=== PATIENT | female | born 1995 | race Caucasian/White ===

== ENCOUNTER 2020-06-28 15:48 | Emergency (ER) | payer MEDICAID, SELFPAY ==
[2020-06-28 15:49] VITALS: BP 147/110; PULSE 89; RESP 20; TEMP 36.6; O2SAT 100
[2020-06-28] MEDS: PROCHLORPERAZINE EDISYLATE 10 MG/2 ML VIAL IV PUSH (16:22)
[2020-06-28] MEDS: diphenhydrAMINE HCl INJ 50 MG/ML VIAL 25 MG IV PUSH (16:22)
[2020-06-28] MEDS: cloNIDine HCL 0.1 MG TABLET PO (16:22)
[2020-06-28 16:38] LABS: Basophils Absolute Auto 0.1 K/mm3 (0.0-0.1); Basophils Percent Auto 0.6 % (0.2-1.2); Eosinophils Percent Auto 0.2 % (0-4.4); Hematocrit 45.5 % (37.0-47.0); Hemoglobin 15.7 g/dL (12.0-15.0); Immature Granulocyte Absolute 0.04 K/mm3 (0.00-0.031); Immature Granulocyte Percent A 0.4 % (0-0.5); Lymphocytes Absolute Auto 1.78 K/mm3 (0.9-3.2); Lymphocytes Percent Auto 16.1 % (18.3-44.2); Mean Corpuscular HGB Conc 34.5 g/dl (32-36); Mean Corpuscular Hemoglobin 29.8 pg (26-34); Mean Corpuscular Volume 86.5 fl (80-100); Mean Platelet Volume 9.6 fl (7.4-10.4); Monocytes Absolute Auto 0.4 K/mm3 (0.1-0.6); Monocytes Percent Auto 3.8 % (2.6-8.5); Neutrophils Absolute Auto 8.8 K/mm3 (1.3-6.7); Neutrophils Percent Auto 78.9 % (45.5-73.1); Platelet Count Result 351 k/mm3 (150-375); Red Blood Count 5.26 M/mm3 (4.2-5.4); Red Cell Distribution Width 12.6 % (11.5-14.5); White Blood Count 11.1 K/mm3 (4.5-10.0)
[2020-06-28 16:49] LABS: Ethanol < 10 mg/dL (<10)
[2020-06-28 16:51] LABS: Alanine Aminotransferase 20 U/L (4-35); Alkaline Phosphatase 145 U/L (38-126); Anion Gap 15 mmol/L (8-16); Aspartate Amino Transferase 25 U/L (14-36); Bilirubin,Total 0.6 mg/dL (0.2-1.3); Blood Urea Nitrogen 13 mg/dL (7-17); Calcium 10.1 mg/dL (8.4-10.2); Carbon Dioxide 24 mmol/L (22-30); Chloride 102 mmol/L (98-107); Estimated Glomerular Filt Rate > 60; Glucose 153 mg/dL (65-105); Potassium 4.1 mmol/L (3.4-5.0); Sodium 141 mmol/L (137-145)
[2020-06-28] MEDS: HALOPERIDOL LACTATE 5 MG/ML VIAL IM (17:24)
[2020-06-28 17:39] LABS: Add Urine Microscopic? YES; Appearance Urine Cloudy (Clear); Bacteria Urine Trace /hpf; Bilirubin Urine Negative (Negative); Blood Urine Negative (Negative); Color Urine Yellow (Yellow); Glucose Urine UA Negative (Negative); Ketones Urine 1+ mg/dL (Negative); Leukocyte Esterase Ur Negative LEU/UL (Negative); Mucus Urine Rare /lpf; Nitrate Urine Negative (Negative); Protein Urine 2+ mg/dL (Negative); RBC Urine 0-2 /hpf (0-2); Specific Grav Ur 1.025 (1.001-1.035); Squamous Epithelial Cell Urine Occasional /hpf (Few); Urobilinogen Urine Negative mg/dL (<2.0); WBC Urine 0-3 /hpf
[2020-06-28] MEDS: SODIUM CHLORIDE 0.9% IV 1,000 ML 999 ML IV CONT (17:40)
[2020-06-28 17:42] VITALS: BP 140/90; PULSE 90; RESP 20; O2SAT 100
[2020-06-28 17:51] LABS: Amphetamine Screen Urine Negative (Negative); Barbiturate Screen Urine Negative (Negative); Benzodiazepines Screen Urine Negative (Negative); Cannabinoid Screen Urine Positive (Negative); Cocaine Screen Urine Negative (Negative); Methadone Screen Urine Negative (Negative); Opiate Screen Urine Positive (Negative); Phencyclidine Screen Urine Negative (Negative)
[2020-06-28 18:06] VITALS: BP 136/79; PULSE 88; RESP 20; O2SAT 100
--- NOTE | 2020-06-28 18:12 | ED.NAVMDI ---
HPI - Nausea/Vomiting/Diarrhea General Chief complaint: Nausea/Vomiting/Diarrhea Stated complaint: vomiting x1 hour Time Seen by Provider: 06/28/20 15:57 Source: patient Mode of arrival: EMS Limitations: no limitations History of Present Illness HPI Narrative: 25-year-old with a history of opioid abuse here with complaints of nausea vomiting abdominal pain since yesterday. Patient states that she used fentanyl this morning. She denies any fever or chills. Patient states she had gone through withdrawal in the past. MD elicited complaint: nausea, vomiting and abdominal pain Onset (ago): hour(s) (1) Location of pain: diffuse Pain consistency: constant Quality: cramping Context: marijuana use and other (Fentanyl IV abuse) Related Data Allergies Allergy/AdvReac Type Severity Reaction Status Date / Time amoxicillin Allergy Unknown Unknown Verified 06/28/20 15:54 Review of Systems Review of Systems: All systems reviewed & are unremarkable except as noted in HPI and below Constitutional: Constitutional: Reports no additional constitutional complaints Eyes: Eyes: Reports as per HPI ENT: Reports as per HPI Cardiovascular: Cardiovascular: Reports no additional cardiovascular complaints Respiratory: Respiratory: Reports no additional respiratory complaints Gastrointestinal: Gastrointestinal: Reports as per HPI Musculoskeletal: Musculoskeletal: Reports no additional musculoskeletal complaints Exam Narrative: Exam Narrative: GENERAL: well-nourished, screaming, and vomiting at the same time. HEAD: Normocephalic, atraumatic. EYES: PERRLA and EOMI. ENT: Nares clear, no rhinorrhea or epistaxis. Mucous membranes moist. NECK: Supple. CHEST: Clear to auscultation. No respiratory distress. HEART: Regular rate and rhythm. No murmur heard. Normal peripheral pulses. ABDOMEN: Soft, nontender, nondistended, normal active bowel sounds. EXTREMITIES: Normal range of motion. No edema. SKIN: Warm, dry, no rash. NEURO: No focal deficits. Alert and oriented x3. PSYCH: Normal mood and affect. Course Course Emergency Course: After liter of fluid and Compazine and Haldol patient finally rested. Discussed lab with the patient and the mother. She does feel comfortable going home. Vital Signs Vital signs: Vital Signs Temperature 36.6 C 06/28/20 15:49 Pulse Rate 89 06/28/20 15:49 Respiratory Rate 20 06/28/20 15:49 Blood Pressure 147/110 H 06/28/20 15:49 Pulse Oximetry 100 06/28/20 15:49 Temperature 36.6 C 06/28/20 15:49 Pulse Rate 88 06/28/20 18:06 Respiratory Rate 20 06/28/20 18:06 Blood Pressure 136/79 06/28/20 18:06 Pulse Oximetry 100 06/28/20 18:06 MDM - Nausea/Vomiting/Diarrhea Lab Data Result diagrams: 06/28/20 16:33 06/28/20 16:33 Labs: Lab Results 06/28/20 06/28/20 06/28/20 Range/Units 16:33 16:33 16:33 WBC 11.1 H (4.5-10.0) K/mm3 RBC 5.26 (4.2-5.4) M/mm3 Hgb 15.7 H (12.0-15.0) g/dL Hct 45.5 (37.0-47.0) % MCV 86.5 (80-100) fl MCH 29.8 (26-34) pg MCHC 34.5 (32-36) g/dl RDW 12.6 (11.5-14.5) % Plt Count 351 (150-375) k/mm3 MPV 9.6 (7.4-10.4) fl Immature Gran % (Auto) 0.4 (0-0.5) % Neut % (Auto) 78.9 H (45.5-73.1) % Lymph % (Auto) 16.1 L (18.3-44.2) % Winston % (Auto) 3.8 (2.6-8.5) % Eos % (Auto) 0.2 (0-4.4) % Baso % (Auto) 0.6 (0.2-1.2) % Lymph # (Auto) 1.78 (0.9-3.2) K/mm3 Winston # (Auto) 0.4 (0.1-0.6) K/mm3 Eos # (Auto) 0.0 (0-0.3) K/mm3 Baso # (Auto) 0.1 (0.0-0.1) K/mm3 Abs Immat Gran (auto) 0.04 H (0.00-0.031) K/mm3 Absolute Neuts (auto) 8.8 H (1.3-6.7) K/mm3 Absolute Nucleated RBC 0.0 (0.0-0.012) K/mm3 Nucleated RBC % 0.0 (0.0-0.2) % Sodium 141 (137-145) mmol/L Potassium 4.1 (3.4-5.0) mmol/L Chloride 102 (98-107) mmol/L Carbon Dioxide 24 (22-30) mmol/L Anion Gap 15 (8-16) mmol/L BUN 13 (7-17) mg/dL Cr
[2020-06-28 18:38] VITALS: BP 136/79; PULSE 88; RESP 20; O2SAT 100
--- NOTE | 2020-06-28 21:53 | PC.NURSE ---
CALLED GUILLAUME IN TO [facility] IN [place], [facility] NOT OPEN.
== END 2020-06-28 18:40 | disposition home or self-care (01) ==
PROVIDERS: Emergency Provider Family Medicine; PCP Pediatrics
DX: R11.2 Nausea with vomiting, unspecified (principal); F11.90 Opioid use, unspecified, uncomplicated
CPT/HCPCS: 36415; 51701; 80053; 80307; 81001; 85025; 96361; 96372; 96374; 96375; 99284; A9270; J0780; J1200; J1630; J7030

== ENCOUNTER 2020-06-29 19:46 | Observation (INO) | payer MEDICAID, SELFPAY ==
--- NOTE | ~2020-06-29 | CT_ITS ---
EXAMINATION: CT brain wo con EXAM DATE: 06/29/2020 21:41 INDICATION: Seizure. TECHNIQUE: Spiral CT of the head was performed without contrast. Axial, coronal and sagittal images were reviewed. The dose-length product (DLP) for this examination was 1210.67 mGy-cm. The exposure was tailored according to patient size, and iterative reconstruction (ASIR) was used as additional do se reduction technique. There is no prior study for comparison. FINDINGS: There is no acute intraparenchymal hemorrhage. No evidence of intraparenchymal brain mass lesion. No evidence of acute infarction. There is no mass effect or midline shift. The ventricles are normal in size. There are no extra-axial collections. There are no acute calvarial fractures. T he orbits are unremarkable. Soft tissue is unremarkable. Large right, moderate size left maxillary sinus mucous retention cysts. IMPRESSION: 1. No acute intracranial findings. Reviewed, dictated and finalized at location A.
--- NOTE | ~2020-06-29 | MR_ITS ---
EXAMINATION: MR brain/brain stem wo con EXAM DATE: 06/30/2020 16:05 INDICATION: Seizure. TECHNIQUE: Magnetic resonance imaging (MRI) of the brain/brain stem obtained without contrast. Sagitt al T1, axial diffusion, gradient echo (T2*), T1, T2, FLAIR sequences obtained. Seizure protocol was u tilized including high-resolution coronal images through the hippocampi. There is no prior study f or comparison. FINDINGS: The hippocampi are symmetric and are without signal abnormality identified. There are no g ray matter heterotopias identified or evidence of cortical dysplasia. There are no areas of restricted diffusion to suggest acute infarction. There is no acute hemorrhage seen on the T2*, a hemosiderin sensitive sequence. No intraparenchymal brain mass. The ventricles a re normal in size. There are no extra-axial collections. Flow voids are seen in the cerebral arteri es on the T2-weighted sequences consistent with their expected patency. The orbits are unremarkable. Soft tissue is unremarkable. IMPRESSION: Normal brain MRI examination. Reviewed, dictated and finalized at location A.
[2020-06-29 19:47] VITALS: BP 130/98; PULSE 103; RESP 22; TEMP 37.5; O2SAT 99
--- NOTE | 2020-06-29 19:59 | ECG_ITS ---
Measurements Intervals [place] Rate: 79 P: 55 DC: 125 QRS: 79 QRSD: 85 T: 61 QT: 366 QTc: 421 Interpretive Statements SINUS RHYTHM WITH SINUS ARRHYTHMIA MINIMAL Q WAVES- INFERIOR LEADS BORDERLINE ECG Electronically Signed On 06-30-2020 6:52:10 CDT by Evan King D.O.
--- NOTE | 2020-06-29 20:01 | ED.GENADULT ---
HPI - General Adult General Chief complaint: Seizure Stated complaint: seizures Time Seen by Provider: 06/29/20 19:49 Source: patient and EMS History of Present Illness HPI narrative: Patient is 25 y/o female brought in by EMS for jaw locking up . Patient states that she has been having intermittent episodes of jaw locking up since 3 hours ago. Her mother called EMS for this complaint. However, EMS noted that patient had shaking episodes, decreased responsiveness suggesting seizure. She was given Versed intranasal [employer]. Currently, patient is awake and alert. She states that she is trying to get off Fentanyl and she has no known history of seizure. Related Data Allergies Allergy/AdvReac Type Severity Reaction Status Date / Time amoxicillin Allergy Unknown Unknown Verified 06/28/20 15:54 Review of Systems Constitutional: Constitutional: Denies chills, Denies fever(s), Denies headache(s) and Denies weakness Eyes: Eyes: Denies blurry vision ENT: Denies headache(s) and Denies neck pain Cardiovascular: Cardiovascular: Denies chest pain and Denies dyspnea Respiratory: Respiratory: Denies cough and Denies dyspnea Gastrointestinal: Gastrointestinal: Denies abdominal pain, Denies diarrhea, Denies nausea and Denies vomiting Genitourinary: Genitourinary: Denies hematuria and Denies dysuria Musculoskeletal: Musculoskeletal: Denies back pain and Denies neck pain Neurologic: Denies headache(s), Reports seizure-like activity and Denies weakness Comments: jaw spasm Exam Const: General: no acute distress and well developed Orientation/consciousness: oriented to person, oriented to place, oriented to time and patient oriented x3 HENMT: Head: normocephalic Ears: external ears normal General nose exam: Normal external nose present Eyes: General: appearance normal, both eyes and all related structures Conjunctivae: conjunctivae normal Neck: Neck: normal visual inspection and full ROM Chest: Chest palpation & inspection: normal inspection of the chest and no tenderness Resp: Effort & Inspection: normal respiratory effort Auscultation: clear to auscultation bilaterally Cardio: Rate: regular rate Rhythm: regular rhythm GI: GI Palp: No abdominal tenderness and Yes Soft to palpation Skin: General skin exam: normal color and turgor normal Neuro: General: oriented to person, oriented to place, oriented to time and patient oriented x3 Cognition (Neuro): normal cognition Extrem: General: normal to inspection, full ROM and no pedal edema Psych: Appearance: grossly normal Mental Status: mental status grossly normal Affect: normal affect Course Reevaluation(s) Reevaluation #1: Patient had an episode of seizure like activity. Ativan is given. Date: 06/29/20 Time: 21:53 Consultations Consultation #1: Discussed with Dr. Ferguson, who agrees to admit. Date: 06/29/20 Time: 23:05 Consultation #2: Discussed with Dr. Barahona (neurology), who agrees to consult. Date: 06/29/20 Time: 23:17 Vital Signs Vital signs: Vital Signs Temperature 37.5 C 06/29/20 19:47 Pulse Rate 103 H 06/29/20 19:47 Respiratory Rate 22 H 06/29/20 19:47 Blood Pressure 130/98 H 06/29/20 19:47 Pulse Oximetry 99 06/29/20 19:47 Temperature 36.6 C 06/29/20 23:30 Pulse Rate 90 06/29/20 23:30 Respiratory Rate 16 06/29/20 23:30 Blood Pressure 123/78 06/29/20 23:30 Pulse Oximetry 100 06/29/20 23:30 Medical Decision Making Vital Signs Vital Signs: Vital Signs Temperature 37.5 C 06/29/20 19:47 Pulse Rate 103 H 06/29/20 19:47 Respiratory Rate 22 H 06/29/20 19:47 Blood Pressure 130/98 H 06/29/20 19:47 Pulse Oximetry 99 06/29/20 19:47 Temperature 36.6 C 06/29/20 23:30 Pulse Rate 90 06/29/20 23:30 Respiratory Rate 16 06/29/20 23:30 Blood Pressure 123/78 06/29/20 23:30 Pulse Oximetry 100 06/29/20 23:30 Lab Data Result diagrams: 06/29/20 21:17 06/29/20 21:17 Labs: Lab R
--- NOTE | 2020-06-29 20:08 | PC.NURSE ---
Phlebotomy called for pt.
[2020-06-29 21:23] LABS: Basophils Absolute Auto 0.1 K/mm3 (0.0-0.1); Basophils Percent Auto 0.4 % (0.2-1.2); Hematocrit 50.2 % (37.0-47.0); Hemoglobin 17.1 g/dL (12.0-15.0); Immature Granulocyte Absolute 0.05 K/mm3 (0.00-0.031); Immature Granulocyte Percent A 0.4 % (0-0.5); Lymphocytes Absolute Auto 1.75 K/mm3 (0.9-3.2); Lymphocytes Percent Auto 13.7 % (18.3-44.2); Mean Corpuscular HGB Conc 34.1 g/dl (32-36); Mean Corpuscular Hemoglobin 29.7 pg (26-34); Mean Corpuscular Volume 87.3 fl (80-100); Mean Platelet Volume 9.3 fl (7.4-10.4); Monocytes Absolute Auto 0.7 K/mm3 (0.1-0.6); Monocytes Percent Auto 5.7 % (2.6-8.5); Neutrophils Absolute Auto 10.2 K/mm3 (1.3-6.7); Neutrophils Percent Auto 79.8 % (45.5-73.1); Platelet Count Result 414 k/mm3 (150-375); Red Blood Count 5.75 M/mm3 (4.2-5.4); Red Cell Distribution Width 12.6 % (11.5-14.5); White Blood Count 12.7 K/mm3 (4.5-10.0)
[2020-06-29 21:34] LABS: Anion Gap 15 mmol/L (8-16); Blood Urea Nitrogen 11 mg/dL (7-17); Calcium 10.4 mg/dL (8.4-10.2); Carbon Dioxide 31 mmol/L (22-30); Chloride 99 mmol/L (98-107); Estimated CRCL calculation 96 ml/min; Estimated Glomerular Filt Rate > 60; Glucose 123 mg/dL (65-105); Potassium 3.8 mmol/L (3.4-5.0); Sodium 145 mmol/L (137-145)
[2020-06-29 21:44] LABS: Add Urine Microscopic? YES; Appearance Urine Clear (Clear); Bacteria Urine Trace /hpf; Bilirubin Urine Negative (Negative); Blood Urine Negative (Negative); Color Urine Yellow (Yellow); Glucose Urine UA Negative (Negative); Ketones Urine Negative (Negative); Leukocyte Esterase Ur Negative LEU/UL (Negative); Mucus Urine Rare /lpf; Nitrate Urine Negative (Negative); Protein Urine 2+ mg/dL (Negative); Specific Grav Ur 1.018 (1.001-1.035); Squamous Epithelial Cell Urine Few /hpf (Few); Urobilinogen Urine Negative mg/dL (<2.0)
[2020-06-29] MEDS: LORazepam INJ (*CRX) 2 MG/ML VIAL IM (21:45)
[2020-06-29 21:54] LABS: Amphetamine Screen Urine Negative (Negative); Barbiturate Screen Urine Negative (Negative); Benzodiazepines Screen Urine Positive (Negative); Cannabinoid Screen Urine Positive (Negative); Cocaine Screen Urine Negative (Negative); Methadone Screen Urine Negative (Negative); Opiate Screen Urine Positive (Negative); Phencyclidine Screen Urine Negative (Negative)
[2020-06-29 22:05] VITALS: O2SAT 100
[2020-06-29] MEDS: LORazepam INJ (*CRX) 2 MG/ML VIAL IV PUSH (22:05)
[2020-06-29] MEDS: levETIRAcetam 1000MG/NACL100ML 1,000 MG/100 ML BAG 400 MG IVPB (22:10)
[2020-06-29] MEDS: SODIUM CHLORIDE 0.9% IV 1,000 ML 999 ML IV CONT (22:10)
[2020-06-29 22:11] VITALS: BP 117/90; PULSE 93; RESP 15; O2SAT 100
[2020-06-29 22:23] LABS: Alveolar/Arterial O2 Gradient 40.9 mmHg; Base Excess ABG -3.2 mEq/l (+/-2.0); Device NASAL CANNULA; Fractional Inspired Oxygen 28 %; HCO3 ABG 19.9 mEq/l (22.0-26.0); Modified Allen's Test Pass; Oxygen Content ABG 21.1 %vol (16.0-22.0); Oxygen Saturation ABG 98.5 % (95.0-100.0); Oxyhemoglobin 95.7 % THb (90.0-100.0); PO2 ABG 122.2 mmHg (80.0-100.0); PO2 FiO2 Ratio Arterial Blood 4.36 %; Site Drawn RIGHT RADIAL; Total Hemoglobin 15.6 g/dL (12.0-18.0); pH ABG 7.426 (7.350-7.450)
[2020-06-29 23:25] LABS: Lactic Acid Reflex 1.8 mmol/L (0.7-2.1)
[2020-06-29 23:30] VITALS: BP 123/78; PULSE 90; RESP 16; TEMP 36.6; O2SAT 100
[2020-06-30] VITALS (11 sets, daily range): BP systolic 119–148; BP diastolic 66–98; PULSE 79–111; RESP 14–16; TEMP 36.6–37.3; O2SAT 98–100; BMI 33.3
--- NOTE | 2020-06-30 00:18 | PM.IMHP ---
H&P: HPI History of Present Illness Date/Time: 06/30/20 00:18 Chief complaint: seizure Narrative: This is a 25 year old female who has been addicted to Fentanyl for over the past year and just stopped using a few days ago presented today via EMS with a complaint of her jaw locking up for several hours. Apparently the patient was also nonresponsive during the episode. En route to the hospital the patient received intranasal Versed. In the ER tonight the patient has received several doses of Ativan. She was also loaded with Keppra IV in the ER tonight. The patient's mother who is at bedside remarks that the patient has been exhibiting withdrawal symptoms over the past two days since she stopped using Fentanyl. She has been diaphoretic, nauseated, vomiting, with abdominal discomfort for the past 2 days. She was seen in the ER for similar symptoms and sent home with Kellen. She admits to me that she had a seizure when she was younger but hasn't had one again until today. Routine labs were obtained in the ER and were virtually unremarkable. On my encounter with the patient kimberley she has no current symptoms. No other complaints. Review of Systems Review of Systems: All systems reviewed & are unremarkable except as noted in HPI and below PMFSH Past Medical History Medical History (Updated 06/30/20 @ 04:05 by Mitul Ferguson MD) Opioid abuse Surgical History Surgical History (Updated 06/30/20 @ 04:03 by Mitul Ferguson MD) History of appendectomy Family History Family History Mother Acute myocardial infarction Rheumatoid arthritis Unknown Diabetes mellitus Social History Social History Smoking packs per day: 1 Smoking cigarettes per day: 20.0 Years smoked: 12 Smoking pack-years: 12.00 Smoking status: Current every day smoker Tobacco type: cigarettes and e-cigarettes/vaping Second hand tobacco smoke exposure: Yes Alcohol intake: never Substance use: current Other substance usage details: fentanyl Last use: 06/27/20 Gender identity (if verbalized by the patient): Female Spiritual care concerns: No Meds Home Medications and Allergies Home Medications Medication Instructions Recorded Confirmed Type dextroamphetamine-amphetamine 20 mg PO DAILY 06/30/20 06/30/20 History Allergies Allergy/AdvReac Type Severity Reaction Status Date / Time amoxicillin Allergy Unknown Unknown Verified 06/28/20 15:54 Vital Signs Vital Signs - 24 hr 06/29/20 19:47 06/29/20 22:05 06/29/20 22:11 Temperature 37.5 C Pulse Rate 103 H 93 Respiratory Rate 22 H 15 Blood Pressure 130/98 H 117/90 Pulse Oximetry 99 100 100 06/29/20 23:30 Temperature 36.6 C Pulse Rate 90 Respiratory Rate 16 Blood Pressure 123/78 Pulse Oximetry 100 Exam Const: General: cooperative, no acute distress, alert and awake Nutritional Appearance: well nourished Orientation/consciousness: patient oriented x3 HENMT: Head: normal to inspection General nose exam: Normal external nose present Face and sinus: normal facial exam Mouth: Yes Normal oral and palatal mucosa present and Yes oropharynx normal Eyes: Pupils: Equal, round and reactive pupils present EOM: EOMs intact bilaterally Neck: Neck: supple and no JVD Thyroid: thyroid normal Lymphatic: lymphadenopathy not noted Resp: Effort & Inspection: normal respiratory effort Auscultation: clear to auscultation bilaterally Cardio: Rate: regular rate Rhythm: regular rhythm Heart sounds: no murmurs GI: Inspection: normal to inspection Auscultation: normal bowel sounds Skin: General skin exam: normal color and no rashes or lesions noted Neuro: General: patient oriented x3 Cranial nerves: Yes CN's II-XII intact bilaterally and Yes Equal, round and reactive pupils present Speech: normal speech Motor exam (neuro): 5/5 motor strength pre
--- NOTE | 2020-06-30 00:20 | ADMGEN ---
This patient, Lucero Santizo, was admitted to Medical Room 341-01. Patient/family oriented to hospital policies and general routines including ID bracelet, bed and alarms, visiting hours, pain management, procedures, bathroom and other care routines, personal items, smoking policy, room service/diet, and visiting hours. Valuables list has been completed. Information on how to activate the Rapid Response Team has been discussed. Patient/Family are encouraged to report perceived risks to care and to ask questions if they do not understand what they are told or what they should do.
[2020-06-30] MEDS: SODIUM CHLORIDE 0.9% IV 1,000 ML 100 ML IV CONT ×2 (00:33→21:49)
[2020-06-30 06:14] LABS: Basophils Absolute Auto 0.1 K/mm3 (0.0-0.1); Basophils Percent Auto 0.6 % (0.2-1.2); Eosinophils Percent Auto 0.1 % (0-4.4); Hematocrit 41.6 % (37.0-47.0); Hemoglobin 13.8 g/dL (12.0-15.0); Immature Granulocyte Absolute 0.07 K/mm3 (0.00-0.031); Immature Granulocyte Percent A 0.4 % (0-0.5); Lymphocytes Absolute Auto 3.32 K/mm3 (0.9-3.2); Lymphocytes Percent Auto 21.2 % (18.3-44.2); Mean Corpuscular HGB Conc 33.2 g/dl (32-36); Mean Corpuscular Hemoglobin 28.9 pg (26-34); Mean Platelet Volume 9.3 fl (7.4-10.4); Monocytes Absolute Auto 1.4 K/mm3 (0.1-0.6); Monocytes Percent Auto 8.9 % (2.6-8.5); Neutrophils Absolute Auto 10.8 K/mm3 (1.3-6.7); Neutrophils Percent Auto 68.8 % (45.5-73.1); Platelet Count Result 385 k/mm3 (150-375); Red Blood Count 4.78 M/mm3 (4.2-5.4); Red Cell Distribution Width 12.3 % (11.5-14.5); White Blood Count 15.6 K/mm3 (4.5-10.0)
[2020-06-30 06:30] LABS: Anion Gap 9 mmol/L (8-16); Blood Urea Nitrogen 12 mg/dL (7-17); Calcium 9.3 mg/dL (8.4-10.2); Carbon Dioxide 26 mmol/L (22-30); Chloride 105 mmol/L (98-107); Estimated CRCL calculation 111 ml/min; Estimated Glomerular Filt Rate > 60; Glucose 110 mg/dL (65-105); Magnesium 2.1 mg/dL (1.6-2.3); Potassium 3.7 mmol/L (3.4-5.0); Sodium 140 mmol/L (137-145)
--- NOTE | 2020-06-30 08:26 | PM.IMPN ---
Progress Note: A&P Assessment and Plan (1) Tobacco dependence: Code(s): F17.200 - Nicotine dependence, unspecified, uncomplicated Status: Chronic Assessment and Plan: Nicotine patch as needed. (2) Unresponsive episode: Code(s): R41.89 - Other symptoms and signs involving cognitive functions and awareness Status: Acute Assessment and Plan: Likely secondary to drug withdrawal however Utox positive for Cannabinoid. CT head unremarkable. (3) Opioid abuse: Code(s): F11.10 - Opioid abuse, uncomplicated Status: Acute Assessment and Plan: Had stopped Fentanyl. (4) Seizure: Code(s): R56.9 - Unspecified convulsions Status: Acute Assessment and Plan: Likely secondary to Opiate withdrawal. Appreciate Neurology note. (5) Opioid abuse with withdrawal: Code(s): F11.13 - Opioid abuse with withdrawal Status: Acute Assessment and Plan: Continue Ativan prn Subjective Date/time seen: 06/30/20 08:26 Feeling much better from last night. Review of Systems Review of Systems: Narrative: Patient had stopped Fentanyl a few days before and presented to ED with a lock jaw. Constitutional: Comments: no fevers, no rigors, no chills. ENT: Comments: no visual changes, no nasal discharge, no throat pain. Cardiovascular: Comments: no chest pain, no palpitations, no sob, no leg swelling. Respiratory: Comments: No cough, no sputum production. Gastrointestinal: Comments: no n/v/abdominal pain/diarrhea. Musculoskeletal: Comments: Lock jaw Integumentary/Breasts: Comments: no rashes, no discharge. Neurologic: Reports seizure-like activity Hematologic/Lymphatic: Comments: No LAP Exam Narrative: Exam Narrative: Lying in bed, comfortable. Const: General: cooperative, healthy appearing, comfortable, no acute distress, well developed, alert, awake and Physically active Nutritional Appearance: average body habitus HENMT: Head: normal to inspection and normocephalic Ears: hearing grossly normal bilaterally General nose exam: Normal external nose present Face and sinus: normal facial exam Mouth: Yes Normal oral and palatal mucosa present Eyes: General: appearance normal, both eyes and all related structures Pupils: Equal, round and reactive pupils present EOM: EOMs intact bilaterally Neck: Neck: no lymphadenopathy and no JVD Resp: Auscultation: clear to auscultation bilaterally Cardio: Jugular venous distension: no JVD Heart sounds: S1 normal heart sound present and S2 normal heart sound present GI: Inspection: normal to inspection GI Palp: Yes Soft to palpation and Yes No hepatosplenomegaly present Auscultation: normal bowel sounds Skin: General skin exam: normal color Lesions: no lesions Rashes: no rashes Wounds: no wounds Hair: normal Neuro: General: oriented to person, oriented to place and oriented to time Cranial nerves: Yes CN's II-XII intact bilaterally and Yes Equal, round and reactive pupils present Motor exam (neuro): 5/5 motor strength present throughout Sensory Exam: normal sensation Extrem: General: normal to inspection, full ROM, capillary refill normal and no clubbing, cyanosis or edema Objective Data Vital Signs Vital Signs: Vital Signs - 24 hr 06/29/20 19:47 06/29/20 22:05 06/29/20 22:11 Temperature 99.5 F Pulse Rate 103 H 93 Respiratory Rate 22 H 15 Blood Pressure 130/98 H 117/90 Pulse Oximetry 99 100 100 06/29/20 23:30 06/30/20 00:30 06/30/20 00:47 Temperature 97.8 F 98.2 F Pulse Rate 90 89 95 Respiratory Rate 16 14 Blood Pressure 123/78 119/66 Pulse Oximetry 100 100 06/30/20 04:00 06/30/20 05:19 06/30/20 05:23 Temperature 97.9 F Pulse Rate 92 111 H Respiratory Rate 16 Blood Pressure 130/69 130/69 Pulse Oximetry 98 06/30/20 08:00 Temperature Pulse Rate 94 Respiratory Rate Blood Pressure Pulse Oximetry Intake/Output Intake/Output: Intake & Output 10
--- NOTE | 2020-06-30 10:57 | WPDNEURCNPN ---
Assessment and Plan Assessment and plan (1) Tobacco dependence: Code(s): F17.200 - Nicotine dependence, unspecified, uncomplicated Status: Chronic (2) Unresponsive episode: Code(s): R41.89 - Other symptoms and signs involving cognitive functions and awareness Status: Acute (3) Opioid abuse: Code(s): F11.10 - Opioid abuse, uncomplicated Status: Acute (4) Seizure: Code(s): R56.9 - Unspecified convulsions Status: Acute (5) Opioid abuse with withdrawal: Code(s): F11.13 - Opioid abuse with withdrawal Status: Acute Additional Plan drug withdrawal seizure Consult date: 06/30/20 Time Seen: 10:30 HPI: Lucero Santizo is a 25 year old femaleAdmitted to the hospital with the complaints of jaw locking up for several hours during the same jaw locking up episode. While coming to the hospital she was given intranasal Versed. In the emergency room she was given several doses of Ativan. And was also loaded with Keppra intravenously patient had been at dictated to fentanyl and had stopped taking it mother who was at the bedside reported that she had been going to the withdrawal symptoms there is being diaphoretic nauseated complaining of abdominal discomfort over the last 48 hours. Her past history is consistent with the opioid abuse, appendectomy is smoking 1 pack of cigarettes per day for the last 12 years and substance abuse Review of Systems Review of Systems: All systems reviewed & are unremarkable except as noted in HPI and below PMFSH Past Medical History Medical History (Updated 06/30/20 @ 04:05 by Mitul Ferguson MD) Opioid abuse Surgical History Surgical History (Updated 06/30/20 @ 04:03 by Mitul Ferguson MD) History of appendectomy Family History Family History Mother Acute myocardial infarction Rheumatoid arthritis Unknown Diabetes mellitus Social History Social History Smoking packs per day: 1 Smoking cigarettes per day: 20.0 Years smoked: 12 Smoking pack-years: 12.00 Smoking status: Current every day smoker Tobacco type: cigarettes and e-cigarettes/vaping Second hand tobacco smoke exposure: Yes Alcohol intake: never Substance use: current Other substance usage details: fentanyl Last use: 06/27/20 Gender identity (if verbalized by the patient): Female Spiritual care concerns: No Meds Home Medications and Allergies Home Medications Medication Instructions Recorded Confirmed Type dextroamphetamine-amphetamine 20 mg PO DAILY 06/30/20 06/30/20 History Allergies Allergy/AdvReac Type Severity Reaction Status Date / Time amoxicillin Allergy Unknown Unknown Verified 06/28/20 15:54 Vital Signs Vital Signs - 24 hr 06/29/20 19:47 06/29/20 22:05 06/29/20 22:11 Temperature 37.5 C Pulse Rate 103 H 93 Respiratory Rate 22 H 15 Blood Pressure 130/98 H 117/90 Pulse Oximetry 99 100 100 06/29/20 23:30 06/30/20 00:30 06/30/20 00:47 Temperature 36.6 C 36.8 C Pulse Rate 90 89 95 Respiratory Rate 16 14 Blood Pressure 123/78 119/66 Pulse Oximetry 100 100 06/30/20 04:00 06/30/20 05:19 06/30/20 05:23 Temperature 36.6 C Pulse Rate 92 111 H Respiratory Rate 16 Blood Pressure 130/69 130/69 Pulse Oximetry 98 06/30/20 08:00 Temperature Pulse Rate 94 Respiratory Rate Blood Pressure Pulse Oximetry Exam Narrative: Exam Narrative: examination today revealed her to be awake alert cooperative in no obvious acute distress. Head normocephalic with no cranial bruit ear nose throat examination normal. Neck is supple with no restricted range of motion no cervical bruit no thyromegaly no lymphadenopathy. Heart regular with no murmur. Lungs clear to auscultation with no rhonchi or crepitation. Abdomen is soft with no organomegaly. Neurological examination revealed her to be a
[2020-06-30] MEDS: ONDANSETRON INJ 4 MG/2 ML VIAL IV PUSH (15:07)
[2020-07-01] VITALS: BP 144/87; PULSE 85; RESP 16; TEMP 37.6; O2SAT 99
[2020-07-01] MEDS: LORazepam INJ (*CRX) 2 MG/ML VIAL 1 MG IV PUSH (03:08)
[2020-07-01 03:54] VITALS: BP 149/93; PULSE 79; RESP 16; TEMP 37.2; O2SAT 100
[2020-07-01 04:00] VITALS: PULSE 79
[2020-07-01] MEDS: SODIUM CHLORIDE 0.9% IV 1,000 ML 100 ML IV CONT (07:53)
[2020-07-01 07:56] VITALS: BP 148/92; PULSE 105; RESP 16; TEMP 37.3; O2SAT 98
[2020-07-01 08:00] VITALS: PULSE 91
[2020-07-01] MEDS: rOPINIRole HCL 1 MG TABLET PO (10:40)
--- NOTE | 2020-07-01 11:22 | WPDNEUROLOGY ---
Neurology EEG Report General Information Date of Study: 07/01/20 TEST eeg DIAGNOSIS seizures CONDITION OF RECORDING awake drowsy and sleep EEG NUMBER [id number] CLINICAL HISTORY patient has history of drug use and is on day 3 drug free had a seizure yesterday EEG DESCRIPTION basic resting occipital frequency consists of large amount of low to medium voltage 9 to 11 hertz per 2nd alpha admixed with low-voltage 15 to 18 hertz per 2nd beta. During drowsiness low-voltage beta activity seen diffusely admixed with waxing and waning posterior alpha rhythm. Bilateral symmetrical sleep activity seen during sleep hyperventilation not done photic stimulation not done non paroxysmal. Nonfocal. Nonlateralizing. IMPRESSION No significant abnormalities noted sign Dr. Ebenezer whaley thank
[2020-07-01 12:00] VITALS: BP 119/99; PULSE 101; RESP 16; TEMP 36.9; O2SAT 96
[2020-07-03 06:59] LABS: Prolactin 7.9 ng/mL (***)
--- NOTE | 2020-07-03 07:24 | PM.DS ---
DS: Admitting Diagnosis Admitting Diagnosis Admitting Diagnosis: seizure Opiate dependence Lock jaw Muscle cramps Abdominal pain/Diarrhea DS: Discharge Diagnosis Discharge Diagnosis (1) Tobacco dependence: Code(s): F17.200 - Nicotine dependence, unspecified, uncomplicated Status: Chronic Assessment and Plan: Patient has decided to quit. (2) Unresponsive episode: Code(s): R41.89 - Other symptoms and signs involving cognitive functions and awareness Status: Acute Assessment and Plan: This is a 25 yo female that was using Fentanyl that she bought in the streets and decided to quit presented to ED with a lock jaw and a seizure however non post ictal. Patient was admitted and placed on seizures precautions. Neurology was consulted and it was felt that patient had a seizure withdrawal from opiate withdrawal. Patient also with some abdominal pain and diarrhea and leg cramps as well. Work up was essentially unrevealing. (3) Opioid abuse: Code(s): F11.10 - Opioid abuse, uncomplicated Status: Acute Assessment and Plan: Patient states that she is quiting for good. (4) Seizure: Code(s): R56.9 - Unspecified convulsions Status: Acute Assessment and Plan: Seizure free thru her hospital stay. (5) Opioid abuse with withdrawal: Code(s): F11.13 - Opioid abuse with withdrawal Status: Acute Assessment and Plan: Resolved. DS: Summary Time Spent with Patient Time attestation: Total time spent providing and/or coordinating discharge services:+45 minutes Exam Narrative: Exam Narrative: Lying in bed. Const: General: cooperative, healthy appearing, comfortable, no acute distress and tired appearing Nutritional Appearance: average body habitus Orientation/consciousness: patient oriented x3 and Other orientation findings (sleepy.) HENMT: Head: normal to inspection and normocephalic Ears: hearing grossly normal bilaterally General nose exam: Normal external nose present Face and sinus: normal facial exam Mouth: Yes Normal oral and palatal mucosa present Eyes: General: appearance normal, both eyes and all related structures Pupils: Equal, round and reactive pupils present EOM: EOMs intact bilaterally Neck: Neck: normal visual inspection, full ROM, no lymphadenopathy, supple and no JVD Resp: Effort & Inspection: normal respiratory effort Auscultation: clear to auscultation bilaterally Cardio: Jugular venous distension: no JVD Rate: regular rate Rhythm: regular rhythm Heart sounds: S1 normal heart sound present and S2 normal heart sound present Peripheral pulses: Peripheral pulses 2+ throughout GI: Inspection: normal to inspection GI Palp: Yes Soft to palpation and Yes No hepatosplenomegaly present Auscultation: normal bowel sounds Skin: General skin exam: normal color Lesions: no lesions Rashes: no rashes Wounds: no wounds Neuro: General: patient oriented x3 and CN's II-XI intact bilaterally Cranial nerves: Yes CN's II-XII intact bilaterally and Yes Equal, round and reactive pupils present Speech: normal speech Motor exam (neuro): 5/5 motor strength present throughout Sensory Exam: normal sensation Extrem: General: normal to inspection, full ROM and no pedal edema Psych: Appearance: grossly normal and well kempt Mental Status: mental status grossly normal Speech and movement: Normal speech and movement present Affect: normal affect Attitude: cooperative Thought process: Normal thought process present Thought content: Yes Normal thought content present Insight: Good insight present (Psych) Judgement: Good judgement present (Psych) DS: Data Data Completed and Pending Labs on day of discharge: Labs from last 24 hours 06/29/20 21:16 Prolactin 7.9 Discharge Plan Discharge Attending physician on discharge: kristie Consulting providers: Wallace Barahoan ; Judith Lomas V. ; Braulio Martin ; Evan King Discharging
== END 2020-07-01 13:10 | disposition home or self-care (01) ==
LOC: ANHED 23:49 → ANH3MED 06-30 00:53
PROVIDERS: Admitting Provider Family Medicine; Emergency Provider Emergency Medicine; PCP Pediatrics; Visit Provider Internal Medicine
DX: F11.23 Opioid dependence with withdrawal (principal); R56.9 Unspecified convulsions; F17.210 Nicotine dependence, cigarettes, uncomplicated; F17.290 Nicotine dependence, other tobacco product, uncomplicated; R41.89 Other symptoms and signs involving cognitive functions and awareness
CPT/HCPCS: 36415; 36600; 70450; 70551; 80048; 80307; 81001; 81025; 82805; 83605; 83735; 84146; 85025; 93005; 95816; 96361; 96365; 96372; 96374; 96375; 99285; A9270; C1751; G0378; G0379; J1953; J2060; J2405; J7030

== ENCOUNTER 2020-11-29 23:51 | Emergency (ER) | payer MEDICAID, SELFPAY ==
--- NOTE | ~2020-11-29 | CT_ITS ---
EXAMINATION: CT abdomen pelvis w con DATE: 11/30/2020 01:49 INDICATION: Abdominal pain. TECHNIQUE: Computed tomography (CT) of the abdomen and pelvis was performed with 100 mL Omnipaque 350 intravenous contrast. Automated exposure control and iterative reconstruction technique were employe d. The dose-length product was 588.52 mGy-cm. COMPARISON: CT abdomen and pelvis 07/12/2019 FINDINGS: The visualized portions of the lung bases demonstrate minimal atelectasis on the right. No pleural effusion. The heart size is normal. No pericardial effusion. There is a small sliding hiatal hernia. The liver and spine are normal. There are changes of cholecystectomy. The pancreas, adrenal g lands, and kidneys are normal. There are no dilated loops of bowel. The appendix is normal. There are no pathologically enlarged lymph nodes. There is no free intraperitoneal fluid. There is mild lumbar spondylosis. IMPRESSION: 1. Small sliding hiatal hernia. Reviewed, dictated and finalized at location A.
[2020-11-29 23:51] VITALS: PULSE 62; RESP 19; O2SAT 100
--- NOTE | 2020-11-30 00:23 | ED.GENADULT ---
HPI - General Adult General Chief complaint: Nausea/Vomiting/Diarrhea Stated complaint: n/v Time Seen by Provider: 11/29/20 23:56 History of Present Illness HPI narrative: Patient is a 25-year-old female who presents the emergency department chief complaint of nausea and vomiting. Patient reports this evening she started having severe episodes of nausea and vomiting has had multiple episodes patient reports that she feels dehydrated reports that she has smokes marijuana denies any new medications denies any food that was pulled denies fever or chills denies localizing abdominal pain. Related Data Home Medications Medication Instructions Recorded Confirmed dextroamphetamine-amphetamine 20 mg PO DAILY 06/30/20 06/30/20 Allergies Allergy/AdvReac Type Severity Reaction Status Date / Time amoxicillin Allergy Unknown Unknown Verified 06/28/20 15:54 Review of Systems Review of Systems: Narrative: A 10 system review of systems was completed on the patient and is negative except for what is stated in the HPI. Nursing and ancillary documentation was reviewed. PMFSH Past Medical History Medical History Opioid abuse Surgical History Surgical History History of appendectomy Family History Family History Mother Acute myocardial infarction Rheumatoid arthritis Unknown Diabetes mellitus Social History Social History Smoking packs per day: 1 Smoking cigarettes per day: 20.0 Years smoked: 12 Smoking pack-years: 12.00 Smoking status: Current every day smoker Tobacco type: cigarettes and e-cigarettes/vaping Second hand tobacco smoke exposure: Yes Alcohol intake: never Substance use: current Other substance usage details: fentanyl Last use: 06/27/20 Gender identity (if verbalized by the patient): Female Spiritual care concerns: No Exam Narrative: Exam Narrative: GENERAL: Well-appearing, well-nourished, and in no acute distress. HEAD: Normocephalic, atraumatic. EYES: PERRLA and EOMI. ENT: Nares clear, no rhinorrhea or epistaxis. Mucous membranes moist. NECK: Supple. CHEST: Clear to auscultation. No respiratory distress. HEART: Regular rate and rhythm. No murmur heard. Normal peripheral pulses. ABDOMEN: Soft, nontender, nondistended, normal active bowel sounds. EXTREMITIES: Normal range of motion. No edema. SKIN: Warm, dry, no rash. NEURO: No focal deficits. Alert and oriented x3. PSYCH: Normal mood and affect. Course Vital Signs Vital signs: Vital Signs Pulse Rate 62 11/29/20 23:51 Respiratory Rate 19 11/29/20 23:51 Pulse Oximetry 100 11/29/20 23:51 Pulse Rate 100 11/30/20 01:36 Respiratory Rate 11/30/20 01:36 Blood Pressure 123/87 11/30/20 01:36 Pulse Oximetry 97 11/30/20 01:36 Medical Decision Making Vital Signs Vital Signs: Vital Signs Pulse Rate 62 11/29/20 23:51 Respiratory Rate 19 11/29/20 23:51 Pulse Oximetry 100 11/29/20 23:51 Pulse Rate 100 11/30/20 01:36 Respiratory Rate 11/30/20 01:36 Blood Pressure 123/87 11/30/20 01:36 Pulse Oximetry 97 11/30/20 01:36 Lab Data Result diagrams: 11/30/20 00:49 11/30/20 00:49 Labs: Lab Results 11/30/20 11/30/20 11/30/20 Range/Units 00:49 00:49 01:14 WBC 17.9 H (4.5-10.0) K/mm3 RBC 5.80 H (4.2-5.4) M/mm3 Hgb 17.3 H D (12.0-15.0) g/dL Hct 50.8 H (37.0-47.0) % MCV 87.6 (80-100) fl MCH 29.8 (26-34) pg MCHC 34.1 (32-36) g/dl RDW 12.9 (11.5-14.5) % Plt Count 354 (150-375) k/mm3 MPV 9.9 (7.4-10.4) fl Immature Gran % (Auto) 0.3 (0-0.5) % Neut % (Auto) 85.5 H (45.5-73.1) % Lymph % (Auto) 11.1 L (18.3-44.2) % Blanco % (Aut
[2020-11-30] MEDS: PROCHLORPERAZINE EDISYLATE 10 MG/2 ML VIAL IV PUSH (00:30)
[2020-11-30] MEDS: CAPSAICIN 0.025% CREAM 60 GM TUBE 1 APPLIC TOPICAL (00:31)
[2020-11-30] MEDS: SODIUM CHLORIDE 0.9% IV 2,000 ML 999 ML IV CONT (00:32)
[2020-11-30 00:59] LABS: Basophils Absolute Auto 0.1 K/mm3 (0.0-0.1); Basophils Percent Auto 0.4 % (0.2-1.2); Eosinophils Percent Auto 0.1 % (0-4.4); Hematocrit 50.8 % (37.0-47.0); Hemoglobin 17.3 g/dL (12.0-15.0); Immature Granulocyte Absolute 0.06 K/mm3 (0.00-0.031); Immature Granulocyte Percent A 0.3 % (0-0.5); Lymphocytes Absolute Auto 1.99 K/mm3 (0.9-3.2); Lymphocytes Percent Auto 11.1 % (18.3-44.2); Mean Corpuscular HGB Conc 34.1 g/dl (32-36); Mean Corpuscular Hemoglobin 29.8 pg (26-34); Mean Corpuscular Volume 87.6 fl (80-100); Mean Platelet Volume 9.9 fl (7.4-10.4); Monocytes Absolute Auto 0.5 K/mm3 (0.1-0.6); Monocytes Percent Auto 2.6 % (2.6-8.5); Neutrophils Absolute Auto 15.3 K/mm3 (1.3-6.7); Neutrophils Percent Auto 85.5 % (45.5-73.1); Platelet Count Result 354 k/mm3 (150-375); Red Cell Distribution Width 12.9 % (11.5-14.5); White Blood Count 17.9 K/mm3 (4.5-10.0)
[2020-11-30 01:06] LABS: Alanine Aminotransferase 19 U/L (4-35); Alkaline Phosphatase 112 U/L (38-126); Anion Gap 10 mmol/L (8-16); Aspartate Amino Transferase 29 U/L (14-36); Bilirubin,Total 0.7 mg/dL (0.2-1.3); Blood Urea Nitrogen 7 mg/dL (7-17); Calcium 9.3 mg/dL (8.4-10.2); Carbon Dioxide 24 mmol/L (22-30); Chloride 103 mmol/L (98-107); Estimated CRCL calculation 115 ml/min; Estimated Glomerular Filt Rate > 60; Glucose 152 mg/dL (65-105); Lipase 66 U/L (23-300); Potassium 3.9 mmol/L (3.4-5.0); Sodium 137 mmol/L (137-145)
[2020-11-30 01:26] LABS: Add Urine Microscopic? YES; Appearance Urine Cloudy (Clear); Bacteria Urine Trace /hpf; Bilirubin Urine Negative (Negative); Blood Urine Negative (Negative); Glucose Urine UA Negative (Negative); Ketones Urine 2+ mg/dL (Negative); Leukocyte Esterase Ur 1+ LEU/UL (Negative); Mucus Urine Rare /lpf; Nitrate Urine Negative (Negative); Protein Urine 1+ mg/dL (Negative); Specific Grav Ur 1.014 (1.001-1.035); Squamous Epithelial Cell Urine Many /hpf (Few); Urobilinogen Urine Negative mg/dL (<2.0)
[2020-11-30 01:27] LABS: Color Urine Yellow (Yellow)
[2020-11-30 01:36] VITALS: BP 123/87; PULSE 100; RESP 19; O2SAT 97
--- NOTE | 2020-11-30 01:37 | PC.NURSE ---
Pt. called out stating her stomach was burning. ERP notified. RN removed savv. ERP gave pt. some milk to rub on abdomen as well.
[2020-11-30] MEDS: DICYCLOMINE HCL INJ 20 MG/2 ML VIAL IM (02:52)
[2020-11-30] MEDS: HALOPERIDOL LACTATE 5 MG/ML VIAL 2.5 MG IV PUSH (02:53)
[2020-11-30 04:00] VITALS: BP 127/74; PULSE 78; RESP 14; O2SAT 97
== END 2020-11-30 04:00 | disposition home or self-care (01) ==
PROVIDERS: Emergency Provider Emergency Medicine; PCP Emergency Medicine
DX: K52.9 Noninfective gastroenteritis and colitis, unspecified (principal); N39.0 Urinary tract infection, site not specified; F17.210 Nicotine dependence, cigarettes, uncomplicated
CPT/HCPCS: 36415; 74177; 80053; 81001; 81025; 83690; 85025; 87086; 87088; 96361; 96372; 96374; 96375; 99284; A9270; J0500; J0780; J1630; J7030; Q9967

== ENCOUNTER 2021-01-19 20:54 | Emergency (ER) | payer BC, SELFPAY ==
[2021-01-19 20:53] VITALS: BP 162/122; PULSE 68; RESP 22; TEMP 37.3; O2SAT 100
[2021-01-19 21:36] LABS: Basophils Absolute Auto 0.1 K/mm3 (0.0-0.1); Basophils Percent Auto 0.5 % (0.2-1.2); Eosinophils Absolute Auto 0.1 K/mm3 (0-0.3); Eosinophils Percent Auto 0.7 % (0-4.4); Hematocrit 48.6 % (37.0-47.0); Hemoglobin 16.6 g/dL (12.0-15.0); Immature Granulocyte Absolute 0.05 K/mm3 (0.00-0.031); Immature Granulocyte Percent A 0.4 % (0-0.5); Lymphocytes Absolute Auto 2.92 K/mm3 (0.9-3.2); Lymphocytes Percent Auto 22.7 % (18.3-44.2); Mean Corpuscular HGB Conc 34.2 g/dl (32-36); Mean Corpuscular Hemoglobin 30.3 pg (26-34); Mean Corpuscular Volume 88.7 fl (80-100); Mean Platelet Volume 9.8 fl (7.4-10.4); Monocytes Absolute Auto 0.6 K/mm3 (0.1-0.6); Monocytes Percent Auto 4.9 % (2.6-8.5); Neutrophils Absolute Auto 9.1 K/mm3 (1.3-6.7); Neutrophils Percent Auto 70.8 % (45.5-73.1); Platelet Count Result 390 k/mm3 (150-375); Red Blood Count 5.48 M/mm3 (4.2-5.4); Red Cell Distribution Width 13.2 % (11.5-14.5); White Blood Count 12.8 K/mm3 (4.5-10.0)
[2021-01-19 21:42] VITALS: BP 136/110; PULSE 68; RESP 18; TEMP 37.3; O2SAT 99
--- NOTE | 2021-01-19 21:43 | PC.NURSE ---
Pt refused to urinate or obtain orthostats until she gets medication. updated ERP
[2021-01-19 21:45] LABS: Alanine Aminotransferase 19 U/L (4-35); Albumin Level 5.2 g/dL (3.5-5.1); Alkaline Phosphatase 111 U/L (38-126); Anion Gap 11 mmol/L (8-16); Aspartate Amino Transferase 28 U/L (14-36); Bilirubin,Total 0.5 mg/dL (0.2-1.3); Blood Urea Nitrogen 9 mg/dL (7-17); Calcium 10.5 mg/dL (8.4-10.2); Carbon Dioxide 25 mmol/L (22-30); Chloride 101 mmol/L (98-107); Estimated CRCL calculation 105 ml/min; Estimated Glomerular Filt Rate > 60; Glucose 138 mg/dL (65-105); Lipase 75 U/L (23-300); Potassium 3.7 mmol/L (3.4-5.0); Sodium 137 mmol/L (137-145)
--- NOTE | 2021-01-19 21:50 | ED.GENADULT ---
HPI - General Adult General Chief complaint: Nausea/Vomiting/Diarrhea Stated complaint: vomiting x 1 hour Time Seen by Provider: 01/19/21 21:28 Source: patient History of Present Illness HPI narrative: Patient is a 26 y/o female complaining of lower abdominal pain starting 2 hours ago. She describes her pain as sharp and rates it as 7/10. There is no pain radiation. There is no known alleviating or exacerbating factor. She has some nausea and vomiting, but no diarrhea. Related Data Allergies Allergy/AdvReac Type Severity Reaction Status Date / Time amoxicillin Allergy Unknown Unknown Verified 01/24/21 21:53 capsaicin Allergy Rash Verified 01/24/21 17:51 Review of Systems Constitutional: Constitutional: Denies chills, Denies fever(s), Denies headache(s) and Denies weakness Eyes: Eyes: Denies blurry vision ENT: Denies headache(s) and Denies neck pain Cardiovascular: Cardiovascular: Denies chest pain and Denies dyspnea Respiratory: Respiratory: Denies cough and Denies dyspnea Gastrointestinal: Gastrointestinal: Reports abdominal pain, Denies diarrhea, Reports nausea and Reports vomiting Genitourinary: Genitourinary: Denies hematuria and Denies dysuria Musculoskeletal: Musculoskeletal: Denies back pain and Denies neck pain Neurologic: Denies headache(s) and Denies weakness PMFSH Past Medical History Medical History Opioid abuse Surgical History Surgical History History of appendectomy Family History Family History Mother Acute myocardial infarction Rheumatoid arthritis Unknown Diabetes mellitus Social History Social History Smoking packs per day: 1 Smoking cigarettes per day: 20.0 Years smoked: 12 Smoking pack-years: 12.00 Smoking status: Current every day smoker Tobacco type: cigarettes and e-cigarettes/vaping Second hand tobacco smoke exposure: Yes Alcohol intake: never Substance use: current Other substance usage details: fentanyl Last use: 06/27/20 Gender identity (if verbalized by the patient): Female Spiritual care concerns: No Exam Const: General: no acute distress and well developed Orientation/consciousness: oriented to person, oriented to place, oriented to time and patient oriented x3 HENMT: Head: normocephalic Ears: external ears normal General nose exam: Normal external nose present Eyes: General: appearance normal, both eyes and all related structures Conjunctivae: conjunctivae normal Neck: Neck: normal visual inspection and full ROM Chest: Chest palpation & inspection: normal inspection of the chest and no tenderness Resp: Effort & Inspection: normal respiratory effort Auscultation: clear to auscultation bilaterally Cardio: Rate: regular rate Rhythm: regular rhythm GI: GI Palp: No abdominal tenderness and Yes Soft to palpation Skin: General skin exam: normal color and turgor normal Neuro: General: oriented to person, oriented to place, oriented to time and patient oriented x3 Cognition (Neuro): normal cognition Extrem: General: normal to inspection, full ROM and no pedal edema Psych: Appearance: grossly normal Mental Status: mental status grossly normal Affect: normal affect Course Vital Signs Vital signs: Vital Signs Temperature 37.3 C 01/19/21 20:53 Pulse Rate 68 01/19/21 20:53 Respiratory Rate 22 H 01/19/21 20:53 Blood Pressure 162/122 H 01/19/21 20:53 Pulse Oximetry 100 01/19/21 20:53 Temperature 36.7 C 01/20/21 03:01 Pulse Rate 77 01/20/21 03:01 Respiratory Rate 14 01/20/21 03:01 Blood Pressure 126/70 01/20/21 03:01 Pulse Oximetry 100 01/20/21 03:01 Medical Decision Making Vital Signs Vital Signs: Vital Signs Temperature 37.3 C 01/19/21 20:53 Pulse Rate 68 01/19/21 20:53
[2021-01-19] MEDS: METOCLOPRAMIDE HCL 10 MG TABLET PO (21:58)
[2021-01-19] MEDS: DICYCLOMINE HCL INJ 20 MG/2 ML VIAL IM (21:59)
[2021-01-19] MEDS: SODIUM CHLORIDE 0.9% IV 1,000 ML 999 ML IV CONT (22:00)
[2021-01-19 22:51] LABS: Add Urine Microscopic? YES; Appearance Urine Cloudy (Clear); Bacteria Urine Trace /hpf; Bilirubin Urine Negative (Negative); Blood Urine Negative (Negative); Color Urine Yellow (Yellow); Glucose Urine UA Negative (Negative); Ketones Urine 1+ mg/dL (Negative); Leukocyte Esterase Ur Trace LEU/UL (Negative); Mucus Urine Rare /lpf; Nitrate Urine Negative (Negative); Protein Urine 2+ mg/dL (Negative); Specific Grav Ur 1.016 (1.001-1.035); Squamous Epithelial Cell Urine Many /hpf (Few); Urobilinogen Urine Negative mg/dL (<2.0); WBC Urine 0-3 /hpf
[2021-01-19] MEDS: ONDANSETRON INJ 4 MG/2 ML VIAL IV PUSH (22:56)
[2021-01-20] VITALS: BP 130/94; PULSE 66; RESP 18; O2SAT 100
[2021-01-20] MEDS: SODIUM CHLORIDE 0.9% IV 1,000 ML 999 ML IV CONT (00:34)
[2021-01-20] MEDS: KETOROLAC 30 MG/ML VIAL (*BKC) IV PUSH (00:35)
[2021-01-20] MEDS: HALOPERIDOL LACTATE 5 MG/ML VIAL IM (00:36)
[2021-01-20 03:01] VITALS: BP 126/70; PULSE 77; RESP 14; TEMP 36.7; O2SAT 100
== END 2021-01-20 03:02 | disposition home or self-care (01) ==
PROVIDERS: Emergency Medicine; Emergency Provider Emergency Medicine; PCP Emergency Medicine
DX: R11.15 Cyclical vomiting syndrome unrelated to migraine (principal); F17.210 Nicotine dependence, cigarettes, uncomplicated
CPT/HCPCS: 36415; 80053; 81001; 81025; 83690; 85025; 96361; 96372; 96374; 99284; A9270; J0500; J1630; J1885; J2405; J7030

== ENCOUNTER 2021-01-24 17:30 | Emergency (ER) | payer BC, SELFPAY ==
--- NOTE | ~2021-01-24 | CT_ITS ---
EXAMINATION: CT abdomen pelvis w con DATE: 01/24/2021 20:40 INDICATION: Abdominal pain. Nausea and vomiting. TECHNIQUE: Computed tomography (CT) of the abdomen and pelvis was performed with 100 mL Omnipaque 350 intravenous contrast. Automated exposure control and iterative reconstruction technique were employe d. The dose-length product was 494.99 mGy-cm. COMPARISON: CT abdomen and pelvis 11/30/2020 FINDINGS: The visualized portions of the lung bases demonstrate mild atelectasis on the left. No pleu ral effusion. The heart size is normal. No pericardial effusion. There is a small sliding hiatal di ia. The liver and spleen are normal. There are changes of cholecystectomy. The pancreas, adrenal glan ds, and kidneys are normal. There are no dilated loops of bowel. The appendix is normal. There are no pathologically enlarged lymph nodes. There is no free intraperitoneal fluid. There is thoracolumbar dextroscoliosis. IMPRESSION: 1. Small sliding hiatal hernia. Reviewed, dictated and finalized at location A.
[2021-01-24 17:38] VITALS: BP 154/94; PULSE 96; RESP 18; TEMP 36.7; O2SAT 100
[2021-01-24 17:57] VITALS: BP 159/95; PULSE 85
[2021-01-24 17:58] VITALS: BP 153/92; PULSE 97
[2021-01-24 18:00] VITALS: BP 148/94; PULSE 105
[2021-01-24 18:12] LABS: Basophils Absolute Auto 0.1 K/mm3 (0.0-0.1); Basophils Percent Auto 0.5 % (0.2-1.2); Eosinophils Absolute Auto 0.1 K/mm3 (0-0.3); Eosinophils Percent Auto 0.5 % (0-4.4); Hematocrit 50.9 % (37.0-47.0); Hemoglobin 16.8 g/dL (12.0-15.0); Immature Granulocyte Absolute 0.07 K/mm3 (0.00-0.031); Immature Granulocyte Percent A 0.4 % (0-0.5); Lymphocytes Absolute Auto 2.76 K/mm3 (0.9-3.2); Lymphocytes Percent Auto 17.6 % (18.3-44.2); Mean Corpuscular Hemoglobin 29.6 pg (26-34); Mean Corpuscular Volume 89.6 fl (80-100); Mean Platelet Volume 9.6 fl (7.4-10.4); Monocytes Absolute Auto 0.7 K/mm3 (0.1-0.6); Monocytes Percent Auto 4.3 % (2.6-8.5); Neutrophils Percent Auto 76.7 % (45.5-73.1); Platelet Count Result 375 k/mm3 (150-375); Red Blood Count 5.68 M/mm3 (4.2-5.4); White Blood Count 15.7 K/mm3 (4.5-10.0)
[2021-01-24 18:22] LABS: Alanine Aminotransferase 15 U/L (4-35); Albumin Level 5.2 g/dL (3.5-5.1); Alkaline Phosphatase 106 U/L (38-126); Anion Gap 12 mmol/L (8-16); Aspartate Amino Transferase 20 U/L (14-36); Bilirubin,Total 0.3 mg/dL (0.2-1.3); Blood Urea Nitrogen 11 mg/dL (7-17); Calcium 10.3 mg/dL (8.4-10.2); Carbon Dioxide 27 mmol/L (22-30); Chloride 101 mmol/L (98-107); Estimated CRCL calculation 117 ml/min; Estimated Glomerular Filt Rate > 60; Glucose 106 mg/dL (65-105); Lipase 163 U/L (23-300); Potassium 3.8 mmol/L (3.4-5.0); Sodium 140 mmol/L (137-145)
[2021-01-24 18:27] LABS: Add Urine Microscopic? YES; Amorphous Sediment Urine Moderate; Appearance Urine Turbid (Clear); Bacteria Urine Trace /hpf; Bilirubin Urine Negative (Negative); Blood Urine Negative (Negative); Color Urine Amber (Yellow); Glucose Urine UA Negative (Negative); Ketones Urine Negative (Negative); Leukocyte Esterase Ur Trace LEU/UL (Negative); Mucus Urine Rare /lpf; Nitrate Urine Negative (Negative); Protein Urine 1+ mg/dL (Negative); Specific Grav Ur 1.017 (1.001-1.035); Squamous Epithelial Cell Urine Many /hpf (Few); Urobilinogen Urine Negative mg/dL (<2.0)
--- NOTE | 2021-01-24 18:35 | ED.NAVMDI ---
HPI - Nausea/Vomiting/Diarrhea General Chief complaint: Nausea/Vomiting/Diarrhea Stated complaint: ABD PAIN,N/V Time Seen by Provider: 01/24/21 17:34 Source: patient and RN notes reviewed Mode of arrival: ambulatory Limitations: no limitations History of Present Illness HPI Narrative: Patient is 26 years old white female came to the emergency room because of nausea and frequent vomiting followed by mid abdominal cramps 2 to 3 hours ago. Patient denies any fever, chills, diarrhea, constipation. Patient having similar symptoms intermittently at least once every 3 months without specific diagnosis. History of drug addiction, started on Suboxone 4 days ago, patient relapsed 2 weeks ago on fentanyl. Patient was seen at [facility] 3 days ago for the same symptoms with negative CT scan of the abdomen. Patient recommended IV fluid and Zofran. She is telling me this is only medication to work Related Data Allergies Allergy/AdvReac Type Severity Reaction Status Date / Time amoxicillin Allergy Unknown Unknown Verified 01/24/21 21:53 capsaicin Allergy Rash Verified 01/24/21 17:51 Review of Systems Review of Systems: Narrative: CONSTITUTIONAL: Denies fever, chills, or sweats. EYES: Denies visual changes, redness, or discharge. ENT: Denies rhinorrhea, congestion, sore throat, or otalgia. CARDIOVASCULAR: Denies chest pain, palpitations, or edema. RESPIRATORY: Denies cough or dyspnea. GASTROINTESTINAL: Denies abdominal pain, nausea, vomiting, or diarrhea. GENITOURINARY: Denies dysuria or hematuria. SKIN: Denies rash or itching. MUSCULOSKELETAL: Denies back pain, joint pain, or myalgia. NEUROLOGIC: Denies headache, numbness, or weakness. PSYCHIATRIC: Denies anxiety or depression. [facility] Past Medical History Medical History Opioid abuse Surgical History Surgical History History of appendectomy Family History Family History Mother Acute myocardial infarction Rheumatoid arthritis Unknown Diabetes mellitus Social History Social History Smoking packs per day: 1 Smoking cigarettes per day: 20.0 Years smoked: 12 Smoking pack-years: 12.00 Smoking status: Current every day smoker Tobacco type: cigarettes and e-cigarettes/vaping Second hand tobacco smoke exposure: Yes Alcohol intake: never Substance use: current Other substance usage details: fentanyl Last use: 06/27/20 Gender identity (if verbalized by the patient): Female Spiritual care concerns: No Exam Narrative: Exam Narrative: General appearance: Well-developed, well-nourished Skin: Normal color Head: Normocephalic, nontraumatic Eyes: Clear conjunctiva ENT: Oropharynx normal, ears normal, nose normal Neck: Supple, nontender Chest and respiratory: Airway patent, no respiratory distress, no accessory muscle use Heart: Regular rate/rhythm Abdomen: Soft, nontender, no organomegaly, quiet bowel sounds Vascular: Normal peripheral pulses, normal capillary refill. Musculoskeletal: Normal range of motion, nontender back Neurologic: Alert and oriented ?3, [employer] is normal as tested, no gross motor deficit Course Course Emergency Course: Improving Vital Signs Vital signs: Vital Signs Temperature 36.7 C 01/24/21 17:38 Pulse Rate 96 01/24/21 17:38 Respiratory Rate 18 01/24/21 17:38 Blood Pressure 154/94 H 01/24/21 17:38 Pulse Oximetry 100 01/24/21 17:38 Temperature 36.7 C 01/24/21 17:38 Pulse Rate 87 01/24/21 22:04 Respiratory Rate 19 05/0
[2021-01-24] MEDS: SODIUM CHLORIDE 0.9% IV 1,000 ML 999 ML IV CONT ×2 (18:48→18:49)
[2021-01-24] MEDS: ONDANSETRON INJ 4 MG/2 ML VIAL 8 MG IV PUSH (18:48)
--- NOTE | 2021-01-24 20:04 | PC.NURSE ---
Pt to CT via stretcher at this time.
--- NOTE | 2021-01-24 20:31 | PC.NURSE ---
Ct notified principal technologist Jen of blown IV. Multiple attempts made for new access. 24g IV placed in left AC at this time.
--- NOTE | 2021-01-24 21:03 | PC.NURSE ---
This RN attempted to administer medication to pt. Pt c/o of pain at IV site with NS flush before administration. Positive blood return and difficulty flushing noted. Izaiah RN at bedside attempting to start new IV with ultrasound.
[2021-01-24 21:32] VITALS: BP 167/110; PULSE 88; RESP 18; O2SAT 100
[2021-01-24] MEDS: diphenhydrAMINE HCl INJ 50 MG/ML VIAL IV PUSH (21:50)
[2021-01-24] MEDS: METOCLOPRAMIDE HCL INJ 10 MG/2 ML VIAL IV PUSH (21:52)
[2021-01-24 22:04] VITALS: BP 162/103; PULSE 87; RESP 19; O2SAT 100
[2021-01-25 00:28] VITALS: BP 158/95; PULSE 99; RESP 17; O2SAT 99
== END 2021-01-25 00:31 | disposition home or self-care (01) ==
PROVIDERS: Emergency Provider Emergency Medicine; PCP Emergency Medicine
DX: R11.2 Nausea with vomiting, unspecified (principal); R10.84 Generalized abdominal pain; F17.210 Nicotine dependence, cigarettes, uncomplicated; K44.9 Diaphragmatic hernia without obstruction or gangrene
CPT/HCPCS: 36415; 74177; 80053; 81001; 81025; 83690; 85025; 96361; 96374; 96375; 99284; J1200; J2405; J2765; J7030; Q9967

== ENCOUNTER 2023-01-31 23:55 | Emergency (ER) | payer BC, SELFPAY ==
[2023-01-31 23:57] VITALS: BP 170/86; PULSE 114; RESP 20; TEMP 37.7; O2SAT 100
[2023-02-01 00:24] LABS: Alanine Aminotransferase 39 U/L (6-35); Albumin Level 5.8 g/dL (3.5-5.1); Alkaline Phosphatase 154 U/L (38-126); Anion Gap 15 mmol/L (8-16); Aspartate Amino Transferase 36 U/L (14-36); Basophils Absolute Auto 0.1 K/mm3 (0.0-0.1); Basophils Percent Auto 0.7 % (0.2-1.2); Bilirubin,Total 0.7 mg/dL (0.2-1.3); Blood Urea Nitrogen 13 mg/dL (7-17); Calcium 10.5 mg/dL (8.4-10.2); Carbon Dioxide 30 mmol/L (22-30); Chloride 92 mmol/L (98-107); Eosinophils Percent Auto 0.2 % (0-4.4); Estimated CRCL calculation 79 ml/min; Estimated Glomerular Filt Rate > 60; Glucose 146 mg/dL (65-110); Hematocrit 52.6 % (37.0-47.0); Hemoglobin 18.1 g/dL (12.0-15.0); Immature Granulocyte Absolute 0.06 K/mm3 (0.00-0.031); Immature Granulocyte Percent A 0.4 % (0-0.5); Lipase 100 U/L (23-300); Lymphocytes Absolute Auto 2.89 K/mm3 (0.9-3.2); Lymphocytes Percent Auto 16.9 % (18.3-44.2); Mean Corpuscular HGB Conc 34.4 g/dl (32-36); Mean Corpuscular Hemoglobin 29.5 pg (26-34); Mean Corpuscular Volume 85.7 fl (80-100); Mean Platelet Volume 9.7 fl (7.4-10.4); Monocytes Percent Auto 5.9 % (2.6-8.5); Neutrophils Percent Auto 75.9 % (45.5-73.1); Platelet Count Result 484 k/mm3 (150-375); Red Blood Count 6.14 M/mm3 (4.2-5.4); Red Cell Distribution Width 12.4 % (11.5-14.5); Sodium 137 mmol/L (137-145); White Blood Count 17.1 K/mm3 (4.5-10.0)
[2023-02-01 00:42] LABS: Bacteria Urine 4+ /hpf; Mucus Urine Present /lpf; RBC Urine 21-50 /hpf (0-2); Squamous Epithelial Cell Urine Many /hpf (Few); WBC Urine 51-100 /hpf
[2023-02-01 00:46] LABS: Appearance Urine Turbid (Clear); Bilirubin Urine 1+ (Negative); Blood Urine 3+ (Negative); Color Urine Brown (Yellow); Glucose Urine UA Negative (Negative); Ketones Urine 4+ mg/dL (Negative); Leukocyte Esterase Ur 1+ LEU/UL (Negative); Nitrate Urine Negative (Negative); Protein Urine 2+ mg/dL (Negative); Urobilinogen Urine 0.2 mg/dL (<2.0); pH Urine 8.5 (5.0-9.0)
[2023-02-01] MEDS: SODIUM CHLORIDE 0.9% IV 3,000 ML 999 ML IV CONT (00:49)
[2023-02-01 00:50] LABS: Add Urine Microscopic? YES
[2023-02-01] MEDS: ONDANSETRON INJ 4 MG/2 ML VIAL IV PUSH (00:50)
[2023-02-01] MEDS: FAMOTIDINE 20 MG/2 ML VIAL IV PUSH (00:51)
[2023-02-01] MEDS: HALOPERIDOL LACTATE 5 MG/ML VIAL IM (00:53)
[2023-02-01 00:59] VITALS: BP 184/120; PULSE 101
[2023-02-01 01:00] VITALS: BP 168/94; PULSE 109
[2023-02-01 01:02] VITALS: BP 165/123; PULSE 115
--- NOTE | 2023-02-01 01:04 | ED.GENADULT ---
HPI - General Adult General Chief complaint: Nausea/Vomiting/Diarrhea Stated complaint: N/V Time Seen by Provider: 02/01/23 00:12 History of Present Illness HPI narrative: This is a 28-year-old female presenting ED with chief complaint of nausea and vomiting. The emesis started on Monday and associated with an achy pain in her upper abdomen. It is nonradiating, 8 out 10 intensity and constant. She has experienced this many times in the past she is diagnosed with cyclic vomiting. There are no exacerbating alleviating factors. She has had multiple episodes of nausea and vomiting as well as tingling in her hands and feet. No fever chills chest pain difficulty breathing. Related Data Allergies Allergy/AdvReac Type Severity Reaction Status Date / Time amoxicillin Allergy Unknown Unknown Verified 01/24/21 21:53 capsaicin Allergy Rash Verified 01/24/21 17:51 PMFSH Past Medical History Medical History Opioid abuse Surgical History Surgical History History of appendectomy Family History Family History Mother Acute myocardial infarction Rheumatoid arthritis Unknown Diabetes mellitus Social History Social History Smoking packs per day: 1 Smoking cigarettes per day: 20.0 Years smoked: 12 Smoking pack-years: 12.00 Smoking status: Current every day smoker Tobacco type: cigarettes and e-cigarettes/vaping Second hand tobacco smoke exposure: Yes Alcohol intake: never Substance use: current Other substance usage details: fentanyl Last use: 06/27/20 Gender identity (if verbalized by the patient): Female Spiritual care concerns: No Exam Narrative: APPEARANCE: Patient is rolling around on the bed and cannot get comfortable. Head: atraumatic. EYES: EOMI, NOSE: Atraumatic NECK: Trachea midline RESPIRATORY: No increased rate of breathing Clear to auscultation CARDIOVASCULAR: tachycardic ABDOMINAL: soft, nontender no guarding or rebound, no CVA tenderness MUSCULOSKELETAl: No obvious deformities NEURO: Alert. Moving 4/4 extremities SKIN:: Warm, dry. Normal color PSYCHIATRIC: Normal affect Course Vital Signs Vital signs: Vital Signs Temperature 99.9 F H 01/31/23 23:57 Pulse Rate 114 H 01/31/23 23:57 Respiratory Rate 20 01/31/23 23:57 Blood Pressure 170/86 H 01/31/23 23:57 Pulse Oximetry 100 01/31/23 23:57 Oxygen Delivery Room Air 01/31/23 23:57 Temperature 99.9 F H 01/31/23 23:57 Pulse Rate 102 H 02/01/23 03:07 Respiratory Rate 15 02/01/23 03:07 Blood Pressure 162/93 H 02/01/23 03:07 Pulse Oximetry 99 02/01/23 03:07 Oxygen Delivery Room Air 01/31/23 23:57 Medical Decision Making MDM Narrative Medical decision making narrative: -Presentation: 28-year-old female presenting with nausea and vomiting x3 days. -DDX includes but is not limited to: Cyclic vomiting, gastroenteritis, viral syndrome, substance use disorder -Co-morbidities complicating care: daily marijuana use, history of fentanyl abuse with recent relapse -Social determinants of health: patient is unemployed due to depression and lives with her mother -External Chart Review: review of multiple ER notes for cyclic vomiting and opiate abuse -Hx from independent Sources: mother Germaine at bedside -Discussion of Management/Consultants: none -Independent interpretation of studies: CBC showed a white blood cell count of 17 and hemoglobin of 18. Patient is afebrile. She appears dehydrated. Potassium is 3.0 which will be repleted. Chloride is decreased from vomiting. Elevations in ALT and alk-phos. Urine is indicative of infection. Red blood cells are likely from the patient's menses. given 1 g of ceftriaxone. No CVA tenderness indicating pyelonephritis.
[2023-02-01] MEDS: POTASSIUM CHLORIDE 20 MEQ TABLET 40 MEQ PO (01:21)
[2023-02-01 01:26] VITALS: BP 178/112; PULSE 93; RESP 11; O2SAT 100
[2023-02-01 03:07] VITALS: BP 162/93; PULSE 102; RESP 15; O2SAT 99
[2023-02-01] MEDS: diphenhydrAMINE HCl INJ 50 MG/ML VIAL 25 MG IV PUSH (04:06)
[2023-02-01] MEDS: PROCHLORPERAZINE EDISYLATE 10 MG/2 ML VIAL IV PUSH (04:07)
[2023-02-01 04:47] VITALS: BP 168/111; PULSE 105; TEMP 37.1; O2SAT 100
== END 2023-02-01 04:55 | disposition home or self-care (01) ==
PROVIDERS: Emergency Provider Emergency Medicine; PCP Nurse Practitioner Family
DX: N39.0 Urinary tract infection, site not specified (principal); F11.10 Opioid abuse, uncomplicated; R11.2 Nausea with vomiting, unspecified; F12.90 Cannabis use, unspecified, uncomplicated; F17.210 Nicotine dependence, cigarettes, uncomplicated; F17.290 Nicotine dependence, other tobacco product, uncomplicated
CPT/HCPCS: 36415; 80053; 81001; 83690; 85025; 87086; 87088; 96361; 96365; 96372; 96375; 99284; A9270; J0696; J0780; J1200; J1630; J2405; J7030; J7050

== ENCOUNTER 2023-03-21 20:15 | Emergency (ER) | payer BC, SELFPAY ==
--- NOTE | ~2023-03-21 | CT_ITS ---
Non-contrast Head CT History: Head injury COMPARISON: 06/29/2020 Technique: Axial non-contrast imaging of the brain was performed. Dose reduction technique was used on this scan by utilizing automated exposure control and iterative reconstruction technique. The dose -length product (DLP) was 605.33 mGy-cm. Findings: There is no evidence of intracranial hemorrhage, mass lesion, or acute infarct. Brain par enchyma appears normal. The ventricles and subarachnoid spaces are normal in size. The calvarium ap pears normal. The visualized paranasal sinuses and mastoid air cells are clear. Impression: No significant abnormality seen. Reviewed, dictated and finalized at [facility]. Impression: No significant abnormality seen.
[2023-03-21 20:15] VITALS: BP 164/108; PULSE 139; RESP 14; TEMP 36.7; O2SAT 93
[2023-03-21 20:19] VITALS: RESP 14
--- NOTE | 2023-03-21 21:03 | ED.OVERDOSE ---
HPI - Overdose General Chief Complaint: Overdose Stated Complaint: od Time Seen by Provider: 03/21/23 21:02 Source: patient and EMS Mode of arrival: EMS Limitations: no limitations History of Present Illness HPI Narrative: Patient reported that she has been clean of fentanyl for 2 months. Today because of 21 March and feeling little depressed one of her friends gave her a little touch of fentanyl which smaller than her usual dose in the past, found by her in the car slumped over unresponsive with blue lips and snoring. 911 was called, Narcan was given by EMS team was remarkable improvement. Patient arrived to the ED awake, alert and oriented x4. Patient's went to get something from the store and when he went to back to the car, found his with the above symptoms. She denies any suicidal or homicidal ideation. She regrets what happened. Currently complaining of headache because when her pulled her out of the car , was sitting on the ground, went backwards and smacked the back of her head on the ground. She denies any fever, chills, nausea, vomiting, chest pain, abdominal pain, shortness of breath, back pain or other injuries. Related Data Allergies Allergy/AdvReac Type Severity Reaction Status Date / Time amoxicillin Allergy Unknown Unknown Verified 01/24/21 21:53 capsaicin Allergy Rash Verified 01/24/21 17:51 Review of Systems Review of Systems: All systems reviewed & are unremarkable except as noted in HPI and below PMFSH Past Medical History Medical History Opioid abuse Surgical History Surgical History History of appendectomy Family History Family History Mother Acute myocardial infarction Rheumatoid arthritis Unknown Diabetes mellitus Social History Social History Smoking packs per day: 1 Smoking cigarettes per day: 20.0 Years smoked: 12 Smoking pack-years: 12.00 Smoking status: Current every day smoker Tobacco type: cigarettes and e-cigarettes/vaping Second hand tobacco smoke exposure: Yes Alcohol intake: never Substance use: current Substance use type: opiates Other substance usage details: fentanyl Last use: 06/27/20 Gender identity (if verbalized by the patient): Female Spiritual care concerns: No Exam Narrative: General appearance: Well-developed, well-nourished Skin: Normal color Head: Normocephalic, nontraumatic Eyes: Clear conjunctiva ENT: Oropharynx normal, ears normal, nose normal Neck: Supple, nontender Chest and respiratory: Airway patent, no respiratory distress, no accessory muscle use Heart: Regular rate/rhythm Abdomen: Soft, nontender, no organomegaly, quiet bowel sounds Vascular: Normal peripheral pulses, normal capillary refill. Musculoskeletal: Normal range of motion, nontender back Neurologic: Alert and oriented ?3, CANCER SPEC is normal as tested, no gross motor deficit Course Reevaluation(s) Reevaluation #1: Feeling much better after Tylenol and oral fluid. Currently patient denying any trouble breathing or swallowing, she is awake, alert and oriented x4. Date: 03/21/23 Time: 22:08 Vital Signs Vital signs: Vital Signs Temperature 36.7 C 03/21/23 20:15 Pulse Rate 139 H 03/21/23 20:15 Respiratory Rate 14 03/21/23 20:15 Blood Pressure 164/108 H 03/21/23 20:15 Pulse Oximetry 93 03/21/23 20:15 Oxygen Delivery Room Air 03/21/23 20:15 Temperature 36.7 C 03/21/23 20:15 Pulse Rate 139 H 03/21/23 20:15 Respiratory
--- NOTE | 2023-03-21 21:11 | PC.NURSE ---
pt is axox4, abc are wnl nad.airway is patent,spontaneous and self maintained. pt denies pain. pt placed on lime mixer. NSR noted at this time w/o ectopy. family at bedside. pt just went to ct
[2023-03-21] MEDS: ACETAMINOPHEN 500 MG TABLET 1000 MG PO (21:39)
[2023-03-21 22:04] VITALS: BP 114/77; PULSE 122; RESP 20; O2SAT 98
== END 2023-03-21 22:23 | disposition home or self-care (01) ==
PROVIDERS: Emergency Provider Emergency Medicine; PCP Nurse Practitioner Family
DX: T40.411A Poisoning by fentanyl or fentanyl analogs, accidental (unintentional), initial encounter (principal); S09.90XA Unspecified injury of head, initial encounter; F17.210 Nicotine dependence, cigarettes, uncomplicated; F17.290 Nicotine dependence, other tobacco product, uncomplicated; W18.39XA Other fall on same level, initial encounter
CPT/HCPCS: 70450; 99284; A9270

== ENCOUNTER 2023-08-07 14:50 | Emergency (ER) | payer BC, SELFPAY ==
[2023-08-07 14:50] VITALS: BP 161/120; PULSE 122; RESP 20; TEMP 36.6; O2SAT 100
[2023-08-07 15:00] VITALS: BP 147/90; PULSE 108; RESP 16; TEMP 36.7; O2SAT 99
--- NOTE | 2023-08-07 15:22 | ED.NAVMDI ---
HPI - Nausea/Vomiting/Diarrhea General Chief complaint: Nausea/Vomiting/Diarrhea Stated complaint: N/V Time Seen by Provider: 08/07/23 15:18 Source: patient Limitations: no limitations History of Present Illness HPI Narrative: Patient is a 28 yo female who presents with epigastric abdominal pain as well as nausea and vomiting since 1:00 a.m. this morning. She states that she has had approximately 15 episodes of nonbloody emesis concerns 3 episodes nonbloody loose stools. She denies any fevers. Her last menstrual period was 3 weeks ago and reportedly normal. She denies having an appetite. No sick contacts. She denies any chest pain but does state she has difficulty with breathing when she has abdominal pain. She denies currently being sexually active. She does use marijuana nearly daily. She thinks she may have a urinary tract infection as she has had some hematuria but denies any urgency, frequency, or dysuria. 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 She has no history of pancreatitis. She states she had EGD performed that was negative and has seen a GI doctor in [place]. Home medications include: quetiapine, trazodone, gabapentin, Wellbutrin, and Klonipin (PRN) Related Data Allergies Allergy/AdvReac Type Severity Reaction Status Date / Time amoxicillin Allergy Unknown Unknown Verified 08/07/23 17:29 capsaicin Allergy Rash Verified 08/07/23 17:29 [facility] Past Medical History Medical History (Updated 08/08/23 @ 00:00 by Angela Hernandez) Opioid abuse Surgical History Surgical History (Updated 08/07/23 @ 23:15 by Miguelina Hernandez MD) History of appendectomy History of esophagogastroduodenoscopy (EGD) September 2022 Hx of cholecystectomy 2016 Family History Family History Mother Acute myocardial infarction Rheumatoid arthritis Unknown Diabetes mellitus Social History Social History (Updated 08/07/23 @ 23:17 by Miguelina Hernandez MD) Smoking packs per day: 1 Smoking cigarettes per day: 20.0 Years smoked: 12 Smoking pack-years: 12.00 Smoking status: Current every day smoker Tobacco type: cigarettes and e-cigarettes/vaping Second hand tobacco smoke exposure: Yes Alcohol intake: never Substance use: current Substance use type: marijuana and opiates Other substance usage details: previously fentanyl (last use 06/27/20); uses marijuana nearly montesinos Gender identity (if verbalized by the patient): Female Spiritual care concerns: No Exam Narrative: GENERAL: Well-appearing, well-nourished, Appears uncomfortable HEAD: Normocephalic, atraumatic. EYES: Large pupils (approximately 7mm bilaterally) ENT: Nares clear, no rhinorrhea or epistaxis. NECK: Supple. CHEST: No respiratory distress. speak sentences. HEART: Tachycardic rate and rhythm. ABDOMEN: Soft, nontender, nondistended, no rebound tenderness or guarding EXTREMITIES: Normal range of motion. No edema. SKIN: Warm, dry, no rash. NEURO: No focal deficits. Alert and oriented x3. PSYCH: Normal mood and affect. Course Vital Signs Vital signs: Vital Signs Temperature 97.8 F 08/07/23 14:50 Pulse Rate 122 H 08/07/23 14:50 Respiratory Rate 20 08/07/23 14:50 Blood Pressure 161/120 H 08/07/23 14:50 Pulse Oximetry 100 08/07/23 14:50 Oxygen Delivery Room Air 08/07/23 14:50 Temperature 98.0 F 08/07/23 18:21 Pulse Rate 116 H 08/07/23 18:21 Respiratory Rate 18 08/07/23 18:21 Blood Pressure 148/94 H 08/07/23 18:21 Pulse Oximetry 99 08/07/23 18:21 Oxygen Delivery Room Air 08/07/23 14:50 MDM - Nausea/Vomiting/Diarrhea MDM Narrative Medical decision making narrative: Patient presents with epigastric/RUQ abdominal pain. She appears uncomfortable but has a benign abdominal exam. We will give ondansetron and 1L fluids given her tachycardia and pursue lab work. She is also concerned for a possible UTI
[2023-08-07 15:51] LABS: Basophils Percent Auto 0.2 % (0.2-1.2); Eosinophils Percent Auto 0.2 % (0-4.4); Hematocrit 53.1 % (37.0-47.0); Hemoglobin 17.8 g/dL (12.0-15.0); Immature Granulocyte Percent A 0.5 % (0-0.5); Immature Platelet Fraction Pct 3.6 % (0.9-11.2); Lymphocytes Absolute Auto 0.59 K/mm3 (0.9-3.2); Lymphocytes Percent Auto 2.8 % (18.3-44.2); Mean Corpuscular HGB Conc 33.5 g/dl (32-36); Mean Corpuscular Hemoglobin 28.7 pg (26-34); Mean Corpuscular Volume 85.6 fl (80-100); Mean Platelet Volume 10.1 fl (7.4-10.4); Monocytes Absolute Auto 0.5 K/mm3 (0.1-0.6); Monocytes Percent Auto 2.6 % (2.6-8.5); Neutrophils Absolute Auto 19.7 K/mm3 (1.3-6.7); Neutrophils Percent Auto 93.7 % (45.5-73.1); Platelet Count Result 458 k/mm3 (150-375); Red Cell Distribution Width 13.9 % (11.5-14.5)
[2023-08-07] MEDS: SODIUM CHLORIDE 0.9% IV 1,000 ML 999 ML IV CONT (15:51)
[2023-08-07] MEDS: ONDANSETRON INJ 4 MG/2 ML VIAL IV PUSH (15:52)
--- NOTE | 2023-08-07 15:56 | PC.NURSE ---
Dr. Hernandez informed of HTN. Pt states takes Clonidine occasionally
[2023-08-07 16:00] VITALS: BP 168/90; PULSE 114; RESP 18; O2SAT 100
[2023-08-07 16:10] LABS: Appearance Urine Turbid (Clear); Bacteria Urine 4+ /hpf; Bilirubin Urine 1+ (Negative); Blood Urine Negative (Negative); Color Urine Dark Yellow (Yellow); Glucose Urine UA Negative (Negative); Ketones Urine 3+ mg/dL (Negative); Leukocyte Esterase Ur Trace LEU/UL (Negative); Nitrate Urine Negative (Negative); Non Pathogenic Casts 0-2; Protein Urine 3+ mg/dL (Negative); RBC Urine 21-50 /hpf (0-2); Squamous Epithelial Cell Urine Many /hpf (Few)
[2023-08-07 16:13] LABS: Need Manual Microscopic Reviewed
[2023-08-07 16:16] LABS: Specific Grav Ur 1.036 (1.001-1.035)
[2023-08-07 16:17] LABS: Add Urine Microscopic? YES
[2023-08-07 16:31] LABS: Influenza A QL RT-PCR Negative (Negative); Influenza B QL RT-PCR Negative (Negative); SARS-CoV-2 RNA PCR Negative (Negative)
[2023-08-07 16:37] LABS: Platelet Estimate Increased (Adequate)
[2023-08-07 16:39] LABS: Schistocytes None Seen (NORMAL)
[2023-08-07 17:00] VITALS: BP 152/92; PULSE 106; RESP 18; O2SAT 98
[2023-08-07 17:01] LABS: Amphetamine Screen Urine Negative (Negative); Barbiturate Screen Urine Negative (Negative); Benzodiazepines Screen Urine Negative (Negative); Cannabinoid Screen Urine Positive (Negative); Cocaine Screen Urine Negative (Negative); Methadone Screen Urine Negative (Negative); Opiate Screen Urine Negative (Negative); Phencyclidine Screen Urine Negative (Negative)
[2023-08-07 17:04] LABS: Alanine Aminotransferase 35 U/L (6-35); Albumin Level 5.2 g/dL (3.5-5.1); Alkaline Phosphatase 140 U/L (38-126); Anion Gap 17 mmol/L (8-16); Aspartate Amino Transferase 26 U/L (14-36); Bilirubin,Total 1.1 mg/dL (0.2-1.3); Blood Urea Nitrogen 12 mg/dL (7-17); Calcium 10.3 mg/dL (8.4-10.2); Carbon Dioxide 22 mmol/L (22-30); Chloride 96 mmol/L (98-107); Estimated CRCL calculation 105 ml/min; Estimated Glomerular Filt Rate > 60; Glucose 148 mg/dL (65-110); Lipase 39 U/L (23-300); Potassium 3.9 mmol/L (3.4-5.0); Sodium 135 mmol/L (137-145)
[2023-08-07] MEDS: clonazePAM (*CRX) 0.25 MG TABLET PO (17:04)
[2023-08-07] MEDS: HALOPERIDOL LACTATE 5 MG/ML VIAL 2.5 MG IV PUSH (17:06)
[2023-08-07 17:10] VITALS: BP 152/92; PULSE 110; RESP 16; O2SAT 100
[2023-08-07 18:21] VITALS: BP 148/94; PULSE 116; RESP 18; TEMP 36.7; O2SAT 99
== END 2023-08-07 18:24 | disposition home or self-care (01) ==
PROVIDERS: Emergency Provider Student in an Organized Health Care Education/Training Program; PCP Nurse Practitioner Family
DX: N39.0 Urinary tract infection, site not specified (principal); R11.2 Nausea with vomiting, unspecified; F17.210 Nicotine dependence, cigarettes, uncomplicated
CPT/HCPCS: 36415; 80053; 80307; 81001; 81025; 83690; 85025; 85055; 87086; 87088; 87636; 96361; 96365; 96375; 99284; A9270; J0696; J1630; J2405; J7030

== ENCOUNTER 2023-11-27 21:21 | Observation (INO) | payer BC, SELFPAY ==
--- NOTE | ~2023-11-27 | CT_ITS ---
EXAMINATION: CTA chest PE abdomen pel DATE: 11/27/2023 23:09 INDICATION: status post cardiac arrest and overdose TECHNIQUE: Computed tomography angiography (CTA) of the chest was performed with 100 mL Omnipaque-350 intravenous contrast in the arterial phase. The dose-length product (DLP) was 786.64 mGy-cm. Automat ed exposure control and iterative reconstruction technique were employed. COMPARISON: CT abdomen pelvis 01/24/2021. FINDINGS: CHEST: Lung parenchyma and airways: Clear. Pleura: Unremarkable. Thoracic inlet, axillae and chest wall: No thyroid or soft tissue mass. Thoracic aorta: No significant dilation. No dissection. Mediastinum: Normal. Heart and pericardium: Normal. Coronary artery calcifications: None. Thoracic bones: No acute osseous finding. Pulmonary arteries: Study quality: Although optimized for systemic arterial enhancement, there was ad equate pulmonary arterial enhancement. No pulmonary emboli detected. ABDOMEN/PELVIS: Liver: Normal. Biliary/Gallbladder: Gallbladder is absent. Mild common bile duct dilation, likely secondary to luh cystectomy. Pancreas: No mass or duct dilation. Spleen: Normal. Adrenals:No mass. Kidneys: No suspicious mass, obstructing stone, or hydronephrosis. GI tract: Small hiatal hernia. Mild distal esophageal and gastric wall edema. No small or large bowel dilation. Normal appendix. Mesentery/Peritoneum: No ascites, mass, or free air. Retroperitoneum: No mass. Pelvis: Pelvic organs are within normal limits. Soft Tissues: Soft tissues and body wall unremarkable. Abdominopelvic bones: No acute osseous finding. IMPRESSION: No CT evidence of acute pulmonary embolus. Mild esophagitis/gastritis. Otherwise, no acute process detected in the chest, abdomen, or pelvis. Reviewed, dictated and finalized at location [facility].
[2023-11-27 21:22] VITALS: BP 156/112; PULSE 104; RESP 16; TEMP 36.6; O2SAT 100
--- NOTE | 2023-11-27 21:33 | ECG_ITS ---
Measurements Intervals [place] Rate: 110 P: 47 TN: 155 QRS: 71 QRSD: 100 T: 39 QT: 353 QTc: 478 Interpretive Statements SINUS TACHYCARDIA POSSIBLE LEFT ATRIAL ENLARGEMENT BASELINE ARTIFACT- I, II, III, AVR, AVL, AVF ABNORMAL ECG COMPARED TO ECG 06/29/2020 20:11:41 SINUS TACHYCARDIA NOW PRESENT Electronically Signed On 11-28-2023 6:26:05 CDT by Evan King D.O.
[2023-11-27 21:43] LABS: Basophils Absolute Auto 0.1 K/mm3 (0.0-0.1); Basophils Percent Auto 0.4 % (0.2-1.2); Eosinophils Percent Auto 0.1 % (0-4.4); Hematocrit 49.4 % (37.0-47.0); Hemoglobin 15.8 g/dL (12.0-15.0); Immature Granulocyte Absolute 0.03 K/mm3 (0.00-0.031); Immature Granulocyte Percent A 0.3 % (0-0.5); Lymphocytes Absolute Auto 1.32 K/mm3 (0.9-3.2); Lymphocytes Percent Auto 11.6 % (18.3-44.2); Mean Corpuscular Hemoglobin 28.9 pg (26-34); Mean Corpuscular Volume 90.5 fl (80-100); Mean Platelet Volume 9.5 fl (7.4-10.4); Monocytes Absolute Auto 0.3 K/mm3 (0.1-0.6); Monocytes Percent Auto 2.2 % (2.6-8.5); Neutrophils Absolute Auto 9.7 K/mm3 (1.3-6.7); Neutrophils Percent Auto 85.4 % (45.5-73.1); Platelet Count Result 373 k/mm3 (150-375); Red Blood Count 5.46 M/mm3 (4.2-5.4); Red Cell Distribution Width 13.7 % (11.5-14.5); White Blood Count 11.4 K/mm3 (4.5-10.0)
[2023-11-27] MEDS: SODIUM CHLORIDE 0.9% IV 1,000 ML 999 ML IV CONT (21:47)
[2023-11-27] MEDS: PROCHLORPERAZINE EDISYLATE 10 MG/2 ML VIAL IV PUSH (21:48)
[2023-11-27 22:00] LABS: INR 0.9; Partial Thromboplastin Time 28.2 SECONDS (22.3-36.8); Prothrombin Time 12.7 Seconds (11.1-14.7)
[2023-11-27 22:15] VITALS: RESP 15
[2023-11-27 22:17] LABS: SARS-CoV-2 RNA PCR Negative (Negative)
[2023-11-27 22:31] LABS: Acetaminophen < 10 ug/mL (10-30); Ethanol < 10 mg/dL (<10); Salicylate < 1.0 mg/dL (2-20)
[2023-11-27 22:32] LABS: Alanine Aminotransferase 25 U/L (6-35); Albumin Level 4.9 g/dL (3.5-5.1); Alkaline Phosphatase 110 U/L (38-126); Anion Gap 9 mmol/L (8-16); Aspartate Amino Transferase 28 U/L (14-36); Bilirubin,Total 0.6 mg/dL (0.2-1.3); Blood Urea Nitrogen 9 mg/dL (7-17); Calcium 10.1 mg/dL (8.4-10.2); Carbon Dioxide 26 mmol/L (22-30); Chloride 105 mmol/L (98-107); Estimated CRCL calculation 88 ml/min; Estimated Glomerular Filt Rate > 60; Glucose 192 mg/dL (65-110); Potassium 3.6 mmol/L (3.4-5.0); Sodium 140 mmol/L (137-145)
[2023-11-27 22:33] LABS: Lactic Acid Reflex 2.9 mmol/L (0.7-2.0)
[2023-11-27 22:34] LABS: Amphetamine Screen Urine Negative (Negative); Barbiturate Screen Urine Negative (Negative); Benzodiazepines Screen Urine Negative (Negative); Cannabinoid Screen Urine Positive (Negative); Cocaine Screen Urine Negative (Negative); Methadone Screen Urine Negative (Negative); Opiate Screen Urine Negative (Negative); Phencyclidine Screen Urine Negative (Negative)
[2023-11-27 22:43] LABS: Troponin I < 0.012 ng/mL (0.000-0.034)
[2023-11-27 22:54] LABS: Appearance Urine Turbid (Clear); Bacteria Urine 2+ /hpf; Bilirubin Urine Negative (Negative); Blood Urine Negative (Negative); Color Urine Yellow (Yellow); Glucose Urine UA Trace mg/dL (Negative); Ketones Urine Trace mg/dL (Negative); Leukocyte Esterase Ur Negative LEU/UL (Negative); Need Manual Microscopic Reviewed; Nitrate Urine Negative (Negative); Protein Urine 2+ mg/dL (Negative); Specific Grav Ur 1.018 (1.001-1.035); Squamous Epithelial Cell Urine Many /hpf (Few); Urobilinogen Urine 0.2 mg/dL (<2.0); pH Urine 8.5 (5.0-9.0)
[2023-11-27 23:18] LABS: Add Urine Microscopic? YES
--- NOTE | 2023-11-27 23:39 | ED.GENADULT ---
HPI - General Adult General Chief complaint: Overdose Stated complaint: OVERDOSE Time Seen by Provider: 11/27/23 21:29 History of Present Illness HPI narrative: patient 28-year-old female who presents emergency department with chief complaint of overdose. Patient reports that she has history of cyclic vomiting syndrome he has been having abdominal pain patient reports that she took 2 pills of Patanol and became unresponsive the family did CPR for approximately 15 minute the patient was given Narcan and started breathing spontaneously the patient was then given 2 additional mg of Narcan and became alert and oriented the patient reports that she was trying to take the Bentyl to help with vomiting. Related Data Allergies Allergy/AdvReac Type Severity Reaction Status Date / Time amoxicillin Allergy Unknown Unknown Verified 08/07/23 17:29 capsaicin Allergy Rash Verified 08/07/23 17:29 Review of Systems Review of Systems: A 10 system review of systems was completed on the patient and is negative except for what is stated in the HPI. Nursing and ancillary documentation was reviewed. [facility] Past Medical History Medical History Opioid abuse Surgical History Surgical History History of appendectomy History of esophagogastroduodenoscopy (EGD) September 2022 Hx of cholecystectomy 2017 Family History Family History Mother Acute myocardial infarction Rheumatoid arthritis Unknown Diabetes mellitus Social History Social History Smoking packs per day: 1 Smoking cigarettes per day: 20.0 Years smoked: 12 Smoking pack-years: 12.00 Smoking status: Current every day smoker Tobacco type: cigarettes and e-cigarettes/vaping Second hand tobacco smoke exposure: Yes Alcohol intake: never Substance use: current Substance use type: marijuana and opiates Other substance usage details: previously fentanyl (last use 06/27/20); uses marijuana nearly montesinos Gender identity (if verbalized by the patient): Female Spiritual care concerns: No Exam Narrative: GENERAL: Well-appearing, well-nourished, and in no acute distress. HEAD: Normocephalic, atraumatic. EYES: PERRLA and EOMI. ENT: Nares clear, no rhinorrhea or epistaxis. Mucous membranes moist. NECK: Supple. CHEST: Clear to auscultation. No respiratory distress. HEART: Regular rate and rhythm. No murmur heard. Normal peripheral pulses. ABDOMEN: Soft, nontender, nondistended, normal active bowel sounds. EXTREMITIES: Normal range of motion. No edema. SKIN: Warm, dry, no rash. Large contusion/ abrasion present to the sternum NEURO: No focal deficits. Alert and oriented x3. PSYCH: Normal mood and affect. Course Vital Signs Vital signs: Vital Signs Temperature 36.6 C 11/27/23 21:22 Pulse Rate 104 H 11/27/23 21:22 Respiratory Rate 16 11/27/23 21:22 Blood Pressure 156/112 H 11/27/23 21:22 Pulse Oximetry 100 11/27/23 21:22 Oxygen Delivery Room Air 11/27/23 21:22 Temperature 36.6 C 11/27/23 21:22 Pulse Rate 104 H 11/27/23 21:22 Respiratory Rate 15 11/27/23 22:15 Blood Pressure 156/112 H 11/27/23 21:22 Pulse Oximetry 100 11/27/23 21:22 Oxygen Delivery Room Air 11/27/23 21:22 Medical Decision Making [facility] Narrative Medical decision making narrative: differential diagnosis includes opiate overdose, status post cardiac arrest, rib fractures, pulmonary contusion, electrolyte abnormalities patient is currently alert and oriented at her baseline neurological status. The patient is having some discomfort after the episode of CPR and reports that she is nauseated. The patient treated with antiemetics and is feeling much better with the nausea. CTA chest abdome
--- NOTE | 2023-11-27 23:44 | PM.IMHP ---
H&P: HPI History of Present Illness Date/Time: 11/27/23 23:44 Chief Complaint: overdose Narrative: This is a 28-year-old female with past medical history significant for cyclical vomiting syndrome, patient was brought to the emergency room for evaluation after she was having a crisis with cyclical vomiting took 2 fentanyl tabs recreational lost consciousness and family performed CPR on her call 911 upon arrival CPR was ongoing patient received Narcan became responsive and was brought to the emergency room for further evaluation management and treatment. In emergency room preliminary workup was essentially nonrevealing. Patient has been placed in observation. EXAMINATION: CTA chest PE abdomen pel DATE: 11/27/2023 23:09 INDICATION: status post cardiac arrest and overdose TECHNIQUE: Computed tomography angiography (CTA) of the chest was performed with 100 mL Omnipaque-350 intravenous contrast in the arterial phase. The dose-length product (DLP) was 786.64 mGy-cm. Automated exposure control and iterative reconstruction technique were employed. COMPARISON: CT abdomen pelvis 01/24/2021. ? FINDINGS:? CHEST: Lung parenchyma and airways: Clear. Pleura: Unremarkable. Thoracic inlet, axillae and chest wall: No thyroid or soft tissue mass. Thoracic aorta: No significant dilation. No dissection. Mediastinum: Normal. Heart and pericardium: Normal. Coronary artery calcifications: None. Thoracic bones: No acute osseous finding. Pulmonary arteries: Study quality: Although optimized for systemic arterial enhancement, there was adequate pulmonary arterial enhancement. No pulmonary emboli detected. ABDOMEN/PELVIS: Liver: Normal.? Biliary/Gallbladder: Gallbladder is absent. Mild common bile duct dilation, likely secondary to cholecystectomy. Pancreas: No mass or duct dilation. Spleen: Normal. Adrenals:No mass. Kidneys: No suspicious mass, obstructing stone, or hydronephrosis. GI tract: Small hiatal hernia. Mild distal esophageal and gastric wall edema. No small or large bowel dilation. Normal appendix. Mesentery/Peritoneum: No ascites, mass, or free air. Retroperitoneum: No mass. Pelvis: Pelvic organs are within normal limits. Soft Tissues: Soft tissues and body wall unremarkable. Abdominopelvic bones:? No acute osseous finding. IMPRESSION: No CT evidence of acute pulmonary embolus. Mild esophagitis/gastritis. Otherwise, no acute process detected in the chest, abdomen, or pelvis. Review of Systems Review of Systems: fentanyl overdose Constitutional: Constitutional: Denies chills, Denies fatigue, Denies fever(s), Denies frequent falls and Denies night sweats Eyes: Eyes: Denies change in vision ENT: Denies dysphagia and Denies odynophagia Cardiovascular: Cardiovascular: Denies chest pain, Denies radiating jaw, neck or arm pain and Denies palpitations Respiratory: Respiratory: Denies cough, Denies pain on inspiration and Denies dyspnea Gastrointestinal: Gastrointestinal: Denies abdominal pain, Denies dyspepsia, Denies heartburn, Denies diarrhea, Reports nausea and Reports vomiting Genitourinary: Genitourinary: Denies dysuria Musculoskeletal: Musculoskeletal: Denies arthralgias Integumentary/Breasts: Skin/Breast: Denies rash Neurologic: Denies focal weakness and Denies Sensory deficit (Neuro) Psychiatric: Psychiatric: Reports no additional psychiatric complaints and Reports as per HPI Endocrine: Endocrine: Denies cold intolerance, Denies fatigue, Denies flushing, Denies heat intolerance, Denies polyphagia, Denies polydipsia, Denies polyuria and Denies palpitations Hematologic/Lymphatic: Hematologic/Lymphatic: Reports no additional hematologic/lymphatic complaints and Reports as per HPI Allergic/Immunologic: Allergic/Immunologic: Reports no additional allergic/immunologic complaints and Reports as per HPI PMFSH Past Medical History Medical History (Updated 11/28/23 @ 03:46 by Judith Lomas MD) Cyclic vomit
[2023-11-28] VITALS (12 sets, daily range): BP systolic 97–134; BP diastolic 51–94; PULSE 85–101; RESP 14–20; TEMP 36.1–36.8; O2SAT 93–100; BMI 35.6
[2023-11-28] MEDS: SODIUM CHLORIDE 0.9% IV 1,000 ML 125 ML IV CONT ×3 (00:02→17:16)
--- NOTE | 2023-11-28 01:10 | ADMGEN ---
This patient, Lucero Santizo, was admitted to IMU Room 201-01. Patient/family oriented to hospital policies and general routines including ID bracelet, bed and alarms, visiting hours, pain management, procedures, bathroom and other care routines, personal items, smoking policy, room service/diet, and visiting hours. Information on how to activate the Rapid Response Team has been discussed. Patient/Family are encouraged to report perceived risks to care and to ask questions if they do not understand what they are told or what they should do.
[2023-11-28 01:14] LABS: Reflex Lactic Acid Yes or No Add Lactic
[2023-11-28 02:52] LABS: Troponin I < 0.012 ng/mL (0.000-0.034)
[2023-11-28 07:19] LABS: Troponin I < 0.012 ng/mL (0.000-0.034)
--- NOTE | 2023-11-28 08:07 | PM.IMPN ---
Progress Note: A&P Assessment and Plan (1) Accidental overdose: Code(s): T50.901A - Poisoning by unspecified drugs, medicaments and biological substances, accidental (unintentional), initial encounter Status: Acute (2) Unresponsive episode: Code(s): R41.89 - Other symptoms and signs involving cognitive functions and awareness Status: Acute (3) Opioid abuse: Code(s): F11.10 - Opioid abuse, uncomplicated Status: Acute (4) Tobacco dependence: Code(s): F17.200 - Nicotine dependence, unspecified, uncomplicated Status: Chronic (5) Depression: Code(s): F32.A - Depression, unspecified Status: Acute (6) Cyclic vomiting syndrome: Code(s): R11.15 - Cyclical vomiting syndrome unrelated to migraine Status: Inactive Plan 28-year-old female with a history of active tobacco abuse, marijuana abuse, opioid abuse, depression and anxiety, bipolar, cyclical vomiting syndrome presents after taking 2 tabs of fentanyl subsequently becoming unresponsive and receiving 15 minutes of CPR and Narcan. Polysubstance abuse/unresponsive episode -counseling provided. This is the 2nd time this happened. Care coordination consult placed. Continue to monitor. Avoid narcotics and sedatives. She is already on pregabalin quetiapine and trazodone at home. Cyclical vomiting syndrome -patient eating breakfast this morning. Denies nausea or vomiting or abdominal pain. Continue to monitor. Dehydration -appears hemoconcentrated. Blood pressure on the soft side. Continue normal saline at 125 cc/hour Abnormal urinalysis -asymptomatic. Contaminated urine sample. Follow-up urine culture and recheck urinalysis now. Leukocytosis -could be reactive or due to hemoconcentration. Repeat white count and check procalcitonin -lactic acidosis cleared Gastritis/esophagitis -as seen on CT abdomen pelvis. Likely from her vomiting. Continue to monitor and treat underlying cyclical vomiting syndrome FEN: Normal saline, regular diet GI prophylaxis: Not indicated DVT prophylaxis: SCDs. Encourage ambulation. Lines: Peripheral IV Code Status: Full code Dispo: Stable. Transfer to medical floor Subjective Date/time seen: 11/28/23 08:07 Interval history: No acute overnight events. He denies shortness of breath, bladder pain, urinary symptoms. Admits to chest soreness from the CPR. Review of Systems Review of Systems: All systems reviewed & are unremarkable except as noted in HPI and below (Subjective) Exam Const: General: comfortable and no acute distress Other: A&O x3. Eyes: Pupils: Equal, round and reactive pupils present Neck: Neck: supple Resp: Effort & Inspection: normal respiratory effort Auscultation: clear to auscultation bilaterally Cardio: Rate: regular rate Rhythm: regular rhythm GI: GI Palp: Yes Soft to palpation and No Tenderness to palpation present (GI) : Bimanual exam- vagina & uterus: bladder normal to palpation Extrem: General: no edema Objective Data Vital Signs Vital Signs: Vital Signs - 24 hr 11/27/23 21:22 11/27/23 22:15 11/28/23 00:52 Temperature 97.9 F Pulse Rate 104 H 97 Respiratory Rate 16 15 16 Blood Pressure 156/112 H Pulse Oximetry 100 100 Oxygen Delivery Room Air 11/28/23 01:20 11/28/23 02:10 11/28/23 02:22 Temperature 97 F L Pulse Rate 101 H 101 H 88 Respiratory Rate 18 18 Blood Pressure 134/94 H Pulse Oximetry 99 99 Oxygen Delivery Room Air 11/28/23 03:52 11/28/23 04:00 11/28/23 04:00 Temperature 97.2 F L Pulse Rate 91 91 92 Respiratory Rate 18 18 Blood Pressure 105/58 L Pulse Oximetry 100 100 Oxygen Delivery Room Air 11/28/23 05:59 11/28/23 07:30 Temperature 98.2 F Pulse Rate 89 85 Respiratory Rate 20 Blood Pressure 97/51 L Pulse Oximetry 93 Oxygen Delivery Intake/Output Intake/Output: Intake & Output 11/25/23 11/26/23 11/27/23 11/28/23 22:59 23
[2023-11-28] MEDS: hydrOXYzine HCL 25 MG TABLET PO ×3 (09:59→17:16)
[2023-11-28] MEDS: QUEtiapine FUMARATE 100 MG TABLET PO ×2 (09:59→20:45)
[2023-11-28] MEDS: PREGABALIN (*CRX) 75 MG CAPSULE PO ×2 (09:59→17:16)
[2023-11-28] MEDS: buPROPion HCL XL (24 HR) 150 MG TABCR 300 MG PO (09:59)
[2023-11-28 13:03] LABS: Appearance Urine Clear (Clear); Bilirubin Urine Negative (Negative); Blood Urine Negative (Negative); Color Urine Yellow (Yellow); Glucose Urine UA Negative (Negative); Ketones Urine Negative (Negative); Leukocyte Esterase Ur Negative LEU/UL (NEGATIVE); Nitrate Urine Negative (Negative); Protein Urine Negative (Negative); Specific Grav Ur 1.033 (1.001-1.035); Urobilinogen Urine 0.2 mg/dL (<2.0); pH Urine 5.5 (5.0-9.0)
[2023-11-28 13:11] LABS: Add Urine Microscopic? NO
[2023-11-28] MEDS: lamoTRIgine 50 MG TABLET 150 MG PO (13:44)
--- NOTE | 2023-11-28 15:40 | PC.NURSE ---
This patient, Lucero Santizo, was received from [facility] on 11/28/23 at 1540. Patient/family oriented to unit policies and routines
--- NOTE | 2023-11-28 17:10 | PC.NURSE ---
This patient, Lucero Santizo, was transferred to [3rd med surg ] on 11/28/23 at 1529. Personal belongings sent with patient. Report given to [NATHAN Benson ]. Appropriate documentation sent with patient. Patient alert and oriented.
[2023-11-28] MEDS: ACETAMINOPHEN 500 MG TABLET 1000 MG PO (20:46)
[2023-11-29] MEDS: SODIUM CHLORIDE 0.9% IV 1,000 ML 125 ML IV CONT (00:49)
[2023-11-29 06:58] LABS: Basophils Absolute Auto 0.1 K/mm3 (0.0-0.1); Basophils Percent Auto 0.8 % (0.2-1.2); Eosinophils Absolute Auto 0.1 K/mm3 (0-0.3); Eosinophils Percent Auto 1.6 % (0-4.4); Hemoglobin 12.9 g/dL (12.0-15.0); Immature Granulocyte Absolute 0.01 K/mm3 (0.00-0.031); Immature Granulocyte Percent A 0.2 % (0-0.5); Lymphocytes Absolute Auto 2.79 K/mm3 (0.9-3.2); Lymphocytes Percent Auto 45.1 % (18.3-44.2); Mean Corpuscular HGB Conc 30.7 g/dl (32-36); Mean Corpuscular Volume 94.4 fl (80-100); Mean Platelet Volume 9.7 fl (7.4-10.4); Monocytes Absolute Auto 0.4 K/mm3 (0.1-0.6); Monocytes Percent Auto 6.6 % (2.6-8.5); Neutrophils Absolute Auto 2.8 K/mm3 (1.3-6.7); Neutrophils Percent Auto 45.7 % (45.5-73.1); Platelet Count Result 278 k/mm3 (150-375); Red Blood Count 4.45 M/mm3 (4.2-5.4); Red Cell Distribution Width 13.8 % (11.5-14.5); White Blood Count 6.2 K/mm3 (4.5-10.0)
[2023-11-29 07:08] LABS: Anion Gap 5 mmol/L (8-16); Blood Urea Nitrogen 5 mg/dL (7-17); Calcium 8.3 mg/dL (8.4-10.2); Carbon Dioxide 23 mmol/L (22-30); Chloride 110 mmol/L (98-107); Estimated CRCL calculation 113 ml/min; Estimated Glomerular Filt Rate > 60; Glucose 99 mg/dL (65-110); Potassium 3.8 mmol/L (3.4-5.0); Sodium 138 mmol/L (137-145)
[2023-11-29 07:29] LABS: Procalcitonin 0.1 ng/mL
--- NOTE | 2023-11-29 07:47 | PM.DS ---
DS: Admitting Diagnosis Discharge Date November 29, 2023 Admitting Diagnosis Fentanyl overdose DS: Discharge Diagnosis Discharge Diagnosis (1) Depression: Code(s): F32.A - Depression, unspecified Status: Acute (2) Accidental overdose: Code(s): T50.901A - Poisoning by unspecified drugs, medicaments and biological substances, accidental (unintentional), initial encounter Status: Acute (3) Tobacco dependence: Code(s): F17.200 - Nicotine dependence, unspecified, uncomplicated Status: Chronic (4) Unresponsive episode: Code(s): R41.89 - Other symptoms and signs involving cognitive functions and awareness Status: Acute (5) Opioid abuse: Code(s): F11.10 - Opioid abuse, uncomplicated Status: Acute DS: Summary Hospital Course Hospital Course: 28-year-old female with a history of active tobacco abuse, marijuana abuse, opioid abuse, depression and anxiety, bipolar, cyclical vomiting syndrome presents after taking 2 tabs of fentanyl subsequently becoming unresponsive. Family started CPR. On EMS arrival ACLS was initiated and Narcan 2 mg given intranasal. 6 minutes after EMS arrival patient returned to consciousness and spontaneous circulation. Subsequently admitted on 11/27/2023 for further management. The patient fared well afterwards aside from some musculoskeletal pain from CPR. She was given normal saline fluid resuscitation for dehydration. Abnormal urinalysis noted however it was contaminated and the culture negative and the patient was asymptomatic. The patient is to return home to her family on 11/29/2023 in stable condition. She has been heavily counseled multiple times on the use of polysubstance abuse. This is considering she is also on other sedatives and antipsychotics for her bipolar. The patient was in great understanding of this and in agreement not to overuse medications or misuse illicit medications. She requested an albuterol inhaler for chronic shortness of breath as she had been prescribed 1 previously. She has been advised she must follow-up with PCP on this matter among everything else and she understands. Care coordination also provided resources. The patient was full code during her stay. Time Spent with Patient Time attestation: Total time spent providing and/or coordinating discharge services: Exam Const: General: cooperative and no acute distress Resp: Effort & Inspection: normal respiratory effort Auscultation: clear to auscultation bilaterally Cardio: Rate: regular rate Rhythm: regular rhythm Heart sounds: S1 normal heart sound present and S2 normal heart sound present GI: GI Palp: No abdominal tenderness Auscultation: normal bowel sounds DS: Data Data Completed and Pending Labs on day of discharge: Labs from last 24 hours 11/29/23 11/28/23 06:30 12:50 WBC 6.2 RBC 4.45 Hgb 12.9 Hct 42.0 MCV 94.4 MCH 29.0 MCHC 30.7 L RDW 13.8 Plt Count 278 MPV 9.7 Immature Gran % (Auto) 0.2 Neut % (Auto) 45.7 Lymph % (Auto) 45.1 H Treasure % (Auto) 6.6 Eos % (Auto) 1.6 Baso % (Auto) 0.8 Lymph # (Auto) 2.79 Treasure # (Auto) 0.4 Eos # (Auto) 0.1 Baso # (Auto) 0.1 Abs Immat Gran (auto) 0.01 Absolute Neuts (auto) 2.8 Absolute Nucleated RBC 0.000 Nucleated RBC % 0.0 Sodium 138 Potassium 3.8 Chloride 110 H Carbon Dioxide 23 Anion Gap 5 L BUN 5 L Creatinine 0.70 Estim Creat Clear Calc 113 Estimated GFR > 60 Glucose 99 Calcium 8.3 L Magnesium 2.0 Procalcitonin 0.1 Urine Color Yellow Urine Appearance Clear Urine pH 5.5 Ur Specific [place] 1.033 Urine Protein Negative Urine Glucose (UA) Negative Urine Ketones Negative Ur Blood (Man) Negative Urine Nitrate Negative Urine Bilirubin Negative Urine Urobilinogen 0.2 Ur Leukocyte Esterase Negative Discharge Plan Discharge Attending physician on discharge: Kathi Jones
[2023-11-29] MEDS: PREGABALIN (*CRX) 75 MG CAPSULE PO (08:35)
[2023-11-29] MEDS: lamoTRIgine 50 MG TABLET 150 MG PO (08:35)
[2023-11-29] MEDS: buPROPion HCL XL (24 HR) 150 MG TABCR 300 MG PO (08:35)
--- NOTE | 2023-11-29 12:25 | PC.NURSE ---
I have reviewed and agree with Kelley BENAVIDES charting.
== END 2023-11-29 09:45 | disposition home or self-care (01) ==
LOC: ANHED 23:52 → ANHIMU 11-28 02:20 → ANH3MEDSUR 11-29 07:47 → ANHIMU 11-30 07:43
PROVIDERS: Admitting Provider Internal Medicine; Emergency Provider Emergency Medicine; PCP Nurse Practitioner Family; Visit Provider General Practice
DX: T40.411A Poisoning by fentanyl or fentanyl analogs, accidental (unintentional), initial encounter (principal); Y92.9 Unspecified place or not applicable; F31.9 Bipolar disorder, unspecified; R41.89 Other symptoms and signs involving cognitive functions and awareness; R11.15 Cyclical vomiting syndrome unrelated to migraine; E86.0 Dehydration; R94.31 Abnormal electrocardiogram [ECG] [EKG]; Z20.822 Contact with and (suspected) exposure to COVID-19; F11.10 Opioid abuse, uncomplicated; F17.210 Nicotine dependence, cigarettes, uncomplicated; F12.10 Cannabis abuse, uncomplicated
CPT/HCPCS: 36415; 71275; 74177; 80048; 80053; 80307; 81001; 81003; 81025; 83605; 83735; 84145; 84443; 84484; 85025; 85610; 85730; 87086; 87088; 87635; 93005; 96360; 96361; 96365; 96374; 99285; A9270; G0378; G0379; J0696; J0780; J7030; Q9967

== ENCOUNTER 2023-11-30 20:37 | Emergency (ER) | payer BC, SELFPAY ==
--- NOTE | ~2023-11-30 | CT_ITS ---
CT of the Abdomen and Pelvis: Indication: Abdominal pain Technique: 2.5 mm axial scans were obtained through the abdomen and pelvis following intravenous adm inistration of 100 cc of Omnipaque 350. Dose reduction technique was used on this scan by utilizing a utomated exposure control and iterative reconstruction technique. The dose-length product (DLP) was 1 378.34 mGy-cm. COMPARISON: 11/27/2023 Findings: Scans through the lung bases are unremarkable. The liver, spleen, pancreas, adrenals and kidneys are within normal limits. Cholecystectomy clips are present. No evidence of aortic aneurysm. No lymphadenopathy. No bowel obstruction or bowel wall thickening. There is no evidence to suggest acute appendicitis. Images through the pelvis were performed. Urinary bladder unremarkable. No adnexal mass seen. No asci kai. Impression: No significant abnormalities seen. Reviewed, dictated and finalized at [facility]. Impression: No significant abnormalities seen.
[2023-11-30 20:40] VITALS: BP 165/94; PULSE 80; RESP 15; TEMP 37.7; O2SAT 100
--- NOTE | 2023-11-30 22:32 | ED.GENADULT ---
HPI - General Adult General Chief complaint: Nausea/Vomiting/Diarrhea <Arron Sparks PA-C - Last Filed: 12/01/23 01:25> Stated complaint: cyclic nausea <SOLIS Pham Last Filed: 12/01/23 01:25> Time Seen by Provider: 11/30/23 22:21 <SOLIS Pham Last Filed: 12/01/23 01:25> Source: patient <SOLIS Pham Last Filed: 12/01/23 01:25> Mode of arrival: ambulatory <SOLIS Pham Last Filed: 12/01/23 01:25> Limitations: no limitations <SOLIS Pham Last Filed: 12/01/23 01:25> History of Present Illness HPI narrative: This is a 28-year-old female who presents to the ED with chief complaint of nausea, vomiting and abdominal pain beginning 6 hours ago. Patient describes diffuse abdominal pain. Described as aching and constant. No specific exacerbating or alleviating factors. States multiple episodes of emesis today. Denies diarrhea. Denies fevers, chills, urinary symptoms, GI bleeding symptoms. Endorses marijuana use daily. Denies chest pain, shortness of breath, cough. Per chart review, patient was just here 3 days ago for opioid overdose. Patient states that she took too much of the because she was having so much abdominal pain. <SOLIS Pham Last Filed: 12/01/23 01:25> Related Data Home medications: Home Medications Medication Instructions Recorded Confirmed bupropion HCl 300 mg 24 hr tablet, 300 mg PO DAILY 11/28/23 11/28/23 extended release ergocalciferol (vitamin D2) 1,250 1,250 mcg PO WEEKLY 11/28/23 11/28/23 mcg (50,000 unit) capsule hydroxyzine HCl 25 mg tablet 25 mg PO TID anxiety 11/28/23 11/28/23 lamotrigine 150 mg tablet 150 mg PO DAILY 11/28/23 11/28/23 pregabalin 75 mg capsule 75 mg PO BID 11/28/23 11/28/23 quetiapine 100 mg tablet 100 mg PO BID 11/28/23 11/28/23 trazodone 100 mg tablet 100 mg PO HS PRN Insomnia 11/28/23 11/28/23 <Arron Sparks PA-C - Last Filed: 12/01/23 01:25> Allergies/adverse reactions: Allergies Allergy/AdvReac Type Severity Reaction Status Date / Time amoxicillin Allergy Unknown Unknown Verified 11/30/23 20:38 capsaicin Allergy Rash Verified 11/30/23 20:38 <Arron Sparks PA-C - Last Filed: 12/01/23 01:25> Review of Systems Review of Systems: All systems as dictated in HPI <Arron Sparks PA-C - Last Filed: 12/01/23 01:25> [facility] Past Medical History Medical History: Medical History (Updated 12/01/23 @ 00:43 by Arron Sparks PA-C) Cyclic vomiting syndrome Depression Opioid abuse <Arron Sparks PA-C - Last Filed: 12/01/23 01:25> Surgical History Surgical History: Surgical History History of appendectomy History of esophagogastroduodenoscopy (EGD) September 2022 Hx of cholecystectomy 2016 <Arron Sparks PA-C - Last Filed: 12/01/23 01:25> Family History Family History: Family History Mother Acute myocardial infarction Rheumatoid arthritis Unknown Diabetes mellitus <Arron Sparks PA-C - Last Filed: 12/01/23 01:25> Social History Social History: Social History Smoking packs per day: 1 Smoking cigarettes per day: 20.0 Years smoked: 12 Smoking pack-years: 12.00 Smoking status: Current every day smoker Tobacco type: cigarettes Second hand tobacco smoke exposure: Yes Alcohol intake: never Substance use: current Substance use type: marijuana and opiates Other substance usage details: previously fentanyl (last use 06/27/20); uses marijuana nearly montesinos Last use: today Do You Feel Safe in your Home?: Yes Lack of Transportation: YES Lack of Food: Never True Current Housing: I Have Housing Concerned About Future Housing: YES Difficulty Paying Gas/Electric Bills: No Difficulty Paying for Meds: No Currently U
[2023-11-30 23:27] LABS: Basophils Absolute Auto 0.1 K/mm3 (0.0-0.1); Basophils Percent Auto 0.3 % (0.2-1.2); Eosinophils Percent Auto 0.2 % (0-4.4); Hematocrit 50.1 % (37.0-47.0); Hemoglobin 16.5 g/dL (12.0-15.0); Immature Granulocyte Absolute 0.05 K/mm3 (0.00-0.031); Immature Granulocyte Percent A 0.3 % (0-0.5); Lymphocytes Absolute Auto 1.04 K/mm3 (0.9-3.2); Lymphocytes Percent Auto 6.5 % (18.3-44.2); Mean Corpuscular HGB Conc 32.9 g/dl (32-36); Mean Corpuscular Hemoglobin 29.1 pg (26-34); Mean Corpuscular Volume 88.4 fl (80-100); Mean Platelet Volume 9.4 fl (7.4-10.4); Monocytes Absolute Auto 0.4 K/mm3 (0.1-0.6); Monocytes Percent Auto 2.2 % (2.6-8.5); Neutrophils Absolute Auto 14.4 K/mm3 (1.3-6.7); Neutrophils Percent Auto 90.5 % (45.5-73.1); Platelet Count Result 359 k/mm3 (150-375); Red Blood Count 5.67 M/mm3 (4.2-5.4); Red Cell Distribution Width 13.3 % (11.5-14.5); White Blood Count 15.9 K/mm3 (4.5-10.0)
[2023-11-30 23:30] VITALS: BP 150/90; PULSE 71; RESP 17; O2SAT 97
[2023-11-30] MEDS: HALOPERIDOL LACTATE 5 MG/ML VIAL IM (23:32)
[2023-11-30] MEDS: diphenhydrAMINE HCl INJ 50 MG/ML VIAL 25 MG IV PUSH (23:32)
[2023-11-30 23:37] LABS: Alanine Aminotransferase 25 U/L (6-35); Albumin Level 5.2 g/dL (3.5-5.1); Alkaline Phosphatase 112 U/L (38-126); Anion Gap 15 mmol/L (8-16); Aspartate Amino Transferase 34 U/L (14-36); Bilirubin,Total 0.7 mg/dL (0.2-1.3); Blood Urea Nitrogen 6 mg/dL (7-17); Calcium 10.9 mg/dL (8.4-10.2); Carbon Dioxide 24 mmol/L (22-30); Chloride 99 mmol/L (98-107); Estimated CRCL calculation 101 ml/min; Estimated Glomerular Filt Rate > 60; Glucose 123 mg/dL (65-110); Lipase 65 U/L (23-300); Potassium 3.8 mmol/L (3.4-5.0); Sodium 138 mmol/L (137-145)
[2023-12-01] MEDS: SODIUM CHLORIDE 0.9% IV 1,000 ML 999 ML IV CONT ×2 (00:05)
[2023-12-01] MEDS: KETOROLAC 15 MG/ML VIAL (*BKC) 30 MG IV PUSH (00:32)
[2023-12-01] MEDS: ONDANSETRON INJ 4 MG/2 ML VIAL IV PUSH (00:32)
[2023-12-01 00:38] LABS: Barbiturate Screen Urine Negative (Negative); Benzodiazepines Screen Urine Negative (Negative)
[2023-12-01 00:43] LABS: Appearance Urine Cloudy (Clear); Bacteria Urine 1+ /hpf; Bilirubin Urine Negative (Negative); Blood Urine Negative (Negative); Color Urine Yellow (Yellow); Glucose Urine UA Negative (Negative); Ketones Urine 2+ mg/dL (Negative); Leukocyte Esterase Ur Negative LEU/UL (Negative); Need Manual Microscopic Reviewed; Nitrate Urine Negative (Negative); Non Pathogenic Casts 0-2; Protein Urine Trace mg/dL (Negative); Specific Grav Ur 1.013 (1.001-1.035); Squamous Epithelial Cell Urine Moderate /hpf (Few); Urobilinogen Urine 0.2 mg/dL (<2.0); WBC Urine 0-5 /hpf (0-3); pH Urine >=9.0 (5.0-9.0)
[2023-12-01 00:46] LABS: Add Urine Microscopic? YES; Amphetamine Screen Urine Negative (Negative); Cocaine Screen Urine Negative (Negative); Methadone Screen Urine Negative (Negative); Opiate Screen Urine Negative (Negative); Phencyclidine Screen Urine Negative (Negative)
[2023-12-01 04:01] LABS: Cannabinoid Screen Urine Positive (Negative)
[2023-12-01 04:17] VITALS: BP 152/92; PULSE 89; RESP 17; O2SAT 100
== END 2023-12-01 05:02 | disposition home or self-care (01) ==
PROVIDERS: Emergency Medicine; Emergency Provider Physician Assistant; PCP Nurse Practitioner Family
DX: R11.15 Cyclical vomiting syndrome unrelated to migraine (principal); F32.A Depression, unspecified; Z90.49 Acquired absence of other specified parts of digestive tract; F17.210 Nicotine dependence, cigarettes, uncomplicated
CPT/HCPCS: 36415; 74177; 80053; 80307; 81025; 83690; 85025; 96361; 96372; 96374; 96375; 99284; A9270; J1200; J1630; J1885; J2405; J7030; Q9967

== ENCOUNTER 2024-06-22 23:53 | Emergency (ER) | payer BC, SELFPAY ==
--- NOTE | ~2024-06-22 | XR_ITS ---
EXAMINATION: XR chest 1V portable DATE: 06/23/2024 00:34 INDICATION: Central chest pain TECHNIQUE: frontal view of the chest was obtained. COMPARISON: Chest radiograph dated 07/13/[address] dated 11/27/23 FINDINGS: The lungs are clear with no focal airspace opacities, pulmonary edema, pleural effusion or pneumothor ax. The cardiomediastinal silhouette is normal. Visualized bones and soft tissues are unremarkable. IMPRESSION: 1. No acute cardiopulmonary disease. Reviewed, dictated and finalized at location A.
--- NOTE | 2024-06-22 23:54 | ECG_ITS ---
Test Date: 2024-06-23 00:02:41 Measurements Intervals Adams Rate: 113 P: 59 IN: 132 QRS: 67 QRSD: 94 T: 41 QT: 328 QTc: 451 Interpretive Statements SINUS TACHYCARDIA POSSIBLE LEFT ATRIAL ENLARGEMENT [-0.1mV P WAVE IN V1/V2] ABNORMAL RHYTHM ECG No previous ECG available for comparison Electronically Signed On 06-23-2024 11:33:58 CDT by Scott Yeung M.D.
[2024-06-23 00:30] VITALS: PULSE 101
[2024-06-23 00:31] VITALS: O2SAT 98
[2024-06-23] MEDS: ASPIRIN 81 MG CHEWABLE TABLET 324 MG PO (00:49)
[2024-06-23 01:00] LABS: Basophils Absolute Auto 0.1 K/mm3 (0.0-0.1); Basophils Percent Auto 1.1 % (0.2-1.2); Eosinophils Absolute Auto 0.2 K/mm3 (0-0.3); Eosinophils Percent Auto 2.1 % (0-4.4); Hematocrit 39.1 % (37.0-47.0); Hemoglobin 13.2 g/dL (12.0-15.0); Immature Granulocyte Absolute 0.03 K/mm3 (0.00-0.031); Immature Granulocyte Percent A 0.4 % (0-0.5); Lymphocytes Absolute Auto 3.24 K/mm3 (0.9-3.2); Mean Corpuscular HGB Conc 33.8 g/dl (32-36); Mean Corpuscular Hemoglobin 30.4 pg (26-34); Mean Corpuscular Volume 90.1 fl (80-100); Mean Platelet Volume 9.4 fl (7.4-10.4); Monocytes Absolute Auto 0.5 K/mm3 (0.1-0.6); Monocytes Percent Auto 5.9 % (2.6-8.5); Neutrophils Absolute Auto 4.1 K/mm3 (1.3-6.7); Neutrophils Percent Auto 50.5 % (45.5-73.1); Platelet Count Result 309 k/mm3 (150-375); Red Blood Count 4.34 M/mm3 (4.2-5.4); Red Cell Distribution Width 12.8 % (11.5-14.5); White Blood Count 8.1 K/mm3 (4.5-10.0)
--- NOTE | 2024-06-23 01:00 | ED.GENADULT ---
HPI - General Adult General Chief complaint: Arrhythmia/Palpitations Stated complaint: heart palpitations Time Seen by Provider: 06/23/24 00:31 History of Present Illness HPI narrative: Patient is a 29-year-old female who presents emergency department with chief complaint of palpitations the patient reports that she has been having palpitations for the last week but got worse this evening the patient states he feels as though her heart is beating fast patient took some clonidine and also took aspirin prior to arrival. The patient reports that she has had no vomiting but does report that she has had some diarrhea Related Data Home Medications Medication Instructions Recorded Confirmed bupropion HCl 300 mg 24 hr tablet, 300 mg PO DAILY 11/28/23 11/28/23 extended release ergocalciferol (vitamin D2) 1,250 1,250 mcg PO WEEKLY 11/28/23 11/28/23 mcg (50,000 unit) capsule hydroxyzine HCl 25 mg tablet 25 mg PO TID anxiety 11/28/23 11/28/23 lamotrigine 150 mg tablet 150 mg PO DAILY 11/28/23 11/28/23 pregabalin 75 mg capsule 75 mg PO BID 11/28/23 11/28/23 quetiapine 100 mg tablet 100 mg PO BID 11/28/23 11/28/23 trazodone 100 mg tablet 100 mg PO HS PRN Insomnia 11/28/23 11/28/23 Allergies Allergy/AdvReac Type Severity Reaction Status Date / Time amoxicillin Allergy Unknown Unknown Verified 06/23/24 00:32 capsaicin Allergy Rash Verified 06/23/24 00:32 Review of Systems Review of Systems: A 10 system review of systems was completed on the patient and is negative except for what is stated in the HPI. Nursing and ancillary documentation was reviewed. [facility] Past Medical History Medical History Cyclic vomiting syndrome Depression Opioid abuse Surgical History Surgical History History of appendectomy History of esophagogastroduodenoscopy (EGD) September 2022 Hx of cholecystectomy 2016 Family History Family History Mother Acute myocardial infarction Rheumatoid arthritis Unknown Diabetes mellitus Social History Social History Smoking packs per day: 1 Smoking cigarettes per day: 20.0 Years smoked: 12 Smoking pack-years: 12.00 Smoking status: Current every day smoker Tobacco type: cigarettes Second hand tobacco smoke exposure: Yes Alcohol intake: never Substance use: current Substance use type: marijuana and opiates Other substance usage details: previously fentanyl (last use 06/27/20); uses marijuana nearly montesinos Last use: today Do You Feel Safe in your Home?: Yes Lack of Transportation: YES Lack of Food: Never True Current Housing: I Have Housing Concerned About Future Housing: YES Difficulty Paying Gas/Electric Bills: No Difficulty Paying for Meds: No Currently Unemployed: No Education: High School Diploma/GED Difficulty w/ Childcare or Family Care: No Gender identity (if verbalized by the patient): Female Spiritual care concerns: No Exam Narrative: GENERAL: Well-appearing, well-nourished, and in no acute distress. HEAD: Normocephalic, atraumatic. EYES: PERRLA and EOMI. ENT: Nares clear, no rhinorrhea or epistaxis. Mucous membranes moist. NECK: Supple. CHEST: Clear to auscultation. No respiratory distress. HEART: Regular rate and rhythm. No murmur heard. Normal peripheral pulses. ABDOMEN: Soft, nontender, nondistended, normal active bowel sounds. EXTREMITIES: Normal range of motion. No edema. SKIN: Warm, dry, no rash. NEURO: No focal deficits. Alert and oriented x3. PSYCH: Normal mood and affect. Course Vital Signs Vital signs: Vital Signs Pulse Rate 101 H 06/23/24 00:30 Pulse Rate 102 H 06/23/24 01:03 Respiratory Rate 13 06/23/24 01:03 Blood Pressure 116/71 06/23/24 01:03
[2024-06-23 01:03] VITALS: BP 116/71; PULSE 102; RESP 13; O2SAT 100
[2024-06-23 01:07] LABS: INR 0.9; Prothrombin Time 12.3 Seconds (11.1-14.7)
[2024-06-23 01:08] LABS: Magnesium 1.8 mg/dL (1.6-2.3); Partial Thromboplastin Time 29.1 Seconds (22.3-36.8)
[2024-06-23 01:09] LABS: Alanine Aminotransferase 18 U/L (6-35); Albumin Level 4.1 g/dL (3.5-5.1); Alkaline Phosphatase 74 U/L (38-126); Anion Gap 7 mmol/L (4-12); Aspartate Amino Transferase 22 U/L (14-36); Bilirubin,Total 0.2 mg/dL (0.2-1.3); Blood Urea Nitrogen 12 mg/dL (7-17); Calcium 9.2 mg/dL (8.4-10.2); Carbon Dioxide 32 mmol/L (22-30); Chloride 94 mmol/L (98-107); Estimated CRCL calculation 72 ml/min; Estimated Glomerular Filt Rate > 60; Glucose 115 mg/dL (65-110); Lipase 47 U/L (23-300); Potassium 3.6 mmol/L (3.4-5.0); Sodium 133 mmol/L (137-145)
[2024-06-23 01:10] LABS: Add Urine Microscopic? YES; Appearance Urine Turbid (Clear); Bacteria Urine 2+ /hpf; Bilirubin Urine Negative (Negative); Blood Urine Negative (Negative); Color Urine Yellow (Yellow); Glucose Urine UA Negative (Negative); Ketones Urine Negative (Negative); Leukocyte Esterase Ur Trace LEU/UL (Negative); Need Manual Microscopic Reviewed; Nitrate Urine Negative (Negative); Non Pathogenic Casts 0-2; Protein Urine Negative (Negative); Specific Grav Ur 1.009 (1.001-1.035); Squamous Epithelial Cell Urine Many /hpf (Few); Urobilinogen Urine 0.2 mg/dL (<2.0); pH Urine 5.5 (5.0-9.0)
[2024-06-23 01:20] LABS: Troponin I < 0.012 ng/mL (0.000-0.034)
[2024-06-23] MEDS: SODIUM CHLORIDE 0.9% IV 1,000 ML 999 ML IV CONT (01:36)
[2024-06-23] MEDS: POTASSIUM CHLORIDE 20 MEQ PACKET (FOR LIQUID) 40 MEQ PO (02:17)
--- NOTE | 2024-06-23 02:25 | PC.NURSE ---
Pt refused magnesium drip stating that she did not want to wait another to leave. EDP aware. No further orders at this time.
== END 2024-06-23 02:30 | disposition home or self-care (01) ==
PROVIDERS: Emergency Provider Emergency Medicine
DX: N39.0 Urinary tract infection, site not specified (principal); R00.2 Palpitations; R07.89 Other chest pain; F32.A Depression, unspecified; F17.210 Nicotine dependence, cigarettes, uncomplicated
CPT/HCPCS: 36415; 71045; 80053; 81001; 83690; 83735; 84484; 85025; 85610; 85730; 87086; 93005; 96360; 99284; A9270; J7030

== ENCOUNTER 2024-08-24 19:07 | Emergency (ER) | payer BC, SELFPAY ==
--- NOTE | 2024-08-24 19:23 | PC.NURSE ---
Pt called for triage and did not show up.
--- NOTE | 2024-08-24 19:48 | PC.NURSE ---
Pt called an additional 2 times for triage and did not show up.
== END 2024-08-24 19:48 | disposition left against medical advice (07) ==
DX: Z53.21 Procedure and treatment not carried out due to patient leaving prior to being seen by health care provider (principal)
CPT/HCPCS: 99199

== ENCOUNTER 2024-10-13 03:51 | Emergency (ER) | payer BC, SELFPAY ==
--- OUTSIDE RECORDS SUMMARY | 2024-10-13 03:53 | XMS_ITS | Clinical Summary ---
Author Organization [facility] Address [address] [place] [address] Phone Care Team Providers Care Bursar Name Role Phone Shania Griggs APRN, CNP Primary Care Pro vider Allergies No known active allergies Medications * This document contains information received from the source organization and may not represent a complete record from that organization. pregabalin (LYRICA) 75 MG Capsule Take 75 mg by mouth 2 times daily. Active Desvenlafaxine Succinate (Pristiq) 50 MG TABLET SR 24 HR Take 50 mg by mouth daily. Active traZODone (DESYREL) 150 MG Tablet Take 150 mg by mouth nightly. Active QUEtiapine (SEROquel) 100 MG Tablet Take 100 mg by mouth nightly. Active buPROPion (WELLBUTRIN) 150 MG XL tablet Take 450 mg by mouth daily. Active omeprazole (PriLOSEC) 20 MG CAPSULE DELAYED RELEASE Take 20 mg by mouth daily. 1-2 tablets daily Active famotidine (PEPCID) 20 MG Tablet Take 20 mg by mouth every evening. Active dicyclomine (BENTYL) 20 MG Tablet Take 20 mg by mouth every 6 hours as needed for Other (stomach). Active VITAMIN D PO Take 50,000 Units by mouth once a week. On Sundays Active Atomoxetine HCl (Strattera) 80 MG Capsule Take 80 mg by mouth daily. Active promethazine (PHENERGAN) 25 MG Tablet Take 25 mg by mouth every 6 hours as needed for Nausea - 1st line. Active ondansetron (Zofran) 4 MG Tablet Take 4 mg by mouth every 8 hours as needed for Nausea - 1st line. Active albuterol 108 (90 Base) MCG/ACT Aerosol Solution take 2 Puffs by inhalation every 4 hours as needed for Wheezing. Active chlordiazePOXID E (LIBRIUM) 10 MG CapsuleIndicati ons:Opioid withdrawal (HCC) Take 1 Capsule by mouth every 8 hours as needed for Withdrawal. 10 Capsule 4 Active naloxone HCl (Narcan) 4 MG/0.1ML Liquid 1 Clover by Nasal route as needed for Opioid Reversal. Administer in one nostril for symptoms of overdose (severe sleepiness, breathing problems, not responsive). Call 911. May repeat 1 spray in alternate nostril in 2-3 minutes if needed. 2 Each 4 Active Active Problems Problem Noted Date Diagnosed Date Anxiety Opioid abuse Tobacco abuse Asthma JOHNNY (obstructive sleep apnea) Resolved Problems Problem Noted Date Diagnosed Date Resolved Date Opioid withdrawal 05/11/2024 05/13/2024 Social History Tobacco Use Types Packs/Day Years Used Date Smoking Tobacco: Every Day Cigarettes 1 11.1 Started: 2013 Tobacco Cessation:Ready to Q uit: Not Asked; Counseling Given: Not Answered [facility] [employer] Answer Date Recorded In the past 12 months has [employer] gas, oil, or water [employer] threatened to shut off services in your home? Patient unable to answer 05/10/2024 Social Connection and Isolation Panel [NHANES] A nswer Date Recorded In a typical week, how many times do you talk on the phone with family, friends, or neighbors? Patient declined 05/10/2024 How often do you get togethe r with friends or relatives? Patient declined 05/10/2024 How often do you attend sikh or jewish serv ices? Patient declined 05/10/2024 Do you belong to any clubs o r organizations such as sikh groups, unions, fraternal or athletic groups, or school groups? Patient declined 05/10/2024 How often do you attend meet ings of the clubs or organizations you belong to? Patient declined 05/10/2024 Are you , , di vorced, , never , or living with a partner? Patient declined 05/10/2024 AUDIT-C Answer Date Recorded Q1: How often do you have a drink containing alc ohol? Patient declined 05/10/2024 Q2: How many drinks containi ng alcohol do you have on a typical day when you are drinking? Patient declined 05/10/2024 Q3: How often do you have si x or more drinks on one occasion? Patient declined 05/10/2024 Overall Financial Resource Strain (CARDIA) Answe r Date Recorded How hard is it for you to pa y for the very basics like food, housing, medical care, and heating? Patient declined 05/10/2024 [facility] - Occupational Stress Questionnaire Answer Date Recorded Do you feel stress - tense, restless, nervous, or anxious, or unable to sleep at night because your mind is troubled all the time - these days? Patient declined 05/10/2024 Exercise Vital Sign Answer Date Recorde d On average, how many days pe r week do you engage in moderate to strenuous exercise (like a brisk walk)? Patient declined On average, how many minutes do you engage in exercise at this level? Patient declined 05/10/2024 Hunger Vital Sign Answer Date Recorded Within the past 12 months, y ou worried that your food would run out before you got the money to buy more. Patient unable to answer 05/10/2024 Within the past 12 months, t he food you bought just didn't last and you didn't have money to get more. Patient unable to answer 05/10/2024 PRAPARE - Transportation Answer Date Re corded In the past 12 months, has l ack of transportation kept you from medical appointments or from getting medications? Patient unable to answer 05/10/2024 In the past 12 months, has l ack of transportation kept you from meetings, work, or from getting things needed for daily living? Patient unable to answer 05/10/2024 Housing Stability Vital Sign Answer Denzel e Recorded In the last 12 months, was t here a time when you were not able to pay the mortgage or rent on time? Patient unable to answer 05/10/2024 In the past 12 months, how m any times have you moved where you were living? 0 05/10/2024 At any time in the past 12 m [facility], were you homeless or living in a assisted (including now)? Patient unable to answer 05/10/2024 Comments No Sex and Gender Information Value Date Recorded Sex Assigned at Not on file Legal Sex Female 4:32 PM CDT Gender Identity Not on file Sexual Orientation Not on file Last Filed Vital Signs Vital Sign Reading Time Taken Comments Blood Pressure 123/70 05/13/2024 8:00 AM CDT Pulse 72 05/13/2024 8:00 AM CDT Temperature 36 ??C (96.8 ??F) 05/13/2024 8:00 AM CDT Respiratory Rate 18 05/13/2024 8:00 AM CDT Oxygen Saturation 99% 05/13/2024 8:00 AM CDT Inhaled Oxygen Concentration - - Weight 72.6 kg (160 lb) 05/10/2024 4:52 PM CDT Height 160 cm (5' 3 ) 05/10/2024 4:52 PM CDT Body Mass Index 28.34 05/10/2024 4:52 PM CDT Plan of Treatment Not on file Insurance [place] [id number] Care Teams Bursar Relationship Specialty Start Date End Date Shania Griggs APRN, SOCIAL SCIENCES DEPARTMENT CHAIR [address] [place] [id number] PCP - General Certified Nurse Practitioner 05/10/24
--- NOTE | 2024-10-13 03:54 | ECG_ITS ---
Test Date: 2024-10-13 04:00:00 Measurements Intervals [place] Rate: 96 P: 56 ME: 144 QRS: 66 QRSD: 93 T: 42 QT: 357 QTc: 451 Interpretive Statements SINUS RHYTHM POSSIBLE LEFT ATRIAL ENLARGEMENT [-0.1mV P WAVE IN V1/V2] Compared to ECG 06/23/2024 00:02:41 Sinus tachycardia no longer present Electronically Signed On 10-13-2024 22:10:31 RETAIL TRAINING MANAGER by Gloria Subramanian M.D.
--- OUTSIDE RECORDS SUMMARY | 2024-10-13 03:54 | XMS_ITS ---
Author Organization [facility] Address [address] [place] [address] Care Team Providers Care Dental Officer Name Role Phone Katelyn Motley Primary Care Provider [phone] REASON FOR VISIT -Discharged from [facility] on 05/13/24 Social History Sex Assigned At : Social History Observation Description Sex Assigned At Female Encounters Encounter Location Date Provider Diagnosis [address] [place] [address] 05/16/2024 Katelyn Motley Plan Of Treatment No Information Progress Notes * Lucero SANTIZO MDOB: [birth year] (29 yo F)Acc No.[id number]:05/16/2024 UNLOCKED PROGRESS NOTE Patient:?Lucero SANTIZO Provider:?Katelyn Motley, MSN, COMMUNICABLE DISEASE SPECIALIST, FN P-C :1995???Age:29 Y???Sex:Female D ate:05/16/2024 Address:[address] [place], [place] [id number] Subjective: * Chief Complaints: * ???1. -Discharged from [facility] on 05/13/24. * Medical History:? Objective: * Vitals:? Assessment: Plan: * Treatment: * Care Plan Details* * Electronic signature of My Motley APRN, [id number] on 10/13/2024 at 03:53 AM COMPLEX CARE NURSE PRACTITIONER Sign off status: Pending * Provider:?Everardo Waller, COMMUNICABLE DISEASE SPECIALIST, ORCHESTRATOR-C Date:?05/16/2024 Generated for Zhen huertas/Madeleine/Saadia on:?10/13/2024 03:53 AM COMPLEX CARE NURSE PRACTITIONER
--- OUTSIDE RECORDS SUMMARY | 2024-10-13 03:54 | XMS_ITS | Encounter Summary ---
Author Organization [facility] Address [facility] [address] [place] [address] Care Team Providers Care Roll Forming Machine Operator Name Role Phone James Daniels MD Primary Care Provider [phone] Chaz Willoughby MD Primary Care Provider [phone] Encounter Details Date Type Department Care Team (Late st Contact Info) Description 06/21/2016 Abstract [facility] CONVERSION [address] [place] [address] , Generic ConversionMD Social History Tobacco Use Types Packs/Day Years Used Date Smoking Tobacco: Never Assessed Comments Unknown Sex and Gender Information Value Date Recorded Sex Assigned at Not on file Legal Sex Female 7:05 PM CDT Gender Identity Not on file Sexual Orientation Not on file documented as of this encounter Plan of Treatment Not on file documented as of this encounter Visit Diagnoses Not on filedocumented in this encounter Care Teams Roll Forming Machine Operator Relationship Specialty Start Date End Date James Daniels MD PCP - General INTERNAL MEDICINE 07/12/18 01/11/24 Chaz Willoughby MD [address] [place] [phone] PCP - General HOSPITALIST 01/12/24 documented as of this encounter
--- OUTSIDE RECORDS SUMMARY | 2024-10-13 03:54 | XMS_ITS | Clinical Summary ---
Author Organization [facility] Address [address] [place] [address]. [place] [address] [place] [address] Care Team Providers Care Computer Graphic Designer Name Role Phone Chaz Willoughby MD Primary Care Provider [phone] Allergies No known active allergies Medications Multiple Vitamins-Minerals (MULTIVITAMIN ADULT) Tab Take 1 tablet by mouth daily. Active PROAIR HFA 108 (90 Base) MCG/ACT inhalerIndications :Mild intermittent asthma without complication (HHS/HCC) INL 1 TO 2 PFS PO Q 4 H PRF SOB 1 Inhaler 0 Active Spacer/Aero-Holdin g Chambers (PRO COMFORT SPACER ADULT) MiscIndications:Mi ld intermittent asthma without complication (HHS/HCC) Use with inhaler. 1 each 0 Active Cinnamon 500 MG capsule Take 1,000 mg by mouth daily. Active amphetamine-dextro amphetamine XR 20 MG 24 hr capsuleIndications :ADHD (attention deficit hyperactivity disorder), combined type Take 1 capsule (20 mg total) by mouth daily for 30 days. (Start 09/22/20. Next renewal no earlier than 10/22/20) 30 capsule 1 Active QUEtiapine (SEROQUEL) 100 MG tablet Take 1 tablet (100 mg total) by mouth 2 (two) times daily. Active traZODone (DESYREL) 150 MG tablet Take 1 tablet (150 mg total) by mouth nightly at bedtime. Active pregabalin (LYRICA) 75 MG capsule Take 1 capsule (75 mg total) by mouth 2 (two) times daily. Active gabapentin (NEURONTIN) 300 MG capsule Take 1 capsule (300 mg total) by mouth 2 (two) times daily. 3 Active buPROPion XL (WELLBUTRIN XL) 300 MG 24 hr tablet Take 1 tablet (300 mg total) by mouth every morning. Active buPROPion XL (WELLBUTRIN XL) 150 MG 24 hr tablet Take 1 tablet (150 mg total) by mouth every morning. Active naproxen (NAPROSYN) 500 MG tablet Take 1 tablet (500 mg total) by mouth 2 (two) times daily with meals. 60 tablet 4 Active famotidine (PEPCID) 20 MG tablet Take 1 tablet (20 mg total) by mouth 2 (two) times daily. 20 tablet 4 Active Active Problems Problem Noted Date Diagnosed Date Opioid abuse, in remission ([facility]) 10/2019 BMI 35.0-35.9,adult 07/22/2019 Generalized anxiety disorder 08/29/2016 Bruxism 06/28/2016 Severe obstructive sleep apnea 06/28/2016 Overview (08/07/2018): Transitioned From: Snoring; Description: REM-dependent, positional Medication management 01/06/2016 Overview (08/07/2018): Transitioned From: skilled nursing use of drug Assessment & Plan (05/02/2019 10:55 AM CDT): Last labwork in October from [facility]. Would repeat routine labs for chronic medication use after one year - due in . Nicotine dependence 07/27/2015 Assessment & Plan (05/02/2019 10:53 AM CDT): Patient now vaping. Discussed health risk associated with this, encouraged weaning nicotine concentration and discontinuing vaping when she is able. ADHD (attention deficit hype ractivity disorder), combined type 04/15/2015 Assessment & Plan (05/02/2019 7:46 AM CDT): Stable. She will continue her current medications. Renewal given as per [facility]. She will follow-up in 3 months, sooner if any problems. Resolved Problems Problem Noted Date Diagnosed Date Resolved Date Lower abdominal pain 07/22/2019 020 Non-intractable vomiting with nausea 07/22/2019 10/29/2019 Unintentional weight loss 07/22/2019 Hypokalemia 02/14/2018 11/05/2018 Immunizations Name Administration Dates Next Due Dtap (Generic) 02/15/2001, 7,1996,05/27,1996 Fluzone Adult - >Age 3 (Pref illed Syringe) 08/20/2020(Deferred: Patient Refused) HPV 06/11/2008,02/04/2008,11/26/2007 Hepatitis A (Generic) 06/11/2008,11/26/2007 Hepatitis B Pediatric 1996,1996,12/18 Hib (Generic) 05/27/1997,1996 MMR (Generic) 02/15/2001,05/27/1997 Meningococcal 11/26/2007 Meningococcal Vac A,C,Y,W-135 Sc 10/08/2013 Polio Ipv (Generic) 02/15/2001, 6,1996,03/08 Tdap (Generic) 03/28/2006 Varicella Vaccine 10/08/2013,11/26/2007,02/03/19 97 Family History Medical History Relation Comments Arthritis Mother Thyroid Disease Mother Relation Status Comments Mother Social History Tobacco Use Types Packs/Day Years Used Date Smoking Tobacco: Every Day Cigarettes Smokeless Tobacco: Never Tobacco Cessation:Ready to Q uit: No; Counseling Given: Yes Alcohol Use Standard Drinks/Week Comments No 0 (1 standard drink = 0.6 oz pur e alcohol) pt denies drinking. AUDIT-C Answer Date Recorded Frequency of Alcohol Consumption Never 08/07/2018 Average Number of Drinks Not on file 018 Frequency of Binge Drinking Not on file 07/20 PHQ-2 Answer Date Recorded PHQ-2 Score - If the patient scores above 3, please move on to questions 3-9 1 01/06/2021 Comments No Sex and Gender Information Value Date Recorded Sex Assigned at Not on file Legal Sex Female 7:05 PM CDT Gender Identity Not on file Sexual Orientation Not on file Occupation Industry Job Start Date Job End Date Not on file Not on file Not on file Not on file Last Filed Vital Signs Vital Sign Reading Time Taken Comments Blood Pressure 114/76 01/12/2024 4:00 PM CDT Pulse 90 01/12/2024 4:00 PM CDT Temperature 36.7 ??C (98 ??F) 01/12/2024 4:00 PM CDT Respiratory Rate 17 01/12/2024 4:00 PM CDT Oxygen Saturation 99% 01/12/2024 4:00 PM CDT Inhaled Oxygen Concentration - - Weight 84.4 kg (186 lb) 01/12/2024 2:47 PM CDT Height 157.5 cm (5' 2 ) 01/12/2024 2:47 PM CDT Body Mass Index 34.02 01/12/2024 2:47 PM CDT Plan of Treatment Health Maintenance Due Date Last Done Comments Cervical Cancer Screening Pap Smear (Age 21 to 29) Every 3 Years 1996 Cervical Cancer Screening 1996 Annual Physical 01/01/1999 Hepatitis C 01/01/2014 DTaP, Tdap and Td Vaccines (7 - Td or Tdap) 03/28/2016 03/28/2006, 02/15/2001, 08/27/1997, Additional history exists COVID-19 Vaccine ( season) 2024 Influenza Adult (#1) 2024 Pneumococcal Vaccine: Pediatrics (0 to 5 Years) and At-Risk Patients (6 to 64 Years) (1 of 2 - PCV) 01/31/2030 Postponed from 01/01/2002 (Per Provider Recommendation) Hepatitis B Vaccines Completed 1996, 1996, 1996 HPV Vaccines Completed 06/11/2008, 01/16, 11/26/2007 Meningococcal Vaccine Aged Out 10/08/2013, 008 No longer eligible based on patient's age to complete this topic Meningococcal B Vaccine Aged Out No l onger eligible based on patient's age to complete this topic RSV Immunizations Under 20 Months Aged Out No longer eligible based on patient's age to complete this topic [place] [address] [place] [address] C/O PROVID[employer] [id number] Care Teams Computer Graphic Designer Relationship Specialty Start Date End Date Chaz Willoughby MD [address] [place] [address] PCP - General HOSPITALIST 01/12/24
--- OUTSIDE RECORDS SUMMARY | 2024-10-13 03:54 | XMS_ITS ---
Author Organization [facility] Address [address] [place] [address] Care Team Providers Care Wire Weaver Name Role Phone Tolu Preetiestephania Primary Care Provider Jac Aldana [phone] REASON FOR VISIT Refills Medications Medication SIG (Take, Route, Fr equency, Duration) Notes Start Date End Date Status Pristiq 50 MG 1 tablet Orally Once a day for 30 days 04/25/2024 Active Atomoxetine HCl 80 MG 1 capsule in the m orning Orally Once a day for 30 days Ac tive Social History Sex Assigned At : Social History Observation Description Sex Assigned At Female Encounters Encounter Location Date Provider Diagnosis [address] [address] 06/10/2024 Jac Aldana ADHD (attention deficit hyperactivity disorder) F90.9 and Depression, unspecified depression type F32.9 Assessments Encounter Date Diagnosis (ICD Code) Assessment Notes Treatment Notes Treatment Clinical Notes Section Notes 06/10/2024 ADHD (attention deficit hyperactivity disorder) (ICD-10 - F90.9) 06/10/2024 Depression, unspecified depression type (ICD-10 - F32.9) Plan Of Treatment Medication Medication Name Sig Start Date Stop Date Notes Pristiq 50 MG 1 tablet Orally Once a day for 30 days 04/25/2024 Atomoxetine HCl 80 MG 1 capsule in the m orning Orally Once a day for 30 days Progress Notes * Lucero PAN MDOB: [birth year] (29 yo F)Acc No.[id number]:06/10/2024 Patient:?Lucero PAN :1995???Age:29 Y???Sex:Female Address:[address] [place] [phone] * Refills? Refill Atomoxetine HCl Capsule, 80 MG, Orally, 30, 1 capsule in the morning, Once a day, 30 days, Refills=0 Refill Pristiq Tablet Extended Release 24 Hour, 50 MG, Orally, 30, 1 tablet, Once a day, 30 days, Refills=0 * true * Date:? Generated for Zhen huertas/Madeleine/Melviitting on:?10/13/2024 03:54 AM WIND TURBINE PERFORMANCE ENGINEER
--- OUTSIDE RECORDS SUMMARY | 2024-10-13 03:54 | XMS_ITS | Data Portability ---
Author Organization [place] - [facility] web care [employer] [facility], Main Office Address [address] [place] [address] Assessment Encounter Date Assessment Date Assessment LastModified by Organization Details LastModified Time 10/09/2024 10/09/2024 Time spent with patient included: preparing to see patient by reviewing tests, obtaining and reviewing history, medical examination and evaluation, counseling and educating the patient, ordering medications and tests, documenting clinical information in EHR, independently interpreting results and communicating results to the patient for a total of 40 minutes. [email or web address] Not available 10/09/2024 15:50:15 Plan of Treatment Reminders Order Date Submit Date Provider Last Modified By Organization Details Last Modified Time Details Appointments None recorded. Lab urinalysis , dipstick 2023 024 [facility], [address] [place] [address], [phone], 4 15:38:38 test, urine 2023 024 [facility], [address] [place] [address], [address], 4 15:39:45 cytology, urine 2023 024 [facility] (Lab), [address] [place], [address], 4 14:55:14 CMP, serum or plasma [address] (Lab), [address] [place], [address], 4 08:18:54 CBC w/ auto diff [address] (Lab), [address] [place], [address], 4 08:18:54 lipid panel, serum [address] (Lab), [address] [place], [address], 4 08:18:54 glycohemog lobin, total, blood [address] (Lab), [address] [place], [address], 4 08:18:54 TSH, serum or plasma [address] (Lab), [address] [place], [address], 4 08:18:54 TSH, serum or plasma 2024 025 [facility] (Lab), [address] [place], [address], 5 01:58:07 T3, free, serum or plasma 2024 025 [facility] (Lab), [address] [place], [address], 5 15:28:26 T4, free, serum 2024 025 [facility] (Lab), [address] [place], [address], 5 01:58:07 Referral physical therapist referral 2023 024 [email or web address] [facility], [address] [place] [address], [address], 4 08:48:32 chiropract or referral - Patient fell at work and strained lumbar spine, imaging clear. Workmen's comp case. Please call patient to schedule an appointmen t. Thank you. 2023 024 [email or web address] Sinan Nichols DC, [address], [place], [address], 4 08:47:26 sleep medicine referral - Please call patient to schedule an appointmen t. Thank you. 2023 024 [email or web address] Donnell Vuong MD, [address] [place], [address], 4 08:57:40 gastroente rologist referral - Please call patient to schedule an appointmen t. Thank you. 2023 024 [facility], [address] [place], [address], 5 10:10:[address] referral 2024 025 [email or web address] Mikel Hernandez MD, [address] [facility] [address], [facility] [address], [place], [address], 5 15:35:22 Procedures None recorded. Surgeries None recorded. Imaging home sleep study - Please call patient to schedule. 2024 025 [facility], [address] [place], [address], 5 09:30:52 Medication Orders sulfametho xazole 800 mg-trimeth oprim 160 mg tablet 2023 024 [facility]12, [address], [place], [place], [id number], 4 15:59:22 ondansetro n 4 mg disintegra ting tablet 2023 [facility]32363, [address], [place], [place], [id number], 4 15:58:53 promethazi ne 25 mg tablet 2023 024 [facility] #09607, [address], [place], [place], [id number], 4 16:13:25 famotidine 20 mg tablet [address] [facility]65565, [address], [place], [place], [id number], 5 15:29:43 omeprazole 20 mg capsule,de layed release [address] [facility] #63385, [address], [place], [place], [id number], 4 15:58:49 Airsupra 90 mcg-80 mcg/actuat ion HFA aerosol inhaler 2023 024 [facility] #88171, [address], [place], [place], [id number], 4 15:02:08 metoclopra mide 10 mg disintegra ting tablet [address] [facility] #28803, [address], [place], [place], [id number], 5 15:29:57 gabapentin 100 mg capsule 2023 024 [facility] #24563, [address], [place], [place], [id number], 4 16:17:40 Airsupra 90 mcg-80 mcg/actuat ion HFA aerosol inhaler 2023 024 [facility] #16897, [address], [place], [place], [id number], 4 16:17:38 trazodone 150 mg tablet 2023 024 [facility] #40762, [address], [place], [place], [id number], 4 16:18:38 Airsupra 90 mcg-80 mcg/actuat ion HFA aerosol inhaler 2024 025 [facility] #58471, [address], [place], [place], [id number], 5 15:29:52 promethazi ne 25 mg tablet 2024 025 [facility] #61021, [address], [place], [place], [id number], 5 15:25:52 bupropion HCl XL 150 mg 24 hr tablet, extended release 2024 025 [facility] #93482, [address] [place], [place], [id number], 5 15:25:55 duloxetine 30 mg capsule,de layed release 2024 025 [facility] #30857, [address] [place], [place], [id number], 5 15:25:53 Patient TargetsNo targets recorded. Patient InstructionsNo instructions recorded. Reason for Referral Physical Therapist Referral for Low back strain Fall injury, workmen's comp Referring Physician: Keisha Dela Cruz, Family Medicine, Encounter Date: 01/11/2024 Chiropractor Referral for Lo w back strain Patient fell at work and strained lumbar spine, imaging clear. Workmen's comp case. Please call patient to schedule an appointment. Thank you. Referring Physician: Keisha Dela Cruz [facility], Encounter Date: 01/11/2024 Sleep Medicine Referral for Sleep apnea Please call patient to schedule an appointment. Thank you. Referring Physician: Keisha Dela Cruz [facility], Encounter Date: 08/14/2024 Distribution Operations Manager Referral for Cyclical vomiting syndrome Please call patient to schedule an appointment. Thank you. Referring Physician: Keisha Dela Cruz [facility], Encounter Date: 08/14/2024 Psychiatrist Referral for Ma shala depressive disorder Referring Physician: Keisha Dela Cruz [facility], Encounter Date: 10/08/2024 Results Created Date Observation Date Name Description Value Unit Range Abnormal Flag Note LastModifiedBy Organization Detail LastModifiedTime 04/25/20 24 04/25/2024 pregn heydi test, urine HCG negati ve Not Available [address], [address], 04/25/2024 15:10:15 04/25/20 24 04/25/2024 urina lysis , dipst ick Leukocytes (reference range: negative justin/? ? ?l) Trace Not Available [address], [address], 04/25/2024 15:01:22 04/25/2004/25/2024 urina lysis , dipst ick Nitrite (reference rage: negative mg/dl) negati ve Not Available [address], [address], 04/25/2024 15:01:22 04/25/20 24 04/25/2024 urina lysis , dipst ick Urobilinogen (reference range: 0.2-1 mg/dl) 1 Not Available [address], [address], 04/25/2024 15:01:22 04/25/20 24 04/25/2024 urina lysis , dipst ick Protein (reference range: negative mg/dl) Trace Not Available [address], [address], 04/25/2024 15:01:22 04/25/20 24 04/25/2024 urina lysis , dipst ick pH (reference range: 5-7) 5.5 Not Available [address], [address], 04/25/2024 15:01:22 04/25/20 24 04/25/2024 urina lysis , dipst ick Blood (reference range: negative Faustino/? ? ?l) Large Not Available [address], [address], 04/25/2024 15:01:22 04/25/20 24 04/25/2024 urina lysis , dipst ick Specific [place] (reference range: 1.005-1.030) 1.030 Not Available [address], [address], 04/25/2024 15:01:22 04/25/20 24 04/25/2024 urina lysis , dipst ick Ketone (reference range: negative mg/dl) Negati ve Not Available [address], [address], 04/25/2024 15:01:22 04/25/20 24 04/25/2024 urina lysis , dipst ick Bilirubin (reference range: negative mg/dl) Negati ve Not Available [address], [place], [address], 04/25/2024 15:01:22 04/25/20 24 04/25/2024 urina lysis , dipst ick Glucose (reference range: negative mg/dl) Negati ve Not Available [address], [address], 04/25/2024 15:01:22 04/25/20 24 04/25/2024 urina lysis , dipst ick Appearance Slight ly Cloudy Not Available [address], [address], 04/25/2024 15:01:22 04/25/20 24 04/25/2024 urina lysis , dipst ick Color Dark Yellow Not Available [address], [address], 04/25/2024 15:01:22 Result Notes None recorded. Problems Name Problem SNOMED Code Status Onset Date Resolution Date Notes Provider Name and Address Organization Details Recorded Time Cyclical vomiting syndrome 56377024 Active 2021 Not Available [facility] 3 23:08:11 Irritabl e bowel syndrome with diarrhea 138651282 Active 2021 Not Available [facility] 3 23:08:12 Pain 38669971 Completed 202001/28/2021 stomach Not Available [facility] 3 23:08:12 Mixed anxiety and depressi ve disorder 850322254 Active 2020 Not Available [facility] 3 23:08:12 Attentio n deficit hyperact ivity disorder , predomin antly inattent tereso type 14281231 Active 2020 Not Available [facility] 3 23:08:12 Opioid dependen ce 83761614 Completed 202001/18/2024 Keisha Dela CruzMIN [address], [place], [address] , [employer] [facility] 4 10:04:14 Sleep apnea 97611284 Active 2022 Shania Griggs NP [address], [place], [address] , [employer] [facility] 3 16:42:00 Irregula r periods 43651881 Active 2023 Chaz Willoughby MD [address], [place], [address] , [employer] 4 17:50:44 Smoker 65529692 Active 2023 Chaz Willoughby MD [address], [place], [address] , [employer] [facility] 4 17:51:25 Mild persiste nt asthma 383749080 Active 2023 Chaz Willoughby MD [address], [place], [address] , [employer] 4 17:51:32 Low back strain 916549268 Active 2023 MIN Ahmadi [address], [place], [address] , [employer] [facility] 4 09:14:27 Gastroen teritis 63084671 Completed 202301/18/2024 MIN Ahmadi [address], [place], [address] , [employer] 4 10:04:01 Drug abuse in remissio n 67108566550 03 Active 2019 MIN Ahmadi [address], [place], [address] , [employer] [facility] web care [employer] [facility] 4 10:02:38 Body mass index 30+ - obesity 714500316 Active 2018 MIN Ahmadi [address], [place], [address] , [employer] 4 10:02:38 Bruxism 072135735 Completed 201506/28/2016 MIN Ahmadi [address], [place], [address] , [employer] 4 10:02:39 Generali zed anxiety disorder 40036727 Completed 201508/29/2016 MIN Ahmadi [address], [place], [address] , [employer] 4 10:02:39 Attentio n deficit hyperact ivity disorder , combined type 45237699 Completed 201404/15/2015 MIN Ahmadi [address], [place], [address] , [employer] 4 10:02:39 Nicotine dependen ce 39565617 Completed 201407/27/2015 MIN Ahmadi [address], [place], [address] , [employer] 4 10:02:39 Obstruct tereso sleep apnea syndrome 10808577 Completed 201506/28/2016 Zita Santana NP [address], [place], [address] , [employer] 5 15:35:48 Acute asthma 071438503 Active 2023 MIN Ahmadi [address], [place], [address] , [employer] 4 14:55:44 Asthma 418062165 Active 2023 MIN Ahmadi [address], [place], [address] , [employer] 4 14:56:13 Urinary symptoms 663350425 Active 2023 MIN Ahmadi [address], [place], [address] , [employer] [facility] [employer] [facility] 4 15:01:19 Blood in urine 27373679 Completed 202308/14/2024 MIN Ahmadi [address], [place], [address] , [employer] [facility] [employer] [facility] 4 16:15:08 Microsco pic hematuri a 384219292 Active 2023 MIN Ahmadi [address], [place], [address] , [employer] [facility] [employer] [facility] 4 15:10:41 Restless legs 22262808 Active 2023 MIN Ahmadi [address], [place], [address] , [employer] [facility] [employer] [facility] 4 16:15:12 Insomnia 583501161 Active 2023 MIN Ahmadi [address], [place], [address] , [employer] [facility] [employer] [facility] 4 16:17:58 Major depressi ve disorder 832801041 Active 2024 MIN Ahmadi [address], [place], [address] , [employer] [facility] [employer] [facility] 5 15:23:20 Thyroid stimulat ing hormone level above referenc e range 448951435 Active 2024 MIN Ahmadi [address], [place], [address] , [employer] [facility] [employer] [facility] 5 15:27:50 Hyperthy roidism 44118399 Active 2024 MIN Ahmadi [address], [place], [address] , [facility] 5 09:22:14 Obstruct tereso sleep apnea syndrome 09702279 Active 2024 Zita Santana NP [address] [address], [place], [address] , [facility] [employer] [facility] 5 15:35:48 Problem Notes None recorded. Procedures Surgical History Date Name Laterality Status Provider Name and Address Organization Details Recorded Time 01/02/20 24 Smoking Cessation completed Chaz Willoughby MD [address] [facility], [facility] [address], [place], [address], [facility] [employer] [facility] 2024 17:57:53 11/01/19 17 cholecystectomy completed Not Available [facility] 11/16/2022 23:05:53 Imaging Results None recorded. Procedure Notes None recorded. Medical Equipment None Reported. Allergies Allergen ID Allergen Name Allergen Category Reaction Reaction Severity Criticality Documentation Date Start Date Code Code System Note Provider Name and Address Organization Details Recorded Time 02194 capsaicin medicatio n hives Not available Not available 11/16/20221991 RxNorm Not Available [facility] 3 23:10:01 Medications Name Sig Start Date Stop Date Status Note LastModified by Organization Details LastModified Time lamotrigin e 150 mg tablet TAKE 1 TABLET BY MOUTH DAILY 04/25 completed Not Available Not Available Not Available venlafaxin e ER 37.5 mg capsule,ex tended release 24 hr 07/26 completed Not Available Not Available Not Available clonidine HCl 0.1 mg tablet TAKE 1 TABLET BY MOUTH EVERY DAY 10/08 completed Not Available Not Available Not Available venlafaxin e ER 75 mg capsule,ex tended release 24 hr 07/26 completed Not Available Not Available Not Available gabapentin 600 mg tablet 01/01 completed Not Available Not Available Not Available loperamide 2 mg capsule 02/02 completed Not Available Not Available Not Available trazodone 50 mg tablet TAKE 1 TABLET BY MOUTH EVERY DAY AT BEDTIME NEEDED 01/01 completed Not Available Not Available Not Available tizanidine 4 mg tablet 01/01 completed Not Available Not Available Not Available ondansetro n HCl 8 mg tablet TAKE 1 TABLET THREE TIMES DAILY NEEDED FOR NAUSEA OR VOMITING 01/01 completed Not Available Not Available Not Available ondansetro n HCl 4 mg tablet TAKE 1 TABLET BY MOUTH EVERY 6 HOURS NEEDED FOR NAUSEA OR VOMITING 01/28 completed Not Available Not Available Not Available sulfametho xazole 800 mg-trimeth oprim 160 mg tablet TAKE 1 TABLET BY MOUTH EVERY 12 HOURS FOR 7 DAYS 08/14 completed Not Available Not Available Not Available quetiapine 100 mg tablet TAKE 1 TABLET BY MOUTH TWICE DAILY 10/08 completed Not Available Not Available Not Available amitriptyl ine 50 mg tablet TAKE 1 TABLET EVERY NIGHT AT BEDTIME 01/10 completed Not Available Not Available Not Available ondansetro n 8 mg disintegra ting tablet PLACE 1 TABLET ON THE TONGUE AND DISSOLVE EVERY 6 HOURS NEEDED NAUSEA 07/26 completed Not Available Not Available Not Available lamotrigin e 25 mg tablet TAKE 1 TABLET BY MOUTH DAILY FOR 2 WEEKS. INCREASE TO 2 TABLETS FOR 2 WEEKS. DISCONTIN UE IF RASH BY MOUTH 30 DAYS 01/01 completed Not Available Not Available Not Available famotidine 20 mg tablet TAKE 1 TABLET BY MOUTH EVERY DAY IN THE EVENING 10/09 completed Not Available Not Available Not Available metoclopra mide 5 mg tablet 2023 active Not Available Not Available Not Avai lable methocarba mol 750 mg tablet TAKE 1 TABLET BY MOUTH EVERY 6 HOURS NEEDED MUSCLE SPASMS 07/26 completed Not Available Not Available Not Available dextroamph etamine-am phetamine ER 20 mg 24hr capsule,ex tend release 20 mg by oral route. 01/[address] Mendes Not Available Not Available Not Available trazodone 100 mg tablet TAKE 1 TABLET BY MOUTH ONCE A DAY AT BEDTIME NEEDED 01/01 completed Not Available Not Available Not Available dicyclomin e 20 mg tablet Take 1 tablet 4 times a day by oral route. 01/01 completed Not Available Not Available Not Available cephalexin 500 mg capsule 01/01 completed Not Available Not Available Not Available trazodone 150 mg tablet Take 1 tablet every day by oral route at bedtime for 30 days. active Not Available Not Available No t Available promethazi ne 25 mg tablet Take 1 tablet twice a day by oral route as needed for 10 days. 2024 active Not Available Not Available Not Avai lable nicotine 21 mg/24 hr daily transderma l patch APPLY 1 PATCH TO THE SKIN DAILY 07/26 completed Not Available Not Available Not Available gabapentin 300 mg capsule TAKE 1 CAPSULE BY MOUTH TWICE DAILY 01/01 completed Not Available Not Available Not Available omeprazole 20 mg capsule,de layed release TAKE 1 TO 2 CAPSULES BY MOUTH EVERY DAY 30 MINUTES BEFORE BREAKFAST 08/14 completed Not Available Not Available Not Available chlordiaze poxide 10 mg capsule TAKE 1 CAPSULE BY MOUTH EVERY 8 HOURS NEEDED FOR WITHDRAWA LS 08/14 completed Not Available Not Available Not Available folic acid 1 mg tablet 02/02 completed Not Available Not Available Not Available hydroxyzin e HCl 25 mg tablet TAKE 1 TABLET BY MOUTH THREE TIMES DAILY NEEDED active Not Available Not Available No t Available gabapentin 100 mg capsule Take 1 capsule 3 times a day by oral route as needed for 30 days. active Not Available Not Available No t Available ergocalcif celeste (vitamin D2) 1,250 mcg (50,000 unit) capsule TAKE 1 CAPSULE BY MOUTH 1 TIME A WEEK active Not Available Not Available No t Available lorazepam 1 mg tablet 02/02 completed Not Available Not Available Not Available polyethyle ne glycol 3350 17 gram/dose oral powder 07/26 completed Not Available Not Available Not Available albuterol sulfate HFA 90 mcg/actuat ion aerosol inhaler INHALE 2 PUFFS BY MOUTH EVERY 4 TO 6 HOURS NEEDED active Not Available Not Available No t Available ondansetro n 4 mg disintegra ting tablet DISOLVE 1 TABLET EVERY 6 HOURS 08/14 completed Not Available Not Available Not Available lamotrigin e 100 mg tablet TAKE 1 TABLET EVERY DAY BY MOUTH 01/01 completed Not Available Not Available Not Available naproxen 500 mg tablet Take 500 mg twice a day by oral route. 04/25 completed Not Available Not Available Not Available metoclopra mide 10 mg tablet TAKE 1 TABLET BY MOUTH EVERY 8 HOURS NEEDED 01/17 completed Not Available Not Available Not Available hydroxyzin e pamoate 25 mg capsule 02/02 completed Not Available Not Available Not Available Strattera 40 mg capsule TAKE 1 CAPSULE BY MOUTH DAILY IN THE MORNING 08/14 completed Not Available Not Available Not Available buprenorph ine 2 mg-naloxon e 0.[address] 2 TABLETS UNDER THE TONGUE ONCE DAILY 01/[address] Mendes Not Available Not Available Not Available cyclobenza rajat 5 mg tablet TAKE 1 TABLET BY MOUTH EVERY 8 HOURS 10/08 completed Not Available Not Available Not Available bupropion HCl XL 300 mg 24 hr tablet, extended release TAKE 1 TABLET BY MOUTH EVERY MORNING 08/14 completed Not Available Not Available Not Available bupropion HCl XL 150 mg 24 hr tablet, extended release Take 1 tablet every day by oral route as directed for 30 days. 2024 active Not Available Not Available Not Avai lable nitrofuran toin monohydrat e/macrocry stals 100 mg capsule TAKE 1 CAPSULE BY MOUTH EVERY 12 HOURS FOR 10 DAYS 07/26 completed Not Available Not Available Not Available cinnamon bark 500 mg capsule 1000 mg by oral route. active Not Available Not Available No t Available duloxetine 30 mg capsule,de layed release Take 1 capsule every day by oral route at bedtime for 30 days. 2024 active Not Available Not Available Not Avai lable pregabalin 75 mg capsule TAKE 1 CAPSULE BY MOUTH TWICE DAILY 08/14 completed Not Available Not Available Not Available Strattera 80 mg capsule TAKE 1 CAPSULE BY MOUTH DAILY IN THE MORNING 08/14 completed Not Available Not Available Not Available quetiapine 50 mg tablet TAKE 1 TABLET BY MOUTH AT BEDTIME FOR 30 DAYS 08/14 completed Not Available Not Available Not Available Symbicort 160 mcg-4.5 mcg/actuat ion HFA aerosol inhaler INHALE 2 PUFFS BY MOUTH TWICE DAILY DIRECTED 01/10 completed Not Available Not Available Not Available desvenlafa xine succinate ER 50 mg tablet,ext ended release 24 hr TAKE 1 TABLET BY MOUTH DAILY 08/14 completed Not Available Not Available Not Available ropinirole ER 2 mg tablet,ext ended release 24 hr TK 1 T PO HS 01/28 completed Not Available Not Available Not Available metoclopra mide 5 mg disintegra ting tablet 2023 active Not Available Not Available Not Avai lable metoclopra mide 10 mg disintegra ting tablet Place 1 tablet twice a day by transling ual route as needed for 30 days. 10/09 completed Not Available Not Available Not Available buprenorph ine 2 mg-naloxon e 0.[address] 1 FILM UNDER THE TONGUE EVERY 12 HOURS FOR 4 DOSES 08/14 completed Not Available Not Available Not Available buprenorph ine 8 mg-naloxon e 2 mg sublingual film 02/02 completed Not Available Not Available Not Available buprenorph ine 4 mg-naloxon e 1 mg sublingual film 02/02 completed Not Available Not Available Not Available Zubsolv 5.7 mg-1.4 mg sublingual tablet 01/01 completed Not Available Not Available Not Available Zubsolv 8.6 mg-2.1 mg sublingual tablet DISSOLVE 1 TABLET UNDER THE TONGUE TWICE DAILY 08/14 completed Not Available Not Available Not Available desvenlafa xine succinate ER 25 mg tablet,ext ended release 24 hr TAKE 1 TABLET BY MOUTH EVERY DAY 01/01 completed Not Available Not Available Not Available naloxone 4 mg/actuati on nasal spray CALL 911. SPR CONTENTS OF ONE SPRAYER (0.1ML) INTO ONE NOSTRIL. REPEAT IN 2-3 MIN IF SYMPTOMS OF OPIOID EMERGENCY PERSIST, ALTERNATE NOSTRILS 08/14 completed Not Available Not Available Not Available Sublocade 300 mg/1.5 mL solution,e xtended release subcutaneo us syringe 01/01 completed Not Available Not Available Not Available Daily-Pelon (with folic acid) 400 mcg tablet active Not Available Not Available N ot Available Airsupra 90 mcg-80 mcg/actuat ion HFA aerosol inhaler Inhale 2 inhalatio ns every day by inhalatio n route as needed for 30 days. 2024 active Not Available Not Available Not Avai lable Vitals Date Recorded Body height Body mass index (BMI) Body weight Body temperature Heart rate Respiratory rate Oxygen saturation Oxygen saturation in Arterial blood by Pulse oximetry Provider Name and Address Organization Details Last Updated DateTime 4 161.29 cm 34.6 kg/m2 77293.0 9 g 95.8 [degF] 86 /min 20 /min 99 % 99 % Shania Otoole RN [place] [facility] 4 09:03:21 Date Recorded Body height Body mass index (BMI) Body weight Body temperature Respiratory rate Heart rate Oxygen saturation Oxygen saturation in Arterial blood by Pulse oximetry Systolic blood pressure Diastolic blood pressure Provider Name and Address Organization Details Last Updated DateTime 4 161.29 cm 32.1 kg/m2 50910 g 97 [degF] 24 /min 81 /min 97 % 97 % 130 mm[Hg] 77 mm[Hg] Иван Temple [facility] [employer] [facility] 4 14:39:52 Date Recorded Body height Body mass index (BMI) Body weight Body temperature Heart rate Respiratory rate Oxygen saturation Oxygen saturation in Arterial blood by Pulse oximetry Systolic blood pressure Diastolic blood pressure Provider Name and Address Organization Details Last Updated DateTime 4 161.29 cm 32.5 kg/m2 49865.6 3 g 98.3 [degF] 105 /min 20 /min 99 % 99 % 140 mm[Hg] 90 mm[Hg] Shania Otoole RN [facility] [employer] [facility] 4 16:02:04 Date Recorded Body height Body mass index (BMI) Body weight Body temperature Heart rate Respiratory rate Oxygen saturation Oxygen saturation in Arterial blood by Pulse oximetry Systolic blood pressure Diastolic blood pressure Provider Name and Address Organization Details Last Updated DateTime 5 161.29 cm 32.1 kg/m2 52813.0 5 g 97.2 [degF] 105 /min 24 /min 99 % 99 % 142 mm[Hg] 90 mm[Hg] Shania Otoole RN [facility] [employer] [facility] 5 15:15:49 Date Recorded Body height Body mass index (BMI) Body weight Body temperature Heart rate Oxygen saturation Oxygen saturation in Arterial blood by Pulse oximetry Systolic blood pressure Diastolic blood pressure Provider Name and Address Organization Details Last Updated DateTime 5 161.29 cm 32.3 kg/m2 65693.5 9 g 98 [degF] 90 /min 96 % 96 % 126 mm[Hg] 80 mm[Hg] Lisbet Valles MA [facility] [employer] [facility] 5 15:33:20 Social History Question Answer Notes LastModified by Organization Details LastModified Time Tobacco Smoking Status Current Every Day Smoker Not Available [employer] 11/16/2022 23:05:17 Do You Have An Advance Directive? No Information not available 08/14/2024 What Is Your Level Of Alcohol Consumption? Occasional [id number] Information not available 11/16/2022 What Is Your Level Of Caffeine Consumption? Occasional Coffee, Tea Information not available 02/02/2023 How Much Tobacco Do You Chew? None [id number] Information not available 11/16/2022 In The 14 Days Before Symptom Onset, Have You Had Close Contact With A Laboratory-conf irmed COVID-19 While That Case Was Ill? No [id number] Information not available 11/16/2022 In The 14 Days Before Symptom Onset, Have You Had Close Contact With A Person Who Is Under Investigation For COVID-19 While That Person Was Ill? No [id number] Information not available 11/16/2022 Are You Currently Employed? Yes Information not available 01/11/2024 What Type Of Diet Are You Following? REGULAR [id number].[id number] Information not available 11/16/2022 Which Illicit Or Recreational Drugs Have You Used? Marijuana [id number].[id number] Information not available 11/16/2022 Do You Or Have You Ever Used E-cigarettes Or Vape? Never Used Electronic Cigarettes [id number] Information not available 11/16/2022 What Is The Highest Grade Or Level Of School You Have Completed Or The Highest Degree You Have Received? [id number] Information not available 02/02/2023 Do You Have An Electrostatic Air Filter? No Information not available 10/09/2024 What Is Your Occupation? [employer] Information not available 01/11/2024 Have There Been Any Changes To Your Family Or Social Situation? No Information not available 02/02/2023 Are There Any Guns Present In Your Home? Yes [id number] Information not available 11/16/2022 Do You Have A Humidifier? No Information not available 10/09/2024 Do You Use Insect Repellent Routinely? Yes Information not available 02/02/2023 Where Do You Live? SingleLevelHouse Information not available 02/02/2023 Do You Have A Medical Power Of Web Communications Specialist? No Information not available 08/14/2024 Do You Have Moisture Problems In Your Home? No Information not available 10/09/2024 What Was The Date Of Your Most Recent Tobacco Screening? 10/09/2024 Information not available 10/09/2024 How Many Children Do You Have? 0 Information not available 02/02/2023 Do You Have Any Pets? Yes Information not available 02/02/2023 Do You Use Protection During Sex? Always Information not available 02/02/2023 What Is Your Relationship Status? Single Boyfriend Information not available 02/02/2023 Do You Use Your Seat Belt Or Car Seat Routinely? Yes Information not available 02/02/2023 Are You Sexually Active? Yes Information not available 02/02/2023 Do You Have Smoke And Carbon Monoxide Detectors In Your Home? Yes Information not available 02/02/2023 At What Age Did You Start Smoking Tobacco? 14 [id number] Information not available 11/16/2022 Are You Passively Exposed To Smoke? Yes Information not available 10/09/2024 Are There Any Smokers In Your House? Yes Information not available 02/02/2023 How Much Tobacco Do You Smoke? 1 PPD [id number] Information not available 11/16/2022 Do You Participate In Social Media? Yes Information not available 02/02/2023 Do You Feel Stressed (tense, Restless, Nervous, Or Anxious, Or Unable To Sleep At Night)? [id number] Information not available 01/11/2024 Do You Use Any Illicit Or Recreational Drugs? Yes Fentanyl-in goldman Information not available 02/02/2023 Do You Use Sunscreen Routinely? Yes Information not available 02/02/2023 Have You Recently Traveled Abroad? No Information not available 02/02/2023 Have You Used IV Drugs? No Information not available 02/02/2023 Sex: Female Functional Status Question Answer Note LastModified by Organizat ion Details LastModified Time What is your exercise level? None [id number] Information not available 11/16/2022 Mental Status None recorded. Family History Relationship Description Onset Age of this Age Resolved Age Notes LastModified by Organization Details LastModified Time Mother Rheumatoid arthritis [id number] Not available 11/16/2022 23:05:57 Medical History Condition Response OTHER # 1 Y DEPRESSION (INCLUDING POST ) Y ADDICTION CONCERNS ANXIETY DISORDER Y HAVE YOU BEEN HOSPITALIZED OR SEEN IN [facility] ER IN THE PAST YEAR ? ADD/ADHD Y Gynecological History Statement/Question Response Flow Heavy Date of LMP 10/01/2024 STIs/STDs N Date of Last Pap Duration of Flow (days) 5 Most Recent Mammogram Age at Menarche 14 Breast Problems none Date of Last Colonoscopy Frequency of Cycle (Q days) Most Recent Bone Density Sexually Active? Y Menses Monthly Y Date of Last Pap Smear Discharge yes Obstetrics History GPAL:G 0 P 0 0 0 0 Immunizations Vaccine Type Date Status Note Provider Nam e and Address Organization Details Recorded Time Hib, unspecified formulation 7 completed MIN Ahmadi [address], [place], [address], [facility] 01/18/2024 10:03:40 Hib, unspecified formulation 6 completed MIN Ahmadi [address], [place], [address], [facility] 01/18/2024 10:03:40 meningococcal, unknown serogroups 8 completed MIN Ahmadi [address], [place], [address], [facility] 01/18/2024 10:03:40 MMRV 1 completed MIN Ahmadi [address], [place], [address], [facility] 01/18/2024 10:03:40 MMRV 7 completed IMN Ahmadi [address], [place], [address], [facility] 01/18/2024 10:03:40 DTaP-IPV 1 completed MIN Ahmadi [address], [place], [address], [facility] 01/18/2024 10:03:40 DTaP-IPV 6 completed MIN Ahmadi [address], [place], [address], [facility] 01/18/2024 10:03:40 DTaP-IPV 6 completed MIN Ahmadi [address], [place], [address], [facility] 01/18/2024 10:03:40 DTaP-IPV 6 completed MIN Ahmadi [address], [place], [address], [facility] 01/18/2024 10:03:40 Tdap 6 completed MIN Ahmadi [address], [place], [address], [facility] [employer] [facility] 01/18/2024 10:03:40 varicella 4 completed MIN Ahmadi [address], [place], [address], [facility] 01/18/2024 10:03:40 varicella 8 completed MIN Ahmadi [address], [place], [address], [facility] 01/18/2024 10:03:40 varicella 7 completed MIN Ahmadi [address], [place], [address], [facility] 01/18/2024 10:03:40 HPV, unspecified formulation 8 completed MIN Ahmadi [address], [place], [address], [facility] [employer] [facility] [employer] [facility] 01/18/2024 10:03:40 HPV, unspecified formulation 8 completed MIN Ahmadi [address], [place], [address], [facility] [employer] [facility] [employer] [facility] 01/18/2024 10:03:40 HPV, unspecified formulation 8 completed MIN Ahmadi [address], [place], [address], [facility] [employer] [facility] [employer] [facility] 01/18/2024 10:03:40 Hep B, adolescent or pediatric 6 completed MIN Ahmadi [address], [place], [address], [facility] [employer] [facility] [employer] [facility] 01/18/2024 10:03:40 Hep B, adolescent or pediatric 6 completed MIN Ahmadi [address], [place], [address], [employer] [facility] [employer] [facility] 01/18/2024 10:03:40 Hep B, adolescent or pediatric 6 completed MIN Ahmadi [address], [place], [address], [facility] [employer] [facility] [employer] [facility] 01/18/2024 10:03:40 DTaP, unspecified formulation 1 completed MIN Ahmadi [address], [place], [address], [employer] [facility] [employer] [facility] 01/18/2024 10:03:40 DTaP, unspecified formulation 6 completed MIN Ahmadi [address], [place], [address], [facility] [employer] [facility] [employer] [facility] 01/18/2024 10:03:40 DTaP, unspecified formulation 6 completed MIN Ahmadi [address], [place], [address], [facility] [employer] [facility] [employer] 01/18/2024 10:03:40 DTaP, unspecified formulation 6 completed MIN Ahmadi [address] [facility] [address], [place], [address], [employer] [facility] [employer] 01/18/2024 10:03:40 DTaP, unspecified formulation 7 completed MIN Ahmadi [address] [facility], [address] [address], [place], [address], [facility] 01/18/2024 10:03:40 meningococcal MCV4, unspecified formulation 4 completed MIN Ahmadi [address] [facility], [address] [address], [place], [address], [employer] [facility] [employer] 01/18/2024 10:03:40 Hep A, unspecified formulation 8 completed MIN Ahmadi [address] [facility], [address] [address], [place], [address], [facility] 01/18/2024 10:03:40 Hep A, unspecified formulation 8 completed MIN Ahmadi [address] [address], [place], [address], [facility] [employer] 01/18/2024 10:03:40 Past Encounters Encounter ID Performer Location Encounter Start Date Encounter Closed Date Diagnosis/Indication Diagnosis SNOMED-CT Code Diagnosis ICD10 Code Diagnosis Note [id number] [facility]_[address] [address] 01/28/2021 00:00:00 01/28/2021 12:03:[id number] [address] 07/26/2022 00:00:00 07/26/2022 16:08:32 [id number] _SYED_Everardo IGRATION_ DEFAULT_1 _1 , 08/08/2022 00:00:00 08/08/2022 17:29:24 [id number] Shania Griggs NP [address] [address] 02/02/2023 16:14:07 02/02/2023 16:59:31 Cyclical vomiting syndrome 59111786 R11.15 Reglan, amitriptyl ine, and omeprazole prn. 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 Will refill trazodone 50 mg po nightly for 1 mo and then Desvenlafa xine succinate ER 25 mg po daily Sleep apnea 95191465 G47 .30 Home sleep study. Last was age 20 yo. Mother with sleep apnea. Father addict and is . [id number] Chaz Willoughby MD [address] [address] 2024 17:40:13 2024 17:58:05 Cyclical vomiting syndrome 29578044 R11.15 Nausea and vomiting 1692 1999 R11.2 Sleep apnea 32379265 G47 .30 Irregular periods 786922 07 N92.6 Gynecologi c examination 08034262 Z01.419 Smoker 96670622 F17.200 Mild persi stent asthma 836817302 J45.30 Obesity 207740472 E66.9 [id number] Keisha Dela Cruz [address] [address] 01/11/2024 08:56:32 01/11/2024 09:27:22 Low back strain 547267217 S39.012D [id number] Keisha Dela Cruz [address] [address] 04/25/2024 14:28:51 04/25/2024 15:12:28 Asthma 084215995 J45.909 Cyclical v omiting syndrome 02895581 R11.15 Patient to make appt with GI Urinary symptoms 6822258 08 R39.9 Microscopic hematuria 19 9763266 R31.21 [id number] Keisha Dela Cruz [employer] DEVEL[employer] [facility] [address] [place] [address] 08/14/2024 15:51:00 08/14/2024 16:35:41 Adult health examination 065583449 Z00.00 Asthma 904814081 J45.90 9 Cyclical v omiting syndrome 08041814 R11.15 need new GI referral Sleep apnea 20722947 G47 .30 Restless legs 90098492 G 25.81 Insomnia 271105923 F51.0 1 [id number] Keisha Dela Cruz, [facility] [address] [place] [address] 10/08/2024 15:02:00 10/08/2024 15:35:22 Major depressive disorder 373732781 F32.9 Has tried multiple medication s, finds not much has help. Last took Wellbutrin Cyclical v omiting syndrome 72557407 R11.15 need new GI referral Thyroid st imulating hormone level above reference range 786049303 R94.6 Asthma 835310639 J45.90 9 [id number] Zita Santana NP [facility] Pulmonolo gy [address] [place] [address] 10/09/2024 15:13:46 10/09/2024 15:51:53 Obstructive sleep apnea syndrome 14928605 G47.33 G47.30 Home sleep study order todayESS-1 5Discussed sleep hygeineAdv ised good sleep habits and patterns:- Set a goal for at least 7 to 8 hours of sleep time per day-Use the bed mainly for sleep and to go to bed only when tired. If unable to fall asleep after 30 minutes, patient should get out of bed but should not engage in any activity that requires sustained mental alertness. -Maintain a bedtime and wake-up time even on weekends or day off of work.-Avoi d excessive naps during the daytime. If a nap is necessary, limit to no more than 30 minutes.-M inimize enviroment al noise, bright lights, and extremties in bedroom temperatur es.-Avoid alcohol, caffeinate d beverages, and nicotine products for at least 6 hours prior to bedtime.-A void strenuous exercise and large meals for at least 4 hours prior to bedtime.-D iscussed reportable signs and symptoms of concern Body mass index 30+ - obesity 949607621 Z68.31 Encourage healthy diet and exercise to improve weightdisc ussed weight effect on sleep and sleep apnea Smoker 70346651 F17.200 Patient is a smoker and has been counseled to quit. We discussed the many reasons to quit smoking. We discussed the various methods of smoking cessation. Total time with patient counseling patient 3 minutes. Health Concerns Section Related Observation LastModified by Organization Detai ls LastModified Time None Recorded Concern Status LastModified by Organization Details LastModified Time None Recorded Advance Directives Directive N: Payers Encounter Date Sequence Insurance Name Policy Number Policy Zuleta Covered Member ID Zuleta Member ID Guarantor Name 01/11/2024 1 [facility] (MEDICAID REPLACEMENT - HMO) [id number] Lucero Santizo [id number] Lucero Santizo 04/25/2024 1 [facility] (MEDICAID REPLACEMENT - HMO) [id number] Lucero Santizo [id number] Lucerodora Santizo 08/14/2024 1 [facility] (MEDICAID REPLACEMENT - HMO) [id number] Lucero Santizo [id number] Lucero Santizo 10/08/2024 1 [facility] (MEDICAID REPLACEMENT - HMO) [id number] Lucero Santizo [id number] Lucerodora Santizo 10/09/2024 1 [facility] (MEDICAID REPLACEMENT - HMO) [id number] Lucero Santizo [id number] Lucero Santizo Notes Date Note Type Note Provider Name and Address Organization Details Recorded Time 01/11/2024 text/html Lucero Santizo i s a 29 year old female here for a work injury. She works at [employer]. On 01/06/2024 she slipped in a puddle of ice water and landed on her back. She went to the ER at this time and imaging was clear. She was given Aleve and cyclobenzaprine 5mg PO every 8 hours PRN. She has been taking the cyclobenzaprine q 8 hrs. MIN Ahmadi [address], [place], [address], [facility] 01/11/2024 09:33:38 04/25/2024 text/html Lucero is a her e today to FU on cyclic vomiting. Cyclic vomiting she had an episode started 3 weeks ago. She is requesting promethazine, clonidine, and zofran ODT.Advised to ask psych for clonidine She would like a new inhaler, is almost out. Concerns with possible UTI, states increased frequency and inability to empty bladder Keisha MIN Dela Cruz [address], [place], [address], [facility] 04/25/2024 15:18:15 08/14/2024 text/html Lucero Santizo i s a 29 year old female patient here today for an annual wellness She has a history of cyclic vomiting syndrome. She states she is having a flare now. She did see a new GI provider and he told her she needs to see a different provider because he is retiring. She is taking famotidine 20mg, metoclopramide 5 mg She has sleep apnea and would like to see a sleep provider for a CPAP She believes she may have diabetes She has concerns with RLS. She a histroy of asthma, she utilizes airsupra nightly. She has a significant psychiatric history, she is not seeing psych now. She has stopped taking buproprion. She takes clonidine 3x per week, hydroxyzine 3x per week, Quetiapine 100 mg BID Insomnia, managed with trazodone 150 mg HS Flu shot: declinesCOVID vaccines: declinesTdap: declinesMamm and Colonoscopy not indicatedWWE: due MIN Ahmadi [address] [facility], [place], [address], [facility] 08/14/2024 16:35:17 10/08/2024 text/html Lucero Santizo i s a 29 year old female patient here today to discuss mood She states she is depressed. Feels a medication would help. Also would like to see psychShe has taken Prozac, Pristiq, Effexor, Paxil, Buspar, Wellbutrin, Zoloft, Lexapro, Seroquel, amitripyline, DepakoteDenies HI, SI Cyclic vomiting syndrome, currently flaring up. Would like a refill of promethazine MIN Ahmadi [address] [facility], [facility] [address], [place], [address], [facility] 10/08/2024 16:05:40 10/09/2024 text/html Obstructive Slee p ApneaReported bypatient.Severity:wor sening Timing:daily Duration:10years; frequent Context:inconsistent sleep routine; periodic limb movement in sleep; family history of sleep disorder; observed apnea; sleep hours per night9; mood disorder Aggravating Factors:fatigue; positioning; sleep disruption Alleviating Factors:positioning; elevating head of bed Associated Symptoms:no morning headache; no dysphagia; no night sweats; no hyponasal speech; no irritability;morning dry mouth;postnasal drip;awakening short of breath;daytime sleepiness;suddenly falling asleep during the day;excess napping;impaired work performance;nasal congestion;loud snoring;gasping for air;witnessed apnea;mouth breathing;hyperactivit y;poor concentration;amnesia Prior Tests and Treatments:polysomnogr aphy; forestry faculty member evaluationNotes:Patien t notes 10 years ago dx with sleep apnea-did not get a machine at that time1 ppd smoker-15 yrshx of asthma-managed by 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
--- OUTSIDE RECORDS SUMMARY | 2024-10-13 03:54 | XMS_ITS | Clinical Summary ---
Author Organization [facility] Address [address] [place] [address] Care Team Providers Care Medication Nurse Name Role Phone AnsonShania devine Katie SALES CENTER ASSOCIATE Primary Care Provider + Miscellaneous, Not In File Unavailable Unava ilable Nora Keenan Unavailable Unavailable Allergies No known active allergies Medications buprenorphine-na loxone (SUBOXONE) 4-[address] 1 Film under the tongue 2 (two) times a day 10 Film 07/02/2020 Active Surgical History Surgery Date Site/Laterality Comments CHOLECYSTECTOMY Medical History Medical History Date Comments Opioid abuse (HCC) Cyclical vomiting Social History Tobacco Use Types Packs/Day Years Used Date Smoking Tobacco: Every Day Cigarettes Tobacco Cessation:Ready to Q uit: Not Asked; Counseling Given: Not Answered Alcohol Use Standard Drinks/Week Comments Never 0 (1 standard drink = 0.6 oz pur e alcohol) Personal Safety Answer Date Recorded Getting School Help Needed Not on file 11/18 Comments No Sex and Gender Information Value Date Recorded Sex Assigned at Not on file Legal Sex Female 9:24 PM CDT Gender Identity Not on file Sexual Orientation Not on file Obstetrics History Last Filed Vital Signs Vital Sign Reading Time Taken Comments Blood Pressure 138/93 09/29/2022 3:30 AM LINER ASSEMBLER Pulse 99 09/29/2022 3:50 AM LINER ASSEMBLER Temperature 36.6 ??C (97.9 ??F) 09/28/2022 6:49 PM CS T Respiratory Rate 16 09/29/2022 1:25 AM LINER ASSEMBLER Oxygen Saturation 100% 09/29/2022 3:50 AM LINER ASSEMBLER Inhaled Oxygen Concentration - - Weight 79.4 kg (175 lb) 09/28/2022 6:51 PM LINER ASSEMBLER Height 158.8 cm (5' 2.5 ) 09/28/2022 6:51 PM LINER ASSEMBLER Body Mass Index 31.5 09/28/2022 6:51 PM LINER ASSEMBLER Plan of Treatment Health Maintenance Due Date Last Done Comments Cervical Cancer Screening 1996 Depression Screening 1996 Hepatitis C Screening 1996 Pneumococcal vaccine <65 (1 of 2 - PCV) 01/01/2002 Regular Well Visit/Exam 18-64 01/01/2014 DTaP/Tdap/Td Vaccine (7 - Td or Tdap) 03/28/2016 03/28/2006, 02/15/2001, 02/15/2001, Additional history exists Influenza Vaccine (#1) 2024 HPV Vaccines Completed 06/11/2008, 01/16, 11/26/2007 Varicella Vaccines Completed 10/08/2013, 0 11/26/2007, 02/15/2001, Additional history exists Insurance [place]A [place]ENT [id number] PLAN [place]URA DENT [id number] Care Teams Medication Nurse Relationship Specialty Start Date End Date Shania Griggs NP [address] [place] [address] [place] [address] PCP - General Nurse Practitioner 09/28/22 Miscellaneous, Not In File 09/28/22 Nora Keenan Biological Technician Addiction Medicine 09/08/20
--- OUTSIDE RECORDS SUMMARY | 2024-10-13 03:54 | XMS_ITS | Referral Summary ---
Author Organization [facility] Address [address] [place] [address] Care Team Providers Care Irrigation District Manager Name Role Phone Shania Griggs Katie FISH AND WILDLIFE BIOLOGIST Primary Care Provider + Miscellaneous, Not In File Unavailable Unava ilable Nora Keenan Unavailable Unavailable Allergies No known active allergies Medications buprenorphine-na loxone (SUBOXONE) 4-[address] 1 Film under the tongue 2 (two) times a day 10 Film 07/02/2020 Active Social History Tobacco Use Types Packs/Day Years [...] Comments Blood Pressure 138/93 09/29/2022 3:30 AM TRUCK MECHANIC Pulse 99 09/29/2022 3:50 AM TRUCK MECHANIC Temperature 36.6 ??C (97.9 ??F) 09/28/2022 6:49 PM CS T Respiratory Rate 16 09/29/2022 1:25 AM TRUCK MECHANIC Oxygen Saturation 100% 09/29/2022 3:50 AM TRUCK MECHANIC Inhaled Oxygen Concentration - - Weight 79.4 kg (175 lb) 09/28/2022 6:51 PM TRUCK MECHANIC Height 158.8 cm (5' 2.5 ) 09/28/2022 6:51 PM TRUCK MECHANIC Body Mass Index 31.5 09/28/2022 6:51 PM TRUCK MECHANIC Plan of Treatment Not on file Insurance [facility] Care Teams Irrigation District Manager Relationship Specialty Start Date End Date Shania Griggs NP [address] [place] [address] DEPT [place] [address] PCP - General Nurse Practitioner 09/28/22 Miscellaneous, Not In File 09/28/22 Nora Keenan Set Up Mechanic Automatic Line Addiction Medicine 09/08/20
--- OUTSIDE RECORDS SUMMARY | 2024-10-13 03:54 | XMS_ITS ---
Author Organization [facility] Address [address] [place] [address] Care Team Providers Care Brush Material Preparer Name Role Phone Tolu Katelyn Primary Care Provider Jac Aldana [phone] REASON FOR VISIT transfer from [facility], 1 mo fu Medications Medication SIG (Take, Route, Frequency, Duration) Notes Start Date End Date Status Pristiq 50 MG 1 tablet Orally Once a day for 30 days 04/25/2024 Active Atomoxetine HCl 80 MG 1 capsule in the m orning Orally Once a day for 30 days Active SEROquel 50 MG 1 tablet at bedtime (for a total of 150mg) Orally Once a day for 30 days Active Wellbutrin XL 150 MG 1 tablet in AM (for a total of 450mg) Orally Once a day for 30 days Active Zubsolv 8.6-2.1 MG 1 tablet under the t ongue and allow to dissolve Sublingual twice a day 02/15/2024 Active Wellbutrin XL 300 MG 1 tablet in AM (for a total of 450mg) Orally Once a day for 30 days Active Lyrica 75 MG 1 capsule Orally Twi ce a day for 30 days 04/25/2024 Active Vitamin D (Ergocalciferol) 1.25 MG (78516 UT) 1 capsule Orally once a week for 30 days Active traZODone HCl 150 MG 1 tablet at bedtime as needed Orally Once a day for 30 days Active hydrOXYzine HCl 25 MG 1 tablet as needed Orally three times day for 30 days Active SEROquel 100 MG 1 tablet Orally Twic e a day for 30 days Active Zofran ODT Active Social History Sex Assigned At : Social History Observation Description Sex Assigned At Female Encounters Encounter Location Date Provider Diagnosis [address] [address] 05/27/2024 Jac Aldana Plan Of Treatment No Information Progress Notes * Lucero SANTIZO MDOB: [birth year] (29 yo F)Acc No.[id number]:05/27/2024 UNLOCKED PROGRESS NOTE Patient:?MAXIM Lucero Everardo Provider:?Jac Aldana DNP, PMHNP-B C :1995???Age:29 Y???Sex:Female D ate:05/27/2024 Address:[address] [place], [place] [id number] Pcp:Katelyn Motley Subjective: * Chief Complaints: * ???1. transfer from [facility], 1 mo fu. * Medical History:? * Medications:?Taking SEROquel 100 MG Tablet 1 tablet Orally Twice a day , Taking hydrOXYzine HCl 25 MG Tablet 1 tablet as needed Orally three times day , Taking traZODone HCl 150 MG Tablet 1 tablet at bedtime as needed Orally Once a day , Taking Vitamin D (Ergocalciferol) 1.25 MG (49455 UT) Capsule 1 capsule Orally once a [...] day , Taking Zofran ODT Objective: * Vitals:? Assessment: Plan: * Treatment: * * Electronic signature of Chio Aldana , LUCIA, [id number] on 10/13/2024 at 03:53 AM LIFESTYLE CONSULTANT Sign off status: Pending * Provider:?Jac Aldana DNP, PMHNP-B C Date:?05/27/2024 Generated for Zehn huertas/Madeleine/Saadia on:?10/13/2024 03:53 AM LIFESTYLE CONSULTANT
[2024-10-13 04:00] VITALS: BP 133/94; PULSE 105; RESP 18; TEMP 36.1; O2SAT 100
[2024-10-13 04:14] LABS: Basophils Absolute Auto 0.1 K/mm3 (0.0-0.1); Eosinophils Absolute Auto 0.2 K/mm3 (0-0.3); Eosinophils Percent Auto 2.1 % (0-4.4); Hematocrit 41.7 % (37.0-47.0); Hemoglobin 13.6 g/dL (12.0-15.0); Immature Granulocyte Absolute 0.02 K/mm3 (0.00-0.031); Immature Granulocyte Percent A 0.2 % (0-0.5); Lymphocytes Absolute Auto 4.26 K/mm3 (0.9-3.2); Lymphocytes Percent Auto 46.2 % (18.3-44.2); Mean Corpuscular HGB Conc 32.6 g/dl (32-36); Mean Corpuscular Hemoglobin 30.2 pg (26-34); Mean Corpuscular Volume 92.7 fl (80-100); Mean Platelet Volume 9.1 fl (7.4-10.4); Monocytes Absolute Auto 0.6 K/mm3 (0.1-0.6); Monocytes Percent Auto 6.3 % (2.6-8.5); Neutrophils Absolute Auto 4.1 K/mm3 (1.3-6.7); Neutrophils Percent Auto 44.2 % (45.5-73.1); Platelet Count Result 330 k/mm3 (150-375); Red Cell Distribution Width 12.4 % (11.5-14.5); White Blood Count 9.2 K/mm3 (4.5-10.0)
--- NOTE | 2024-10-13 04:14 | PC.NURSE ---
During triage process patient actively sleeping and snoring. Pt arousable to verbal stimuli. pt verbalized smoking and drinking a little.
[2024-10-13 04:23] LABS: Alanine Aminotransferase 20 U/L (6-35); Albumin Level 4.4 g/dL (3.5-5.1); Alkaline Phosphatase 70 U/L (38-126); Anion Gap 9 mmol/L (4-12); Aspartate Amino Transferase 24 U/L (14-36); Bilirubin,Total 0.3 mg/dL (0.2-1.3); Blood Urea Nitrogen 17 mg/dL (7-17); Calcium 8.6 mg/dL (8.4-10.2); Carbon Dioxide 31 mmol/L (22-30); Chloride 97 mmol/L (98-107); Estimated CRCL calculation 96 ml/min; Estimated Glomerular Filt Rate > 60; Glucose 129 mg/dL (65-110); Sodium 137 mmol/L (137-145)
[2024-10-13 05:30] LABS: Troponin I < 0.012 ng/mL (0.000-0.034)
[2024-10-13 06:12] VITALS: BP 122/78; PULSE 95; RESP 17; O2SAT 96
[2024-10-13 06:17] VITALS: O2SAT 98
--- NOTE | 2024-10-13 06:29 | PC.NURSE ---
pt seen stomping out of the emergency department yelling at her mother.
--- NOTE | 2024-10-13 06:34 | PC.NURSE ---
Patient left ED with steady gait with her mother behind her. Patient was seen leaving ED and getting into car and leaving. Patient marked as left without being seen, triaged since no provider has signed up for patient.
--- OUTSIDE RECORDS SUMMARY | 2024-10-13 07:06 | XMS_ITS | Clinical Summary ---
Author Organization [facility] Address [address] [place] [address] Phone Care Team Providers Care Bale Coverer Name Role Phone Shania Griggs APRN, CNP [...] naloxone HCl (Narcan) 4 MG/0.1ML Liquid 1 [place] by Nasal route as needed for Opioid [...] uit: Not Asked; Counseling Given: Not Answered [facility] Quick Key Answer Date Recorded In the past 12 months has [employer], oil, or water [employer] threatened to shut off services in your home? Patient unable to answer 05/10/2024 Social Connection and Isolation Panel [NHANES] A nswer Date Recorded In a typical week, how many times do you talk on the phone with family, friends, or neighbors? Patient declined 05/10/2024 How often do you get togethe r with friends or relatives? Patient declined 05/10/2024 How often do you attend mandaeism or roman catholic serv ices? Patient declined 05/10/2024 Do you belong to any clubs o r organizations such as mandaeism groups, unions, fraternal or athletic groups, or [...] medical care, and heating? Patient declined 05/10/2024 [facility] [...] any time in the past 12 m [facility], were you homeless or living in a long term (including now)? Patient unable to answer 05/10/2024 [...] Insurance [place] [id number] Care Teams Bale Coverer Relationship Specialty Start Date End Date Shania Griggs APRN, ON LINE CSR [address] [place] [id number] PCP - General Certified Nurse Practitioner 05/10/24
--- OUTSIDE RECORDS SUMMARY | 2024-10-13 07:06 | XMS_ITS | Encounter Summary ---
Author Organization [facility] Address Formerly [facility] [facility] [place] [address] [place] [address] Care Team Providers Care Information Technology Audit Manager Name Role Phone James Daniels MD Primary Care Provider [phone] Chaz Willoughby MD Primary Care Provider [phone] Encounter Details Date Type Department Care Team (Late st Contact Info) Description 06/21/2016 Abstract [facility] CONVERSION [address] [place] [address] , Generic ConversionMD Social History Tobacco Use [...] on filedocumented in this encounter Care Teams Information Technology Audit Manager Relationship Specialty Start Date End Date James Daniels MD PCP - General INTERNAL MEDICINE 07/12/18 01/11/24 Chaz Willoughby MD [address] [place] [id number] PCP - General HOSPITALIST 01/12/24 documented as of this encounter
--- OUTSIDE RECORDS SUMMARY | 2024-10-13 07:06 | XMS_ITS | Referral Summary ---
Author Organization [facility] Address [address] [place] [address] Care Team Providers Care Gas Regulator Repairer Name Role Phone Shania Griggs Katie VARNISH INSPECTOR Primary Care Provider + Miscellaneous, Not In [...] Comments Blood Pressure 138/93 09/29/2022 3:30 AM DRILLER MACHINE Pulse 99 09/29/2022 3:50 AM DRILLER MACHINE Temperature 36.6 ??C (97.9 ??F) 09/28/2022 6:49 PM CS T Respiratory Rate 16 09/29/2022 1:25 AM DRILLER MACHINE Oxygen Saturation 100% 09/29/2022 3:50 AM DRILLER MACHINE Inhaled Oxygen Concentration - - Weight 79.4 kg (175 lb) 09/28/2022 6:51 PM DRILLER MACHINE Height 158.8 cm (5' 2.5 ) 09/28/2022 6:51 PM DRILLER MACHINE Body Mass Index 31.5 09/28/2022 6:51 PM DRILLER MACHINE Plan of Treatment Not on file Insurance [facility] Care Teams Gas Regulator Repairer Relationship Specialty Start Date End Date Shania Griggs NP [address] [place] [address] [place] [address] PCP - General Nurse Practitioner 09/28/22 Miscellaneous, Not In File 09/28/22 Nora Keenan Credit Support Specialist Addiction Medicine 09/08/20
--- OUTSIDE RECORDS SUMMARY | 2024-10-13 07:06 | XMS_ITS | Clinical Summary ---
Author Organization [facility] Address [address] [place] [address]. [place] [address] [place] [address] Care Team Providers Care Filler Shredder Helper Name Role Phone Chaz Willoughby MD Primary Care Provider [phone] Allergies No known active allergies Medications Multiple [...] Date Diagnosed Date Opioid abuse, in remission ([facility]) 10/2019 BMI 35.0-35.9,adult 07/22/2019 Generalized anxiety disorder 08/29/2016 Bruxism 06/28/2016 Severe obstructive sleep apnea 06/28/2016 Overview (08/07/2018): Transitioned From: Snoring; Description: REM-dependent, positional Medication management 01/06/2016 Overview (08/07/2018): Transitioned From: half-way use of drug Assessment & Plan (05/02/2019 10:55 AM CDT): Last labwork in October from [facility]. Would repeat routine labs for chronic [...] her current medications. Renewal given [facility]. She will follow-up in 3 months, sooner [...] patient's age to complete this topic Insurance [place] [address] C/[employer] [place] [id number] Care Teams Filler Shredder Helper Relationship Specialty Start Date End Date Chaz Willoughby MD [address] [place] [address] PCP - General HOSPITALIST 01/12/24
--- OUTSIDE RECORDS SUMMARY | 2024-10-13 07:06 | XMS_ITS | Clinical Summary ---
Author Organization [facility] Address [address] [place] [address] Care Team Providers Care Laborer Vegetable Farm Name Role Phone AnsonShania devine Katie IMAGING ADMINISTRATOR Primary Care Provider + Miscellaneous, Not In [...] Comments Blood Pressure 138/93 09/29/2022 3:30 AM REFINERY OPERATOR ALKYLATION Pulse 99 09/29/2022 3:50 AM REFINERY OPERATOR ALKYLATION Temperature 36.6 ??C (97.9 ??F) 09/28/2022 6:49 PM CS T Respiratory Rate 16 09/29/2022 1:25 AM REFINERY OPERATOR ALKYLATION Oxygen Saturation 100% 09/29/2022 3:50 AM REFINERY OPERATOR ALKYLATION Inhaled Oxygen Concentration - - Weight 79.4 kg (175 lb) 09/28/2022 6:51 PM REFINERY OPERATOR ALKYLATION Height 158.8 cm (5' 2.5 ) 09/28/2022 6:51 PM REFINERY OPERATOR ALKYLATION Body Mass Index 31.5 09/28/2022 6:51 PM REFINERY OPERATOR ALKYLATION Plan of Treatment Health Maintenance Due Date [...] 02/15/2001, Additional history exists Insurance [place] [id number] [address] [place] [id number] Care Teams Laborer Vegetable Farm Relationship Specialty Start Date End Date Shania Griggs NP [address] [place] [address] [place] [address] PCP - General Nurse Practitioner 09/28/22 Miscellaneous, Not In File 09/28/22 Nora Keenan Route Agent Addiction Medicine 09/08/20
--- OUTSIDE RECORDS SUMMARY | 2024-10-13 07:07 | XMS_ITS | Patient Health Record ---
Author Organization [facility] Address [address] [place] [address] Care Team Providers Care Guidance Services Coordinator Name Role Phone Katelyn Motley Primary Care Provider Jac Aldana Unavailable [phone] Dominique Schneider Unavailable [phone] Allergies No Known Allergies Results Component Value Reference Range Notes 12 Panel Urine Drug Screen Reviewed date:12/21/2023 01:35:45 PM Interpretation: Performing Lab: Notes/Report: THC POS GABO neg MOP (OPI) neg AMP neg MET neg BAR neg BZO POS MDMA neg MTD neg OXY neg PCP neg BUP POS 12 Panel Urine Drug Screen Reviewed date:02/15/2024 04:15:43 PM Interpretation: Performing Lab: Notes/Report: THC pos GABO neg MOP (OPI) neg AMP neg MET neg BAR neg BZO neg MDMA neg MTD neg OXY neg PCP neg BUP ephraim Reason For Referral No Information Medications Medication SIG (Take, Route, Frequency, Duration) Notes Start Date End Date Status SEROquel 50 MG 1 tablet at bedtime (for a total of 150mg) Orally Once a day for 30 days Active Wellbutrin XL 150 MG 1 tablet in AM (for a total of 450mg) Orally Once a day for 30 days Active Wellbutrin XL 300 MG 1 tablet in AM (for a total of 450mg) Orally Once a day for 30 days Active Lyrica 75 MG 1 capsule Orally Twi ce a day for 30 days 04/25/2024 Active Vitamin D (Ergocalciferol) 1.25 MG (20063 UT) 1 capsule Orally once a week for 30 days Active traZODone HCl 150 MG 1 tablet at bedtime as needed Orally Once a day for 30 days Active hydrOXYzine HCl 25 MG 1 tablet as needed Orally three times day for 30 days Active Pristiq 50 MG 1 tablet Orally Once a day for 30 days 04/25/2024 Active SEROquel 100 MG 1 tablet Orally Twic e a day for 30 days Active Zofran ODT Active Atomoxetine HCl 80 MG 1 capsule in the m orning Orally Once a day for 30 days Active Zubsolv 8.6-2.1 MG 1 tablet under the t ongue and allow to dissolve Sublingual twice a day 02/15/2024 Active Social History Tobacco Use: Social History Observation Description Date Details (start date - stop date) Current Smoker NA - NA Sex Assigned At : Social History Observation Description Sex Assigned At Female Dont use, Tobacco Use/Smoking Question Answer Notes Are you a current every day smoker Additional Findings: Tobacco User Heavy cigarett e smoker (20-39 cigs/day) Alcohol Screen (Audit-C) Question Answer Notes Did you have a drink containing alcohol in the p ast year? No Points 0 Interpretation Negative PRAPARE Question Answer Notes Date Completed/Updated: 04/11/2023 What is your current housing situation? I have h ousing Are you worried about losing your housing? No What is the highest level of school that you have finished? 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 Check all that apply Food,Clothing,Medicine or any health care (medical, dental, mental health or vision),Phone Has lack of transportation k ept you from medical appointments, meetings, work or from getting things needed for daily living? No How often do you see or talk to people that you care about and feel close to? (For example: talking to friends on the phone, visiting friends or family, going to jew or club meetings) More than 5 times a week How stressed are you? Stress is when someone feels tense, nervous, anxious, or can\t sleep at night because their mind is troubled Somewhat In the past year have you sp ent more than 2 nights in a row in a correction, fdc, usp center, or juvenile correctional facility? No Are you a refugee? No What country are you from? [place] Do you feel physically and e motionally safe where you currently live? Yes In the past year, have you b een afraid of your partner or ex-partner? No PRAPARE Score: 7 Tobacco Control (Standard) Question Answer Notes Tobacco use: Current every day smoker Additional Findings: Tobacco user Heavy cigarett e smoker (20-39 cigs/day) Section Notes: PRESCRIPTION # FILLED WRITTEN DRUG LABEL QTY DAYS STRENGTH MME PRESCRIBER PHARMACY REFILL NO. REFILLS STATE 04/11/2023 04/11/2023 Zubsolv 60.0 30 8.6 MG-2.1 MG NA Katelyn Motley - [id number] [place], [place] 1 [id number] 04/04/2023 04/04/2023 Zubsolv 15.0 8 8.6 MG-2.1 MG NA Tracy Francisco J - [id number] [place], [place] 0 [place] 1 [id number] 10/11/2022 10/11/2022 Sublocade 1.0 28 300 MG/1.5 ML NA Tracy Francisco J - [id number] [facility], [place] 2 [place] 1 [id number] 10/05/2022 10/05/2022 Zubsolv 14.0 7 5.7 MG-1.4 MG NA Tracy Francisco J - [id number] PRESCRIPTION # FILLED WRITTE N DRUG LABEL QTY DAYS STRENGTH MME PRESCRIBER PHARMACY REFILL NO. REFILLS STATE PATIENT [id number] 11/06/2023 11/06/2023 Pregabalin 60.0 30 75 MG NA Dominique Schneider Vascular Ultrasound Technician - [id number] [facility] [place], [place] 0 [place] [id number] 10/10/2023 10/10/2023 Pregabalin 60.0 30 75 MG NA Dominique Schneider Vascular Ultrasound Technician - [id number] [facility], [place], [place] NA 0 [place] [id number] 08/15/2023 08/15/2023 Pregabalin 60.0 30 75 MG NA [facility]ique [facility] [id number] [facility] [place], [place] 0 [place] [id number] 07/17/2023 07/17/2023 Pregabalin 60.0 30 75 MG NA Dominique Schneider Daphney Vascular Ultrasound Technician - [id number] [facility] PRESCRIPTION # FILLED WRITTEN DRUG LABEL QTY DAYS STRENGTH MME PRESCRIBER PHARMACY REFILL NO. REFILLS STATE 10/11/2022 10/11/2022 Sublocade 1.0 28 300 MG/1.5 ML NA Tracy Francisco J - [id number] [facility], [place] 2 [place] 1 [id number] 10/05/2022 10/05/2022 Zubsolv 14.0 7 5.7 MG-1.4 MG NA Demarcus Singh J - [id number] [employer], [place] 0 [place] 2 [id number] 09/26/2022 09/26/2022 Buprenorphine-naloxone 7.0 7 4 MG-1 MG Garett Osullivan Md - PRESCRIPTION # FILLED WRITTEN DRUG LABEL QTY DAYS STRENGTH MME PRESCRIBER PHARMACY REFILL NO. REFILLS STATE 11/06/2023 11/06/2023 Pregabalin 60.0 30 75 MG NA Dominique Schneider Daphney [facility] - [id number] [facility], [place], [place] NA 0 [place] [id number] 10/10/2023 10/10/2023 Pregabalin 60.0 30 75 MG NA Jennie Dominique Shelley [facility] - [id number] [facility] [place], [place] [id number] 08/15/2023 08/15/2023 Pregabalin 60.0 30 75 MG NA Dominique Schneider Vascular Ultrasound Technician - [id number] [facility] PRESCRIPTION # FILLED WRITTEN DRUG LABEL QTY DAYS STRENGTH MME PRESCRIBER PHARMACY REFILL NO. REFILLS STATE 10/11/2022 10/11/2022 Sublocade 1.0 28 300 MG/1.5 ML NA Tracy Francisco J - [id number] [facility], [place], [place] NA 2 [place] 1 704885 10/05/2022 10/05/2022 Zubsolv 14.0 7 5.7 MG-1.4 MG NA Demarcus Silva - [id number] [facility] [place], [place] 2 [id number] 09/26/2022 09/26/2022 Buprenorphine-naloxone 7.0 7 4 MG-1 MG Garett Osullivan Md - PRESCRIPTION # FILLED WRITTEN DRUG LABEL QTY DAYS STRENGTH MME PRESCRIBER PHARMACY REFILL NO. REFILLS STATE 10/11/2022 10/11/2022 Sublocade 1.0 28 300 MG/1.5 ML NA Demarcus Singh J - [id number] [employer], [place] 2 [place] 1 647249 10/05/2022 10/05/2022 Zubsolv 14.0 7 5.7 MG-1.4 MG NA Demarcus Singh J - [id number] [facility] [place], [place] 2 [id number] 09/26/2022 09/26/2022 Buprenorphine-naloxone 7.0 7 4 MG-1 MG Garett Osullivan Md - PRESCRIPTION #FILLED: activa te to sort column ascending style= box-sizing: content-box; font-family: Popqians, sans-serif; font-size: 13px; text-align: -gwmcaf-jnluu-jkftof; background: rgb(246, 247, 251); paddin.6rem 2rem; vertical-align: bottom; border-width: 1px 1px 2px; border-style: solid; border- color: rgb(226, 229, 232); border-image: initial; white-space: nowrap; color: rgb(34, 34, 34); text-transform: uppercase; font-weight: bold; cursor: pointer; width: 80px; >WRITTENDRUG LABELQTYDAYSSTRENGTHMMEPRESCRIBERPHARMACYREFILL NO.Refills: activate to sort column ascending style= box-sizing: content-box; font-family: Poppins, sans-serif; font-size: 13px; text-align: -cbqeao-ivwiz-zbsfwp; background: rgb(246, 247, 251); paddin.6rem 2rem; vertical-align: bottom; border-width: 1px 1px 2px; border-style: solid; border-color: rgb(226, 229, 232); border-image: initial; white-space: nowrap; color: rgb(34, 34, 34); text-transform: uppercase; font-weight: bold; cursor: pointer; width: 44.9375px; >REFILLSSTATEPATIENT [id number]//[id number] MG / 2.1 MGKatelyn [place] [id number] #31786, [place], [id number]//[id number] MGENMANUELteDominique pickeringp - [id number] #24596, [place], [id number]//[id number] MG / 2.1 MGKatelyn [place] [id number] #09416, [place], [id number]//[id number] MGENMANUELteDominique pickering - [id number] PRESCRIPTION # FILLED WRITTEN DRUG LABEL QTY DAYS STRENGTH MME PRESCRIBER PHARMACY REFILL NO. REFILLS STATE 10/11/2022 10/11/2022 Sublocade 1.0 28 300 MG/1.5 ML NA Demarcus Silva - [id number] [facility] [place], [place] 2 [place] 1 [id number] 10/05/2022 10/05/2022 Zubsolv 14.0 7 5.7 MG-1.4 MG NA Demarcus Silva - [id number] [employer], [place] 2 [id number] 09/26/2022 09/26/2022 Buprenorphine-naloxone 7.0 7 4 MG-1 MG NA Garett Clifton Md - PRESCRIPTION # FILLED WRITTEN DRUG LABEL QTY DAYS STRENGTH MME PRESCRIBER PHARMACY REFILL NO. REFILLS STATE 04/11/2023 04/11/2023 Zubsolv 60.0 30 8.6 MG / 2.1 MG NA Katelyn Motley [id number] [facility] [place], [place] 0 [place] 1 [id number] 04/04/2023 04/04/2023 Zubsolv 15.0 8 8.6 MG / 2.1 MG NA Demarcus Singh J - [id number] [facility] [place], [place] 1 [id number] 10/11/2022 10/11/2022 Sublocade 300Mg 1.0 28 200 MG/ML NA Demarcus Camarillos J - [id number] [facility], [place] 2 [place] 1 [id number] 10/05/2022 10/05/2022 Zubsolv 14.0 7 5.7 MG / 1.4 MG NA Demarcus Singh J - [id number] PRESCRIPTION # FILLED WRITTEN DRUG LABEL QTY DAYS STRENGTH MME PRESCRIBER PHARMACY REFILL NO. REFILLS STATE 07/17/2023 07/17/2023 Pregabalin 60.0 30 75 MG NA Dominique Schneider [facility] - [id number] [facility] #93097, [place], [place] NA 1 [place] 1 [id number] 06/14/2023 06/14/2023 Pregabalin 60.0 30 75 MG NA Dominique Schneider [facility] - [id number] [facility] #08363, [place], [place] NA 1 [place] 1 [id number] 04/11/2023 04/11/2023 Zubsolv 60.0 30 8.6 MG / 2.1 MG NA Katelyn Motley [id number] [facility] [place], [place] 0 [place] 1 [id number] 04/04/2023 04/04/2023 Zubsolv 15.0 8 8.6 MG / 2.1 MG NA Tracynicola Camarillos J - [id number] PRESCRIPTION # FILLED WRITTEN DRUG LABEL QTY DAYS STRENGTH MME PRESCRIBER PHARMACY REFILL NO. REFILLS STATE 08/15/2023 08/15/2023 Pregabalin 60.0 30 75 MG NA Jennie Dominique Shelley Vascular Ultrasound Technician - [id number] [facility]679, [place], [place] NA 0 [place] 1 [id number] 07/17/2023 07/17/2023 Pregabalin 60.0 30 75 MG NA Jennie Dominique L Vascular Ultrasound Technician - [id number] [facility] #04666, [place], [place] NA 1 [place] 1 [id number] 06/14/2023 06/14/2023 Pregabalin 60.0 30 75 MG NA JennieDominique pickering Vascular Ultrasound Technician - [id number] PRESCRIPTION # FILLED WRITTE N DRUG LABEL QTY DAYS STRENGTH MME PRESCRIBER PHARMACY REFILL NO. REFILLS STATE PATIENT [id number] 10/10/2023 10/10/2023 Pregabalin 60.0 30 75 MG NA Jennie, Dominique Shelley Vascular Ultrasound Technician - [id number] [facility]43368, [place], [place] NA 0 [place] [id number] 08/15/2023 08/15/2023 Pregabalin 60.0 30 75 MG NA Jennie Dominique Shelley Vascular Ultrasound Technician - [id number] [facility] #61708, [place], [place] NA 0 [place] [id number] 07/17/2023 07/17/2023 Pregabalin 60.0 30 75 MG NA JennieDominique pickering Vascular Ultrasound Technician - [id number] [place] PRESCRIPTION # FILLED WRITTEN DRUG LABEL QTY DAYS STRENGTH MME PRESCRIBER PHARMACY REFILL NO. REFILLS STATE 11/06/2023 11/06/2023 Pregabalin 60.0 30 75 MG NA Dominique Schneider Vascular Ultrasound Technician - [id number] [facility]62308, [place], [place] 0 [place] [id number] 10/10/2023 10/10/2023 Pregabalin 60.0 30 75 MG NA Dominique Schneider Vascular Ultrasound Technician - [id number] [facility] #33327, [place], [place] 0 [place] [id number] 08/15/2023 08/15/2023 Pregabalin 60.0 30 75 MG NA Jennie Dominique Shelley [facility] - [id number] [facility] PRESCRIPTION # FILLED WRITTEN DRUG LABEL QTY DAYS STRENGTH MME PRESCRIBER PHARMACY REFILL NO. REFILLS STATE 03/26/2024 03/26/2024 Pregabalin 60.0 30 75 MG NA Jennie, Dominique Shelley [facility] - [id number] [facility]46511, [place] 1 [id number] 02/19/2024 02/15/2024 Zubsolv 60.0 30 8.6 MG / 2.1 MG NA Katelyn Motley [id number] [facility] #75586, [place] 1 [id number] 12/23/2023 12/04/2023 Pregabalin 60.0 30 75 MG NA Jennie Dominique Shelley [facility] - [id number] [facility], [place], [place] 1 [id number] 12/22/2023 12/21/2023 Zubsolv 28.0 14 8.6 MG / 2.1 MG NA Katelyn Motley [id number] [facility] PRESCRIPTION #FILLEDWRITTEND RUG LABELQTYDAYSSTRENGTHMMEPRESCRIBERPHARMACYREFILL NO.REFILLSSTATEPATIENT [id number] MGDominique Cooley [facility] - [id number] #60147 [place] [id number] MGNASteDominique pickering [facility] - [id number] #38000 KENISHA [id number]/2043Uwnutvsjoc61.67816 MGNASDominique rueda [facility] - [id number] #38535[place] [id number] MG / 2.1 MGKatelyn Madrid - [id number] PRESCRIPTION # LALITO Rojas DRUG LABEL QTY DAYS STRENGTH MME PRESCRIBER PHARMACY REFILL NO. REFILLS STATE PATIENT [id number] 11/06/2023 11/06/2023 Pregabalin 60.0 30 75 MG NA Dominique Schneider Vascular Ultrasound Technician - [id number] [facility] #19055, [place], [place] NA 0 [place] [id number] 10/10/2023 10/10/2023 Pregabalin 60.0 30 75 MG NA Dominique Schneider Vascular Ultrasound Technician - [id number] [facility] #23280, [place], [place] NA 0 [place] [id number] 08/15/2023 08/15/2023 Pregabalin 60.0 30 75 MG NA Dominique Schneider Daphney Vascular Ultrasound Technician - [id number] [facility] #75542, [place], [place] 0 [place] [id number] 07/17/2023 07/17/2023 Pregabalin 60.0 30 75 MG NA Dominique Schneider Vascular Ultrasound Technician - [id number] [place] Problems Problem Type SNOMED Code ICD Code Onset Dates Problem Status W/U Status Risk Notes Problem Morbid obesity (disorder) (962770116) Morbid (severe) obesity due to excess calories (E66.01) Active confirmed Problem Generalized anxiety disorder (68988969) Generalized anxiety disorder (F41.1) Active confirmed Problem Nausea (323747622) Nausea (R11.0) Active confirmed Problem Insomnia (801393556) Insomnia (G47.00) Active confirmed Problem Attention deficit hyperactivity disorder (757957769) ADHD (attention deficit hyperactivity disorder) (F90.9) 024 Active confirmed Diagnosed as a child. Problem Vitamin D deficiency (48179101) Vitamin D deficiency (E55.9) Active confirmed Problem Asthma (118434582) Asthma (J45.909) Active confirmed Problem Constipation (85846509) Constipation (K59.00) Active confirmed Problem Adult health examination (915912037) Routine adult health maintenance (Z00.00) Active confirmed Problem 68844845 Depression, unspecified depression type (F32.9) 021 Active confirmed Rule out Bipolar 2 disorder Problem 358679355790123 Obesity (BMI 30.0-34.9) (E66.9) Active confirmed Problem Opioid dependence (05961300) Opioid use disorder, severe (F11.20) Active confirmed Problem Tobacco use (910219207) Tobacco use disorder (F17.200) Active confirmed Problem Obesity (699903505) Obesity, unspecified classification, unspecified obesity type, unspecified whether serious comorbidity present (E66.9) Active confirmed Problem 5341791 Opioid use disorder (F11.99) Active confirmed Vital Signs Heart Rate 100 /min 02/15/2024 Respiratory Rate 16 /min 02/15/2024 Blood pressure diastolic 74 mm Hg 02/15/2024 Oximetry 97 % 02/15/2024 Height 63.50 in 02/15/2024 Blood pressure systolic 112 mm Hg 02/15/2024 Weight 203 lb 8 oz lbs 02/15/2024 BMI 35.48 kg/m2 02/15/2024 Encounters Encounter Location Date Provider Diagnosis [address] [place] [address] 11/06/2023 Dominique Schneider Depression, unspecified depression type F32.9 ; Opioid use disorder F11.99 ; Nausea R11.0 ; Generalized anxiety disorder F41.1 ; Insomnia G47.00 ; Routine adult health maintenance Z00.00 ; Medication management Z79.899 and Vitamin D deficiency E55.[address] [place] [address] 12/04/2023 Dominique Schneider Depression, unspecified depression type F32.9 ; Opioid use disorder F11.99 ; Nausea R11.0 ; Generalized anxiety disorder F41.1 ; Insomnia G47.00 ; Routine adult health maintenance Z00.00 ; Medication management Z79.899 and Vitamin D deficiency E55.[address] [place] [address] 12/21/2023 Katelyn Motley Opioid use disorder F11.99 ; Obesity (BMI 30.0-34.9) E66.9 and Tobacco use disorder F17.[address] [address] 01/01/2024 Dominique Schneider Depression, unspecified depression type F32.9 ; Opioid use disorder F11.99 ; Nausea R11.0 ; Generalized anxiety disorder F41.1 ; Insomnia G47.00 ; Routine adult health maintenance Z00.00 ; Medication management Z79.899 and Vitamin D deficiency E55.[address] [place] [address] 02/15/2024 Preetiestephania Schultzlynn Opioid use disorder F11.99 ; Obesity (BMI 30-39.9) 278.00 and Tobacco use disorder F17.[address] [address] 03/14/2024 Dominique Schneider Depression, unspecified depression type F32.9 ; Opioid use disorder F11.99 ; Nausea R11.0 ; Generalized anxiety disorder F41.1 ; Insomnia G47.00 ; Routine adult health maintenance Z00.00 ; Medication management Z79.899 ; Vitamin D deficiency E55.9 and ADHD (attention deficit hyperactivity disorder) F90.[address] [address] 04/25/2024 Dominique Schneider Depression, unspecified depression type F32.9 ; Opioid use disorder F11.99 ; Nausea R11.0 ; Generalized anxiety disorder F41.1 ; Insomnia G47.00 ; Routine adult health maintenance Z00.00 ; Medication management Z79.899 ; Vitamin D deficiency E55.9 and ADHD (attention deficit hyperactivity disorder) F90.[address] [address] 12/11/2023 Dominique Schneider [address] [address] 01/15/2024 Dominique Schneider [address] [address] 03/22/2024 Dominique Schneider [address] [address] 03/26/2024 Dominique Schneider Generalized anxiety disorder F41.1 ; Depression, unspecified depression type F32.9 ; Vitamin D deficiency E55.9 and Opioid use disorder F11.[address] [facility] [place] [address] 04/25/2024 Dominique Schneider [facility] [address] [place] [address] 05/13/2024 Katelyn Motley [address] [place] [address] 05/16/2024 Dominique Schneider [address] [place] [address] 06/10/2024 Jac Aldana ADHD (attention deficit hyperactivity disorder) F90.9 and Depression, unspecified depression type F32.9 Assessments Encounter Date Diagnosis (ICD Code) Assessment Notes Treatment Notes Treatment Clinical Notes Section Notes 06/10/2024 ADHD (attention deficit hyperactivity disorder) (ICD-10 - F90.9) 04/25/2024 Depression, unspecified depression type (ICD-10 - F32.9) Rule out Bipolar 2 disorder Continue Wellbutrin to 450mg daily. Discussed benefits, risks, and SE. PHQ-9 is 14 today. Pt refuses warm hand off and crisis at this time. Continue Seroquel 150mg at HS. Continue 100mg in AM. Add Pristiq 10mg daily Begin Pristiq. Take as prescribed. Reviewed purpose (target depression, anxiety, and chronic pain), benefits, and risks - including increased risk of suicide, susan/hypomania, anxiety, sleep disturbance, nausea, dry mouth, increased bruising, sexual dysfunction, weight gain, and serotonin syndrome. Many of these side effects resolve after taking the medication for 2 weeks. Notify the office if any concerns or significant side effects. Reviewed crisis resources. Antipsychotics education - reviewed side effects which may include metabolic syndrome, movement disorders (EPS/extrapyramidal symptoms & TD/Tardive dyskinesia) - potentially permanent movement abnormalities, NMS/neuroleptic malignant syndrome (high fever, very rigid muscles, and rapid heartbeat - potentially fatal), sedation, and cardiac rhythm abnormalities. Recommend therapyNo hx of seizures or eating disorderRule out Bipolar 2 03/26/2024 Generalized anxiety disorder (ICD-10 - F41.1) 03/14/2024 Depression, unspecified depression type (ICD-10 - F32.9) Rule out Bipolar 2 disorder Continue Wellbutrin to 450mg daily. Discussed benefits, risks, and SE. PHQ-9 is 15 today. Pt refuses warm hand off and crisis at this time. Continue Seroquel 150mg at HS. Continue 100mg in AM. Antipsychotics education - reviewed side effects which may include metabolic syndrome, movement disorders (EPS/extrapyramidal symptoms & TD/Tardive dyskinesia) - potentially permanent movement abnormalities, NMS/neuroleptic malignant syndrome (high fever, very rigid muscles, and rapid heartbeat - potentially fatal), sedation, and cardiac rhythm abnormalities. Recommend therapyNo hx of seizures or eating disorderRule out Bipolar 2Continue Wellbutrin Continue seroquelIncrease lamotrigineFollow up in 3-4 weeks or earlier if needed. 03/14/2024 Opioid use disorder (ICD-10 - F11.99) Continue MAT 02/15/2024 Obesity (BMI 30-39.9) (ICD9-CM - 278.00) 02/15/2024 Opioid use disorder (ICD-10 - F11.99) 01/01/2024 Depression, unspecified depression type (ICD-10 - F32.9) Rule out Bipolar 2 disorder Continue Wellbutrin to 450mg daily. Discussed benefits, risks, and SE. PHQ-9 is 14 today. Pt refuses warm hand off and crisis at this time. Seroquel increased to 150mg at HS. Continue 100mg in AM. Antipsychotics education - reviewed side effects which may include metabolic syndrome, movement disorders (EPS/extrapyramidal symptoms & TD/Tardive dyskinesia) - potentially permanent movement abnormalities, NMS/neuroleptic malignant syndrome (high fever, very rigid muscles, and rapid heartbeat - potentially fatal), sedation, and cardiac rhythm abnormalities. Recommend therapyNo hx of seizures or eating disorderRule out Bipolar 2Continue Wellbutrin Continue seroquelIncrease lamotrigineFollow up in 3-4 weeks or earlier if needed. 12/04/2023 Depression, unspecified depression type (ICD-10 - F32.9) Rule out Bipolar 2 disorder Increase Wellbutrin to 450mg daily. Discussed benefits, risks, and SE. PHQ-9 is 13 today. Pt refuses warm hand off and crisis at this time. Antipsychotics education - reviewed side effects which may include metabolic syndrome, movement disorders (EPS/extrapyramidal symptoms & TD/Tardive dyskinesia) - potentially permanent movement abnormalities, NMS/neuroleptic malignant syndrome (high fever, very rigid muscles, and rapid heartbeat - potentially fatal), sedation, and cardiac rhythm abnormalities. Recommend therapyNo hx of seizures or eating disorderRule out Bipolar 2Continue Wellbutrin Continue seroquelIncrease lamotrigineFollow up in 3-4 weeks or earlier if needed. 11/06/2023 Depression, unspecified depression type (ICD-10 - F32.9) Rule out Bipolar 2 disorder Antipsychotics education - reviewed side effects which may include metabolic syndrome, movement disorders (EPS/extrapyramidal symptoms & TD/Tardive dyskinesia) - potentially permanent movement abnormalities, NMS/neuroleptic malignant syndrome (high fever, very rigid muscles, and rapid heartbeat - potentially fatal), sedation, and cardiac rhythm abnormalities. Recommend therapyNo hx of seizures or eating disorderRule out Bipolar 2Continue Wellbutrin Continue seroquelIncrease lamotrigineFollow up in 3-4 weeks or earlier if needed. 12/21/2023 Opioid use disorder (ICD-10 - F11.99) 12/21/2023 Obesity (BMI 30.0-34.9) (ICD-10 - E66.9) 11/06/2023 Opioid use disorder (ICD-10 - F11.99) Resume MAT 12/04/2023 Opioid use disorder (ICD-10 - F11.99) Resume MAT 01/01/2024 Opioid use disorder (ICD-10 - F11.99) Continue MAT 02/15/2024 Tobacco use disorder (ICD-10 - F17.200) 03/14/2024 Nausea (ICD-10 - R11.0) 03/26/2024 Depression, unspecified depression type (ICD-10 - F32.9) Rule out Bipolar 2 disorder 04/25/2024 Opioid use disorder (ICD-10 - F11.99) Continue MAT Recommend NA meetings Encouraged counseling 06/10/2024 Depression, unspecified depression type (ICD-10 - F32.9) 04/25/2024 Nausea (ICD-10 - R11.0) 03/26/2024 Vitamin D deficiency (ICD-10 - E55.9) 03/14/2024 Generalized anxiety disorder (ICD-10 - F41.1) 01/01/2024 Nausea (ICD-10 - R11.0) 12/04/2023 Nausea (ICD-10 - R11.0) 11/06/2023 Nausea (ICD-10 - R11.0) 12/21/2023 Tobacco use disorder (ICD-10 - F17.200) 11/06/2023 Generalized anxiety disorder (ICD-10 - F41.1) 12/04/2023 Generalized anxiety disorder (ICD-10 - F41.1) 01/01/2024 Generalized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
== END 2024-10-13 07:05 | disposition left against medical advice (07) ==
LOC: ANHED 07:04
PROVIDERS: Emergency Provider Student in an Organized Health Care Education/Training Program
DX: R06.02 Shortness of breath (principal)
CPT/HCPCS: 36415; 80053; 84484; 85025; 93005; 99199

== ENCOUNTER 2025-02-08 12:59 | Emergency (ER) | payer BC, SELFPAY ==
--- OUTSIDE RECORDS SUMMARY | 2025-02-08 13:00 | XMS_ITS | Referral Summary ---
Author Organization [facility] Address [address] [place] [address] Care Team Providers Care Label Coder Name Role Phone Shania Griggs Katie GRADUATE STUDENT Primary Care Provider + Miscellaneous, Not In [...] Comments Blood Pressure 138/93 09/29/2022 3:30 AM WHEEL [employer]IGNER Pulse 99 09/29/2022 3:50 AM WHEEL [employer] Temperature 36.6 C (97.9 F) 09/28/2022 6:49 PM [employer]EL [employer] Respiratory Rate 16 09/29/2022 1:25 AM WHEEL [employer] Oxygen Saturation 100% 09/29/2022 3:50 AM WHEEL ALIGNER Inhaled Oxygen Concentration - - Weight 79.4 kg (175 lb) 09/28/2022 6:51 PM WHEEL [employer] Height 158.8 cm (5' 2.5 ) 09/28/2022 6:51 PM WHEEL [employer] Body Mass Index 31.5 09/28/2022 6:51 PM [employer]EL [employer] Plan of Treatment Not on file Insurance [facility] LAURA Rojas [id number] Care Teams Label Coder Relationship Specialty Start Date End Date Shania Griggs NP PCP - General Nurse Practitioner 09/28/22 Miscellaneous, Not In File 09/28/22 Nora Keenan Psychiatric Registered Nurse Addiction Medicine 09/08/20
--- OUTSIDE RECORDS SUMMARY | 2025-02-08 13:01 | XMS_ITS | Data Portability ---
Author Organization [place] - [employer], Main Office Address [address] [place] [address] Assessment Encounter Date Assessment Date Assessment LastModified by Organization Details LastModified Time 10/09/2024 10/09/2024 Time spent with patient included: preparing to see patient by reviewing tests, obtaining and reviewing history, medical examination and evaluation, counseling and educating the patient, ordering medications and tests, documenting clinical information in EHR, independently interpreting results and communicating results to the patient for a total of 40 minutes. Not available 10/09/2024 15:50:15 10/29/2024 10/29/2024 Time spent with patient included: preparing to see patient by reviewing tests, obtaining and reviewing history, medical examination and evaluation, counseling and educating the patient, ordering medications and tests, documenting clinical information in EHR, independently interpreting results and communicating results to the patient for a total of 52 minutes. Not available 10/29/2024 16:16:24 Plan of Treatment Reminders Order Date Submit Date Provider Last Modified By Organization Details Last Modified Time Details Appointments None recorded. Lab alpha-1-an titrypsin (aat) phenotype, serum 2024 025 [email or web address] 2 [facility] (Lab), [address] [place], [address], 5 09:53:25 BNP (B-type natriureti c peptide), serum or plasma 2024 025 [email or web address] 2 [facility] (Lab), [address] [place], [address], 5 09:53:36 ige, total, serum 2024 025 [email or web address] 2 [facility] (Lab), [address] [place], [address], 5 09:53:50 tb (M tuberculos is), ifn-gamma giovanny, blood 2024 025 [email or web address] 2 [facility] (Lab), [address] [place], [address], 5 09:54:01 igg subclasses 1+2+3+4, serum 2024 025 [email or web address] [address] 2 [facility] (Lab), [address] [place], [address], 5 10:06:06 respirator y allergen panel, [facility] A, serum [address] (Lab), [address] [place], [address], 5 10:06:19 respirator y allergen panel - [facility] b [address] (Lab), [address] [place], [address], 5 10:06:40 eosinophil s, quant, blood 2024 025 [email or web address] [facility] (Lab), [address] [place], [address], 5 13:01:08 TSH, serum or plasma 2024 025 [facility] (Lab), [address] [place], [address], 5 01:58:07 T3, free, serum or plasma 2024 025 [facility] (Lab), [address] [place], [address], 5 08:11:56 T4, free, serum 2024 025 [facility] (Lab), [address] [place], [address], 5 01:58:07 CMP, serum or plasma [address] (Lab), [address] [place], [address], 4 08:18:54 CBC w/ auto diff [address] (Lab), [address] [place], [address], 4 08:18:54 lipid panel, serum [address] (Lab), [address] [place], [address], 4 08:18:54 glycohemog lobin, total, blood [address] (Lab), [address] [place], [address], 4 08:18:54 TSH, serum or plasma [address] (Lab), [address] [place], [address], 4 08:18:[address] referral - Patient is requesting [facility] 2024 025 [email or web address] Mirtha Wagoner Pmhnp, [address], [address], 5 16:56:[address] referral 2024 025 [email or web address] Mikel Hernandez MD, [address], [place], [address], 5 08:53:53 sleep medicine referral - Please call patient to schedule an appointmen t. Thank you. 2023 024 [email or web address] Donnell Vuong MD, [address] [place], [address], 4 08:57:40 gastroente rologist referral - Please call patient to schedule an appointmen t. Thank you. 2023 024 [email or web address] [facility], [address] [place], [address], 5 10:30:32 Procedures None recorded. Surgeries None recorded. Imaging polysomnog amber, titration study 2024 025 [email or web address] [facility], [address] [place], [address], 12:47:23 XR, chest, 2 view 2024 025 [email or web address] 2 [facility], [address] [place], [address], 5 10:09:37 home sleep study - Please call patient to schedule. 2024 025 [facility], [address] [place], [address], 5 09:27:35 Medication Orders gabapentin 100 mg capsule 2024 025 [facility] #[id number], [address] [place], [place], [id number], 5 12:37:22 trazodone 150 mg tablet 2024 025 [facility] #84498, [address] [facility], [place], [place], [id number], 5 12:37:22 clonidine HCl 0.1 mg tablet 2024 025 [facility] #81818, [address] [facility], [place], [place], [id number], 5 12:37:19 Vraylar 3 mg capsule 2024 025 [facility] #42667, [address] [facility], [place], [place], [id number], 5 12:37:20 Airsupra 90 mcg-80 mcg/actuat ion HFA aerosol inhaler 2024 025 [facility] #38743, [address] [facility], [place], [place], [id number], 5 15:29:52 promethazi ne 25 mg tablet [address] [facility] #84920, [address] [facility], [place], [place], [id number], 5 17:54:36 bupropion HCl XL 150 mg 24 hr tablet, extended release 2024 025 [facility] #77757, [address] [place], [place], [id number], 5 15:25:55 duloxetine 30 mg capsule,de layed release 2024 025 [facility] #12116, [address] [place], [place], [id number], 5 15:25:53 metoclopra mide 10 mg disintegra ting tablet 2023 024 [facility] #60478, [address] [facility], [place], [place], [id number], 5 15:29:57 gabapentin 100 mg capsule 2023 [facility] #64982, [address] [facility], [place], [place], [id number], 16:17:40 Airsupra 90 mcg-80 mcg/actuat ion HFA aerosol inhaler 2023 [facility] #17415, [address] [facility], [place], [place], [id number], 4 16:17:38 trazodone 150 mg tablet 2023 [facility] #58234, [address] [facility], [place], [place], [id number], 16:18:38 Patient TargetsNo targets recorded. Patient Instructions Encounter Date Encounter Id Patient Instructions Last Modified By Organization Details Last Modified Time 10/29/2024 [id number] complete PFT w/ post bronchodilator spirometry* - Please call patient to schedule. PAMELA [id number] per [facility], ref #[id number] Not available 12/11/2024 11:21:13 Reason for Referral Sleep Medicine Referral for Sleep apnea Please call patient to schedule an appointment. Thank you. Referring Physician: Keisha Dela Cruz [facility], Encounter Date: 08/14/2024 Wafer Substrate Tester Referral for Cyclical vomiting syndrome Please call patient to schedule an appointment. Thank you. Referring Physician: Family Ling Ahmadi, Encounter Date: 08/14/2024 Psychiatrist Referral for Ma shala depressive disorder Referring Physician: Keisha Dela Cruz [facility], Encounter Date: 10/08/2024 Psychiatrist Referral for Mi xed anxiety and depressive disorder Patient is requesting [facility] Referring Physician: Keisha Dela Cruz, Family Medicine, Encounter Date: 11/22/2024 Results Created Date Observation Date Name Description Value Unit Range Abnormal Flag Note LastModifiedBy Organization Detail LastModifiedTime 10/23/19 25 10/18/2024 home sleep study No observ ation record ed. [email or web address] [facility] [address] [place], [address], 10/28/2024 13:41:51 01/07/20 25 01/06/2025 US, thyro id No observ ation record ed. [facility] [address] [place], [address], 01/09/2025 14:04:53 Result Notes None recorded. Problems Name Problem SNOMED Code Status Onset Date Resolution Date Notes Provider Name and Address Organization Details Recorded Time Cyclical vomiting syndrome 39088989 Active 2021 Not Available [facility] 3 23:08:11 Irritabl e bowel syndrome with diarrhea 573457876 Active 2021 Not Available [facility] 3 23:08:12 Pain 25567743 Completed 202001/28/2021 stomach Not Available [facility] 3 23:08:12 Mixed anxiety and depressi ve disorder 810417755 Active 2020 Not Available [facility] 3 23:08:12 Attentio n deficit hyperact ivity disorder , predomin antly inattent tereso type 38036030 Active 2020 Not Available [facility] 3 23:08:12 Opioid dependen ce 31342880 Completed 202001/18/2024 MIN Ahmadi [address], [address] , [facility] [employer] 4 10:04:14 Smoker 68511854 Active 2023 Chaz Willoughby MD [address], [address] , [facility] [employer] 4 17:51:25 Gastroen teritis 23206828 Completed 202301/18/[address], [place], [address] , [employer] 4 10:04:01 Drug abuse in [facility] n 53358480008 03 Active [address], [place], [address] , [employer] 4 10:02:38 Body mass index 30+ - obesity 897407958 Active [address], [place], [address] , [employer] 4 10:02:38 Bruxism 165342610 Completed 201506/28/[address], [place], [address] , [employer] 4 10:02:39 Generali zed anxiety disorder 87892747 Completed 201508/29/2016 MIN Ahmadi [address], [place], [address] , [employer] 4 10:02:39 Attentio n deficit hyperact ivity disorder , combined type 06403002 Completed 201404/15/[address], [place], [address] , [employer] 4 10:02:39 Nicotine dependen ce 12405595 Completed 201407/27/2015 MIN Ahmadi [address], [place], [address] , [employer] 4 10:02:39 Obstruct tereso sleep apnea syndrome 91738066 Completed 201506/28/2016 Zita Santana NP [address], [place], [address] , [employer] 5 15:35:48 Blood in urine 58027459 Completed 202308/14/2024 MIN Ahmadi [address], [place], [address] , [employer] 4 16:15:08 Restless legs 28248935 Active 2023 MIN Ahmadi [address], [place], [address] , [employer] 4 16:15:12 Thyroid stimulat ing hormone level above referenc e range 172184229 Active 2024 MIN Ahmadi [address], [place], [address] , [employer] 5 15:27:50 Obstruct tereso sleep apnea syndrome 34657689 Active 2024 Zita Santana NP [address], [place], [address] , [employer] 5 15:35:48 Asthma without status asthmati cus 32686406 Active 2024 Zita Santana NP [address], [place], [address] , [employer] 5 15:33:37 Dyspnea on exertion 62768277 Active 2024 Zita Santana NP [address], [place], [address] , [employer] 5 15:34:03 Bipolar II disorder 93037989 Active 2024 MIN Ahmadi [address], [place], [address] , [employer] 5 12:34:27 Anxiety 43989916 Active 2024 MIN Ahmadi [address] [facility], [place] [address], [place], [address] , [employer] 5 12:34:50 Sleep apnea 38425857 Active 2024 Zita Santana NP [address] [facility], [place] [address], [place], [address] , [employer] 5 09:25:24 Notes:[facility] home sleep study 10/18/24 AHI = 27 Medical History: Opioid use in remission Nicotine use ADHD/Depression/Anxiety Obesity with mod OSAHS, AHI = 27, 10/18/24 Cyclical vomiting Diarrhea-predominant IBS Vit D deficiency Problem Notes None recorded. Procedures Surgical History Date Name Laterality Status Provider Name and Address Organization Details Recorded Time 01/02/20 24 Smoking Cessation completed Chaz Willoughby MD [address] [facility], [place] [address], [place], [address], [employer] 2024 17:57:53 11/01/19 17 cholecystectomy completed Not Available [facility] 11/16/2022 23:05:53 Imaging Results Imaging Date Name Status LastModified by Organiz ation Details LastModified Time 10/18/2024 home sleep study completed [email or web address] [facility] [address] [place], [address], 10/28/2024 13:41:51 01/06/2025 , thyroid completed [facility] [address] [place], [address], 01/09/2025 14:04:53 Procedure Notes None recorded. Medical Equipment None Reported. Allergies Allergen ID Allergen Name Allergen Category Reaction Reaction Severity Criticality Documentation Date Start Date Code Code System Note Provider Name and Address Organization Details Recorded Time 67563 capsaicin medicatio n hives Not available Not available 11/16/20221991 RxNorm Not Available [facility] 23:10:01 Medications Name Sig Start Date Stop [...] TAKE 1 TABLET BY MOUTH EVERY DAY DIRECTED active Not Available Not Available No t Available venlafaxin e ER 75 mg capsule,ex [...] completed Not Available Not Available Not Available sumatripta n 5 mg/actuati on nasal spray USE 1 SPRAY INTO ONE NOSTRIL EVERY 4 HOURS NEEDED. DO NOT EXCEED 40MG IN 24 HOURS active Not Available Not Available No t Available hydroxyzin e HCl 50 mg tablet TAKE 1 TABLET BY MOUTH THREE TIMES DAILY NEEDED active Not Available Not Available No t Available sulfametho xazole 800 mg-trimeth oprim 160 [...] completed Not Available Not Available Not Available lorazepam 0.5 mg tablet TAKE 1 TABLET BY MOUTH EVERY 8 HOURS NEEDED FOR ANXIETY OR WITHDRAWA L active Not Available Not Available No t Available metoclopra mide 5 mg tablet 2023 [...] completed Not Available Not Available Not Available prochlorpe razine 25 mg rectal suppositor y UNWRAP AND INSERT 1 SUPPOSITO RY RECTALLY EVERY 8 HOURS NEEDED FOR NAUSEA OR VOMITING active Not Available Not Available No t Available cephalexin 500 mg capsule 01/01 completed Not Available Not Available Not Available trazodone 150 mg tablet TAKE 1 TABLET BY MOUTH EVERY DAY AT BEDTIME active Not Available Not Available No t Available promethazi ne 25 mg tablet TAKE 1 TABLET BY MOUTH TWICE DAILY FOR 10 DAYS NEEDED 10/22 completed Not Available Not Available Not Available nicotine 21 mg/24 hr daily transderma l [...] Not Available folic acid 1 mg tablet 05/18 /2023 completed Not Available Not Available Not Available hydroxyzin e HCl 25 mg tablet TAKE 1 TABLET BY MOUTH THREE TIMES DAILY NEEDED active Not Available Not Available No t Available gabapentin 100 mg capsule TAKE 1 CAPSULE BY MOUTH THREE TIMES DAILY NEEDED active [...] ondansetro n 4 mg disintegra ting tablet DISSOLVE 1 TABLET ON THE TONGUE TWICE DAILY NEEDED active Not Available Not Available No t Available lamotrigin e 100 mg tablet TAKE [...] Not Available Not Available No t Available hydroxyzin e pamoate 25 mg capsule [...] 150 mg 24 hr tablet, extended release TAKE 1 TABLET BY MOUTH EVERY DAY DIRECTED active Not Available Not Available No t Available nitrofuran toin monohydrat e/macrocry stals 100 mg capsule TAKE 1 CAPSULE BY MOUTH EVERY 12 HOURS FOR 10 DAYS 07/26 completed Not Available Not Available Not Available cinnamon bark 500 mg capsule Take 1000 mg by oral route. 10/22 completed Not Available Not Available Not Available duloxetine 30 mg capsule,de layed release TAKE 1 CAPSULE BY MOUTH EVERY DAY AT BEDTIME active Not Available Not Available No t Available pregabalin 75 mg capsule TAKE 1 CAPSULE [...] completed Not Available Not Available Not Available Gavilax 17 gram/dose oral powder DISSOLVE 17 GRAMS WITH LIQUID AND TAKE BY MOUTH ONCE DAILY NEEDED FOR CONSTIPAT ION active Not Available Not Available No t Available metoclopra mide 5 mg disintegra ting tablet Place 1-2 tablets under the tongue every day as needed for nausea 10/22 completed Not Available Not Available Not Available metoclopra mide 10 mg disintegra ting tablet [...] 8 mg-naloxon e 2 mg sublingual film DISSOLVE 1 FILM ON TONGUE TWICE DAILY active Not Available Not Available No t Available buprenorph ine 4 mg-naloxon e 1 [...] completed Not Available Not Available Not Available Vraylar 3 mg capsule TAKE 1 CAPSULE BY MOUTH EVERY DAY DIRECTED active Not Available Not Available No t Available Sublocade 300 mg/1.5 mL solution,e xtended release subcutaneo us syringe 01/01 completed Not Available Not Available Not Available Daily-Pelon (with folic acid) 400 mcg tablet active Not Available Not Available N ot Available Airsupra 90 mcg-80 mcg/actuat ion HFA aerosol inhaler INHALE 2 PUFFS NEEDED DAILY active Not Available Not Available No t Available Vitals Date Recorded Body height Body mass index (BMI) Body weight Body temperature Heart rate Respiratory rate Oxygen saturation Oxygen saturation in Arterial blood by Pulse oximetry Systolic blood pressure Diastolic blood pressure Provider Name and Address Organization Details Last Updated DateTime 4 161.29 cm 32.5 kg/m2 55485.6 3 g 98.3 [degF] 105 /min 20 /min 99 % 99 % 140 mm[Hg] 90 mm[Hg] Shania Otoole RN [facility] [employer] [facility] 4 16:02:04 Date Recorded Body height Body mass index (BMI) Body weight Body temperature Heart rate Respiratory rate Oxygen saturation Oxygen saturation in Arterial blood by Pulse oximetry Systolic blood pressure Diastolic blood pressure Provider Name and Address Organization Details Last Updated DateTime 5 161.29 cm 32.1 kg/m2 83623.0 5 g 97.2 [degF] 105 /min 24 /min 99 % 99 % 142 mm[Hg] 90 mm[Hg] Shania Otoole RN [facility] [employer] [facility] 5 15:15:49 Date Recorded Body height Body mass index (BMI) Body weight Body temperature Heart rate Oxygen saturation Oxygen saturation in Arterial blood by Pulse oximetry Systolic blood pressure Diastolic blood pressure Provider Name and Address Organization Details Last Updated DateTime 5 161.29 cm 32.3 kg/m2 26738.5 9 g 98 [degF] 90 /min 96 % 96 % 126 mm[Hg] 80 mm[Hg] Lisbet Valles MA [facility] [employer] [facility] 5 15:33:20 Date Recorded Body height Body mass index (BMI) Body weight Body temperature Heart rate Oxygen saturation Oxygen saturation in Arterial blood by Pulse oximetry Systolic blood pressure Diastolic blood pressure Provider Name and Address Organization Details Last Updated DateTime 5 161.29 cm 33.3 kg/m2 37791.1 4 g 98.1 [degF] 87 /min 94 % 94 % 122 mm[Hg] 84 mm[Hg] Lisbet Valles MA [facility] [employer] [facility] 5 15:27:38 Date Recorded Body height Body mass index (BMI) Body weight Body temperature Heart rate Oxygen saturation Oxygen saturation in Arterial blood by Pulse oximetry Systolic blood pressure Diastolic blood pressure Provider Name and Address Organization Details Last Updated DateTime 5 161.29 cm 32.7 kg/m2 39995.5 2 g 98.1 [degF] 90 /min 99 % 99 % 130 mm[Hg] 86 mm[Hg] Shania Otoole RN [facility] [employer] [facility] 5 12:14:06 Social History Question Answer Notes LastModified by Organization Details LastModified Time Tobacco Smoking Status Current Every Day Smoker Not Available [facility] 11/16/2022 23:05:17 Do You Have An Advance Directive? No Information not available 08/14/2024 What Is Your Level Of Caffeine Consumption? Occasional Coffee, Tea Information not available 02/02/2023 How Much Tobacco Do You Chew? None [id number] Information not available 11/16/2022 In The 14 Days Before Symptom Onset, Have You Had Close Contact With A Laboratory-conf onofre COVID-19 While That Case Was Ill? No [id number] Information not available 11/16/2022 In The 14 Days Before Symptom Onset, Have You Had Close Contact With A Person Who Is Under Investigation For COVID-19 While That Person Was Ill? No [id number] Information not available 11/16/2022 What Type Of Diet Are You Following? REGULAR [id number] [id number] Information not available 11/16/2022 Which Illicit Or Recreational Drugs Have You Used? Marijuana [id number] Information not available 11/16/2022 What Is The Highest Grade Or Level Of School You Have Completed Or The Highest Degree You Have Received? [id number] Information not available 02/02/2023 Do You Have An Electrostatic Air Filter? No Information not available 10/09/2024 Have There Been Any Changes To Your Family Or Social Situation? No Information not available 02/02/2023 Are There Any Guns Present In Your Home? Yes [id number] Information not available 11/16/2022 Do You Have A Humidifier? No Information not available 10/09/2024 Do You Use Insect Repellent Routinely? Yes Information not available 02/02/2023 Where Do You Live? SingleLevelHouse Information not available 02/02/2023 Do You Have A Medical Power Of Medication Administration Professional? No Information not available 08/14/2024 Do You Have Moisture Problems In Your Home? No Information not available 10/09/2024 What Was The Date Of Your Most Recent Tobacco Screening? 10/29/2024 Information not available 10/29/2024 How Many Children Do You Have? 0 [...] Did You Start Smoking Tobacco? 13 [id number] [id number] Information not available 11/16/2022 Are You Passively Exposed To Smoke? Yes Information not available 10/09/2024 Are There Any Smokers In Your House? Yes Information not available 02/02/2023 How Much Tobacco Do You Smoke? 1 PPD [id number] [id number] Information not available 11/16/2022 Do You Participate In Social Media? Yes Information not available 02/02/2023 Do You Use Sunscreen Routinely? Yes Information not available 02/02/2023 Have You Recently Traveled Abroad? No Information not available 02/02/2023 Have You Used IV Drugs? No Information not available 02/02/2023 Sex: Female Functional Status Question Answer Note LastModified by Organizat ion Details LastModified Time Do you use any illicit or recreational drugs? Yes fentanyl- inhale Information not available 02/02/2023 What is your level of alcohol consumption? Occasional [id number] Information not available 11/16/2022 Are you currently employed? Yes Information not available 01/11/2024 Have you been exposed to chemicals or toxins? not that aware of Information not available 10/09/2024 What is your occupation? [employer] Information not available 01/11/2024 Do you or have you ever used e-cigarettes or vape? Never used electronic cigarettes [id number] Information not available 11/16/2022 What is your exercise level? None [id number] Information not available 11/16/2022 Mental Status Question Answer Note LastModified by Organization D etails LastModified Time Do you feel stressed (tense, restless, nervous, or anxious, or unable to sleep at night)? [id number] Information not available 01/11/2024 Family History Relationship Description Onset Age of this Age Resolved Age Notes LastModified by Organization Details LastModified Time Mother Rheumatoid arthritis [id number] Not available 11/16/2022 23:05:57 Medical History Condition Response ADDICTION CONCERNS OTHER # 1 Y ADD/ADHD Y DEPRESSION (INCLUDING POST ) Y HAVE YOU BEEN HOSPITALIZED OR SEEN IN TH E ER IN THE PAST YEAR ? ANXIETY DISORDER Y Gynecological History Statement/Question Response Flow Heavy [...] Immunizations Vaccine Type Date Status Note Provider [facility] e and Address Organization Details Recorded Time Hib, unspecified formulation 7 completed MIN Ahmadi [address], [place], [address], [facility] [employer] [facility] [employer] 01/18/2024 10:03:40 Hib, unspecified formulation 6 completed MIN Ahmadi [address], [place], [address], [employer] [facility] [employer] 01/18/2024 10:03:40 meningococcal, unknown serogroups 8 completed MIN Ahmadi [address], [place], [address], [employer] [facility] [employer] 01/18/2024 10:03:40 MMRV 1 completed MIN Ahmadi [address], [place], [address], [employer] [facility] [employer] [facility] 01/18/2024 10:03:40 MMRV 7 completed MIN Ahmadi [address], [place], [address], [employer] [facility] [employer] [facility] 01/18/2024 10:03:40 DTaP-IPV 1 completed MIN Ahmadi [address], [place], [address], [facility] [facility] [employer] [facility] 01/18/2024 10:03:40 DTaP-IPV 6 completed MIN Ahmadi [address], [place], [address], [facility] 01/18/2024 10:03:40 DTaP-IPV 6 completed MIN Ahmadi [address], [place], [address], [facility] 01/18/2024 10:03:40 DTaP-IPV 6 completed MIN Ahmadi [address], [place], [address], [facility] 01/18/2024 10:03:40 Tdap 6 completed MIN Ahmadi [address], [place], [address], [facility] 01/18/2024 10:03:40 varicella 4 completed MIN Ahmadi [address], [place], [address], [facility] 01/18/2024 10:03:40 varicella 8 completed MIN Ahmadi [address], [place], [address], [facility] [employer] [facility] 01/18/2024 10:03:40 varicella 7 completed MIN Ahmadi [address], [place], [address], [facility] 01/18/2024 10:03:40 HPV, unspecified formulation 8 completed MIN Ahmadi [address], [place], [address], [facility] 01/18/2024 10:03:40 HPV, unspecified formulation 8 completed MIN Ahmadi [address], [place], [address], [facility] 01/18/2024 10:03:40 HPV, unspecified formulation 8 completed MIN Ahmadi [address], [place], [address], [employer] [facility] [employer] [facility] 01/18/2024 10:03:40 Hep B, adolescent or pediatric 6 completed MIN Ahmadi [address], [place], [address], [place] [facility] 01/18/2024 10:03:40 Hep B, adolescent or pediatric 6 completed MIN Ahmadi [address], [place], [address], [employer] [facility] [employer] [facility] 01/18/2024 10:03:40 Hep B, adolescent or pediatric 6 completed MIN Ahmadi [address], [place], [address], [employer] [facility] [employer] [facility] 01/18/2024 10:03:40 DTaP, unspecified formulation 1 completed MIN Ahmadi [address], [place], [address], [employer] [facility] [employer] [facility] 01/18/2024 10:03:40 DTaP, unspecified formulation 6 completed MIN Ahmadi [address], [place], [address], [employer] [facility] [employer] [facility] 01/18/2024 10:03:40 DTaP, unspecified formulation 6 completed MIN Ahmadi [address], [place], [address], [employer] [facility] [employer] [facility] 01/18/2024 10:03:40 DTaP, unspecified formulation 6 completed MIN Ahmadi [address], [place], [address], [facility] [employer] [facility] 01/18/2024 10:03:40 DTaP, unspecified formulation 7 completed MIN Ahmadi [address], [place], [address], [employer] 01/18/2024 10:03:40 meningococcal MCV4, unspecified formulation 4 completed MIN Ahmadi [address] [facility], [facility] [address], [place], [address], [employer] 01/18/2024 10:03:40 Hep A, unspecified formulation 8 completed MIN Ahmadi [address] [facility], [facility] [address], [place], [address], [employer] 01/18/2024 10:03:40 Hep A, unspecified formulation 8 completed MIN Ahmadi [address] [facility], [place] [address], [place], [address], [employer] 01/18/2024 10:03:40 Past Encounters Encounter ID Performer Location Encounter Start Date Encounter Closed Date Diagnosis/Indication Diagnosis SNOMED-CT Code Diagnosis ICD10 Code Diagnosis Note [id number] Chaz Willoughby MD [address] [address] 01/28/2021 00:00:00 01/28/2021 12:03:19 [id number] Chaz Willoughby MD [address] [address] 07/26/2022 00:00:00 07/26/2022 16:08:32 [id number] _ATHN_MIGR ATION_1 _ATHENA_M IGRATION_ DEFAULT_1 _1 , 08/08/2022 00:00:00 08/08/2022 17:29:24 [id number] Shania Griggs NP [address] [address] 02/02/2023 16:14:07 02/02/2023 16:59:31 Cyclical vomiting syndrome 63082523 R11.15 Reglan, amitriptyl ine, and omeprazole prn. 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 Will refill trazodone 50 mg po nightly for 1 mo and then Desvenlafa xine succinate ER 25 mg po daily Sleep apnea 67608858 G47 .30 Home sleep study. Last was age 20 yo. Mother with sleep apnea. Father addict and is . [id number] Chaz Willoughby MD [address] [address] 2024 17:40:13 2024 17:58:05 Cyclical vomiting syndrome 96845216 R11.15 Nausea and vomiting 1693 2000 R11.2 Sleep apnea 55806316 G47 .30 Irregular periods 924042 07 N92.6 Gynecologi c examination 04657204 Z01.419 Smoker 85062447 F17.200 Mild persi stent asthma 198514422 J45.30 Obesity 014459349 E66.9 [id number] Chaz Willoughby MD [address] [address] 01/11/2024 08:56:32 01/11/2024 09:27:22 Low back strain 418340405 S39.012D [id number] Chaz Willoughby MD [address] [address] 04/25/2024 14:28:51 04/25/2024 15:12:28 Asthma 660734638 J45.909 Cyclical v omiting syndrome 40722415 R11.15 Patient to make appt with GI Urinary symptoms 1092219 08 R39.9 Microscopic hematuria 19 9399275 R31.21 [id number] Chaz Willoughby MD [address] [address] 08/14/2024 15:51:00 08/14/2024 16:35:41 Adult health examination 737243043 Z00.00 Asthma 181174570 J45.90 9 Cyclical v omiting syndrome 90719571 R11.15 need new GI referral Sleep apnea 03899040 G47 .30 Restless legs 95388679 G 25.81 Insomnia 163124408 F51.0 1 [id number] Chaz Willoughby MD [facility] [address] [address] 10/08/2024 15:02:00 10/08/2024 15:35:22 Major depressive disorder 655281152 F32.9 Has tried multiple medication s, finds not much has help. Last took Wellbutrin Cyclical v omiting syndrome 04351226 R11.15 need new GI referral Thyroid st imulating hormone level above reference range 555650868 R94.6 Asthma 641417909 J45.90 9 [id number] Zita Santana NP [facility] Pulmonolo gy [address] [place] [address] 10/09/2024 15:13:46 10/14/2024 15:47:11 Obstructive sleep apnea syndrome 64636549 G47.33 G47.30 Home sleep study order todayESS-1 [...] concern Body mass index 30+ - obesity 676424203 Z68.31 Encourage healthy diet and exercise to improve weightdisc ussed weight effect on sleep and sleep apnea Smoker 50520659 F17.200 Patient is a smoker and has been counseled to quit. We discussed the many reasons to quit smoking. We discussed the various methods of smoking cessation. Total time with patient counseling patient 3 minutes. [id number] Zita Santana NP [facility] Pulmonolo gy [address] [address] 10/29/2024 15:10:45 10/31/2024 15:49:59 Obstructive sleep apnea syndrome 57131776 G47.33 G47.30 [facility] home sleep study 10/18/24 AHI = 27-order for titration studyESS-1 8Discussed sleep hygeineAdv ised good sleep habits and [...] iscussed reportable signs and symptoms of concern Asthma wit hout status asthmaticus 96574700 J45.909 hx of asthmaunsu re last PFT-will do onesee dyspnea work up Dyspnea on exertion 6084 5006 R06.09 Lab work todayPFT for baselineAw are to use Albuterol inhaler as needed-ok to use when sobEncoura ge patient to remain activefoll ow-up once testing is complete-s ooner for any changes in breathing and increase use of inhaler Smoker 63713671 F17.200 Patient is a smoker and has been counseled to quit. We discussed the many reasons to quit smoking. We discussed the various methods of smoking cessation. Total time with patient counseling patient 3 minutes.ad vised to find another form of marijuana [id number] Chaz Willoughby MD [facility] [address] [place] [address] 11/22/2024 12:01:44 11/22/2024 12:53:43 Bipolar II disorder 21906206 F31.81 Severe depression , PHQ9 23, has tried numerous meds with limited efficacy Anxiety 42605388 F41.9 Panic episodes, well controlled with clonidine Restless legs 45786706 G 25.81 Insomnia 112840367 F51.0 1 Mixed anxi ety and depressive disorder 124669871 F41.8 [id number] [facility] [address] [address] 12/24/2024 15:24:14 12/26/2024 15:06:05 Health Concerns Section Related Observation LastModified by Organization Detai ls LastModified Time None Recorded Concern Status LastModified by Organization Details LastModified Time None Recorded Advance Directives Directive N: Payers Encounter Date Sequence Insurance Name Policy Number Policy Zuleta Covered Member ID Zuleta Member ID Guarantor Name 08/14/2024 1 [place] [facility] (MEDICAID REPLACEMENT - HMO) [id number] Lucero Santizo [id number] Lucero Santizo 10/08/2024 1 [place] [facility] (MEDICAID REPLACEMENT - [place]MO) [id number] Lucero Santizo [id number] Lucero Santizo 10/09/2024 1 [place] [facility] (MEDICAID REPLACEMENT - HMO) [id number] Lucero Santizo [id number] Lucero Santizo 10/29/2024 1 [place] [facility] (MEDICAID REPLACEMENT - HMO) [id number] Lucero Santizo [id number] Lucero Santizo 11/22/2024 1 [place] [facility] (MEDICAID REPLACEMENT - HMO) [id number] Lucero Santizo [id number] Lucero Santizo Notes Date Note Type Note Provider Name and Address Organization Details Recorded Time 08/14/2024 text/html Lucero Santizo i s a [...] Colonoscopy not indicatedWWE: due MIN Ahmadi [address] [facility], [place], [address], [employer] 08/14/2024 16:35:17 10/08/2024 text/html Lucero Santizo i [...] a refill of promethazine MIN Ahmadi [address] [facility], [place], [address], [employer] 10/08/2024 16:05:40 10/09/2024 text/html Obstructive Slee p [...] y;poor concentration;amnesia Prior Tests and Treatments:polysomnogr aphy; linux support engineer evaluationNotes:Monica cárdenas notes 10 years ago dx with sleep apnea-did not get a machine at that time1 ppd smoker-15 yrshx of asthma-managed by primaryrecovering from drug useworks in fast food Zita Santana NP [address] [facility], [facility] [address], [place], [address], [place] [facility] [employer] 10/09/2024 15:51:51 10/29/2024 text/html AsthmaReported bypatient.Severity:dec rease in activities of daily living;worsening Context:allergic rhinitis Aggravating Factors:physical activity; pollen Alleviating Factors:antihistamines Associated Symptoms:no fever; no anorexia; no tachypnea; no retractions;fatigue;co ugh;dyspnea;wheeze;sle ep disturbance Prior Tests and Treatments:short-actin g beta agonistNotes:was managed by primary on airsupra and albuterol-notes continues with s/snotes vapes marijuana flower-trying to quitObstructive Sleep ApneaReported bypatient.Severity:wor sening Timing:daily Duration:10years; frequent Context:inconsistent [...] y;poor concentration;amnesia Prior Tests and Treatments:polysomnogr aphy; linux support engineer evaluationNotes:Monica cárdenas notes 10 years ago dx with sleep apnea-did not get a machine at that time1 ppd smoker-15 yrsmarijuana vapehx of asthmarecovering from drug useworks in fast food Zita Santana NP [address] [facility], [place], [address], [employer] 10/29/2024 16:17:52 11/22/2024 text/html Lucero Santizo i s a 29 year old female patient here today for depression PHQ-9 today is 23. Patient is requesting Auvelity as a fast acting antidepressant. States nothing is working for her and she is feeling discouraged. Tearful on exam. MIN Ahmadi [address] [facility], [facility] [address], [place], [address], [employer] 11/22/2024 12:43:03 OBGyn Episode No OBEpisode recorded.
--- OUTSIDE RECORDS SUMMARY | 2025-02-08 13:02 | XMS_ITS | Clinical Summary ---
Author Organization [facility] Address [address] [place] [address] Care Team Providers Care Community Development Coordinator Name Role Phone [place] devine Katie INSPECTOR DIALS Primary Care Provider + Miscellaneous, Not In [...] Comments Blood Pressure 138/93 09/29/2022 3:30 AM MEDICAL CARE ADMINISTRATOR Pulse 99 09/29/2022 3:50 AM MEDICAL CARE ADMINISTRATOR Temperature 36.6 C (97.9 F) 09/28/2022 6:49 PM MEDICAL CARE ADMINISTRATOR Respiratory Rate 16 09/29/2022 1:25 AM MEDICAL CARE ADMINISTRATOR Oxygen Saturation 100% 09/29/2022 3:50 AM MEDICAL CARE ADMINISTRATOR Inhaled Oxygen Concentration - - Weight 79.4 kg (175 lb) 09/28/2022 6:51 PM MEDICAL CARE ADMINISTRATOR Height 158.8 cm (5' 2.5 ) 09/28/2022 6:51 PM MEDICAL CARE ADMINISTRATOR Body Mass Index 31.5 09/28/2022 6:51 PM MEDICAL CARE ADMINISTRATOR Plan of Treatment Health Maintenance Due Date Last Done Comments Cervical Cancer Screening 1996 Depression Screening 1996 Hepatitis C Screening 1996 Regular Well Visit/Exam 18-64 01/01/2014 Pneumococcal vaccine <65 (1 of 2 - PCV) 01/01/2015 DTaP/Tdap/Td Vaccine (7 - Td or Tdap) 03/28/2016 03/28/2006, 02/15/2001, 02/15/2001, Additional history exists Influenza Vaccine (Season Ended) 2025 Hepatitis B Screening Completed 1996 , 1996, 1996 HPV Vaccines Completed 06/11/2008, 01/16, 11/26/2007 Varicella Vaccines Completed 10/08/2013, 0 11/26/2007, 02/15/2001, Additional history exists Insurance [employer]URA D[place] [id number] [address] [place] [address] [id number] Care Teams Community Development Coordinator Relationship Specialty Start Date End Date Shania Griggs NP PCP - General Nurse Practitioner 09/28/22 Miscellaneous, Not In File 09/28/22 Nroa Keenan [employer] Addiction Medicine 09/08/20
--- OUTSIDE RECORDS SUMMARY | 2025-02-08 13:02 | XMS_ITS ---
Author Organization [facility] Address [address] [place] [address] Care Team Providers Care Tool Drawing Checker Name Role Phone Tolu Katelyn Primary Care Provider Jac Aldana [phone] REASON FOR VISIT transfer from [facility], 1 mo fu Medications Medication SIG (Take, [...] 04/25/2024 Active Vitamin D (Ergocalciferol) 1.25 MG (28890 UT) 1 capsule Orally once a week [...] Female Encounters Encounter Location Date Provider Diagnosis [address] [address] 05/27/2024 Jac Aldana Plan Of Treatment No Information Progress Notes * Lucero SANTIZO MDOB: [birth year] (30 yo F)Acc No.[id number]:05/27/2024 UNLOCKED PROGRESS NOTE Patient: Lucero CHRISTENSEN Provider: Ricardo Aldana, STEFF, PMHNP- :1995 A ge:29 Y S ex:Female Date:05/27/2024 Address:[address] [place], [place] [id number] Pcp:Katelyn Motley Subjective: * Chief Complaints: * 1 . transfer from [facility], 1 mo fu. * Medical History: * Medications: T aking SEROquel 100 MG Tablet 1 tablet Orally Twice a day , Taking hydrOXYzine HCl 25 MG Tablet 1 tablet as needed Orally three times day , Taking traZODone HCl 150 MG Tablet 1 tablet at bedtime as needed Orally Once a day , Taking Vitamin D (Ergocalciferol) 1.25 MG (92789 UT) Capsule 1 capsule Orally once a [...] * * Electronic signature of Chio Aldana SMART ENERGY SPECIALIST, [id number] on 02/08/2025 at 01:01 PM CDT Sign off status: Pending * Provider: Ricardo Aldana DNP, PMHNP- Date: 0 05/27/2024 Generated for Zhen huertas/Madeleine/Saadia on: 0 02/08/2025 01:01 PM CDT
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
--- OUTSIDE RECORDS SUMMARY | 2025-02-08 13:02 | XMS_ITS ---
Author Organization [facility] Address [address] [place] [address] Care Team Providers Care Bread Icer Name Role Phone Katelyn Motley Primary Care Provider REASON FOR VISIT -Discharged from [facility] on 05/13/24 Social History Sex Assigned At : Social History Observation Description Sex Assigned At Female Encounters Encounter Location Date Provider Diagnosis [address] [place] [address] 05/16/2024 Katelyn Motley Plan Of Treatment No Information Progress Notes * Lucero SANTIZO MDOB: [birth year] (30 yo F)Acc No.[id number]:05/16/2024 UNLOCKED PROGRESS NOTE Patient: Nader RUDY Lucero Everardo Provider: DUNCAN Sagastume, FIELD RETURN REPAIRER, CRM FUNCTIONAL ANALYST-C :1995 A ge:29 Y S ex:Female Date:05/16/2024 Address:[address] [place], [place] [id number] Subjective: * Chief Complaints: * 1 . -Discharged from [facility] on 05/13/24. * Medical History: Objective: * Vitals: Assessment: Plan: * Treatment: * Care Plan Details* * Electronic signature of My Motley APRN, [id number] on 02/08/2025 at 01:01 PM CDT Sign off status: Pending * Provider: Ricardo Motley, MSN, FIELD RETURN REPAIRER, CRM FUNCTIONAL ANALYST-C Date: 0 05/16/2024 Generated for Zhen huertas/Madeleine/Melviitting on: 0 02/08/2025 01:01 PM CDT
--- OUTSIDE RECORDS SUMMARY | 2025-02-08 13:02 | XMS_ITS | Clinical Summary ---
Author Organization [facility] Address [address] [place] [address] Phone Care Team Providers Care Band Saw Operator Name Role Phone Shania Griggs APRN, CNP Primary Care Pro vider Allergies No known active allergies Medications * This document contains information received from the source organization and may not represent a complete record from that organization. traZODone (DESYREL) 150 MG Tablet Take 150 mg by mouth nightly. Active dicyclomine (BENTYL) 20 MG Tablet Take 20 mg by mouth every 6 hours as needed for Other (stomach). Active promethazine (PHENERGAN) 25 MG Tablet Take 25 mg by mouth every 6 hours as needed for Nausea - 1st line. Active albuterol 108 (90 Base) MCG/ACT Aerosol Solution take 2 Puffs by inhalation every 4 hours as needed for Wheezing. Active Vraylar 3 MG Capsule Take 3 mg by mouth daily. 12/19/19 25 Active cloNIDine (CATAPRES) 0.1 MG Tablet Take 0.1 mg by mouth daily. Active gabapentin (NEURONTIN) 100 MG Capsule Take 100 mg by mouth 3 times daily. Active hydrOXYzine (ATARAX) 50 MG Tablet Take 50 mg by mouth every 8 hours as needed for Anxiety. Activ e metoclopramide (REGLAN) 10 MG Tablet Take 10 mg by mouth 4 times daily as needed for Nausea - 1st line. 10/31/19 25 Active prochlorperazin e (COMPAZINE) 25 MG Suppository 25 mg by Rectal route every 12 hours as needed. 11/07/19 25 Active SUMAtriptan (IMITREX) 5 MG/ACT Solution 5 mg by Nasal route once as needed for Migraine. 11/07/19 25 Active hyoscyamine (ANASPAZ, LEVSIN) 0.125 MG Tablet Take 0.125 mg by mouth every 4 hours as needed for Diarrhea. Active famotidine (PEPCID) 20 MG TabletIndicatio ns:Gastroesopha geal Reflux Disease Take 1 Tablet by mouth 2 times daily. Indications: Gastroesophageal Reflux Disease 60 Tablet 12/31/19 25 Active folic acid (FOLVITE) 1 MG Tablet Take 1 Tablet by mouth daily. 30 Tablet 01/01/20 25 Active LORazepam (ATIVAN) 0.5 MG TabletIndicatio ns:Alcohol Withdrawal Syndrome,Anxiet y Take 1 Tablet by mouth every 6 hours as needed for Anxiety or Withdrawal. Indications: Alcohol Withdrawal Syndrome, Feeling Anxious 50 Tablet 12/31/19 25 Active naloxone Kit 1 Kit by Nasal route once for 1 dose. 1 Kit 12/31/19 25 Active thiamine (VITAMIN B1) 100 MG Tablet Take 1 Tablet by mouth 3 times daily for 4 days, THEN 1 Tablet daily for 30 days. 42 Tablet 12/31/19 25 025 Active Problems Problem Noted Date Diagnosed Date Opioid withdrawal 12/27/2024 ETOH abuse 12/27/2024 Anxiety Opioid abuse Tobacco abuse Asthma JOHNNY (obstructive sleep apnea) Resolved Problems Problem Noted Date Diagnosed Date Resolved Date Opioid withdrawal 05/11/2024 05/13/2024 Encounters * This document contains information received from the source organization and may not represent a complete record from that organization. Date Type Department Care Team Description 12/27/2024 Travel from Last 3 Months Social History Tobacco Use Types Packs/Day Years Used Date Smoking Tobacco: Every Day Cigarettes 1 15.4 Started: 2009 Tobacco Cessation:Ready to Q uit: Not Asked; Counseling Given: Not Answered Alcohol Use Standard Drinks/Week Comments Yes 2 (1 standard drink = 0.6 oz pur e alcohol) every other day [facility] Utilities Answer Date Recorded In the past 12 months has [email or web address], gas, oil, or water [employer] threatened to shut off services in your home? No 12/27/2024 Social Connection and Isolation Panel [NHANES] A nswer Date Recorded In a typical week, how many times do you talk on the phone with family, friends, or neighbors? Patient declined 05/10/2024 How often do you get togethe r with friends or relatives? Patient declined 05/10/2024 How often do you attend spiritism or temple serv ices? Patient declined 05/10/2024 Do you belong to any clubs o r organizations such as spiritism groups, unions, fraternal or athletic groups, or [...] medical care, and heating? Patient declined 05/10/2024 [facility] - Occupational Stress Questionnaire Answer Date Recorded [...] you got the money to buy more. Never true 12/28/19 25 Within the past 12 months, t he food you bought just didn't last and you didn't have money to get more. Never true 12/27/2024 PRAPARE - Transportation Answer Date Re corded In the past 12 months, has l ack of transportation kept you from medical appointments or from getting medications? No 12/17 In the past 12 months, has l ack of transportation kept you from meetings, work, or from getting things needed for daily living? No 12/27/2024 Housing Stability Vital Sign Answer Denzel e Recorded In the last 12 months, was t here a time when you were not able to pay the mortgage or rent on time? No 12/27/2024 In the past 12 months, how m any times have you moved where you were living? 1 12/27/2024 At any time in the [facility], were you homeless or living in a jail (including now)? No 12/27/2024 Sexually Active Control Partners Comments Not Currently Comments No Sex and Gender Information Value Date Recorded Sex Assigned at Not on file Legal Sex Female 4:32 PM CDT Gender Identity Not on file Sexual Orientation Not on file Last Filed Vital Signs Vital Sign Reading Time Taken Comments Blood Pressure 148/103 12/30/2024 7:58 AM CDT Pulse 86 12/30/2024 7:58 AM CDT Temperature 36.5 C (97.7 F) 12/30/2024 7:58 AM CDT Respiratory Rate 20 12/30/2024 8:00 AM CDT Oxygen Saturation 100% 12/30/2024 7:58 AM CDT Inhaled Oxygen Concentration - - Weight 74.8 kg (165 lb) 12/27/2024 3:22 PM CDT Height 160 cm (5' 3 ) 12/27/2024 3:22 PM CDT Body Mass Index 29.23 12/27/2024 3:22 PM CDT Plan of Treatment Not on file Procedures Procedure Name Priority Date/Time Associated Diagnosis Comments RHYTHM STRIP 12/29/2024 12:00 AM CDT RHYTHM STRIP 12/29/2024 12:00 AM CDT RHYTHM STRIP 12/28/2024 12:00 AM CDT RHYTHM STRIP 12/28/2024 12:00 AM CDT RHYTHM STRIP 12/28/2024 12:00 AM CDT RHYTHM STRIP 12/28/2024 12:00 AM CDT AEROSOL NEBULIZER-INITIAL Routine 12/27/2024 9:46 PM CDT CBC WITH AUTO DIFFERENTIAL Routine 12/27/2024 7:26 PM CDT LIPASE Routine 12/27/2024 7:26 PM CDT AMYLASE Routine 12/27/2024 7:26 PM CDT CMP (COMPREHENSIVE METABOLIC PANEL) Routine 12/27/2024 7:26 PM CDT COMPLETE BLOOD COUNT (CBC) WITH DIFF Routine 12/27/2024 7:26 PM CDT EKG 12 LEAD Stat with Interpretation 12/27/2024 6:01 PM CDT UR TEST QUAL Routine 12/27/2024 5:24 PM CDT URINALYSIS (UA) MACROSCOPIC Routine 12/27/2024 5:24 PM CDT URINE DRUG SCREEN Routine 12/27/2024 5:2 4 PM CDT EKG SCAN 12/27/2024 12:00 AM CDT from Last 3 Months Results * RHYTHM STRIP (12/29/2024 12:00 AM CDT) Only the most recent of6 resultswithin the time period is included. 12/29/2024 us Provider Scan IMG ECG ORDERABLES Final Result RESULTING AGENCY * (ABNORMAL) CBC with Auto Differential (12/27/2024 7:26 PM CDT) WBC 11.19 4.00 - 12.00 10(3)/mcL 12/27/2024 7:39 PM CDT [facility] RBC 5.02 3.80 - 5.30 10(6)/mcL 12/27/2024 7:39 PM CDT [facility] HEMOGLOBIN (HGB) 14.9 12.0 - 15.8 g/dL 12/27/2024 7:39 PM CDT [facility] HEMATOCRIT (HCT) 46.0 36.0 - 47.0 % 12/27/2024 7:39 PM CDT [facility] MCV 91.6 82.0 - 96.0 fL 12/27/2024 7:39 PM CDT [facility] MCH 29.7 26.0 - 34.0 pg 12/27/2024 7:39 PM CDT [facility] MCHC 32.4 31.0 - 36.0 g/dL 12/27/2024 7:39 PM CDT [facility] PLATELET COUNT 431 140 - 440 10(3)/mcL 12/27/2024 7:39 PM CDT [facility] RDW 12.7 11.8 - 15.5 % 12/27/2024 7:39 PM CDT [facility] MPV 9.4(L) 9.7 - 12.4 fL 12/27/2024 7:39 PM CDT [facility] NEUTROPHILS 49.4 47.0 - 73.0 % 12/27/2024 7:39 PM CDT [facility] LYMPHOCYTES 41.3 18.0 - 42.0 % 12/27/2024 7:39 PM CDT [facility] MONOCYTES 6.7 4.0 - 12.0 % 12/27/2024 7:39 PM CDT [facility] EOSINOPHILS 1.8 0.0 - 5.0 % 12/27/2024 7:39 PM CDT [facility] BASOPHILS 0.8 0.0 - 1.0 % 12/27/2024 7:39 PM CDT [facility] ABSOLUTE NEUTROPHILS 5.53 1.60 - 7.70 10(3)/mcL 12/27/2024 7:39 PM CDT [facility] ABSOLUTE LYMPHOCYTES 4.62(H) 1.30 - 3.20 10(3)/mcL 12/27/2024 7:39 PM CDT [facility] ABSOLUTE MONOCYTES 0.75 0.20 - 1.00 10(3)/mcL 12/27/2024 7:39 PM CDT [facility] ABSOLUTE EOSINOPHIL 0.20 0.00 - 0.40 10(3)/mcL 12/27/2024 7:39 PM CDT [facility] ABSOLUTE BASOPHILS 0.09 0.00 - 0.10 10(3)/mcL 12/27/2024 7:39 PM CDT [facility] NRBC PER 100 WBC 0 12/28/19 7:39 PM CDT [facility] Blood Venipuncture / Unknown 12/27/2024 7:26 PM CDT 12/27/2024 7:37 PM CDT Monet Ann APRN, LINDSAY HEMATOLOGY ORDERABLES F inal Result Performing Organization Address City/[facility]/ZIP Co de Phone Number [facility] [address] [place] [address] * Lipase (12/27/2024 7:26 PM CDT) Pathologist [facility] LIPASE 46 8 - 78 U/L 12/27/2024 8:01 PM CDT [facility] Blood Venipuncture / Unknown 12/27/2024 7:26 PM CDT 12/27/2024 7:37 PM CDT Monet Ann APRN, CLINICAL PRODUCT SPECIALIST CHEMISTRY ORDERABLES Fi nal Result Performing Organization Address City/[facility]/ZIP Co de Phone Number [facility] [place] [address] * (ABNORMAL) CMP (Comprehensive Metabolic Panel) (12/27/2024 7:26 PM CDT) SODIUM 144 136 - 145 mmol/L 12/27/2024 8:01 PM CDT [facility] POTASSIUM 3.9 3.5 - 5.1 mmol/L 12/27/2024 8:01 PM CDT [facility] CHLORIDE 108(H) 98 - 107 mmol/L 12/27/2024 8:01 PM CDT [facility] CO2, VENOUS 27 22 - 30 mmol/L 12/27/2024 8:01 PM T [facility] ANION GAP 12.9 <18.0 mmol/L 12/27/2024 8:01 PM T [facility] GLUCOSE 93 70 - 99 mg/dL 12/27/2024 8:01 PM [facility] BUN 7 5 - 18 mg/dL 12/27/2024 8:01 PM T [facility] CREATININE, BLOOD 0.71 0.60 - 1.00 mg/dL 12/27/2024 8:01 PM [facility] BUN/CREATININE RATIO 10(L) 12 - 20 ratio 12/27/2024 8:01 PM [facility] TOTAL PROTEIN 7.2 6.0 - 8.0 g/dL 12/27/2024 8:01 PM [facility] ALBUMIN 4.4 3.5 - 5.0 g/dL 12/27/2024 8:01 PM [facility] A/G RATIO 1.6 1.0 - 2.2 12/27/2024 8:01 PM [facility] CALCIUM 9.5 8.7 - 10.5 mg/dL 12/27/2024 8:01 PM [facility] T BILI 0.2 0.2 - 1.2 mg/dL 12/27/2024 8:01 PM [facility] SGOT (AST) 23 <43 U/L 12/27/2024 8:01 PM [facility] SGPT (ALT) 20 <56 U/L 12/27/2024 8:01 PM [facility] ALKALINE PHOSPHATASE 90 40 - 150 U/L 12/27/2024 8:01 PM [facility] GFR, ESTIMATED >60 >=60 12/27/2024 8:01 PM [facility] Comment: Creatinine Clearance is the preferred criteria for selecting drug dose adjustments in renally impaired patients. The GFR is provided as additional pertinent clinical information. GFR is reported in mL/min/1.73 sq m. Calculation based on the Chronic Kidney Disease Epidemiology Collaboration (CKD- EPI) equation refit without adjustment for race. GFR, EST. >60 >=60 025 8:01 PM CDT [facility] GFR, EST. NONAFRICAN >60 >=60 12/27/2024 8:01 PM CDT [facility] Blood Venipuncture / Unknown 12/27/2024 7:26 PM CDT 12/27/2024 7:37 PM CDT Monet Ann APRN, CLINICAL PRODUCT SPECIALIST CHEMISTRY ORDERABLES Fi nal Result Performing Organization Address City/[facility]/ZIP Co de Phone Number [facility] [address] [place] [address] * Amylase (12/27/2024 7:26 PM CDT) AMYLASE 59 25 - 125 U/L 12/27/2024 8:01 PM CDT [facility] Blood Venipuncture / Unknown 12/27/2024 7:26 PM CDT 12/27/2024 7:37 PM CDT Monet Ann APRN, LINDSAY CHEMISTRY ORDERABLES Fi nal Result Performing Organization Address City/[facility]/ZIP Co de Phone Number [facility] [address] [place] [address] * EKG 12 LEAD (12/27/2024 6:01 PM CDT) Ventricular Rate 93 BPM EXTERNAL EKG Atrial Rate 93 BPM EXTERNAL EKG P-R Interval 138 ms EXTERNAL EKG QRS Duration 84 ms EXTERNAL EKG Q-T Duration 356 ms EXTERNAL EKG QTC CALCULATION 442 ms EXTERNAL EKG P [place] 39 degrees EXTERNAL EKG R [place] 66 degrees EXTERNAL EKG T [place] 16 degrees EXTERNAL EKG 12/27/2024 6:01 PM CDT Impressions EXTERNAL EKG - 12/30/2024 9:55 PM CDT Poor data quality, interpretation may be adversely affected Normal sinus rhythm Normal ECG No previous ECGs available Confirmed by Caroline Kingsley ([id number]) on 12/30/2024 9:55:03 PM Narrative Procedure Note Caroline Kingsley DO - 12/30/2024 IMPRESSION: Poor data quality, interpretation may be adversely affected Normal sinus rhythm Normal ECG No previous ECGs available Confirmed by Caroline Kingsley ([id number]) on 12/30/2024 9:55:03 PM Monet Ann APRN, LINDSAY IMG ECG ORDERABLES Anna Marie ambriz Result EXTERNAL EKG * (ABNORMAL) Urinalysis (Ua) Macroscopic (12/27/2024 5:24 PM CDT) SPECIFIC GRAVITY 1.010 1.003 - 1.030 12/27/2024 5:48 PM CDT [facility] URINE PH 8.0 5.0 - 9.0 12/27/2024 5:48 PM CDT [facility] WBC ESTERASE 25 /ul(A) Negative 12/27/2024 5:48 PM CDT [facility] NITRITE Negative Negative 12/27/2024 5:48 PM CDT [facility] PROTEIN, RANDOM URINE 30 mg/dL(A) Negative 12/27/2024 5:48 PM CDT [facility] URINE GLUCOSE, QUAL Negative Negative 12/27/2024 5:48 PM CDT [facility] URINE KETONES Negative Negative 12/27/2024 5:48 PM CDT [facility] UROBILINOGEN Normal Normal mg/dL 12/27/2024 5:48 PM CDT [facility] URINE BLOOD 250 /uL(A) Negative eleno/ul 12/27/2024 5:48 PM CDT [facility] URINALYSIS COLOR Dark Yellow 025 5:48 PM CDT [facility] URINALYSIS CLARITY Very Cloudy 12/27/2024 5:48 PM CDT [facility] Urine Non-Phlebotomy Collection / Unknown 12/27/2024 5:24 PM CDT 12/27/2024 5:44 PM CDT Narrative [facility] - 12/27/2024 5:48 PM CDT Results indicate possible urinary tract infection. Urine culture recommended if clinically indicated. Monet Ann APRN, LINDSAY URINE ORDERABLES Final Result Performing Organization Address City/[facility]/ZIP Co de Phone Number [facility] [place] [address] * Ur Test Qual (12/27/2024 5:24 PM CDT) PREG TEST,MONOCLONA L Negative 12/27/2024 5:48 PM CDT [facility] Urine Non-Phlebotomy Collection / Unknown 12/27/2024 5:24 PM CDT 12/27/2024 5:28 PM CDT Monet Ann APRN, LINDSAY URINE ORDERABLES Final Result Performing Organization Address City/[facility]/ZIP Co de Phone Number [facility] [address] [place] [address] * (ABNORMAL) Urine Drug Screen (12/27/2024 5:24 PM CDT) UR AMPHETAMINE NON DETECTED NON DETECTED 12/27/2024 6:02 PM CDT [facility] Comment: FOR MEDICAL USE ONLY. CUTOFF CONCENTRATION FOR DETECTED RESULT: AMPHETAMINE: 500 NG/ML UR BENZODIAZEPINES DETECTED(A) NON DETECTED 12/27/2024 6:02 PM CDT [facility] Comment: FOR MEDICAL USE ONLY. CUTOFF CONCENTRATION FOR DETECTED RESULT: BENZODIAZAPINE: 200 NG/ML UR COCAINE METABOLITE NON DETECTED NON DETECTED 12/27/2024 6:02 PM CDT [facility] Comment: FOR MEDICAL USE ONLY. CUTOFF CONCENTRATION FOR DETECTED RESULT: COCAINE: 150 NG/ML UR OPIATES NON DETECTED NON DETECTED 12/27/2024 6:02 PM CDT [facility] Comment: FOR MEDICAL USE ONLY. CUTOFF CONCENTRATION FOR DETECTED RESULT: OPIATES: 300 NG/ML UR PHENCYCLIDINE NON DETECTED NON DETECTED 12/27/2024 6:02 PM CDT [facility] Comment: FOR MEDICAL USE ONLY. CUTOFF CONCENTRATION FOR DETECTED RESULT: PCP: 25 NG/ML UR CANNABINOID DETECTED(A) NON DETECTED 12/27/2024 6:02 PM CDT [facility] Comment: FOR MEDICAL USE ONLY. CUTOFF CONCENTRATION FOR DETECTED RESULT: THC (MARIJUANA): 50 NG/ML UR BARBITURATE NON DETECTED NON DETECTED 12/27/2024 6:02 PM CDT [facility] Comment: FOR MEDICAL USE ONLY. CUTOFF CONCENTRATION FOR DETECTED RESULT: BARBITUATES: 200 NG/ML UR FENTANYL DETECTED(A) NON DETECTED 12/27/2024 6:02 PM CDT [facility] Comment: FOR MEDICAL USE ONLY. CUTOFF CONCENTRATION FOR DETECTED RESULT: FENTANYL: 1.0 NG/ML Urine Non-Phlebotomy Collection / Unknown 12/27/2024 5:24 PM CDT 12/27/2024 5:28 PM CDT us Monet Ann [id number] DEVELOPER, CLINICAL PRODUCT SPECIALIST URINE ORDERABLES Final Result Performing Organization Address [facility]/ZIP Co de Phone Number [facility] [place] [address] * EKG SCAN (12/27/2024 12:00 AM CDT) 12/27/2024 us Provider Scan IMG ECG ORDERABLES Final Result RESULTING AGENCY from Last 3 Months Insurance MEDICAID [place] Advance Directives * Full Code (Latest Code Status on File) Date Activated Date Inactivated Comments 12/30/2024 11:06 AM CPR-Full Kaylie tment: FULL ARREST: Attempt Resuscitation/CPR wit intubation and mechanical ventilation. PRE-ARREST: Use entire range of life support measures to stabilize the patient. Care Teams Band Saw Operator Relationship Specialty Start Date End Date Shania Griggs APRN, CLINICAL PRODUCT SPECIALIST [address] [place] [address] PCP - General Certified Nurse Practitioner 05/10/24
--- OUTSIDE RECORDS SUMMARY | 2025-02-08 15:10 | XMS_ITS | Clinical Summary ---
Author Organization [facility] Address [address] [place] [address] Care Team Providers Care Inspector Bullet Slugs Name Role Phone NecedahShania devine Katie ANESTHESIOLOGY TECHNOLOGIST Primary Care Provider + Miscellaneous, Not In [...] Comments Blood Pressure 138/93 09/29/2022 3:30 AM UNSCRAMBLER Pulse 99 09/29/2022 3:50 AM UNSCRAMBLER Temperature 36.6 C (97.9 F) 09/28/2022 6:49 PM UNSCRAMBLER Respiratory Rate 16 09/29/2022 1:25 AM UNSCRAMBLER Oxygen Saturation 100% 09/29/2022 3:50 AM UNSCRAMBLER Inhaled Oxygen Concentration - - Weight 79.4 kg (175 lb) 09/28/2022 6:51 PM UNSCRAMBLER Height 158.8 cm (5' 2.5 ) 09/28/2022 6:51 PM UNSCRAMBLER Body Mass Index 31.5 09/28/2022 6:51 PM UNSCRAMBLER Plan of Treatment Health Maintenance Due Date [...] 02/15/2001, Additional history exists Insurance [place] DENT [id number] [address] [place] [id number] Care Teams Inspector Bullet Slugs Relationship Specialty Start Date End Date Shania Griggs NP PCP - General Nurse Practitioner 09/28/22 Miscellaneous, Not In File 09/28/22 Nora Keenan Director International Addiction Medicine 09/08/20
--- OUTSIDE RECORDS SUMMARY | 2025-02-08 15:10 | XMS_ITS | Clinical Summary ---
Author Organization [facility] Address [address] [facility] [address] Phone Care Team Providers Care Researcher Name Role Phone Shania Griggs APRN, CNP [...] oz pur e alcohol) every other day [facility] Utilities Answer Date Recorded In the past 12 months has [employer], gas, oil, or water [employer] threatened to shut off services in your home? No 12/27/2024 Social Connection and Isolation Panel [NHANES] A nswer Date Recorded In a typical week, how many times do you talk on the phone with family, friends, or neighbors? Patient declined 05/10/2024 How often do you get togethe r with friends or relatives? Patient declined 05/10/2024 How often do you attend congregation or church serv ices? Patient declined 05/10/2024 Do you belong to any clubs o r organizations such as congregation groups, unions, fraternal or athletic groups, or [...] medical care, and heating? Patient declined 05/10/2024 [facility] - Occupational Stress Questionnaire Answer Date Recorded [...] any time in the past 12 m [facility], were you homeless or living in a mcc (including now)? No 12/27/2024 Sexually Active Control [...] 12.00 10(3)/mcL 12/27/2024 7:39 PM CDT [facility] RBC 5.02 3.80 - 5.30 10(6)/mcL 12/27/2024 7:39 PM CDT [facility] HEMOGLOBIN (HGB) 14.9 12.0 - 15.8 g/dL 12/27/2024 7:39 PM CDT [facility] HEMATOCRIT (HCT) 46.0 36.0 - 47.0 % 12/27/2024 7:39 PM CDT [facility] MCV 91.6 82.0 - 96.0 fL 12/27/2024 7:39 PM CDT [facility] MCH 29.7 26.0 - 34.0 pg 12/27/2024 7:39 PM CDT [facility] MCHC 32.4 31.0 - 36.0 g/dL 12/27/2024 7:39 PM CDT [facility] PLATELET COUNT 431 140 - 440 10(3)/mcL 12/27/2024 7:39 PM CDT [facility] RDW 12.7 11.8 - 15.5 % 12/27/2024 7:39 PM CDT [facility] MPV 9.4(L) 9.7 - 12.4 fL 12/27/2024 7:39 PM CDT [facility] NEUTROPHILS 49.4 47.0 - 73.0 % 12/27/2024 7:39 PM CDT [facility] LYMPHOCYTES 41.3 18.0 - 42.0 % 12/27/2024 7:39 PM CDT [facility] MONOCYTES 6.7 4.0 - 12.0 % 12/27/2024 7:39 PM CDT [facility] EOSINOPHILS 1.8 0.0 - 5.0 % 12/27/2024 7:39 PM CDT [facility] BASOPHILS 0.8 0.0 - 1.0 % 12/27/2024 7:39 PM CDT [facility] ABSOLUTE NEUTROPHILS 5.53 1.60 - 7.70 10(3)/mcL 12/27/2024 7:39 PM CDT [facility] ABSOLUTE LYMPHOCYTES 4.62(H) 1.30 - 3.20 10(3)/mcL 12/27/2024 7:39 PM CDT [facility] ABSOLUTE MONOCYTES 0.75 0.20 - 1.00 10(3)/mcL 12/27/2024 7:39 PM CDT [facility] ABSOLUTE EOSINOPHIL 0.20 0.00 - 0.40 10(3)/mcL 12/27/2024 7:39 PM CDT [facility] ABSOLUTE BASOPHILS 0.09 0.00 - 0.10 10(3)/mcL 12/27/2024 7:39 PM CDT [facility] NRBC PER 100 WBC 0 12/28/19 7:39 PM CDT [facility] Blood Venipuncture / Unknown 12/27/2024 7:26 PM CDT 12/27/2024 7:37 PM CDT Monet Ann APRN, LINDSAY HEMATOLOGY ORDERABLES F inal Result Performing Organization Address City/[facility]/ZIP Co de Phone Number [facility] [address] [place] [address] * Lipase (12/27/2024 7:26 PM CDT) Pathologist [facility] LIPASE 46 8 - 78 U/L 12/27/2024 8:01 PM CDT [facility] Blood Venipuncture / Unknown 12/27/2024 7:26 PM CDT 12/27/2024 7:37 PM CDT Monet Ann APRN, HUMAN RESOURCES EXECUTIVE ASSISTANT CHEMISTRY ORDERABLES Fi nal Result Performing Organization Address City/[facility]/ZIP Co de Phone Number [facility] [address] [place] [address] * (ABNORMAL) CMP (Comprehensive Metabolic Panel) (12/27/2024 7:26 PM CDT) SODIUM 144 136 - 145 mmol/L 12/27/2024 8:01 PM CDT [facility] POTASSIUM 3.9 3.5 - 5.1 mmol/L 12/27/2024 8:01 PM CDT [facility] CHLORIDE 108(H) 98 - 107 mmol/L 12/27/2024 8:01 PM CDT [facility] CO2, VENOUS 27 22 - 30 mmol/L 12/27/2024 8:01 PM T [facility] ANION GAP 12.9 <18.0 mmol/L 12/27/2024 8:01 PM T [facility] GLUCOSE 93 70 - 99 mg/dL 12/27/2024 8:01 PM [facility] BUN 7 5 - 18 mg/dL 12/27/2024 8:01 PM T [facility] CREATININE, BLOOD 0.71 0.60 - 1.00 mg/dL 12/27/2024 8:01 PM [facility] BUN/CREATININE RATIO 10(L) 12 - 20 ratio 12/27/2024 8:01 PM [facility] TOTAL PROTEIN 7.2 6.0 - 8.0 g/dL 12/27/2024 8:01 PM [facility] ALBUMIN 4.4 3.5 - 5.0 g/dL 12/27/2024 8:01 PM [facility] A/G RATIO 1.6 1.0 - 2.2 12/27/2024 8:01 PM [facility] CALCIUM 9.5 8.7 - 10.5 mg/dL 12/27/2024 8:01 PM [facility] T BILI 0.2 0.2 - 1.2 mg/dL 12/27/2024 8:01 PM [facility] SGOT (AST) 23 <43 U/L 12/27/2024 8:01 PM [facility] SGPT (ALT) 20 <56 U/L 12/27/2024 8:01 PM [facility] ALKALINE PHOSPHATASE 90 40 - 150 U/L 12/27/2024 8:01 PM [facility] GFR, ESTIMATED >60 >=60 12/27/2024 8:01 PM [facility] Comment: Creatinine Clearance is the preferred criteria for selecting drug dose adjustments in renally impaired patients. The GFR is provided as additional pertinent clinical information. GFR is reported in mL/min/1.73 sq m. Calculation based on the Chronic Kidney Disease Epidemiology Collaboration (CKD- EPI) equation refit without adjustment for race. GFR, EST. >60 >=60 025 8:01 PM CDT [facility] GFR, EST. NONAFRICAN >60 >=60 12/27/2024 8:01 PM CDT [facility] Blood Venipuncture / Unknown 12/27/2024 7:26 PM CDT 12/27/2024 7:37 PM CDT Monet Ann APRN, HUMAN RESOURCES EXECUTIVE ASSISTANT CHEMISTRY ORDERABLES Fi nal Result Performing Organization Address City/[facility]/ZIP Co de Phone Number [facility] [address] [place] [address] * Amylase (12/27/2024 7:26 PM CDT) AMYLASE 59 25 - 125 U/L 12/27/2024 8:01 PM CDT [facility] Blood Venipuncture / Unknown 12/27/2024 7:26 PM CDT 12/27/2024 7:37 PM CDT Monet Ann APRN, LINDSAY CHEMISTRY ORDERABLES Fi nal Result Performing Organization Address City/[facility]/ZIP Co de Phone Number [facility] [address] [place] [address] * EKG 12 LEAD (12/27/2024 6:01 PM CDT) Ventricular Rate 93 BPM EXTERNAL EKG Atrial Rate 93 BPM EXTERNAL EKG P-R Interval 138 ms EXTERNAL EKG QRS Duration 84 ms EXTERNAL EKG Q-T Duration 356 ms EXTERNAL EKG QTC CALCULATION 442 ms EXTERNAL EKG P [place] 39 degrees EXTERNAL EKG R [place] 66 degrees EXTERNAL EKG T [place] 16 degrees EXTERNAL EKG 12/27/2024 6:01 PM CDT Impressions EXTERNAL EKG - 12/30/2024 9:55 PM CDT Poor data quality, interpretation may be adversely affected Normal sinus rhythm Normal ECG No previous ECGs available Confirmed by Caroline Kingsley ([id number]) on 12/30/2024 9:55:03 PM Narrative Procedure Note Caroline Kingsley DO - 12/30/2024 IMPRESSION: Poor data quality, interpretation may be adversely affected Normal sinus rhythm Normal ECG No previous ECGs available Confirmed by Caroline Kingsley ([id number]) on 12/30/2024 9:55:03 PM Monet Ann APRN, LINDSAY IMG ECG ORDERABLES Anna Marie ambriz Result EXTERNAL EKG * (ABNORMAL) Urinalysis (Ua) Macroscopic (12/27/2024 5:24 PM CDT) SPECIFIC GRAVITY 1.010 1.003 - 1.030 12/27/2024 5:48 PM CDT [facility] URINE PH 8.0 5.0 - 9.0 12/27/2024 5:48 PM CDT [facility] WBC ESTERASE 25 /ul(A) Negative 12/27/2024 5:48 PM CDT [facility] NITRITE Negative Negative 12/27/2024 5:48 PM CDT [facility] PROTEIN, RANDOM URINE 30 mg/dL(A) Negative 12/27/2024 5:48 PM CDT [facility] URINE GLUCOSE, QUAL Negative Negative 12/27/2024 5:48 PM CDT [facility] URINE KETONES Negative Negative 12/27/2024 5:48 PM CDT [facility] UROBILINOGEN Normal Normal mg/dL 12/27/2024 5:48 PM CDT [facility] URINE BLOOD 250 /uL(A) Negative eleno/ul 12/27/2024 5:48 PM CDT [facility] URINALYSIS COLOR Dark Yellow 025 5:48 PM CDT [facility] URINALYSIS CLARITY Very Cloudy 12/27/2024 5:48 PM CDT [facility] Urine Non-Phlebotomy Collection / Unknown 12/27/2024 5:24 PM CDT 12/27/2024 5:44 PM CDT Narrative [facility] - 12/27/2024 5:48 PM CDT Results indicate possible urinary tract infection. Urine culture recommended if clinically indicated. Monet Ann APRN, LINDSAY URINE ORDERABLES Final Result Performing Organization Address City/[facility]/ZIP Co de Phone Number [facility] [address] [place] [address] * Ur Test Qual (12/27/2024 5:24 PM CDT) PREG TEST,MONOCLONA L Negative 12/27/2024 5:48 PM CDT [facility] Urine Non-Phlebotomy Collection / Unknown 12/27/2024 5:24 PM CDT 12/27/2024 5:28 PM CDT Monet Ann APRN, LINDSAY URINE ORDERABLES Final Result Performing Organization Address City/[facility]/ZIP Co de Phone Number [facility] [address] [place] [address] * (ABNORMAL) Urine Drug Screen (12/27/2024 5:24 PM CDT) UR AMPHETAMINE NON DETECTED NON DETECTED 12/27/2024 6:02 PM CDT [facility] Comment: FOR MEDICAL USE ONLY. CUTOFF CONCENTRATION FOR DETECTED RESULT: AMPHETAMINE: 500 NG/ML UR BENZODIAZEPINES DETECTED(A) NON DETECTED 12/27/2024 6:02 PM CDT [facility] Comment: FOR MEDICAL USE ONLY. CUTOFF CONCENTRATION FOR DETECTED RESULT: BENZODIAZAPINE: 200 NG/ML UR COCAINE METABOLITE NON DETECTED NON DETECTED 12/27/2024 6:02 PM CDT [facility] Comment: FOR MEDICAL USE ONLY. CUTOFF CONCENTRATION FOR DETECTED RESULT: COCAINE: 150 NG/ML UR OPIATES NON DETECTED NON DETECTED 12/27/2024 6:02 PM CDT [facility] Comment: FOR MEDICAL USE ONLY. CUTOFF CONCENTRATION FOR DETECTED RESULT: OPIATES: 300 NG/ML UR PHENCYCLIDINE NON DETECTED NON DETECTED 12/27/2024 6:02 PM CDT [facility] Comment: FOR MEDICAL USE ONLY. CUTOFF CONCENTRATION FOR DETECTED RESULT: PCP: 25 NG/ML UR CANNABINOID DETECTED(A) NON DETECTED 12/27/2024 6:02 PM CDT [facility] Comment: FOR MEDICAL USE ONLY. CUTOFF CONCENTRATION FOR DETECTED RESULT: THC (MARIJUANA): 50 NG/ML UR BARBITURATE NON DETECTED NON DETECTED 12/27/2024 6:02 PM CDT [facility] Comment: FOR MEDICAL USE ONLY. CUTOFF CONCENTRATION FOR DETECTED RESULT: BARBITUATES: 200 NG/ML UR FENTANYL DETECTED(A) NON DETECTED 12/27/2024 6:02 PM CDT [facility] Comment: FOR MEDICAL USE ONLY. CUTOFF CONCENTRATION FOR DETECTED RESULT: FENTANYL: 1.0 NG/ML Urine Non-Phlebotomy Collection / Unknown 12/27/2024 5:24 PM CDT 12/27/2024 5:28 PM CDT us Monet Ann BROADCAST JOURNALIST, HUMAN RESOURCES EXECUTIVE ASSISTANT URINE ORDERABLES Final Result Performing Organization Address [facility]/ZIP Co de Phone Number [facility] [address] [place] [address] * EKG SCAN (12/27/2024 12:00 AM CDT) [...] measures to stabilize the patient. Care Teams Researcher Relationship Specialty Start Date End Date Shania Griggs APRN, HUMAN RESOURCES EXECUTIVE ASSISTANT [address] [place] [address] PCP - General Certified Nurse Practitioner 05/10/24
--- OUTSIDE RECORDS SUMMARY | 2025-02-08 15:10 | XMS_ITS | Referral Summary ---
Author Organization [facility] Address [address] [place] [address] Care Team Providers Care Manager Area Name Role Phone Shania Griggs Katie DOUGH BRAKE MACHINE OPERATOR Primary Care Provider + Miscellaneous, Not In [...] Comments Blood Pressure 138/93 09/29/2022 3:30 AM MEAT PASSER Pulse 99 09/29/2022 3:50 AM MEAT PASSER Temperature 36.6 C (97.9 F) 09/28/2022 6:49 PM MEAT PASSER Respiratory Rate 16 09/29/2022 1:25 AM MEAT PASSER Oxygen Saturation 100% 09/29/2022 3:50 AM MEAT PASSER Inhaled Oxygen Concentration - - Weight 79.4 kg (175 lb) 09/28/2022 6:51 PM MEAT PASSER Height 158.8 cm (5' 2.5 ) 09/28/2022 6:51 PM MEAT PASSER Body Mass Index 31.5 09/28/2022 6:51 PM MEAT PASSER Plan of Treatment Not on file Insurance [facility] [place] Rojas [id number] Care Teams Manager Area Relationship Specialty Start Date End Date Shania Griggs NP PCP - General Nurse Practitioner 09/28/22 Miscellaneous, Not In File 09/28/22 Nora Keenan Ship Officer Addiction Medicine 09/08/20
== END 2025-02-08 15:13 | disposition left against medical advice (07) ==
DX: R11.2 Nausea with vomiting, unspecified (principal)
CPT/HCPCS: 99199

== ENCOUNTER 2025-04-12 20:34 | Emergency (ER) | payer BC, SELFPAY ==
[2025-04-12 20:29] VITALS: BP 150/97; PULSE 150; RESP 16; TEMP 37.3; O2SAT 98
--- NOTE | 2025-04-12 20:35 | ECG_ITS ---
Test Date: 2025-04-12 20:38:32 Measurements Intervals [place] Rate: 99 P: 53 PA: 151 QRS: 62 QRSD: 93 T: 38 QT: 337 QTc: 433 Interpretive Statements SINUS RHYTHM Compared to ECG 10/13/2024 04:00:00 No significant changes Electronically Signed On 04-13-2025 17:53:42 CDT by Scottie Phillips M.D.
[2025-04-12 20:47] VITALS: PULSE 101; RESP 11; O2SAT 100
--- OUTSIDE RECORDS SUMMARY | 2025-04-12 20:47 | XMS_ITS | Clinical Summary ---
Author Organization [facility] Address [address] [address] Phone Care Team Providers Care Spooler Operator Automatic Name Role Phone Shania Griggs APRN, CNP [...] 1 dose. 1 Kit 12/31/19 25 Active Active Problems Problem Noted Date Diagnosed Date Opioid withdrawal 12/27/2024 ETOH abuse 12/27/2024 Anxiety Opioid abuse Tobacco abuse Asthma JOHNNY (obstructive sleep apnea) Resolved Problems Problem Noted Date Diagnosed Date Resolved Date Opioid withdrawal 05/11/2024 05/13/2024 Social History Tobacco Use Types Packs/Day Years Used Date Smoking Tobacco: Every Day Cigarettes 1 15.6 Started: 2009 Tobacco Cessation:Ready to Q uit: Not Asked; Counseling Given: Not Answered Alcohol Use Standard Drinks/Week Comments Yes 2 (1 standard drink = 0.6 oz pur e alcohol) every other day [facility] Utilities Answer Date Recorded In the past 12 months has [employer], [employer], oil, or water [employer] threatened to shut off services in your home? No 12/27/2024 Social Connection and Isolation Panel Answer Date Recorded In a typical week, how many times do you talk on the phone with family, friends, or neighbors? Patient declined 05/10/2024 How often do you get togethe r with friends or relatives? Patient declined 05/10/2024 How often do you attend religious or zoroastrian serv ices? Patient declined 05/10/2024 Do you belong to any clubs o r organizations such as religious groups, unions, fraternal or athletic groups, or [...] medical care, and heating? Patient declined 05/10/2024 [facility] - Occupational Stress [...] any time in the past 12 m [facility], were you homeless or living in a group home (including now)? No 12/27/2024 Sexually Active Control [...] 3:22 PM CDT Height 160 cm (5' 3) 12/27/2024 3:22 PM CDT Body Mass Index 29.23 12/27/2024 3:22 PM CDT Plan of Treatment Not on file Insurance MED[place] Advance Directives * Full Code (Latest Code Status on File) Date Activated Date Inactivated Comments 12/30/2024 11:06 AM CPR-Full Kaylie tment: FULL ARREST: Attempt Resuscitation/CPR wit intubation and mechanical ventilation. PRE-ARREST: Use entire range of life support measures to stabilize the patient. Care Teams Spooler Operator Automatic Relationship Specialty Start Date End Date Shania Griggs, CLASS B DRIVER, MOBILE DEVELOPER [address] [place] [address] PCP - General Certified Nurse Practitioner 05/10/24
--- OUTSIDE RECORDS SUMMARY | 2025-04-12 20:48 | XMS_ITS | Encounter Summary ---
Author Organization [facility] Address [address] [place] [address] Care Team Providers Care Contract Attorney Name Role Phone James Daniels MD Primary Care Provider [phone] Chaz Willoughby MD Primary Care Provider [phone] Encounter Details Date Type Department Care Team (Late st Contact Info) Description 06/21/2016 Abstract [facility] CONVERSION [address] [place] [address] , Generic ConversionMD Social History Tobacco Use Types Packs/Day Years Used Date Smoking Tobacco: Never Assessed Comments Unknown Sex and Gender Information Value Date Recorded Sex Assigned at Female 02/16/2025 7:05 PM CDT Legal Sex Female 7:05 PM CDT Gender Identity Not on file Sexual Orientation Not on file documented as of this encounter Plan of Treatment Not on file documented as of this encounter Visit Diagnoses Not on filedocumented in this encounter Care Teams Contract Attorney Relationship Specialty Start Date End Date James Daniels MD PCP - General INTERNAL MEDICINE 07/12/18 01/11/24 Chaz Willoughby MD [address] [place] [phone] PCP - General HOSPITALIST 01/12/24 documented as of this encounter
--- OUTSIDE RECORDS SUMMARY | 2025-04-12 20:48 | XMS_ITS ---
Author Organization [facility] Address [address] [place] [address] Care Team Providers Care Network Technician Name Role Phone Tolu Preetiestephania Primary Care Provider Jac Aldana [phone] REASON FOR VISIT transfer from [facility], 1 mo fu Medications Medication [...] 04/25/2024 Active Vitamin D (Ergocalciferol) 1.25 MG (00815 UT) 1 capsule Orally once a week; [...] Female Encounters Encounter Location Date Provider Diagnosis [address] [facility] [place] [address] 05/27/2024 Jac Aldana Plan Of Treatment No Information Progress Notes * Lucero SANTIZO MDOB: [birth year] (30 yo F)Acc No.[id number]:05/27/2024 UNLOCKED PROGRESS NOTE Patient: Lucero CHRISTENSEN Provider: Ricardo Aldana, STEFF, PMHNP-BC :1995 A ge:29 Y S ex:Female Date:05/27/2024 Address:[address] [place], [place] [id number] Pcp:Katelyn Motley Subjective: * Chief Complaints: * 1 . transfer from [facility], 1 mo fu. * Medical History: * Medications: T aking SEROquel 100 MG Tablet 1 tablet Orally Twice a day , Taking hydrOXYzine HCl 25 MG Tablet 1 tablet as needed Orally three times day , Taking traZODone HCl 150 MG Tablet 1 tablet at bedtime as needed Orally Once a day , Taking Vitamin D (Ergocalciferol) 1.25 MG (84753 UT) Capsule 1 capsule Orally once a [...] * Electronic signature of Chio Aldana , FORENSIC ANTHROPOLOGIST, [id number] on 04/12/2025 at 08:47 PM CDT Sign off status: Pending * Provider: Ricardo Aldana DNP, PMHNP- Date: 0 05/27/2024 Generated for Zhen huertas/Madeleine/Saadia on: 0 04/12/2025 08:47 PM CDT
--- OUTSIDE RECORDS SUMMARY | 2025-04-12 20:48 | XMS_ITS | Patient Health Record ---
[facility] Organization [facility] Address [address] [place] [address] Care Team Providers Care Senior Analyst Developer Name Role Phone Tolu Katelyn Primary Care Provider Jac Aldana Unavailable [phone] Baylee Casillas Unavailable Dominique Schneider Unavailable [phone] Sia Patel Unavailable [phone] Rachana Izquierdo Unavailable [phone] Allergies No Known Allergies Results Component Value Reference Range Notes Test, Urine Reviewed date:02/26/2025 02:48:36 PM Interpretation: Performing Lab: Notes/Report: Test, Urine neg Negative - Negative 14 Panel Urine Drug Screen Reviewed date:02/26/2025 01:45:58 PM Interpretation: Performing Lab: Notes/Report: THC POS GABO neg MOP (OPI) neg AMP neg MET neg BAR neg BZO neg MDMA neg MTD neg OXY neg PCP neg BUP POS TCA neg FTY neg 14 Panel Urine Drug Screen Reviewed date:03/17/2025 02:00:22 PM Interpretation: Performing Lab: Notes/Report: THC POS GABO neg MOP (OPI) neg AMP neg MET neg BAR neg BZO neg MDMA neg MTD neg OXY neg PCP neg BUP POS TCA neg FTY neg Reason For Referral Reason psych - anxiety, dep ression, ADHD. Requesting to transfer care Diagnosis 1 Opioid use disorder (F11.99) Referral Organization [facility] Referring Provider First Name Sia Referring Provider Last Name Jorge Referring Provider Speciality Psychiatry Referred Provider Specialty Psychiatry Clinical Notes Sully Coello 02/27/2025 09:35:34 AM >RAKESH called the client to assist in getting an appointment with a psych provider. HN left the number to [place] along with directions. HN also provided her contact number just in case the client would like to call back and get assistance scheduling an appointment for a psych provider.Oumou Kristina L 03/05/2025 08:41:56 AM >RAKESH called the client and left a VM. RAKESH trying to provide the client with the number to [place] to set up an appointment with a psych provider.Oumou Kristina L 03/06/2025 03:32:47 PM >Referral letter sent to the client to assist with getting the client enrolled in psych services. Referral Priority Routine Reason therapy - anxiety, d epression, ADHD, OUD Diagnosis 1 Opioid use disorder (F11.99) Referral Organization [facility] Referring Provider First Name Sia Referring Provider Last Name Jorge Referring Provider Speciality Psychiatry Referred Provider Specialty Behavioral [facility] Clinical Notes Maarl Cordero 04/03/2025 08:46:30 AM > left voicemail message, Danny Cordero 04/04/2025 09:31:41 AM > left voicemail message for client, Danny Cordero 04/09/2025 01:43:07 PM > Electronic Imaging System Operator called and left voicemail message, magnetic tape typewriter operator is sending letter in mail, if client does not hear back by 8/ magnetic tape typewriter operator will close referral. Referral Priority Routine Medications Medication SIG (Take, Route, Frequency, Duration) Notes Start Date End Date Status traZODone HCl 150 MG Oral; Duration: 30 Days Active Metoclopramide HCl 10 MG 1 tablet before meals Orally as needed; Duration: 30 day(s) Active Vitamin D (Ergocalciferol) 1.25 MG (78371 UT) 1 capsule Orally once a week; Duration: 30 days Not-Taking Promethazine HCl 50 MG 0.5 tablet as nee ded Orally every 12 hrs; Duration: 30 day(s) Active Lyrica 75 MG 1 capsule Orally Twi ce a day; Duration: 30 days 04/25/2024 Not-Taking Vraylar 4.5 MG 1 capsule Orally Onc e a day; Duration: 30 day(s) Active SEROquel 50 MG 1 tablet at bedtime (for a total of 150mg) Orally Once a day; Duration: 30 days Not-Taking Gabapentin 100 MG 1 capsule Orally twi ce a day; Duration: 30 day(s) Active SEROquel 100 MG 1 tablet Orally Twic e a day; Duration: 30 days Not-Taking SUMAtriptan 5 MG/ACT Nasal; Duration: 1 Days Active hydrOXYzine HCl 25 MG 1 tablet as needed Orally three times day; Duration: 30 days Active Prochlorperazine 25 MG Rectal; Duration: 10 Days Active Sublocade 300 MG/1.5ML 1.5 mL Subcutaneo us every 28 days 03/17/2025 Active Pantoprazole Sodium 20 MG Oral; Duration : 30 Days Active Pristiq 50 MG 1 tablet Orally Once a day; Duration: 30 days 04/25/2024 Not-Takin g Ondansetron 4 MG DISSOLVE ONE TABLET ON THE TONGUE EVERY 6 TO 8 HOURS NEEDED Oral; Duration: 23 Days Active cloNIDine HCl 0.1 MG TAKE 1 TABLET BY [facility] EVERY DAY DIRECTED Oral; Duration: 30 Days Active Wellbutrin XL 300 MG 1 tablet in AM (for a total of 450mg) Orally Once a day; Duration: 30 days Not-Taking Promethegan 25 MG Rectal; Duration: 3 Days Active Atomoxetine HCl 80 MG 1 capsule in the morning Orally Once a day; Duration: 30 days Not-Takin g Wellbutrin XL 150 MG 1 tablet in AM (for a total of 450mg) Orally Once a day; Duration: 30 days Not-Taking Sublocade 300 MG/1.5ML 1.5 mL Subcutaneo us every 28 days 03/17/2025 Active Zubsolv 5.7-1.4 MG 1 tablet under the tongue and allow to dissolve Sublingual daily As needed for OPIOID CRAVINGS 03/17/2025 Active Social History Tobacco Use: Social History Observation Description Date Details (start date - stop date) Current Smoker NA - NA Sex Assigned At : Social History Observation Description Sex Assigned At Female Alcohol Screen (Audit-C) Question Answer Notes Did you have a drink containing alcohol in the p ast year? No Points 0 Interpretation Negative PRAPARE Question Answer Notes Date Completed/Updated: 04/11/2023 What is your current housing situation? I have h saeid Are you worried about losing your housing? No What is the highest level of school that you have finished? 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 Stress is when someone feels tense, nervous, anxious, or can\t sleep at night because their mind is troubled Somewhat In the past year have you sp ent more than 2 nights in a row in a group home, long term, mcfp center, or juvenile correctional facility? No Are you a refugee? No What country are you from? [place] Do you feel physically and e motionally safe where you currently live? Yes In the past year, have you b een afraid of your partner or ex-partner? No PRAPARE Score: 7 Tobacco Control (Standard) Question Answer Notes Tobacco use: Current smoker How many cigarettes a day do you smoke? 11-20 AUDIT-C (Standard) Question Answer Notes Did you have a drink containing alcohol in the p ast year? No Points 0 Interpretation Negative Section Notes: PRESCRIPTION # FILLED WRITTE N DRUG LABEL QTY DAYS STRENGTH MME PRESCRIBER PHARMACY REFILL NO. REFILLS STATE PATIENT [id number] 11/06/2023 11/06/2023 Pregabalin 60.0 30 75 MG NA Dominique Schneider [facility] - [id number] [facility] #[id number], [place], [place] NA 0 [place] [id number] 10/10/2023 10/10/2023 Pregabalin 60.0 30 75 MG NA Dominique Schneider [facility] - [id number] [facility] #[id number], [place], [place] 0 [place] [id number] 08/15/2023 08/15/2023 Pregabalin 60.0 30 75 MG NA Dominique Schneider [facility] - [id number] [facility] #62617, [place], [place] 0 [place] [id number] 07/17/2023 07/17/2023 Pregabalin 60.0 30 75 MG NA Dominique Schneider [facility] - [id number] [facility] PRESCRIPTION # FILLED WRITTEN DRUG LABEL QTY DAYS STRENGTH MME PRESCRIBER PHARMACY REFILL NO. REFILLS STATE 10/11/2022 10/11/2022 Sublocade 1.0 28 300 MG/1.5 ML NA Demarcus Silva - [id number] [facility] [place], [place] NA 2 [place] 1 [id number] 10/05/2022 10/05/2022 Zubsolv 14.0 7 5.7 MG-1.4 MG NA Demarcus Silva [place] [id number] [place] 2 [id number] 09/26/2022 09/26/2022 Buprenorphine-naloxone 7.0 7 4 MG-1 MG NA Garett Clifton Md - PRESCRIPTION # FILLED WRITTEN DRUG LABEL QTY DAYS STRENGTH MME PRESCRIBER PHARMACY REFILL NO. REFILLS STATE 11/06/2023 11/06/2023 Pregabalin 60.0 30 75 MG NA Dominique Schneider [facility] - [id number] [facility] #74201, [place], [place] [address] [place] [id number] 10/10/2023 10/10/2023 Pregabalin 60.0 30 75 MG NA Dominique Schneider [facility] - [id number] [facility], [place], [place] [address] [place] [id number] 08/15/2023 08/15/2023 Pregabalin 60.0 30 75 MG NA Dominique Schneider [facility] - [id number] [facility] PRESCRIPTION # FILLED WRITTEN DRUG LABEL QTY DAYS STRENGTH MME PRESCRIBER PHARMACY REFILL NO. REFILLS STATE 08/15/2023 08/15/2023 Pregabalin 60.0 30 75 MG NA Dominique Schneider [facility] - [id number] [facility] #98455, [place], [place] NA 0 [place] 1 [id number] 07/17/2023 07/17/2023 Pregabalin 60.0 30 75 MG NA Dominique Schneider [facility] - [id number] [facility] #04773, [place], [place] 1 [place] 1 [id number] 06/14/2023 06/14/2023 Pregabalin 60.0 30 75 MG NA Dominique Schneider [facility] - [id number] PRESCRIPTION # FILLED WRVICTOR M N DRUG LABEL QTY DAYS STRENGTH MME PRESCRIBER PHARMACY REFILL NO. REFILLS STATE PATIENT [id number] 10/10/2023 10/10/2023 Pregabalin 60.0 30 75 MG NA Dominique Schneider [facility] - [id number] [facility] #69933, [place], [place] 0 [place] [id number] 08/15/2023 08/15/2023 Pregabalin 60.0 30 75 MG NA Dominique Schneider [facility] - [id number] [facility] #26530, [place], [place] [id number] 07/17/2023 07/17/2023 Pregabalin 60.0 30 75 MG NA Dominique Schneider [facility] - [id number] [facility] PRESCRIPTION #FILLED: activa te to sort column ascending style=box-sizing: content-box; font-family: Poppins, sans-serif; font-size: 13px; text-align: -xelaqn-awoqz-yeuesi; background: rgb(246, 247, 251); paddin.6rem 2rem; vertical-align: bottom; border-width: 1px 1px 2px; border-style: solid; border- color: rgb(226, 229, 232); border-image: initial; white-space: nowrap; color: rgb(34, 34, 34); text-transform: uppercase; font-weight: bold; cursor: pointer; width: 80px;>WRITTENDRUG LABELQTYDAYSSTRENGTHMMEPRESCRIBERPHARMACYREFILL NO.Refills: activate to sort column ascending style=box-sizing: content-box; font-family: Popalea, sans-serif; font-size: 13px; text-align: -eckeqa-vjlfv-nqjnal; background: rgb(246, 247, 251); paddin.6rem 2rem; vertical-align: bottom; border-width: 1px 1px 2px; border-style: solid; border-color: rgb(226, 229, 232); border-image: initial; white-space: nowrap; color: rgb(34, 34, 34); text-transform: uppercase; font-weight: bold; cursor: pointer; width: 44.9375px;>REFILLSSTATEPATIENT [id number]//8698Splylmz04.0308.6 MG / 2.1 MGKatelyn Madrid [id number] #11412, KENISHA [id number]//8802Mxvbcovohm76.51446 MGNASteDominique pickering [facility] [id number] #34980, KENISHA [id number]//12/20237543Vvqixic57.0148.6 MG / 2.1 MGNAHeavenKatelyn gomez [id number] #18373[place] [id number]//7752Ydknvebdmi23.40235 MGNASteDominique pickering [facility] - [id number] PRESCRIPTION # FILLED WRITTEN DRUG LABEL QTY DAYS STRENGTH MME PRESCRIBER PHARMACY REFILL NO. REFILLS STATE 10/11/2022 10/11/2022 Sublocade 1.0 28 300 MG/1.5 ML NA Demarcus Singh J - [id number] [facility], [place], [place] 2 [place] 1 [id number] 10/05/2022 10/05/2022 Zubsolv 14.0 7 5.7 MG-1.4 MG NA Tracy Francisco J - [id number] [facility] [place], [place] 0 [place] 2 [id number] 09/26/2022 09/26/2022 Buprenorphine-naloxone 7.0 7 4 MG-1 MG Garett Osullivan Md - PRESCRIPTION # FILLED WRITTEN DRUG LABEL QTY DAYS STRENGTH MME PRESCRIBER PHARMACY REFILL NO. REFILLS STATE 10/11/2022 10/11/2022 Sublocade 1.0 28 300 MG/1.5 ML NA Tracy Francisco J - [id number] [facility] [place], [place] 2 [place] 1 [id number] 10/05/2022 10/05/2022 Zubsolv 14.0 7 5.7 MG-1.4 MG NA Tracy Francisco J - [id number] [facility] [place], [place] 2 383408 09/26/2022 09/26/2022 Buprenorphine-naloxone 7.0 7 4 MG-1 MG Garett Osullivan Md - PRESCRIPTION # FILLED WRITTEN DRUG LABEL QTY DAYS STRENGTH MME PRESCRIBER PHARMACY REFILL NO. REFILLS STATE 04/11/2023 04/11/2023 Zubsolv 60.0 30 8.6 MG-2.1 MG NA Katelyn Motley [id number] [facility] [place], [place] 0 [place] 1 [id number] 04/04/2023 04/04/2023 Zubsolv 15.0 8 8.6 MG-2.1 MG NA Tracy Francisco J - [id number] [facility] [place], [place] 1 [id number] 10/11/2022 10/11/2022 Sublocade 1.0 28 300 MG/1.5 ML NA Tracy Francisco J - [id number] [facility] [place], [place] 2 [place] 1 [id number] 10/05/2022 10/05/2022 Zubsolv 14.0 7 5.7 MG-1.4 MG NA Tracy Francisco J - [id number] PRESCRIPTION # FILLED WRITTEN DRUG LABEL QTY DAYS STRENGTH MME PRESCRIBER PHARMACY REFILL NO. REFILLS STATE 10/11/2022 10/11/2022 Sublocade 1.0 28 300 MG/1.5 ML NA Demarcus Singh J - [id number] [place] 1 [address]39[address] 10/05/2022 10/05/2022 Zubsolv 14.0 7 5.7 MG-1.4 MG NA Tracynicola Camarillos J - [id number] [place] 2 [id number] 09/26/2022 09/26/2022 Buprenorphine-naloxone 7.0 7 4 MG-1 MG NA Garett Clifton Md - PRESCRIPTION # FILLED WRITTEN DRUG LABEL QTY DAYS STRENGTH MME PRESCRIBER PHARMACY REFILL NO. REFILLS STATE 04/11/2023 04/11/2023 Zubsolv 60.0 30 8.6 MG / 2.1 MG Katelyn Molina [id number] [facility] [place], [place] 0 [place] 1 [id number] 04/04/2023 04/04/2023 Zubsolv 15.0 8 8.6 MG / 2.1 MG NA Tracynicola Camarillos J - [id number] [facility] [place], [place] 0 [place] 1 [id number] 10/11/2022 10/11/2022 Sublocade 300Mg 1.0 28 200 MG/ML NA Demarcus Camarillos J - [id number] [facility] [place], [place] 2 [place] 1 313998 10/05/2022 10/05/2022 Zubsolv 14.0 7 5.7 MG / 1.4 MG NA Demarcus Camarillos J - [id number] PRESCRIPTION # FILLED WRITTEN DRUG LABEL QTY DAYS STRENGTH MME PRESCRIBER PHARMACY REFILL NO. REFILLS STATE 07/17/2023 07/17/2023 Pregabalin 60.0 30 75 MG NA Dominique Schneider [facility] - [id number] [facility] #30950, [place], [place] NA 1 [place] 1 [id number] 06/14/2023 06/14/2023 Pregabalin 60.0 30 75 MG NA Dominique Schneider [facility] - [id number] [facility] #48059, [place] 1 [id number] 04/11/2023 04/11/2023 Zubsolv 60.0 30 8.6 MG / 2.1 MG NA Katelyn Motley [id number] [facility], [facility], [place], [place] NA 0 [place] 1 [address]70646 04/04/2023 04/04/2023 Zubsolv 15.0 8 8.6 MG / 2.1 MG NA Tracynicola Camarillos J - [id number] PRESCRIPTION #FILLEDWRITTEND RUG LABELQTYDAYSSTRENGTHMMEPRESCRIBERPHARMACYREFILL NO.REFILLSSTATEPATIENT [id number]/1849Kwfpblyehr76.57326 MGNASteDominique pickering [facility] - [id number] #30615, [id number]/7362Fjkdzqgqxx84.78872 MGNAStefani, Dominique Shelley [facility] - [id number] #83016, [id number]/2700Oomyewtzgs34.82138 MGNAStefani, Dominique Shelley [facility] - [id number] #76754, [id number]/3545Riyhktf64.0308.6 MG / 2.1 MGKatelyn Madrid [id number] PRESCRIPTION # FILLED WRITTE N DRUG LABEL QTY DAYS STRENGTH MME PRESCRIBER PHARMACY REFILL NO. REFILLS STATE PATIENT [id number] 11/06/2023 11/06/2023 Pregabalin 60.0 30 75 MG NA Dominique Schneider [facility] - [id number] [facility] #27784, [place] 0 [place] [id number] 10/10/2023 10/10/2023 Pregabalin 60.0 30 75 MG NA Dominique Schneider [facility] - [id number] [facility] #05940, [place], [place] 0 [place] [id number] 08/15/2023 08/15/2023 Pregabalin 60.0 30 75 MG NA Jennie Dominique Daphney [facility] - [id number] [facility] #74278, [place], [place] NA 0 [place] [id number] 07/17/2023 07/17/2023 Pregabalin 60.0 30 75 MG NA Jennie Dominique Shelley [facility] - [id number] [place] PRESCRIPTION # FILLED WRITTEN DRUG LABEL QTY DAYS STRENGTH MME PRESCRIBER PHARMACY REFILL NO. REFILLS STATE 11/06/2023 11/06/2023 Pregabalin 60.0 30 75 MG NA Jennie Dominique Shelley [facility] - [id number] [facility] #03021, [place], [place] 0 [place] [id number] 10/10/2023 10/10/2023 Pregabalin 60.0 30 75 MG NA JennieDominique pickering [facility] - [id number] [facility] #14721, [place], [place] 0 [place] [id number] 08/15/2023 08/15/2023 Pregabalin 60.0 30 75 MG NA Jennie Dominique Shelley [facility] - [id number] [facility] PRESCRIPTION # FILLED WRITTEN DRUG LABEL QTY DAYS STRENGTH MME PRESCRIBER PHARMACY REFILL NO. REFILLS STATE 03/26/2024 03/26/2024 Pregabalin 60.0 30 75 MG NA Dominique Schneider [facility] - [id number] [facility] #[facility]11, [place], [place] NA 0 [place] 1 [id number] 02/19/2024 02/15/2024 Zubsolv 60.0 30 8.6 MG / 2.1 MG NA Katelyn Motley [id number] [facility] #86102, [place], [place] NA 0 [place] 1 [id number] 12/23/2023 12/04/2023 Pregabalin 60.0 30 75 MG NA Dominique Schneider [facility] - [id number] [facility] #77320, [place], [place] NA 0 [place] 1 [id number] 12/22/2023 12/21/2023 Zubsolv 28.0 14 8.6 MG / 2.1 MG NA Katelyn Motley - [id number] [place] Problems Problem Type SNOMED Code ICD Code Onset Dates Problem Status W/U Status Risk Notes Problem Morbid obesity (disorder) (366593918) Morbid (severe) obesity due to excess calories (E66.01) Active confirmed Problem Generalized anxiety disorder (31415047) Generalized anxiety disorder (F41.1) Active confirmed Problem Nausea (242205565) Nausea (R11.0) Active confirmed Problem Insomnia (934081429) Insomnia (G47.00) Active confirmed Problem Attention deficit hyperactivity disorder (232886653) ADHD (attention deficit hyperactivity disorder) (F90.9) 024 Active confirmed Diagnosed as a child. Problem Vitamin D deficiency (86918507) Vitamin D deficiency (E55.9) Active confirmed Problem Asthma (862393862) Asthma (J45.909) Active confirmed Problem Constipation (84525323) Constipation (K59.00) Active confirmed Problem Adult health examination (580860369) Routine adult health maintenance (Z00.00) Active confirmed Problem Overweight (377755202) Over weight (E66.3) Active confirmed Problem Depressive disorder (disorder) (56580504) Depression, unspecified depression type (F32.9) 021 Active confirmed Rule out Bipolar 2 disorder Problem Obese class I (finding) (542224218007722 ) Obesity (BMI 30.0-34.9) (E66.9) Active confirmed Problem Opioid dependence (13637564) Opioid use disorder, severe (F11.20) Active confirmed Problem Tobacco use (697633941) Tobacco use disorder (F17.200) Active confirmed Problem Obesity (075397326) Obesity, unspecified classification, unspecified obesity type, unspecified whether serious comorbidity present (E66.9) Active confirmed Problem Opioid use disorder (3951622754) Opioid use disorder (F11.99) Active confirmed Vital Signs Heart Rate 91 /min 03/17/2025 Respiratory Rate 16 /min 03/17/2025 Oximetry 98 % 03/17/2025 Blood pressure diastolic 80 mm Hg 03/17/2025 Height 63.5 in 03/17/2025 Blood pressure systolic 124 mm Hg 03/17/2025 Weight 182.4 lbs 03/17/2025 BMI 31.8 kg/m2 03/17/2025 Encounters Encounter Location Date Provider Diagnosis [address] [place] [address] 04/25/2024 Dominique Schneider Depression, unspecified depression type F32.9 ; Opioid use disorder F11.99 ; Nausea R11.0 ; Generalized anxiety disorder F41.1 ; Insomnia G47.00 ; Routine adult health maintenance Z00.00 ; Medication management Z79.899 ; Vitamin D deficiency E55.9 and ADHD (attention deficit hyperactivity disorder) F90.[address] [place] [address] 02/26/2025 Sia Patel Opioid use disorder F11.99 and Over weight E66.[address] [address] 03/17/2025 Baylee Casillas Opioid use disorder F11.[address] [place] [address] 04/25/2024 Dominique Schneider [place] [address] [place] [address] 05/13/2024 Katelyn Motley [address] [address] 05/16/2024 Dominique Schneider [address] [place] [address] 06/10/2024 Jac Aldana ADHD (attention deficit hyperactivity disorder) F90.9 and Depression, unspecified depression type F32.9 [facility] [address] [place] [address] 03/03/2025 Rachana Izquierdo [address] [place] [address] 03/17/2025 Sia Patel Opioid use disorder F11.99 Assessments Encounter Date Diagnosis (ICD Code) Assessment Notes Treatment Notes Treatment Clinical Notes Section Notes 02/26/2025 Over weight (ICD-10 - E66.3) 02/26/2025 Opioid use disorder (ICD-10 - F11.99) Plan to switch to Sublocade next visit 06/10/2024 ADHD (attention deficit hyperactivity disorder) (ICD-10 - F90.9) 03/17/2025 Opioid use disorder (ICD-10 - F11.99) 03/17/2025 Opioid use disorder (ICD-10 - F11.99) 04/25/2024 Depression, unspecified depression type (ICD-10 - [...] - F32.9) 04/25/2024 Nausea (ICD-10 - R11.0) 04/25/2024 Generalized [...] Z00.00) 04/25/2024 Medication management (ICD-10 - Z79.899) 04/25/2024 [...] Follow up in 1 month, sooner PRN. 04/25/2024 Other Patient was edu cated on [...] combined with substance use/abuse and/or drinking alcohol. 02/26/2025 Other Referred to peer pyridine recovery operator Patient agrees to take medication as prescribed. Discussed medication side effects, adverse effects, risks, benefits, as well as interactions. Encouraged non-use of opioids and other illicit substances. Has naloxone. Discontinuing buprenorphine increases the risk of overdose upon return to illicit opioid use. Use of alcohol or benzodiazepines with buprenorphine increases the risk of overdose and . Education provided about safe storage of medications. Encouraged participation in recovery groups/counseling services. Contact office with questions or concerns. Patient may self-administe r their own medications or may self-administe r their own oral medications per [facility] Protocol. 03/17/2025 Other Patient agrees to take medication as prescribed. Discussed medication side effects, adverse effects, risks, benefits, as well as interactions. Encouraged non-use of opioids. Encouraged participation in recovery groups. Patient may contact office with questions or concerns. Plan Of Treatment No Information Insurance Providers Payer Name Payer Address Payer Phone Subscriber Number Group Number Insured Name Patient Relationship to Insured Coverage Start Date Coverage End Date [facility] [employer] [facility] [address] [place] [phone] [id number] Lucero Santizo Self - patient is the insured [address] [phone] [id number] Lucero Santizo Self - patient is the insured 2 Medications Administered Medication Instructions Date of Administration Dosage Notes Sublocade 07/17/2020 300 mg SN: [id number]. [employer] Merchandiser: [employer]. Patient tolerated well Sublocade 01/28/2021 300 mg [employer] Merchandiser: [employer]. SN: [id number]. Patient tolerated well. Sublocade 03/09/2021 300 mg Left lateral p eriumbilical Sublocade 10/11/2022 300 mg Sublocade 03/17/2025 300 mg Sergio Missy L 03/17/2025 02:37:03 PM CDT >Pt tolerated well. No s&s of adverse reaction. Medical (General) History Medical History History ICD Code Opioid use disorder ADHD asthma Sleep apnea G47.30 Cyclic vomiting syndrome G43.A0 Obesity Surgical History Surgery Date(Month/Year) cholecystectomy 2016 Hospitalization History Reason Date(Month/Year) Overdose and hard hit to the head 03/2023 indigestion, throwing up 01/2025 detox 02/2025 overdose 11/2023 [facility] for vomiting and abdom inal pain 11/30/2022 Unintentional OD, Narcan x4, CPR performed, Down 5 minutes [facility] 11/26/2022 and was resuscitated 03/2023 seizures / withdrawal 2019
--- OUTSIDE RECORDS SUMMARY | 2025-04-12 20:48 | XMS_ITS | Clinical Summary ---
Author Organization [facility] Address [address] [place] [address] Care Team Providers Care Study Hall Supervisor Name Role Phone Chaz Willoughby MD Primary Care Provider [phone] Allergies Active Allergy Reactions Criticality Noted Date Comments Capsaicin Hives 02/16/2025 Medications Multiple Vitamins-Minerals (MULTIVITAMIN ADULT) Tab Take 1 tablet by mouth daily. Active PROAIR HFA 108 (90 Base) MCG/ACT inhalerIndications: Mild intermittent asthma without complication (HHS/HCC) INL 1 TO 2 PFS PO Q 4 H PRF SOB 1 Inhaler 0 Active Spacer/Aero-Holding Chambers (PRO COMFORT SPACER ADULT) MiscIndications:Mil d intermittent asthma without complication (HHS/HCC) Use with inhaler. 1 each 0 Active Cinnamon 500 MG capsule Take 1,000 mg by mouth daily. Active amphetamine-dextroa mphetamine XR 20 MG 24 hr capsuleIndications: ADHD (attention deficit hyperactivity disorder), combined type Take [...] (two) times daily. 20 tablet 4 Active ondansetron (ZOFRAN-ODT) 8 MG disintegrating tablet Take 1 tablet (8 mg total) by mouth every 8 (eight) hours as needed for Nausea. 20 tablet 5 Active pantoprazole EC (PROTONIX) 20 MG tablet Take 1 tablet (20 mg total) by mouth daily. 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 Would repeat routine labs for chronic [...] her current medications. Renewal given as per Epic. She will follow-up in 3 months, sooner if any problems. Resolved Problems Problem Noted Date Diagnosed Date Resolved Date Lower abdominal pain 07/22/2019 020 Non-intractable vomiting with nausea 07/22/2019 10/29/2019 Unintentional weight loss 07/22/2019 Hypokalemia 02/14/2018 11/05/2018 Encounters Date Type Department Care Team Description 02/16/2025 6:57 PM CDT - 02/16/2025 10:31 PM CDT Emergency [facility] Emergency Room [address] [place] [id number] Francisco Keenan MD Abdominal Pain; Anxiety Discharge Disposition: Home or Self Care (Routine Discharge) 02/16/2025 Travel 02/08/2025 7:12 PM CDT - 02/09/2025 12:42 AM CDT Emergency [facility] Emergency Room [address] [place] [id number] Veronica Tavarez MD Abdominal Pain; Vomiting Discharge Disposition: Home or Self Care (Routine Discharge) 02/08/2025 Travel from Last 3 Months Immunizations Immunization Administration Dates Next Due Dtap (Generic) 02/15/2001, [...] Sign Reading Time Taken Comments Blood Pressure 121/71 02/16/2025 10:16 PM CDT Pulse 107 02/16/2025 10:16 PM CDT Temperature 37.1 C (98.7 F) 02/16/2025 10:16 PM CDT Respiratory Rate 18 02/16/2025 10:16 PM CDT Oxygen Saturation 96% 02/16/2025 10:16 PM CDT Inhaled Oxygen Concentration - - Weight 77.1 kg (170 lb) 02/16/2025 7:02 PM CDT Height 160 cm (5' 3) 02/16/2025 7:02 PM CDT Body Mass Index 30.11 02/16/2025 7:02 PM CDT Plan of Treatment Health Maintenance Due Date Last Done Comments Cervical Cancer Screening Pap Smear (Age 21 to 29) Every 3 Years 1996 Cervical Cancer Screening 1996 Annual Physical 01/01/1999 Hepatitis C 01/01/2014 DTaP, Tdap and Td Vaccines (7 - Td or Tdap) 03/28/2016 03/28/2006, 02/15/2001, 08/27/1997, Additional history exists COVID-19 Vaccine ( season) 2024 Pneumococcal Vaccine: Pediatrics (0 to 5 Years) and At-Risk Patients (6 to 49 Years) (1 of 2 - PCV) 01/31/2030 Postponed from 01/01/2015 (Per Provider Recommendation) Hepatitis B Vaccines Completed [...] on patient's age to complete this topic Procedures Procedure Name Priority Date/Time Associated Diagnosis Comments CT ABD+PEL W CON STAT 02/16/2025 9:31 PM CDT COMPREHENSIVE METABOLIC PANEL STAT 02/16/2025 8:10 PM CDT CBC W/DIFF AUTOMATED STAT 02/16/2025 8:10 PM CDT DRUG SCREEN RAPID STAT 02/16/2025 6:5 9 PM CDT TEST URINE STAT 02/16/2025 6:59 PM CDT URINALYSIS, AUTO, COMPLETE STAT 02/16/2025 6:59 PM CDT ECG 12-LEAD STAT 02/08/2025 10:28 PM CDT LACTIC ACID W REFLEX (SEPSIS) TIMED 02/08/2025 9:07 PM CDT MAGNESIUM STAT 02/08/2025 7:43 PM CDT LIPASE STAT 02/08/2025 7:43 PM CDT COMPREHENSIVE METABOLIC PANEL STAT 02/08/2025 7:43 PM CDT CBC W/DIFF AUTOMATED STAT 02/08/2025 7:43 PM CDT LACTIC ACID W REFLEX (SEPSIS) STAT 02/08/2025 7:22 PM CDT from Last 3 Months Results * CT ABD+PEL W IV CON ONLY (02/16/2025 9:31 PM CDT) Anatomical Region Laterality Modality Abdomen Computed Tomogra phy 02/16/2025 9:43 PM CDT Impressions 02/16/2025 9:48 PM CDT IMPRESSION: No definite acute CT findings within the abdomen or pelvis. Ordered By: FRANCISCO KEENAN Interpreted By: Aric Macias MD, 02/16/2025 9:43 PM Narrative 02/16/2025 9:[address]T [address] [place] [address] Examination: CT ABD+PEL W CON, 02/16/2025 9:31 PM. Technique: Computed tomographic images of the abdomen and pelvis were obtained after the administration of 75 mL of Isovue-370 injected through the IV, without evidence of an adverse reaction. Additional coronal and sagittal reformatted images were generated at a separate workstation. A dose lowering technique was used for this procedure, which may include, but is not limited to, dose reduction technique, automated exposure control, the use of iterative reconstruction, and ALARA (As Low As Reasonably Achievable) / Image Gently techniques. Clinical history: lower abd pain and cramping for 2-3 hours. Comparison: CT abdomen and pelvis 10/20/2020. Findings: Atelectasis in the lung bases. Heart size is normal. ABDOMEN: Liver is normal in size and contour. Cholecystectomy. No bile duct dilation. The pancreas is negative. The spleen is normal in size. No adrenal mass. No perinephric abnormality. No hydronephrosis. No nephrolithiasis. The caliber the abdominal aorta is normal. No retroperitoneal adenopathy. PELVIS: The appendix is normal. There is no bowel dilation or wall thickening. No free fluid within the abdomen or pelvis. No free intraperitoneal air. Pelvic phlebolith. No pelvic mass or adenopathy. No acute fracture nor destructive process of the visualized osseous structures. Procedure Note Aric Macias MD - 02/16/2025 [facility] [address] [place] [address] Examination: CT ABD+PEL W CON, 02/16/2025 9:31 PM. Technique: Computed tomographic images of the abdomen and pelvis wereobtained after the administration of 75 mL of Isovue-370 injected throughthe IV, without evidence of an adverse reaction. Additional coronal andsagittal reformatted images were generated at a separate workstation. Adose lowering technique was used for this procedure, which may include,but is not limited to, dose reduction technique, automated exposurecontrol, the use of iterative reconstruction, and ALARA (As Low AsReasonably Achievable) / Image Gently techniques. Clinical history: lower abd pain and cramping for 2-3 hours. Comparison: CT abdomen and pelvis 10/20/2020. Findings: Atelectasis in the lung bases. Heart size is normal. ABDOMEN: Liver is normal in size and contour. Cholecystectomy. No bileduct dilation. The pancreas is negative. The spleen is normal in size. Noadrenal mass. No perinephric abnormality. No hydronephrosis. Nonephrolithiasis. The caliber the abdominal aorta is normal. Noretroperitoneal adenopathy. PELVIS: The appendix is normal. There is no bowel dilation or wallthickening. No free fluid within the abdomen or pelvis. No freeintraperitoneal air. Pelvic phlebolith. No pelvic mass or adenopathy. Noacute fracture nor destructive process of the visualized osseousstructures. IMPRESSION: No definite acute CT findings within the abdomen or pelvis. Ordered By: FRANCISCO KEENAN Interpreted By: Aric Macias MD, 02/16/2025 9:43 PM us Francisco Keenan MD CT Final Resu lt * (ABNORMAL) COMPREHENSIVE METABOLIC PANEL (02/16/2025 8:10 PM CDT) Only the most recent of2 resultswithin the time period is included. [facility] GLUCOSE 90 70 - 99 MG/DL 02/16/2025 8:46 PM CDT [facility] BUN 8 7 - 18 MG/DL 02/16/2025 8:46 PM CDT [facility] CREATININE S/P/B 1.23(H) 0.55 - 1.02 MG/DL 02/16/2025 8:46 PM T [facility] SODIUM S/P/B 141 136 - 145 MMOL/L 02/16/2025 8:46 PM CDT [facility] POTASSIUM S/P/B 3.3(L) 3.5 - 5.1 MMOL/L 02/16/2025 8:46 PM CDT [facility] CHLORIDE S/P/B 103 100 - 108 MMOL/L 02/16/2025 8:46 PM T [facility] CO2 30.0 21 - 32 MMOL/L 02/16/2025 8:46 PM T [facility] CALCIUM S/P/B 8.7 8.5 - 10.1 MG/DL 02/16/2025 8:46 PM T [facility] BILIRUBIN TOTAL S/P/B 0.1(L) 0.2 - 1.2 MG/DL 02/16/2025 8:46 PM T [facility] TOTAL PROTEIN S/P/B 6.8 6.4 - 8.2 G/DL 02/16/2025 8:46 PM T [facility] ALBUMIN S/P/B 3.8 3.4 - 5.0 G/DL 02/16/2025 8:46 PM T [facility] AST 10(L) 15 - 37 U/L 02/16/2025 8:46 PM CDT [facility] ALT 17 14 - 55 U/L 02/16/2025 8:46 PM CDT [facility] ALKALINE PHOSPHATASE S/P/B 87 50 - 136 U/L 02/16/2025 8:46 PM CDT [facility] ANION GAP 8.0 5 - 15 MMOL/L 02/16/2025 8:46 PM CDT [facility] BUN CREATININE RATIO 6.5 6 - 26 02/16/2025 8:46 PM CDT [facility] A/G RATIO 1.3 1.0 - 2.0 RATIO 02/16/2025 8:46 PM CDT [facility] GFR ESTIMATE 61(L) >90 ML/MIN/1.7 3 M2 02/16/2025 8:46 PM CDT [facility] Comment: NOTE: eGFR is not calculated for patients <18 years of age. This is an estimated GFR calculation using the new CKD EPI creatinine equation without race and so does not require a correction factor for race. This estimated GFR should not be used for calculating drug doses. 02/16/2025 8:10 PM CDT Francisco Keenan MD LABORATORY Final Resu lt [facility] [address] [place] [address], * (ABNORMAL) CBC W/DIFF AUTOMATED (02/16/2025 8:10 PM CDT) Only the most recent of2 resultswithin the time period is included. WBC 13.49(H) 4.4 - 11.0 x10'3/uL 02/16/2025 8:41 PM CDT [facility] RBC 4.43(L) 4.50 - 5.10 x10'6/uL 02/16/2025 8:41 PM T [facility] HGB 13.2 12.3 - 15.3 G/DL 02/16/2025 8:41 PM T [facility] HCT 40.4 35.9 - 44.6 % 02/16/2025 8:41 PM T [facility] MCV 91.2 80.0 - 96.0 FL 02/16/2025 8:41 PM T [facility] MCH 29.8 25.3 - 30.9 PG 02/16/2025 8:41 PM [facility] MCHC 32.7 31.0 - 34.1 G/DL 02/16/2025 8:41 PM T [facility] RDW 13.3 12.4 - 15.1 % 02/16/2025 8:41 PM [facility] PLT 337 151 - 353 x10'3/uL 02/16/2025 8:41 PM [facility] MPV 9.0(L) 9.6 - 12.0 FL 02/16/2025 8:41 PM [facility] RBC MORPHOLOGY NORMAL 02/16/2025 8:41 PM [facility] PLT MORPH. NORMAL 02/16/2025 8:41 PM T [facility] WBC MORPHOLOGY NORMAL 02/16/2025 8:41 PM T [facility] LYMPHOCYTES % 30.1 15.8 - 45.0 % 02/16/2025 8:42 PM [facility] NEUTROPHILS % 60.5 42.1 - 71.9 % 02/16/2025 8:42 PM T [facility] MONOCYTES % 4.9(L) 5.7 - 12.5 % 02/16/2025 8:42 PM CDT [facility] EOSINOPHILS 3.6 0.0 - 5.6 % 02/16/2025 8:42 PM CDT [facility] BASOPHILS 0.6 0.0 - 1.3 % 02/16/2025 8:42 PM CDT [facility] ABS. NEUTROPHILS 8.17(H) 1.40 - 6.00 x10'3/uL 02/16/2025 8:42 PM CDT [facility] IMMATURE GRANS % 0.3 0.0 - 0.5 % 02/16/2025 8:42 PM CDT [facility] ABS. LYMPHOCYTES 4.06 0.80 - 4.70 x10'3/uL 02/16/2025 8:42 PM CDT [facility] 02/16/2025 8:10 PM CDT Francisco Keenan MD LABORATORY Final Resu lt [facility] [address] [place] [address], * (ABNORMAL) DRUG SCREEN RAPID (02/16/2025 6:59 PM CDT) AMPHETAMINE (U) NONE DETECTED NONE DETECTED 02/16/2025 7:38 PM CDT [facility] BARBITURATES SCREEN (U) NONE DETECTED NONE DETECTED 02/16/2025 7:38 PM CDT [facility] BENZODIAZEPINES SCREEN (U) NONE DETECTED NONE DETECTED 02/16/2025 7:38 PM CDT [facility] BUPRENORPHINE SCREEN (U) DETECTED(A) NONE DETECTED 02/16/2025 7:38 PM CDT [facility] COCAINE METABOLITES (U) NONE DETECTED NONE DETECTED 02/16/2025 7:38 PM CDT [facility] METHAMPHETAMINE (U) NONE DETECTED NONE DETECTED 02/16/2025 7:38 PM CDT [facility] METHADONE (U) NONE DETECTED NONE DETECTED 02/16/2025 7:38 PM CDT [facility] OPIATE SCREEN (U) NONE DETECTED NONE DETECTED 02/16/2025 7:38 PM CDT [facility] OXYCODONE SCREEN (U) NONE DETECTED NONE DETECTED 02/16/2025 7:38 PM CDT [facility] PHENCYCLIDINE PCP (U) NONE DETECTED NONE DETECTED 02/16/2025 7:38 PM CDT [facility] CANNABINOIDS SCREEN (U) DETECTED(A) NONE DETECTED 02/16/2025 7:38 PM CDT [facility] TRICYCLIC ANTIDEPRESSANT SCREEN (U) NONE DETECTED NONE DETECTED 02/16/2025 7:38 PM CDT [facility] Comment: NOTE: RESULTS OF THIS DRUG SCREEN SHOULD BE USED FOR MEDICAL PURPOSES ONLY AND NOT FOR LEGAL OR EMPLOYEMENT PURPOSES. MEDICATIONS CONTAINING EPHEDRINE MAY CAUSE FALSE POSITIVE AMPHETAMINE. AMPHETAMINE- 500 NG/ML BARBITURATE- 200 NG/ML BENZODIAZEPINE- 150 NG/ML BUPRENORPHINE- 10 NG/ML COCAINE- 150 NG/ML METHAMPHETAMINES- 500 NG/ML METHADONE- 200 NG/ML OPIATE- 100 NG/ML OXYCODONE- 100 NG/ML PCP- 25 NG/ML THC- 50 NG/ML TCA- 300 NG/ML URINE SPECIMEN / Unknown 02/16/2025 6:59 PM CDT us Francisco Keenan MD URINE ORDERABLES Final Res ult [facility] [address] [place] [address], * TEST URINE (02/16/2025 6:59 PM CDT) URINE HCG TEST NEGATIVE NEGATIVE 02/16/2025 7:26 PM CDT [facility] Comment: VERY DILUTE URINE SPECIMENS MAY NOT CONTAIN ENTERPRISE SYSTEMS ADMINISTRATOR LEVELS OF HCG. IF IS STILL SUSPECTED, A SERUM HCG TEST IS RECOMMENDED. URINE SPECIMEN FROM URETHRA / Unknown 02/16/2025 6:59 PM CDT us Francisco Keenan MD URINE ORDERABLES Final Res ult [facility] [address] [place] [address], [place] [phone] * (ABNORMAL) URINALYSIS, AUTO, COMPLETE (02/16/2025 6:59 PM CDT) COLOR (U) YELLOW 02/16/2025 7:47 PM CDT [facility] TRANSPARENCY HAZY 02/16/2025 7:47 PM CDT [facility] SPECIFIC GRAVITY (U) >1.030(H) 1.000 - 1.030 02/16/2025 7:47 PM CDT [facility] U PH 5.5 5.0 - 9.0 02/16/2025 7:47 PM CDT [facility] LEUKOCYTES (U) NEGATIVE NEGATIVE 02/16/2025 7:47 PM CDT [facility] NITRITES NEGATIVE NEGATIVE 02/16/2025 7:47 PM CDT [facility] PROTEIN RANDOM (U) 1+(A) NEGATIVE 02/16/2025 7:47 PM CDT [facility] GLUCOSE (U) NEGATIVE NEGATIVE 02/16/2025 7:47 PM CDT [facility] KETONES MG/DL (U) NEGATIVE NEGATIVE 02/16/2025 7:47 PM CDT [facility] BILIRUBIN (U) NEGATIVE NEGATIVE 02/16/2025 7:47 PM CDT [facility] BLOOD (U) 3+(A) NEGATIVE 02/16/2025 7:47 PM CDT [facility] WBC/HPF 0-5 0 - 5 /HPF 02/16/2025 7:47 PM CDT [facility] RBC/HPF 0-5 0 - 5 /HPF 02/16/2025 7:47 PM CDT [facility] EPI/HPF RARE /HPF 02/16/2025 7:47 PM CDT [facility] URINE [place] RARE 02/16/2025 7:47 PM CDT [facility] Comment:MUCOUS URINE SPECIMEN OBTAINED BY CLEAN CATCH PROCEDURE / Unknown 02/16/2025 6:59 PM CDT us Francisco Keenan MD URINE ORDERABLES Final Res ult [facility] [address] [place] [address], * ECG 12 lead (02/08/2025 10:28 PM CDT) 02/08/2025 10:2 8 PM CDT Narrative [facility] - 02/09/2025 8:53 AM CDT [facility] Test Date: 2025-02-08 Pat Name: LUCERO SANTIZO Department: 85 Room: EXAM 202 Gender: Female [employer] St[employer]: : 1995 Requested By: VERONICA TAVAREZ Order Number: [id number] Reading MD: Parker Roy Measurements Intervals [place] Rate: 95 P: 56 TX: 116 QRS: 83 QRSD: 90 T: 60 QT: 376 QTc: 474 Interpretive Statements SINUS RHYTHM WITH SINUS ARRHYTHMIA WITH SHORT TX INTERVAL No previous ECG available for comparison Procedure Note Parker Roy MD - 02/09/2025 [facility] Test Date: 2025-02-08 Pat Name: LUCERO SANTIZO Department: 85 Room: EXAM 202 Gender: Female [employer] Stenographer: : 1995 Requested By: VERONICA TAVAREZ Order Number: [id number] Reading MD: Parker Roy Measurements Intervals [place] Rate: 95 P: 56 TX: 116 QRS: 83 QRSD: 90 T: 60 QT: 376 QTc: 474 Interpretive Statements SINUS RHYTHM WITH SINUS ARRHYTHMIA WITH SHORT TX INTERVAL No previous ECG available for comparison Veronica Tavarez MD ECG ORDERABLES Final Result Performing Organization Address City/[facility]/ZIP Co de Phone Number [facility] * LACTIC ACID W REFLEX (SEPSIS) (02/08/2025 9:07 PM CDT) Only the most recent of2 resultswithin the time period is included. LACTIC ACID VENOUS 1.4 0.4 - 2.0 MMOL/L 02/08/2025 9:37 PM CDT [facility] 02/08/2025 9:07 PM CDT Veronica Tavarez MD LABORATORY Final Result Performing Organization Address City/[facility]/ZIP Co de Phone Number [facility] [address] [place] [address], [place] [phone] * MAGNESIUM (02/08/2025 7:43 PM CDT) MAGNESIUM 1.9 1.8 - 2.4 MG/DL 02/08/2025 8:37 PM CDT [facility] 02/08/2025 7:43 PM CDT us Veronica Tavarez MD LABORATORY Final Result [facility] [address] [place] [address], [place] [phone] * LIPASE (02/08/2025 7:43 PM CDT) LIPASE 31 16 - 77 UNITS/L 02/08/2025 8:37 PM CDT [facility] 02/08/2025 7:43 PM CDT us Veronica Tavarez MD LABORATORY Final Result Performing Organization Address [facility] Co de Phone Number [facility] [address] [place] [address], [place] [phone] from Last 3 Months Insurance C/O [employer] LAURA DENT [id number] Care Teams Study Hall Supervisor Relationship Specialty Start Date End Date Chaz Willoughby MD [address] [place] [phone] PCP - General HOSPITALIST 01/12/24
[2025-04-12 20:50] LABS: Hematocrit 44.2 % (37.0-47.0); Hemoglobin 14.3 g/dL (12.0-15.0); Immature Granulocyte Percent A 0.3 % (0-0.5); Lymphocytes Absolute Auto 3.14 K/mm3 (0.9-3.2); Mean Corpuscular HGB Conc 32.4 g/dl (32-36); Mean Corpuscular Hemoglobin 29.5 pg (26-34); Mean Corpuscular Volume 91.1 fl (80-100); Nucleated Red Blood Cells Absolute Auto 0.000 K/mm3 (0.0-0.012); Nucleated Red Blood Cells Perc 0.0 % (0.0-0.2); Platelet Count Result 345 k/mm3 (150-375); Red Blood Count 4.85 M/mm3 (4.2-5.4); White Blood Count 9.7 K/mm3 (4.5-10.0)
[2025-04-12 21:01] LABS: Acetaminophen < 10 ug/mL (10-30); Alanine Aminotransferase 18 U/L (6-35); Albumin Level 4.3 g/dL (3.5-5.1); Alkaline Phosphatase 83 U/L (38-126); Anion Gap 8 mmol/L (4-12); Aspartate Amino Transferase 26 U/L (14-36); Bilirubin,Total 0.2 mg/dL (0.2-1.3); Blood Urea Nitrogen 12 mg/dL (7-17); Calcium 9.0 mg/dL (8.4-10.2); Carbon Dioxide 26 mmol/L (22-30); Chloride 103 mmol/L (98-107); Estimated Glomerular Filt Rate > 60; Glucose 90 mg/dL (65-110); Magnesium 2.0 mg/dL (1.6-2.3); Potassium 4.3 mmol/L (3.4-5.0); Salicylate < 1.0 mg/dL (2-20); Sodium 137 mmol/L (137-145); Total Protein 7.0 g/dL (6.3-8.2)
[2025-04-12] MEDS: LORazepam INJ (*CRX) 2 MG/ML VIAL 1 MG IV PUSH (21:05)
[2025-04-12 21:07] VITALS: O2SAT 99
--- NOTE | 2025-04-12 21:12 | PC.NURSE ---
poison control case #[id number]
[2025-04-12 21:28] LABS: Add Urine Microscopic? YES; Appearance Urine Turbid (Clear); Budding Yeast Urine Present /hpf; Glucose Urine UA Negative (Negative); Leukocyte Esterase Ur 2+ LEU/UL (Negative); Need Manual Microscopic Reviewed; Nitrate Urine Negative (Negative); Non Pathogenic Casts 0-2; Specific Grav Ur 1.009 (1.001-1.035)
[2025-04-12 21:30] VITALS: PULSE 95; RESP 14; O2SAT 98
[2025-04-12 21:47] LABS: Cannabinoid Screen Urine Positive (Negative)
--- NOTE | 2025-04-12 22:11 | PC.NURSE ---
pt mom updated on plan of care per pt request
--- NOTE | 2025-04-12 22:39 | ED_ITS ---
HPI - Overdose General Chief Complaint: Overdose <Ruby Blanco MD - Last Filed: 04/13/25 06:02> Stated Complaint: overdose <Ruby Blanco MD - Last Filed: 04/13/25 06:02> Time Seen by Provider: 04/12/25 20:34 <Ruby Blanco MD - Last Filed: 04/13/25 06:02> History of Present Illness HPI Narrative: Patient states since she used shrooms 2 months ago her brain hasn't felt the same. She tried to take her meds tonight then continued taking more and more doses to see if she could feel better. Reports her legs feel very shaky. <Ruby Blanco MD - Last Filed: 04/13/25 06:02> Related Data Home Medications: Home Medications ?Medication ?Instructions ?Recorded ?Confirmed ?Last Taken ?Type bupropion HCl 300 mg 24 hr tablet, 300 mg PO DAILY 11/28/23 11/28/23 11/27/23 13:00 History extended release ergocalciferol (vitamin D2) 1,250 1,250 mcg PO WEEKLY 11/28/23 11/28/23 11/26/23 History mcg (50,000 unit) capsule hydroxyzine HCl 25 mg tablet 25 mg PO TID anxiety 11/28/23 11/28/23 11/26/23 History lamotrigine 150 mg tablet 150 mg PO DAILY 11/28/23 11/28/23 11/28/23 00:00 History pregabalin 75 mg capsule 75 mg PO BID 11/28/23 11/28/23 11/27/23 12:00 History quetiapine 100 mg tablet 100 mg PO BID 11/28/23 11/28/23 11/27/23 22:00 History trazodone 100 mg tablet 100 mg PO HS PRN Insomnia 11/28/23 11/28/23 11/27/23 00:00 History <Ruby Blanco MD - Last Filed: 04/13/25 06:02> Allergies/Adverse Reactions: Allergies Allergy/AdvReac Type Severity Reaction Status Date / Time amoxicillin Allergy Unknown Unknown Verified 10/13/24 06:12 capsaicin Allergy Rash Verified 10/13/24 06:12 <Ruby Blanco MD - Last Filed: 04/13/25 06:02> Review of Systems 2 Review of Systems: All systems reviewed & are unremarkable except as noted in HPI and below <Ruby Blanco MD - Last Filed: 04/13/25 06:02> [facility] Past Medical History Medical History: Medical History Cyclic vomiting syndrome Depression Opioid abuse <Ruby Blanco MD - Last Filed: 04/13/25 06:02> Surgical History Surgical History: Surgical History History of appendectomy History of esophagogastroduodenoscopy (EGD) September 2022 Hx of cholecystectomy 2016 <Ruby Blanco MD - Last Filed: 04/13/25 06:02> Family History Family History: Family History Mother Acute myocardial infarction Rheumatoid arthritis Unknown Diabetes mellitus <Ruby Blanco MD - Last Filed: 04/13/25 06:02> Social History Social History: Social History Smoking packs per day: 1 Smoking cigarettes per day: 20.0 Years smoked: 12 Smoking pack-years: 12.00 Smoking status: Current every day smoker Tobacco type: cigarettes Second hand tobacco smoke exposure: Yes Alcohol intake: never Substance use: current Substance use type: prescription drug Other substance usage details: previously fentanyl (last use 06/27/20); uses marijuana nearly [place] Last use: today Do You Feel Safe in your Home?: Yes Lack of Transportation: YES Lack of Food: Never True Current Housing: I Have Housing Concerned About Future Housing: YES Difficulty Paying Gas/Electric Bills: No Difficulty Paying for Meds: No Currently Unemployed: No Education: High School Diploma/GED Difficulty w/ Childcare or Family Care: No Gender identity (if verbalized by the patient): Female Spiritual care concerns: No <Ruby Blanco MD - Last Filed: 04/13/25 06:02> Exam 2 Narrative: EXAMINATION OF ORGAN SYSTEMS/BODY AREAS: Constitutional: Vital signs per nursing GENERAL: Appears anxious HEAD: Normal with no signs of head trauma. EYES: EOMI, conjunctiva normal ENT: Hearing grossly intact LUNGS: Nonlabored breathing. HEART: Initially tachycardic ABD: [Soft], [nontender to palpation] EXT: Normal range of motion; seems to be shaking her legs SKIN: [No rashes or lesions.] NEURO: [Alert and oriented x 3. No gross focal sensory or strength deficits.] Speaking clearly with normal speech, ambulating with normal steady gait PSYCH: Anxious affect <Ruby Blanco MD - Last Filed: 04/13/25 06:02> Course Course Emergency Course: Patient care was signed out to me by the overnight physician. Patient was only on CPAP at nighttime. Patient ultimately did get psychiatric placement. Patient was well-appearing and in no distress at time of transfer. <Иван Ramos MD - Last Filed: 04/13/25 17:03> Vital Signs Vital signs: Vital Signs Temperature 99.1 F 04/12/25 20:29 Pulse Rate 150 H 04/12/25 20:29 Respiratory Rate 16 04/12/25 20:29 Blood Pressure 150/97 H 04/12/25 20:29 Pulse Oximetry 98 04/12/25 20:29 Oxygen Delivery Room Air 04/12/25 20:29 Temperature 98.4 F 04/13/25 01:27 Pulse Rate 73 04/13/25 10:22 Respiratory Rate 14 04/13/25 10:22 Blood Pressure 115/77 04/13/25 10:22 Pulse Oximetry 99 04/13/25 10:22 Oxygen Delivery Autopap 04/13/25 05:49 Fraction of Inspired Oxygen 21 04/13/25 03:32 <Ruby Blanco MD - Last Filed: 04/13/25 06:02> Vital Signs Temperature 99.1 F 04/12/25 20:29 Pulse Rate 150 H 04/12/25 20:29 Respiratory Rate 16 04/12/25 20:29 Blood Pressure 150/97 H 04/12/25 20:29 Pulse Oximetry 98 04/12/25 20:29 Oxygen Delivery Room Air 04/12/25 20:29 Temperature 98.4 F 04/13/25 01:27 Pulse Rate 73 04/13/25 10:22 Respiratory Rate 14 04/13/25 10:22 Blood Pressure 115/77 04/13/25 10:22 Pulse Oximetry 99 04/13/25 10:22 Oxygen Delivery Autopap 04/13/25 05:49 Fraction of Inspired Oxygen 21 04/13/25 03:32 <Иван Ramos MD - Last Filed: 04/13/25 17:03> MDM - Overdose MDM Narrative Medical decision making narrative: Patient presents here after intentional overdose of her home medications including bupropion and pregabalin, she is now reporting feeling anxious and her legs feel shaky, she is insistent that she did not try to overdose to hurt herself. Poison control center called. Medically clear for psych eval. She is given small dose of ativan for anxiety. She is now ambulating with normal steady gait. Crisis and her mom at bedside both feel she could benefit from inpt admission since this has happened before. Patient initially upset/anxious about this; I did fill out involuntary form given my concern that she clearly lacks impulse control or judgment/insight as she is overdosing on her medications to help her brain feel better and I agree I don't feel safe with discharge. Additional medication given for patient anxiety. She is now more comfortable, settling down. Signed out pending transfer to psychiatric facility <Ruby Blanco MD - Last Filed: 04/13/25 06:02> Lab Data Result diagrams: 04/12/25 20:44 04/12/25 20:45 <Ruby Blanco MD - Last Filed: 04/13/25 06:02> Labs: Lab Results 04/12/25 04/12/25 04/12/25 Range/Units 20:44 20:45 21:04 WBC 9.7 (4.5-10.0) K/mm3 RBC 4.85 (4.2-5.4) M/mm3 Hgb 14.3 (12.0-15.0) g/dL Hct 44.2 (37.0-47.0) % MCV 91.1 (80-100) fl MCH 29.5 (26-34) pg MCHC 32.4 (32-36) g/dl RDW 12.8 (11.5-14.5) % Plt Count 345 (150-375) k/mm3 MPV 9.2 (7.4-10.4) fl Immature Gran % (Auto) 0.3 (0-0.5) % Neut % (Auto) 56.8 (45.5-73.1) % Lymph % (Auto) 32.4 (18.3-44.2) % Aiken % (Auto) 7.4 (2.6-8.5) % Eos % (Auto) 2.3 (0-4.4) % Baso % (Auto) 0.8 (0.2-1.2) % Lymph # (Auto) 3.14 (0.9-3.2) K/mm3 [place]iken # (Auto) 0.7 H (0.1-0.6) K/mm3 Eos # (Auto) 0.2 (0-0.3) K/mm3 Baso # (Auto) 0.1 (0.0-0.1) K/mm3 Abs Immat Gran (auto) 0.03 (0.00-0.031) K/mm3 Absolute Neuts (auto) 5.5 (1.3-6.7) K/mm3 Absolute Nucleated RBC 0.000 (0.0-0.012) K/mm3 Nucleated RBC % 0.0 (0.0-0.2) % Sodium 137 (137-145) mmol/L Potassium 4.3 (3.4-5.0) mmol/L Chloride 103 (98-107) mmol/L Carbon Dioxide 26 (22-30) mmol/L Anion Gap 8 (4-12) mmol/L BUN 12 D (7-17) mg/dL Creatinine 0.81 (0.7-1.0) mg/dL Estim Creat Clear Calc Not Reportable Estimated GFR > 60 (59 - ) Glucose 90 (65-110) mg/dL Lactic Acid 1.3 (0.7-2.0) mmol/L Calcium 9.0 (8.4-10.2) mg/dL Magnesium 2.0 (1.6-2.3) mg/dL Total Bilirubin 0.2 (0.2-1.3) mg/dL AST 26 (14-36) U/L ALT 18 (6-35) U/L Alkaline Phosphatase 83 (38-126) U/L Total Protein 7.0 (6.3-8.2) g/dL Albumin 4.3 (3.5-5.1) g/dL Urine Color Yellow (Yellow) Urine Appearance Turbid H (Clear) Urine pH 6.5 (5.0-9.0) Ur Specific [place] 1.009 (1.001-1.035) Urine Protein Negative (Negative) mg/dL Urine Glucose (UA) Negative (Negative) mg/dL Urine Ketones Negative (Negative) mg/dL Ur Blood (Man) Negative (Negative) Urine Nitrate Negative (Negative) Urine Bilirubin Negative (Negative) Urine Urobilinogen 0.2 (<2.0) mg/dL Add Ur Microanalysis Reviewed Leukocyte Esterase Rfl 2+ H (Negative) JAMIL/UL Urine RBC 11-20 H (0-2) /hpf Urine WBC 21-50 H (0-3) /hpf Ur Squamous Epith Cells Many H (Few) /hpf Urine Bacteria 4+ H /hpf Urine Casts 0-2 Urine Yeast (Budding) Present H (None) /hpf POC Urine HCG, Qual (Negative) Salicylates < 1.0 L (2-20) mg/dL Urine Opiates Screen Negative (Negative) Urine Methadone Screen Negative (Negative) Acetaminophen < 10 L (10-30) ug/mL Ur Barbiturates Screen Negative (Negative) Ur Phencyclidine Scrn Negative (Negative) Ur Amphetamine Screen Negative (Negative) U Benzodiazepines Scrn Negative (Negative) Urine Cocaine Screen Negative (Negative) U Cannabinoids Screen Positive A (Negative) Ethyl Alcohol < 10 (<10) mg/dL 04/13/25 Range/Units 00:53 WBC (4.5-10.0) K/mm3 RBC (4.2-5.4) M/mm3 Hgb (12.0-15.0) g/dL Hct (37.0-47.0) % MCV (80-100) fl MCH (26-34) pg MCHC (32-36) g/dl RDW (11.5-14.5) % Plt Count (150-375) k/mm3 MPV (7.4-10.4) fl Immature Gran % (Auto) (0-0.5) % Neut % (Auto) (45.5-73.1) % Lymph % (Auto) (18.3-44.2) % Aiken % (Auto) (2.6-8.5) % Eos % (Auto) (0-4.4) % Baso % (Auto) (0.2-1.2) % Lymph # (Auto) (0.9-3.2) K/mm3 [place]iken # (Auto) (0.1-0.6) K/mm3 Eos # (Auto) (0-0.3) K/mm3 Baso # (Auto) (0.0-0.1) K/mm3 Abs Immat Gran (auto) (0.00-0.031) K/mm3 Absolute Neuts (auto) (1.3-6.7) K/mm3 Absolute Nucleated RBC (0.0-0.012) K/mm3 Nucleated RBC % (0.0-0.2) % Sodium (137-145) mmol/L Potassium (3.4-5.0) mmol/L Chloride (98-107) mmol/L Carbon Dioxide (22-30) mmol/L Anion Gap (4-12) mmol/L BUN (7-17) mg/dL Creatinine (0.7-1.0) mg/dL Estim Creat Clear Calc Estimated GFR (59 - ) Glucose (65-110) mg/dL Lactic Acid (0.7-2.0) mmol/L Calcium (8.4-10.2) mg/dL Magnesium (1.6-2.3) mg/dL Total Bilirubin (0.2-1.3) mg/dL AST (14-36) U/L ALT (6-35) U/L Alkaline Phosphatase (38-126) U/L Total Protein (6.3-8.2) g/dL Albumin (3.5-5.1) g/dL Urine Color (Yellow) Urine Appearance (Clear) Urine pH (5.0-9.0) Ur Specific [place] (1.001-1.035) Urine Protein (Negative) mg/dL Urine Glucose (UA) (Negative) mg/dL Urine Ketones (Negative) mg/dL Ur Blood (Man) (Negative) Urine Nitrate (Negative) Urine Bilirubin (Negative) Urine Urobilinogen (<2.0) mg/dL Add Ur Microanalysis Leukocyte Esterase Rfl (Negative) JAMIL/UL Urine RBC (0-2) /hpf Urine WBC (0-3) /hpf Ur Squamous Epith Cells (Few) /hpf Urine Bacteria /hpf Urine Casts Urine Yeast (Budding) (None) /hpf POC Urine HCG, Qual Negative (Negative) Salicylates (2-20) mg/dL Urine Opiates Screen (Negative) Urine Methadone Screen (Negative) Acetaminophen (10-30) ug/mL Ur Barbiturates Screen (Negative) Ur Phencyclidine Scrn (Negative) Ur Amphetamine Screen (Negative) U Benzodiazepines Scrn (Negative) Urine Cocaine Screen (Negative) U Cannabinoids Screen (Negative) Ethyl Alcohol (<10) mg/dL <Ruby Blanco MD - Last Filed: 04/13/25 06:02> Lab Results 04/12/25 04/12/25 04/12/25 Range/Units 20:44 20:45 21:04 WBC 9.7 (4.5-10.0) K/mm3 RBC 4.85 (4.2-5.4) M/mm3 Hgb 14.3 (12.0-15.0) g/dL Hct 44.2 (37.0-47.0) % MCV 91.1 (80-100) fl MCH 29.5 (26-34) pg MCHC 32.4 (32-36) g/dl RDW 12.8 (11.5-14.5) % Plt Count 345 (150-375) k/mm3 MPV 9.2 (7.4-10.4) fl Immature Gran % (Auto) 0.3 (0-0.5) % Neut % (Auto) 56.8 (45.5-73.1) % Lymph % (Auto) 32.4 (18.3-44.2) % Aiken % (Auto) 7.4 (2.6-8.5) % Eos % (Auto) 2.3 (0-4.4) % Baso % (Auto) 0.8 (0.2-1.2) % Lymph # (Auto) 3.14 (0.9-3.2) K/mm3 [place] # (Auto) 0.7 H (0.1-0.6) K/mm3 Eos # (Auto) 0.2 (0-0.3) K/mm3 Baso # (Auto) 0.1 (0.0-0.1) K/mm3 Abs Immat Gran (auto) 0.03 (0.00-0.031) K/mm3 Absolute Neuts (auto) 5.5 (1.3-6.7) K/mm3 Absolute Nucleated RBC 0.000 (0.0-0.012) K/mm3 Nucleated RBC % 0.0 (0.0-0.2) % Sodium 137 (137-145) mmol/L Potassium 4.3 (3.4-5.0) mmol/L Chloride 103 (98-107) mmol/L Carbon Dioxide 26 (22-30) mmol/L Anion Gap 8 (4-12) mmol/L BUN 12 D (7-17) mg/dL Creatinine 0.81 (0.7-1.0) mg/dL Estim Creat Clear Calc Not Reportable Estimated GFR > 60 (59 - ) Glucose 90 (65-110) mg/dL Lactic Acid 1.3 (0.7-2.0) mmol/L Calcium 9.0 (8.4-10.2) mg/dL Magnesium 2.0 (1.6-2.3) mg/dL Total Bilirubin 0.2 (0.2-1.3) mg/dL AST 26 (14-36) U/L ALT 18 (6-35) U/L Alkaline Phosphatase 83 (38-126) U/L Total Protein 7.0 (6.3-8.2) g/dL Albumin 4.3 (3.5-5.1) g/dL Urine Color Yellow (Yellow) Urine Appearance Turbid H (Clear) Urine pH 6.5 (5.0-9.0) Ur Specific [place] 1.009 (1.001-1.035) Urine Protein Negative (Negative) mg/dL Urine Glucose (UA) Negative (Negative) mg/dL Urine Ketones Negative (Negative) mg/dL Ur Blood (Man) Negative (Negative) Urine Nitrate Negative (Negative) Urine Bilirubin Negative (Negative) Urine Urobilinogen 0.2 (<2.0) mg/dL Add Ur Microanalysis Reviewed Leukocyte Esterase Rfl 2+ H (Negative) JAMIL/UL Urine RBC 11-20 H (0-2) /hpf Urine WBC 21-50 H (0-3) /hpf Ur Squamous Epith Cells Many H (Few) /hpf Urine Bacteria 4+ H /hpf Urine Casts 0-2 Urine Yeast (Budding) Present H (None) /hpf POC Urine HCG, Qual (Negative) Salicylates < 1.0 L (2-20) mg/dL Urine Opiates Screen Negative (Negative) Urine Methadone Screen Negative (Negative) Acetaminophen < 10 L (10-30) ug/mL Ur Barbiturates Screen Negative (Negative) Ur Phencyclidine Scrn Negative (Negative) Ur Amphetamine Screen Negative (Negative) U Benzodiazepines Scrn Negative (Negative) Urine Cocaine Screen Negative (Negative) U Cannabinoids Screen Positive A (Negative) Ethyl Alcohol < 10 (<10) mg/dL 04/13/25 Range/Units 00:53 WBC (4.5-10.0) K/mm3 RBC (4.2-5.4) M/mm3 Hgb (12.0-15.0) g/dL Hct (37.0-47.0) % MCV (80-100) fl MCH (26-34) pg MCHC (32-36) g/dl RDW (11.5-14.5) % Plt Count (150-375) k/mm3 MPV (7.4-10.4) fl Immature Gran % (Auto) (0-0.5) % Neut % (Auto) (45.5-73.1) % Lymph % (Auto) (18.3-44.2) % Aiken % (Auto) (2.6-8.5) % Eos % (Auto) (0-4.4) % Baso % (Auto) (0.2-1.2) % Lymph # (Auto) (0.9-3.2) K/mm3 [place] # (Auto) (0.1-0.6) K/mm3 Eos # (Auto) (0-0.3) K/mm3 Baso # (Auto) (0.0-0.1) K/mm3 Abs Immat Gran (auto) (0.00-0.031) K/mm3 Absolute Neuts (auto) (1.3-6.7) K/mm3 Absolute Nucleated RBC (0.0-0.012) K/mm3 Nucleated RBC % (0.0-0.2) % Sodium (137-145) mmol/L Potassium (3.4-5.0) mmol/L Chloride (98-107) mmol/L Carbon Dioxide (22-30) mmol/L Anion Gap (4-12) mmol/L BUN (7-17) mg/dL Creatinine (0.7-1.0) mg/dL Estim Creat Clear Calc Estimated GFR (59 - ) Glucose (65-110) mg/dL Lactic Acid (0.7-2.0) mmol/L Calcium (8.4-10.2) mg/dL Magnesium (1.6-2.3) mg/dL Total Bilirubin (0.2-1.3) mg/dL AST (14-36) U/L ALT (6-35) U/L Alkaline Phosphatase (38-126) U/L Total Protein (6.3-8.2) g/dL Albumin (3.5-5.1) g/dL Urine Color (Yellow) Urine Appearance (Clear) Urine pH (5.0-9.0) Ur Specific [place] (1.001-1.035) Urine Protein (Negative) mg/dL Urine Glucose (UA) (Negative) mg/dL Urine Ketones (Negative) mg/dL Ur Blood (Man) (Negative) Urine Nitrate (Negative) Urine Bilirubin (Negative) Urine Urobilinogen (<2.0) mg/dL Add Ur Microanalysis Leukocyte Esterase Rfl (Negative) JAMIL/UL Urine RBC (0-2) /hpf Urine WBC (0-3) /hpf Ur Squamous Epith Cells (Few) /hpf Urine Bacteria /hpf Urine Casts Urine Yeast (Budding) (None) /hpf POC Urine HCG, Qual Negative (Negative) Salicylates (2-20) mg/dL Urine Opiates Screen (Negative) Urine Methadone Screen (Negative) Acetaminophen (10-30) ug/mL Ur Barbiturates Screen (Negative) Ur Phencyclidine Scrn (Negative) Ur Amphetamine Screen (Negative) U Benzodiazepines Scrn (Negative) Urine Cocaine Screen (Negative) U Cannabinoids Screen (Negative) Ethyl Alcohol (<10) mg/dL <Иван Ramos MD - Last Filed: 04/13/25 17:03> Discharge Plan Discharge Clinical Impression: Intentional overdose <Ruby Blanco MD - Last Filed: 04/13/25 06:02> Patient Disposition: Psychiatric Hosp <Ruby Blanco MD - Last Filed: 04/13/25 06:02> Condition: Improved <Ruby Blanco MD - Last Filed: 04/13/25 06:02> Patient Language: Citizen Of [place] <Ruby Blanco MD - Last Filed: 04/13/25 06:02> Prescriptions: No Action lamotrigine 150 mg tablet 150 mg PO DAILY quetiapine 100 mg tablet 100 mg PO BID trazodone 100 mg tablet 100 mg PO HS PRN (Reason: Insomnia) hydroxyzine HCl 25 mg tablet 25 mg PO TID ergocalciferol (vitamin D2) 1,250 mcg (50,000 unit) capsule 1,250 mcg PO WEEKLY Rx Instructions: Sundays bupropion HCl 300 mg tablet extended release 24 hr 300 mg PO DAILY pregabalin 75 mg capsule 75 mg PO BID albuterol sulfate 90 mcg/actuation HFA aerosol inhaler 2 puff inhalation QID PRN (Reason: shortness of breath or wheezing) Qty: 6.7 0RF ondansetron 4 mg tablet,disintegrating 4 mg PO Q8H PRN (Reason: nausea and vomiting) Qty: 30 0RF sulfamethoxazole-trimethoprim [Bactrim DS] 800-160 mg tablet 1 tablet PO Q12H 7 Days Qty: 14 0RF <Ruby Blanco MD - Last Filed: 04/13/25 06:02> Follow-up/Referrals: PHYSICIAN,[facility] [Primary Care Provider] - <Ruby Blanco MD - Last Filed: 04/13/25 06:02>
--- NOTE | 2025-04-12 22:46 | PC.NURSE ---
Pt cleared by poison control, per NATHAN [facility] for medication ingestion is 3hrs. Crisis made aware pt in cleared for evaluation.
[2025-04-12] MEDS: SULFAMETHOXAZOLE/TRIMETHOPRIM 800/160 MG DS TABLET 1 TAB PO (22:53)
[2025-04-12 22:55] VITALS: BP 114/84; PULSE 82; RESP 15
[2025-04-12 23:01] VITALS: BP 119/79; PULSE 81; RESP 15
[2025-04-13] VITALS (9 sets, daily range): BP systolic 91–115; BP diastolic 50–77; PULSE 73–88; RESP 6–18; TEMP 36.9; O2SAT 96–100
--- NOTE | 2025-04-13 00:30 | PC.NURSE ---
Pt states she would like something for anxiety, made aware refer to MAR for medication administration.
[2025-04-13] MEDS: NICOTINE (*PBKC) 21 MG PATCH 1 PATCH TRANSDERM (00:34)
[2025-04-13] MEDS: HALOPERIDOL LACTATE 5 MG/ML VIAL IM (00:42)
[2025-04-13] MEDS: LORazepam (*CRX) 1 MG TABLET PO (00:43)
[2025-04-13] MEDS: diphenhydrAMINE HCl CAP 25 MG CAPSULE 50 MG PO (00:43)
[2025-04-13 00:55] LABS: BEDSIDEPREGUCG Negative (Negative)
== END 2025-04-13 14:52 ==
PROVIDERS: Emergency Provider Emergency Medicine
DX: T50.912A Poisoning by multiple unspecified drugs, medicaments and biological substances, intentional self-harm, initial encounter (principal); F17.210 Nicotine dependence, cigarettes, uncomplicated; F12.90 Cannabis use, unspecified, uncomplicated
CPT/HCPCS: 36415; 80053; 80143; 80179; 80307; 81001; 81025; 82077; 83605; 83735; 85025; 93005; 96372; 96374; 99285; A9270; J1630; J2060

== ENCOUNTER 2025-05-31 15:29 | Emergency (ER) | payer BC, SELFPAY ==
--- OUTSIDE RECORDS SUMMARY | 2024-05-16 08:40 | XMS_ITS ---
Author Organization [facility] Address [address] [place] [address] Care Team Providers Care System Configuration Specialist Name Role Phone Katelyn Motley Primary Care Provider REASON FOR VISIT -Discharged from [facility] on 05/13/24 Social History Sex Assigned At : Social History Observation Description Sex Assigned At Female Encounters Encounter Location Date Provider Diagnosis [facility] [address] [place] [address] [place] [address] 05/16/2024 Katelyn Motley Plan Of Treatment No Information Progress Notes * Lucero SANTIZO MDOB: [birth year] (30 yo F)Acc No.[id number]:05/16/2024 UNLOCKED PROGRESS NOTE Patient: Nader RUDY Lucero Everardo Provider: DUNCAN Sagastume, COMPUTER TYPESETTER KEYLINER, PLASMA CUTTING MACHINE OPERATOR-C :1995 A ge:29 Y S ex:Female Date:05/16/2024 Address:[address] [place], [place] [id number] Subjective: * Chief Complaints: * 1 . -Discharged from [facility] on 05/13/24. * Medical History: Objective: * Vitals: Assessment: Plan: * Treatment: * Care Plan Details* * Electronic signature of My Motley APRN, [id number] on 05/31/2025 at 03:31 PM CDT Sign off status: Pending * Provider: Ricardo Motley, MSN, COMPUTER TYPESETTER KEYLINER, PLASMA CUTTING MACHINE OPERATOR-C Date: 0 05/16/2024 Generated for Zhen huertas/Madeleine/Melviitting on: 0 05/31/2025 03:31 PM CDT
--- OUTSIDE RECORDS SUMMARY | 2024-05-27 06:00 | XMS_ITS ---
Author Organization [facility] Address [address] [place] [address] Care Team Providers Care Channeling Machine Operator Name Role Phone Tolu Preetiestephania Primary Care Provider [phone] Jac Aldana [phone] REASON FOR VISIT transfer from [facility], 1 mo fu Medications Medication SIG (Take, Route, Frequency, Duration) Notes Start Date End Date Status Pristiq 50 MG 1 tablet Orally Once a day; Duration: 30 days 04/25/2024 Active Atomoxetine HCl 80 MG 1 capsule in the m orning Orally Once a day; Duration: 30 days Active SEROquel 50 MG 1 tablet at bedtime (for a total of 150mg) Orally Once a day; Duration: 30 days Active Wellbutrin XL 150 MG 1 tablet in AM (for a total of 450mg) Orally Once a day; Duration: 30 days Active Zubsolv 8.6-2.1 MG 1 tablet under the t ongue and allow to dissolve Sublingual twice a day 02/15/2024 Active Wellbutrin XL 300 MG 1 tablet in AM (for a total of 450mg) Orally Once a day; Duration: 30 days Active Lyrica 75 MG 1 capsule Orally Twi ce a day; Duration: 30 days 04/25/2024 Active Vitamin D (Ergocalciferol) 1.25 MG (41221 UT) 1 capsule Orally once a week; Duration: 30 days Active traZODone HCl 150 MG 1 tablet at bedtime as needed Orally Once a day; Duration: 30 days Active hydrOXYzine HCl 25 MG 1 tablet as needed Orally three times day; Duration: 30 days Active SEROquel 100 MG 1 tablet Orally Twic e a day; Duration: 30 days Active Zofran ODT Active Social History Sex Assigned At : Social History Observation Description Sex Assigned At Female Encounters Encounter Location Date Provider Diagnosis [address] [place] [facility] [place] [address] 05/27/2024 Jac Aldana Plan Of Treatment No Information Progress Notes * Lucero SANTIZO MDOB: [birth year] (30 yo F)Acc No.[id number]:05/27/2024 UNLOCKED PROGRESS NOTE Patient: Lucero CHRISTENSEN Provider: Ricardo Aldana, STEFF, PMHNP-BC :1995 A ge:29 Y S ex:Female Date:05/27/2024 Address:[address] [place], [place] [phone] Pcp:Katelyn Motley Subjective: * Chief Complaints: * 1 . transfer from [facility], 1 mo fu. * Medical History: * Medications: T aking SEROquel 100 MG Tablet 1 tablet Orally Twice a day , Taking hydrOXYzine HCl 25 MG Tablet 1 tablet as needed Orally three times day , Taking traZODone HCl 150 MG Tablet 1 tablet at bedtime as needed Orally Once a day , Taking Vitamin D (Ergocalciferol) 1.25 MG (40441 UT) Capsule 1 capsule Orally once a week , Taking Lyrica 75 MG Capsule 1 capsule Orally Twice a day , Taking Wellbutrin XL 300 MG Tablet Extended Release 24 Hour 1 tablet in AM (for a total of 450mg) Orally Once a day , Taking Wellbutrin XL 150 MG Tablet Extended Release 24 Hour 1 tablet in AM (for a total of 450mg) Orally Once a day , Taking SEROquel 50 MG Tablet 1 tablet at bedtime (for a total of 150mg) Orally Once a day , Taking Atomoxetine HCl 80 MG Capsule 1 capsule in the morning Orally Once a day , Taking Pristiq 50 MG Tablet Extended Release 24 Hour 1 tablet Orally Once a day , Taking Zubsolv 8.6-2.1 MG Tablet Sublingual 1 tablet under the tongue and allow to dissolve Sublingual twice a day , Taking Zofran ODT Objective: * Vitals: Assessment: Plan: * Treatment: * * Electronic signature of Chio Aldana , FRUIT BUYING GRADER, [id number] on 05/31/2025 at 03:31 PM CDT Sign off status: Pending * Provider: Ricardo Aldana DNP, PMHNP- Date: 05/27/2024 Generated for Zhen huertas/Madeleine/Saadia on: 0 05/31/2025 03:31 PM CDT
--- OUTSIDE RECORDS SUMMARY | 2025-05-31 15:32 | XMS_ITS | Clinical Summary ---
Author Organization [facility] Address [address] [place] [address] Care Team Providers Care Sweet Dough Mixer Name Role Phone Chaz Willoughby MD Primary Care Provider [phone] Allergies Active Allergy Reactions Criticality Noted Date [...] Medication management 01/06/2016 Overview (08/07/2018): Transitioned From: senior care use of drug Assessment & Plan (05/02/2019 10:55 AM CDT): Last labwork in October from [facility]. Would repeat routine labs for chronic [...] her current medications. Renewal given as per [facility]. She will follow-up in 3 months, sooner if any problems. Resolved Problems Problem Noted Date Diagnosed Date Resolved Date Lower abdominal pain 07/22/2019 020 Non-intractable vomiting with nausea 07/22/2019 10/29/2019 Unintentional weight loss 07/22/2019 Hypokalemia 02/14/2018 11/05/2018 Immunizations Immunization Administration Dates Next Due Dtap [...] Additional history exists COVID-19 Vaccine ( season) 2025 Pneumococcal Vaccine: Pediatrics (0 to 5 Years) [...] patient's age to complete this topic Insurance C/O PROVIDER SERVICES LAURA DENT [id number] Care Teams Sweet Dough Mixer Relationship Specialty Start Date End Date Chaz Willoughby MD [address] [place] [id number] PCP - General HOSPITALIST 01/12/24
--- OUTSIDE RECORDS SUMMARY | 2025-05-31 15:32 | XMS_ITS | Encounter Summary ---
Author Organization [facility] Address [address] [place] [address] Care Team Providers Care Unit Educator Name Role Phone James Daniels MD Primary Care Provider [phone] Chaz Willoughby MD Primary Care Provider [phone] Encounter Details Date Type Department Care Team (Late st Contact Info) Description 06/21/2016 Abstract [facility] CONVERSION [address] [place] [address] , Generic ConversionMD Social History Tobacco Use [...] on filedocumented in this encounter Care Teams Unit Educator Relationship Specialty Start Date End Date James Daniels MD PCP - General INTERNAL MEDICINE 07/12/18 01/11/24 Chaz Willoughby MD [address] [place] [phone] PCP - General HOSPITALIST 01/12/24 documented as of this encounter
--- OUTSIDE RECORDS SUMMARY | 2025-05-31 15:32 | XMS_ITS | Clinical Summary ---
Author Organization [facility] Address [address] [place] [address] Care Team Providers Care Brand Ambassador Name Role Phone Anson Shania Katie ELECTRONICS TECH Primary Care Provider + Miscellaneous, Not In File Unavailable Unava ilable Nora Keenan Unavailable Unavailable Allergies No known active allergies Medications buprenorphine-na loxone (SUBOXONE) 4-[address] 1 Film under the tongue 2 (two) times a day 10 Film 07/02/2020 Active Surgical History Surgery Date Site/Laterality Comments CHOLECYSTECTOMY Medical History Medical History Date Comments Opioid abuse Cyclical vomiting Social History Tobacco Use Types [...] Comments Blood Pressure 138/93 09/29/2022 3:30 AM ARMORED SERVICE TECHNICIAN Pulse 99 09/29/2022 3:50 AM ARMORED SERVICE TECHNICIAN Temperature 36.6 C (97.9 F) 09/28/2022 6:49 PM ARMORED SERVICE TECHNICIAN Respiratory Rate 16 09/29/2022 1:25 AM ARMORED SERVICE TECHNICIAN Oxygen Saturation 100% 09/29/2022 3:50 AM ARMORED SERVICE TECHNICIAN Inhaled Oxygen Concentration - - Weight 79.4 kg (175 lb) 09/28/2022 6:51 PM ARMORED SERVICE TECHNICIAN Height 158.8 cm (5' 2.5) 09/28/2022 6:51 PM ARMORED SERVICE TECHNICIAN Body Mass Index 31.5 09/28/2022 6:51 PM ARMORED SERVICE TECHNICIAN Plan of Treatment Health Maintenance Due Date Last Done Comments Cervical Cancer Screening 1996 Depression Screening 1996 Hepatitis C Screening 1996 Regular Well Visit/Exam 18-64 01/01/2014 Pneumococcal vaccine <65 (1 of 2 - PCV) 01/01/2015 DTaP/Tdap/Td Vaccine (7 - Td or Tdap) 03/28/2016 03/28/2006, 02/15/2001, 02/15/2001, Additional history exists Influenza Vaccine (#1) 2025 Hepatitis B Screening Completed 1996 , 1996, 1996 HPV Vaccines Completed 06/11/2008, 01/16, 11/26/2007 Varicella Vaccines Completed 10/08/2013, 0 11/26/2007, 02/15/2001, Additional history exists Insurance Care Teams Brand Ambassador Relationship Specialty Start Date End Date Shania Griggs NP PCP - General Nurse Practitioner 09/28/22 Miscellaneous, Not In File 09/28/22 Nora Keenan Transformer Shop Supervisor Addiction Medicine 09/08/20
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
--- NOTE | 2025-05-31 15:33 | ED.URI ---
HPI - URI/Sore Throat General Chief Complaint: Upper Respiratory Infection Stated Complaint: URI symptoms Time Seen by Provider: 05/31/25 15:30 Source: patient Mode of arrival: ambulatory Limitations: no limitations History of Present Illness HPI Narrative: Hanna is a 30-year-old female patient presenting to the clinic today with complaints of URI symptoms. She reports productive cough with yellow phlegm, wheezing, chest congestion, nasal congestion, nausea, vomiting, and sore throat x 4 days. Is coughing so hard she vomits. Has felt feverish. Highest temperature was 99? F. History of asthma. States she took a COVID test last night and thought she still a faint line on the COVID test. Related Data Home Medications ?Medication ?Instructions ?Recorded ?Confirmed ?Last Taken ?Type hydroxyzine HCl 25 mg tablet 25 mg PO TID anxiety 11/28/23 11/28/23 11/26/23 History lamotrigine 150 mg tablet 150 mg PO DAILY 11/28/23 11/28/23 11/28/23 00:00 History pregabalin 75 mg capsule 75 mg PO BID 11/28/23 11/28/23 11/27/23 12:00 History trazodone 100 mg tablet 100 mg PO HS PRN Insomnia 11/28/23 11/28/23 11/27/23 00:00 History buprenorphine 300 mg/1.5 mL mg subcut 05/31/25 Unknown History solution,exten.rel.subcutaneous syringe (Sublocade) dextromethorphan IR 45 PO 05/31/25 Unknown History mg-bupropion ER 105 mg biphasic tablet (Auvelity) Allergies Allergy/AdvReac Type Severity Reaction Status Date / Time amoxicillin Allergy Unknown Unknown Verified 05/31/25 15:38 capsaicin Allergy Rash Verified 05/31/25 15:38 Review of Systems Review of Systems: Pertinent positives per HPI. Patient denies any rash, headache, visual changes, dizziness, shortness of breath, chest pain, palpitations, diarrhea, constipation, abdominal pain, or any urinary issues. [facility] Past Medical History Medical History Depression Cyclic vomiting syndrome Opioid abuse Surgical History Surgical History Hx of cholecystectomy 2017 History of esophagogastroduodenoscopy (EGD) September 2022 History of appendectomy Family History Family History Mother Acute myocardial infarction Rheumatoid arthritis Unknown Diabetes mellitus Social History Social History Smoking packs per day: 1 Smoking cigarettes per day: 20.0 Years smoked: 12 Smoking pack-years: 12.00 Smoking status: Current every day smoker Tobacco type: cigarettes Second hand tobacco smoke exposure: Yes Alcohol intake: never Substance use: current Substance use type: prescription drug Other substance usage details: previously fentanyl (last use 06/27/20); uses marijuana nearly [place] Last use: today Do You Feel Safe in your Home?: Yes Lack of Transportation: YES Lack of Food: Never True Current Housing: I Have Housing Concerned About Future Housing: YES Difficulty Paying Gas/Electric Bills: No Difficulty Paying for Meds: No Currently Unemployed: No Education: High School Diploma/GED Difficulty w/ Childcare or Family Care: No Gender identity (if verbalized by the patient): Female Spiritual care concerns: No Comments At the time of my signature, I reviewed and agree with the nursing past medical, surgical, social, and family history. There is no relevant family history pertinent to the patient complaint. Exam Narrative: General: Well-developed, obese, acute ill appearing, diaphoretic Head: Normocephalic, atraumatic Eyes: Pupils equally round and reactive to light bilaterally, EOM intact, sclera and conjunctive clear, no discharge, lids normal Ears: TMs intact and clear, ear canals clear, no drainage, grossly hearing normal. Nose: Nares patent, clear nasal discharge, no inflammation, no sinus tenderness. Mouth: Oropharynx red without lesions or masses, good dentition, MMM. Neck: Supple, trachea midline, no enlargement of anterior or posterior cervical nodes, no thyroid masses or goiter palpable. Cardio: Regular rate and rhythm, s1 and s2 normal, no murmur appreciated. Resp: Inspiratory and expiratory wheezing, no rhonchi, rales, wheezing or rubs Course Course Emergency Course: Portions of this record may have been created with voice recognition software. Level of Care: Express Care Visit Vital Signs Vital signs: Vital Signs Temperature 36.9 C 05/31/25 15:37 Pulse Rate 85 05/31/25 15:37 Respiratory Rate 18 05/31/25 15:37 Blood Pressure 150/104 H 05/31/25 15:37 Pulse Oximetry 97 05/31/25 15:37 Oxygen Delivery Room Air 05/31/25 15:37 Temperature 36.9 C 05/31/25 15:37 Pulse Rate 85 05/31/25 15:37 Respiratory Rate 18 05/31/25 15:37 Blood Pressure 150/104 H 05/31/25 15:37 Pulse Oximetry 97 05/31/25 15:37 Oxygen Delivery Room Air 05/31/25 15:37 Vital signs reviewed MDM - URI/Sore Throat MDM Narrative Medical decision making narrative: At the time of visit patient is resting comfortably on the exam table. Patient appears to be nontoxic. Patient is acutely ill and diaphoretic. Complaints of URI symptoms. She reports productive cough with yellow phlegm, wheezing, chest congestion, nasal congestion, nausea, vomiting, and sore throat x 4 days. Is coughing so hard she vomits. Has felt feverish. Highest temperature was 99? F. History of asthma. States she took a COVID test last night and thought she still a faint line on the COVID test. On exam patient is diaphoretic, productive cough, inspiratory and expiratory wheezing, and heart rate regular rate rhythm. Oral pharynx mildly red. COVID, influenza, and strep test were ordered. Labs: COVID, flu, and strep test were negative in the clinic today. We will send strep for culture. Medications: DuoNeb hand-held neb treatment given in the clinic today-this improved patient's lung sounds. Plan: I suspect patient has URI/pharyngitis/viral syndrome/bronchitis. Prescription for albuterol inhaler, Tessalon Perles, and prednisone was sent to the pharmacy. Supportive measures were discussed with the patient and they voiced understanding discharge instructions and agrees to treatment plan. Return precautions reviewed Differential Diagnosis Differential diagnosis: Likely upper respiratory infection, otitis media, sinusitis, viral infection, bronchitis, influenza, pharyngitis and other (COVID) Discharge Plan Discharge Clinical Impression: Viral infection, Bronchitis Upper respiratory infection Qualifiers: URI type: unspecified URI Qualified Code(s): J06.9 - Acute upper respiratory infection, unspecified Pharyngitis Qualifiers: Pharyngitis/tonsillitis etiology: unspecified etiology Qualified Code(s): J02.9 - Acute pharyngitis, unspecified Patient Disposition: Home Condition: Stable Instructions: Antibiotic Form, Pharyngitis (ED), Acute Bronchitis (ED), Cold Symptoms (ED) Additional Instructions: COVID, influenza, and strep test were all negative in the clinic today. We will send strep for culture if this comes back positive we will contact you in place you on antibiotics at that time. Hand-held neb DuoNeb treatment given in the clinic today. Take prescription medications only as prescribed-prednisone, albuterol inhaler, and Tessalon pearls Increase fluids and stay well hydrated May take Tylenol or motrin as directed on bottle for pain/fever May use Flonase 1 spray in each nare daily May take OTC antihistamines such as Zyrtec or Claritin daily as directed on bottle May apply Vicks vapor rub to chest to open sinuses Sinus rinses for congestion Cepacol spray, cough drops, throat lozenges, warm tea with honey/lemon, gargle salt water to soothe throat BRAT diet for diarrhea Clear liquids x 24 hours then advance as tolerated for nausea/vomiting Go to the ED if you develop a worsening in your condition- high fever not controlled by Tylenol or Motrin, dehydration, weakness, lethargy, shortness of breath, or chest pain. Follow up with your PCP in 3-5 days if symptoms persist. Patient Language: Bulgarian Prescriptions: New benzonatate 200 mg capsule 200 mg PO TID 7 Days Qty: 21 0RF albuterol sulfate 90 mcg/actuation HFA aerosol inhaler 2 puff inhalation Q4-6H PRN (Reason: shortness of breath or wheezing) 30 Days Qty: 8.5 0RF prednisone 20 mg tablet 40 mg PO DAILY 5 Days Qty: 10 0RF No Action Sublocade 300 mg/1.5 mL solution, extended rel syringe SUBCUT Auvelity 45-105 mg tablet, IR and ER, biphasic PO lamotrigine 150 mg tablet 150 mg PO DAILY trazodone 100 mg tablet 100 mg PO HS PRN (Reason: Insomnia) hydroxyzine HCl 25 mg tablet 25 mg PO TID pregabalin 75 mg capsule 75 mg PO BID albuterol sulfate 90 mcg/actuation HFA aerosol inhaler 2 puff inhalation QID PRN (Reason: shortness of breath or wheezing) Qty: 6.7 0RF ondansetron 4 mg tablet,disintegrating 4 mg PO Q8H PRN (Reason: nausea and vomiting) Qty: 30 0RF Follow-up/Referrals: UNKNOWN,DOCTOR [Primary Care Provider] Stand Alone Forms: Work/School Release IP Time of Disposition: 16:02 Quality NIHSS Nursing Documentation ED NIHSS nursing documentation: reviewed/agree
--- OUTSIDE RECORDS SUMMARY | 2025-05-31 15:33 | XMS_ITS | Clinical Summary ---
Author Organization [facility] Address [address] [place] [address] Phone Care Team Providers Care Government Relations Manager Name Role Phone Shania Griggs APRN, CNP [...] Date Smoking Tobacco: Every Day Cigarettes 1 15.7 Started: 2009 Tobacco Cessation:Ready to Q uit: Not Asked; Counseling Given: Not Answered Alcohol Use Standard Drinks/Week Comments Yes 2 (1 standard drink = 0.6 oz pur e alcohol) every other day [facility] Utilities Answer Date Recorded In the past 12 months has [email or web address], [employer], oil, or water [employer] threatened to shut off services in your home? No 12/27/2024 Social Connection and Isolation Panel Answer Date Recorded In a typical week, how many times do you talk on the phone with family, friends, or neighbors? Patient declined 05/10/2024 How often do you get togethe r with friends or relatives? Patient declined 05/10/2024 How often do you attend mu-ism or yarsani serv ices? Patient declined 05/10/2024 Do you belong to any clubs o r organizations such as mu-ism groups, unions, fraternal or athletic groups, or [...] medical care, and heating? Patient declined 05/10/2024 [facility] - Occupational [...] any time in the past 12 m [facility], were you homeless or living in a retirement (including now)? No 12/27/2024 Sexually Active Control [...] measures to stabilize the patient. Care Teams Government Relations Manager Relationship Specialty Start Date End Date Shania Griggs, ASSISTANT PUBLIC DEFENDER, CLINICAL ACCOUNT SPECIALIST [address] [place] [address] PCP - General Certified Nurse Practitioner 05/10/24
[2025-05-31 15:37] VITALS: BP 150/104; PULSE 85; RESP 18; TEMP 36.9; O2SAT 97
[2025-05-31] MEDS: IPRATROPIUM 0.5 MG/ALBUTEROL SULFATE 2.5 MG AMPUL.NEB 3 ML INHALATION (15:57)
[2025-05-31 16:06] LABS: EDINFLUASCREEN Negative (Negative); EDINFLUBSCREEN Negative (Negative); EDSTREPNEGPOS1 Negative (Negative)
[2025-05-31 16:09] LABS: EDCOVIDSCREEN Negative (Negative)
== END 2025-05-31 16:16 | disposition home or self-care (01) ==
PROVIDERS: Emergency Provider Nurse Practitioner Family
DX: B34.9 Viral infection, unspecified (principal); J40 Bronchitis, not specified as acute or chronic; J06.9 Acute upper respiratory infection, unspecified; J02.9 Acute pharyngitis, unspecified; Z20.822 Contact with and (suspected) exposure to COVID-19; F17.210 Nicotine dependence, cigarettes, uncomplicated; F32.A Depression, unspecified
CPT/HCPCS: 87081; 87426; 87804; 87880; 99213; G0463